=== PATIENT | female | born 1955 | race Caucasian/White ===

== ENCOUNTER 2020-12-23 07:00 | Inpatient (IN) ==
[2020-12-21 11:15] LABS: Basophils # (Auto) 0.03 K/mcL (0.00-0.20); Basophils % (Auto) 0.5 % (0.0-2.0); Eosinophils # (Auto) 0.07 K/mcL (0.00-0.70); Eosinophils % (Auto) 1.2 % (0.0-7.0); Hematocrit 33.7 % (36.0-48.0); Hemoglobin 11.4 g/dL (12.0-15.0); Lymphocytes # (Auto) 2.06 K/mcL (1.50-4.80); Lymphocytes % (Auto) 35.2 % (15.0-49.0); Mean Cell Volume 93.1 fL (80.0-100.0); Mean Corpuscular HGB Conc 33.8 g/dL (31.0-36.0); Mean Platelet Volume 9.3 fL (7.4-10.4); Monocytes # (Auto) 0.56 K/mcL (0.10-0.90); Monocytes % (Auto) 9.6 % (1.0-12.0); Neutrophils % (Auto) 53.5 % (38.0-78.0); Platelet Count 245 K/mcL (140-440); RBC 3.62 M/mcL (4.00-5.20); WBC 5.9 K/mcL (4.5-11.0)
[2020-12-21 11:27] LABS: Blood Urea Nitrogen 18 mg/dL (8-23); Calcium 9.7 mg/dL (8.6-10.4); Carbon Dioxide 31 mmol/L (22-30); Chloride 98 mmol/L (96-108); Glomerular Filtration Rate 66; Glucose 84 mg/dL (70-105)
--- NOTE | 2020-12-21 16:09 | EKG ---
[facility] Test Date: 2020-12-21 Pat Name: Flavia Michelle Department: [facility] Room: Gender: Female Curriculum Development Manager: : [id number] Requested By: Doe Avery Order Number: [id number] Reading MD: Akshat Billy M.D. Measurements Intervals [place] Rate: 57 P: 57 UT: 228 QRS: 48 QRSD: 108 T: 8 QT: 456 QTc: 444 Interpretive Statements SINUS BRADYCARDIA FIRST DEGREE AV BLOCK PROBABLE LEFT ATRIAL ABNORMALITY Electronically Signed On 12-21-2020 16:09:31 PDT by Akshat Billy M.D. /[email or web address]/[email or web address]/[id number]
[~2020-12-23 07:00] MED LIST: IPRATROPIUM/ALBUTEROL 3 ML AMPUL.NEB NEB PRN; SCOPOLAMINE 1 PATCH PATCH TOPICAL PRN; ceFAZolin 2 GM in DEXTROSE 5% IN WATER 50 ML IV SCH
[2020-12-23 09:43] LABS: Appearance,Urine HAZY (Clear); Bilirubin,Urine Negative (Negative); Color,Urine Yellow; Culture Indicated,Urine yes; Glucose,Urine (UA) Negative (Negative); Ketones,Urine Negative (Negative); Leukocyte Esterase,Urine 500 /ug (Negative); Mucus,Urine MOD /hpf; Nitrate,Urine Negative (Negative); Protein,Urine Negative (Negative); Specific Gravity,Urine 1.032 (1.000-1.035); Urine Blood Negative (Negative); Urine Hyaline Cast 18 /lph (0-2); Urine RBC 3 /hpf (0-3); Urine Squamous Epithelial Cell < 1 /hpf (0-4); Urine Transitional Epi Cells 1 /hpf (0-2); Urine WBC 49 /hpf (0-4); Urobilinogen,Urine Negative
[2020-12-23] MEDS ORDERED: LIDOCAINE 1% 20 ML VIAL SQ ONE (10:00)
[2020-12-23] MEDS ORDERED: BUPIVACAINE W/EPI 0.5% 50 ML VIAL IJ ONE (10:00)
[2020-12-23] MEDS ORDERED: IPRATROPIUM/ALBUTEROL 3 ML AMPUL.NEB NEB PRN (11:24)
[2020-12-23] MEDS ORDERED: ONDANSETRON 4 MG/2 ML VIAL IV PRN (11:24)
[2020-12-23] MEDS ORDERED: ePHEDrine 50 MG/ML AMPUL IV PRN (11:24)
[2020-12-23] MEDS ORDERED: BENZOCAINE/MENTHOL 1 LOZENGE PO PRN (11:24)
[2020-12-23] MEDS ORDERED: KETOROLAC 15 MG/ML VIAL IV PRN (11:24)
[2020-12-23] MEDS ORDERED: LABETALOL 5 MG/ML ML IV PRN (11:24)
[2020-12-23] MEDS ORDERED: LACTATED RINGERS 250 ML IV PRN (11:24)
[2020-12-23] MEDS ORDERED: ACETAMINOPHEN 1,000 MG/100 ML BAG IV ONE (11:24)
[2020-12-23] MEDS ORDERED: fentaNYL 100 MCG/2 ML VIAL IV PRN (11:24)
[2020-12-23] MEDS ORDERED: LACTATED RINGERS 1,000 ML IV SCH (11:30)
--- NOTE | 2020-12-23 12:03 | Operative Note ---
Brief Operative Note Date of procedure: 12/23/20 Pre-op diagnosis: Long history of symptomatic diverticulitis Post-op diagnosis: same Procedure: Sigmoid colectomy Grafts/Implants: No Anesthesia: GETA Findings: Inflamed distal sigmoid colon Complications: none Surgeon: Williams Arevalo Estimated blood loss (cc): 100 Specimens Removed/Pathology: other (Sigmoid colon, anastomotic donuts) Condition: stable Disposition: floor Operative Note Operative Note: After risk benefits and alternatives to the procedure were discussed with her at length she verbalized desire to continue with the procedure. Patient was taken main operating place upon the operative table. General anesthesia was induced over endotracheal tube. Patient's prepped and draped in standard sterile surgical fashion. Surgical timeout was taken to verify patient and procedure being performed. 1% lidocaine half percent Marcaine was used for local anesthesia throughout the case. Supraumbilical incision was made the fascia was grasped and opened under direct vision and a 12 mm trocar was placed. Abdominal cavity was insufflated carbon oxide in standard fashion. Visual inspection revealed lower midline omental adhesions to her prior incision. An additional 12 mm right lower quadrant trocar and a 5 mm right-sided trochars were then placed under direct vision. Extensive lysis of adhesions was taken out to take down the midline omental adhesions patient was placed in a headdown left side up position and attention was turned to the sigmoid colon. There is dense adhesions all around the sigmoid colon in the pelvis, these were carefully taken down with sharp and electrocautery dissection to fully mobilized the sigmoid colon. The rectum was then transected at the rectosigmoid junction and the mesentery was taken down to healthy-appearing colon with the LigaSure device. EEA sizers were then brought up through the rectum and it was unable to reach the end of the rectum due to further adhesions therefore decision made to open the midline incision further for open dissection. The midline was extended down to the pubic tubercle, retractors were placed and attention was turned to the rectum once this was done the sizers were able to be brought up to the end of the rectum without difficulty and the rectum was dilated to a 33 EEA sizer. The colon was then transected just proximal to the most inflamed portion of the sigmoid colon and the sigmoid colon was passed off the field for surgical pathology. The end of the colon was opened a 29 EEA anvil was placed and the colon was closed with a 3-0 Prolene pursestring suture. The 29 EEA stapler was then brought up through the rectum and a end-to-end stapled anastomosis was performed. A leak test was was performed which showed the anastomosis to be widely patent and completely airtight with no evidence of leak. The abdominal cavity was irrigated the colon was returned to its anatomical position the omentum was returned back to the pelvis and the rest of abdominal expiration was within normal limits. The midline fascial defect was then closed with a running looped PDS suture and the skin was closed with interrupted 4-0 Monocryl sutures. Skin glue dressings were applied. Patient was then awakened from anesthesia transported postanesthesia care unit awake alert in good condition.
[2020-12-23] MEDS ORDERED: IBUPROFEN 600 MG TABLET PO PRN (12:09)
[2020-12-23] MEDS: MEPERIDINE 25 MG/ML VIAL IV PRN ×2 (12:13→12:22)
[2020-12-23] MEDS: LACTATED RINGERS 1,000 ML IV SCH ×2 (12:42→16:44)
[2020-12-23] MEDS: KETOROLAC 15 MG/ML VIAL IV SCH ×2 (13:10→18:04)
[2020-12-23] MEDS ORDERED: ePHEDrine 50 MG/ML AMPUL IV ONE (13:45)
[2020-12-23] MEDS ORDERED: LIDOCAINE HCL/PF 100 MG/5 ML SYRINGE IV ONE (13:45)
[2020-12-23] MEDS ORDERED: MAGNESIUM SULFATE 2 GM/50 ML BAG IV ONE (13:45)
[2020-12-23] MEDS ORDERED: MIDAZOLAM HCL 10 MG/2 ML VIAL ONE (13:45)
[2020-12-23] MEDS ORDERED: fentaNYL 100 MCG/2 ML VIAL IV ONE (13:45)
[2020-12-23] MEDS ORDERED: DEXAMETHASONE 10 MG/ML VIAL ONE (13:45)
[2020-12-23] MEDS ORDERED: KETAMINE 50 MG/ML ML ONE (13:45)
[2020-12-23] MEDS ORDERED: ROCURONIUM 10 MG/ML ML IV ONE (13:45)
[2020-12-23] MEDS ORDERED: ONDANSETRON 4 MG/2 ML VIAL ONE (13:45)
[2020-12-23] MEDS ORDERED: HYDROMORPHONE ONE (13:45)
[2020-12-23] MEDS ORDERED: PROPOFOL 200 MG/20 ML VIAL IV ONE (13:45)
[2020-12-23] MEDS ORDERED: GLYCOPYRROLATE 0.2 MG/ML VIAL IV ONE (13:45)
[2020-12-23] MEDS ORDERED: VASOPRESSIN 20 UNIT/ML VIAL ONE (13:45)
[2020-12-23] MEDS ORDERED: PHENYLEPHRINE 10 MG/ML VIAL ONE (13:45)
[2020-12-23] MEDS: oxyCODONE HCL 5 MG TABLET PO PRN ×2 (14:10→19:35)
[2020-12-23] MEDS: 0.9 % SODIUM CHLORIDE 10 ML SYRINGE IV SCH ×2 (14:11→22:39)
[2020-12-24] MEDS: oxyCODONE HCL 5 MG TABLET PO PRN ×2 (00:25→12:38)
[2020-12-24] MEDS: LACTATED RINGERS 1,000 ML IV SCH ×3 (00:25→12:01)
[2020-12-24] MEDS: KETOROLAC 15 MG/ML VIAL IV SCH ×5 (00:49→23:01)
[2020-12-24] MEDS: 0.9 % SODIUM CHLORIDE 10 ML SYRINGE IV SCH ×3 (05:01→23:00)
[2020-12-24] MEDS: LEVOTHYROXINE 25 MCG TABLET PO SCH (08:25)
[2020-12-24] MEDS: HYDROCHLOROTHIAZIDE 25 MG TABLET PO SCH (09:29)
[2020-12-24] MEDS: LISINOPRIL 20 MG TABLET PO SCH (09:29)
--- NOTE | 2020-12-24 09:29 | General Surgery Progress Note ---
SUBJECTIVE Subjective Patient information: Note initiated : 12/24/20 at 9:27 am Service Date, if different from initiated Date: [] Patient: Flavia Michelle 65 y/o F admitted on 12/23/20 for Laparoscopic Sigmoid Colectomy. Chief Complaint: [] Interval history: Postop day #1 status post sigmoid colectomy. Patient reports passing flatus, she is ambulatory with minimal pain. Constitutional Vitals: Vital Signs Temp Pulse Resp BP Pulse Ox 99 F 66 18 132/73 99 12/24/20 07:49 12/24/20 07:49 12/24/20 07:49 12/24/20 07:49 12/24/20 07:49 Period Temp Pulse Resp BP Sys/Engle Pulse Ox Last 24 Hr 97.2 F-99.1 F 60-90 12-22 102-137/40-73 88-99 Intake and Output 12/23/20 12/24/20 12/24/20 21:59 05:59 13:59 Intake Total 1304 1260 1000 Output Total 100 200 Balance 1204 1060 1000 Weight 183 lb 6.4 oz Intake & Output: Intake & Output 12/23/20 12/24/20 12/24/20 21:59 05:59 13:59 Intake Total 1304 1260 1000 Output Total 100 200 Balance 1204 1060 1000 Weight 183 lb 6.4 oz Intake: IV 298 052 7246 Lactated Ringers 1,000 ml @ 125 705 715 3368 mls/hr IV .Q8H ABDI Rx#: [id number] Oral 800 300 Output: Void Amount 100 200 Other: Urine Appearance Clear Clear Urine Color Bright Yellow Bright Yellow General appearance: cooperative and no acute distress GI/Abdominal GI/Abdominal exam: Present soft and tenderness (Appropriately tender to palpation, incision is clean dry and intact); Absent distended A/P Narrative A/P Narrative: Postop day #1 status post sigmoid colectomy. Patient is doing as expected, encourage ambulation today. Will advance diet to full liquids awaiting full return of bowel function. Time Spent With Patient Time: Total time spent is greater than 50% in coordination of care (as documented) at patient's floor/unit and/or counseling patient:
[2020-12-24] MEDS: DEXTROSE 5%-1/2NS W/20MEQ KCL 1,000 ML IV SCH ×2 (14:56→23:02)
[2020-12-25] MEDS: oxyCODONE HCL 5 MG TABLET PO PRN ×4 (01:20→22:47)
[2020-12-25] MEDS: KETOROLAC 15 MG/ML VIAL IV SCH (05:06)
[2020-12-25] MEDS: 0.9 % SODIUM CHLORIDE 10 ML SYRINGE IV SCH ×3 (07:37→23:21)
[2020-12-25] MEDS: LEVOTHYROXINE 25 MCG TABLET PO SCH (08:20)
[2020-12-25 08:22] LABS: Basophils # (Auto) 0.02 K/mcL (0.00-0.20); Basophils % (Auto) 0.2 % (0.0-2.0); Eosinophils % (Auto) 1.2 % (0.0-7.0); Hematocrit 26.7 % (36.0-48.0); Hemoglobin 8.9 g/dL (12.0-15.0); Lymphocytes # (Auto) 1.85 K/mcL (1.50-4.80); Lymphocytes % (Auto) 21.8 % (15.0-49.0); Mean Cell Volume 94.7 fL (80.0-100.0); Mean Corpuscular HGB Conc 33.3 g/dL (31.0-36.0); Mean Platelet Volume 9.5 fL (7.4-10.4); Monocytes # (Auto) 0.69 K/mcL (0.10-0.90); Monocytes % (Auto) 8.1 % (1.0-12.0); Neutrophils % (Auto) 68.7 % (38.0-78.0); Platelet Count 181 K/mcL (140-440); RBC 2.82 M/mcL (4.00-5.20); Red Cell Distribution Width 13.2 % (11.5-14.5); WBC 8.5 K/mcL (4.5-11.0)
[2020-12-25 08:23] LABS: Blood Urea Nitrogen 11 mg/dL (8-23); Calcium 8.9 mg/dL (8.6-10.4); Carbon Dioxide 27 mmol/L (22-30); Chloride 93 mmol/L (96-108); Glomerular Filtration Rate 90; Glucose 104 mg/dL (70-105)
[2020-12-25] MEDS: DEXTROSE 5%-1/2NS W/20MEQ KCL 1,000 ML IV SCH ×3 (09:02→22:47)
--- NOTE | 2020-12-25 09:06 | General Surgery Progress Note ---
SUBJECTIVE Subjective Patient information: Note initiated : 12/25/20 at 9:05 am Service Date, if different from initiated Date: [] Patient: Flavia Michelle 65 y/o F admitted on 12/23/20 for Laparoscopic Sigmoid Colectomy. Chief Complaint: [] Interval history: Postop day #2 status post sigmoid colectomy. Patient is ambulatory, she is tolerating a full liquid diet, she is passing flatus, no bowel movement as of yet. Constitutional Vitals: Vital Signs Temp Pulse Resp BP Pulse Ox 97.4 F 60 20 111/52 90 12/25/20 07:55 12/25/20 07:55 12/25/20 07:55 12/25/20 07:55 12/25/20 07:55 Period Temp Pulse Resp BP Sys/Engle Pulse Ox Last 24 Hr 96.8 F-98.4 F 16-78 16-20 111-129/52-76 90-99 Intake and Output 12/24/20 12/25/20 12/25/20 21:59 05:59 13:59 Intake Total 800 1210 1000 Output Total 0 Balance 800 1210 1000 Weight 185 lb 3.2 oz Intake & Output: Intake & Output 12/24/20 12/25/20 12/25/20 21:59 05:59 13:59 Intake Total 800 1210 1000 Output Total 0 Balance 800 1210 1000 Weight 185 lb 3.2 oz Intake: IV 492 681 9404 Dextrose 5%-1/2Ns W/20Meq KCl 1 810 1000 ,000 ml @ 100 mls/hr IV .Q10H ABDI Rx#:[id number] Lactated Ringers 1,000 ml @ 125 800 mls/hr IV .Q8H ABDI Rx#: [id number] Oral 400 Output: Void Amount 0 Other: Urine Appearance Clear Urine Color Bright Yellow # Voids 1 General appearance: cooperative and no acute distress GI/Abdominal GI/Abdominal exam: Present soft and tenderness; Absent distended Additional comments: Incision is clean dry and intact A/P Narrative A/P Narrative: Postop day #2 status post sigmoid colectomy. Patient is progressing as expected, will decrease IV fluid, recheck labs in the a.m. Awaiting return of full bowel function. Time Spent With Patient Time: Total time spent is greater than 50% in coordination of care (as documented) at patient's floor/unit and/or counseling patient:
[2020-12-25] MEDS: HYDROCHLOROTHIAZIDE 25 MG TABLET PO SCH (12:53)
[2020-12-25] MEDS: LISINOPRIL 20 MG TABLET PO SCH (12:54)
[2020-12-26] MEDS: oxyCODONE HCL 5 MG TABLET PO PRN ×2 (05:01→12:54)
[2020-12-26 06:43] LABS: Basophils # (Auto) 0.03 K/mcL (0.00-0.20); Basophils % (Auto) 0.5 % (0.0-2.0); Eosinophils # (Auto) 0.09 K/mcL (0.00-0.70); Eosinophils % (Auto) 1.4 % (0.0-7.0); Hematocrit 27.7 % (36.0-48.0); Hemoglobin 9.3 g/dL (12.0-15.0); Lymphocytes # (Auto) 1.43 K/mcL (1.50-4.80); Lymphocytes % (Auto) 22.2 % (15.0-49.0); Mean Cell Volume 94.9 fL (80.0-100.0); Mean Corpuscular HGB Conc 33.6 g/dL (31.0-36.0); Mean Platelet Volume 9.4 fL (7.4-10.4); Monocytes # (Auto) 0.52 K/mcL (0.10-0.90); Monocytes % (Auto) 8.1 % (1.0-12.0); Neutrophils % (Auto) 67.8 % (38.0-78.0); Platelet Count 202 K/mcL (140-440); RBC 2.92 M/mcL (4.00-5.20); Red Cell Distribution Width 13.3 % (11.5-14.5); WBC 6.5 K/mcL (4.5-11.0)
[2020-12-26] MEDS: 0.9 % SODIUM CHLORIDE 10 ML SYRINGE IV SCH ×3 (06:47→20:50)
[2020-12-26] MEDS: LEVOTHYROXINE 25 MCG TABLET PO SCH (07:02)
[2020-12-26 07:39] LABS: Blood Urea Nitrogen 6 mg/dL (8-23); Carbon Dioxide 25 mmol/L (22-30); Chloride 97 mmol/L (96-108); Glomerular Filtration Rate 94; Glucose 98 mg/dL (70-105)
--- NOTE | 2020-12-26 08:35 | General Surgery Progress Note ---
SUBJECTIVE Subjective Patient information: Note initiated : 12/26/20 at 8:33 am Service Date, if different from initiated Date: [] Patient: Flavia Michelle 65 y/o F admitted on 12/23/20 for Laparoscopic Sigmoid Colectomy. Chief Complaint: [] Interval history: Postop day #3 status post sigmoid colectomy. Patient is ambulatory, tolerating liquid diet. She is passing flatus. Abdominal pain is minimal. She has no bowel movement Constitutional Vitals: Vital Signs Temp Pulse Resp BP Pulse Ox 98.7 F 70 16 137/62 95 12/26/20 04:56 12/26/20 04:56 12/26/20 04:56 12/26/20 04:56 12/26/20 04:56 Period Temp Pulse Resp BP Sys/Engle Pulse Ox Last 24 Hr 98.6 F-99.3 F 67-74 14-18 113-139/58-65 90-95 Intake and Output 12/25/20 12/26/20 12/26/20 21:59 05:59 13:59 Intake Total 560 1195 Balance 560 1195 Intake & Output: Intake & Output 12/25/20 12/26/20 12/26/20 21:59 05:59 13:59 Intake Total 560 1195 Balance 560 1195 Intake: IV 995 Dextrose 5%-1/2Ns W/20Meq KCl 1 995 ,000 ml @ 75 mls/hr IV .[id number] ABDI Rx#:[id number] Oral 560 200 Other: Meal Dinner Percent of Meal Consumed 100% # Voids 4 1 General appearance: cooperative and no acute distress GI/Abdominal GI/Abdominal exam: Present soft; Absent distended and tenderness A/P Narrative A/P Narrative: Postop visit #3 status post sigmoid colectomy. Awaiting full return of bowel movement. Continue ambulation, restart all home medications. Time Spent With Patient Time: Total time spent is greater than 50% in coordination of care (as documented) at patient's floor/unit and/or counseling patient:
[2020-12-26] MEDS: PRIMIDONE 50 MG TABLET PO SCH ×2 (08:46→20:50)
[2020-12-26] MEDS: VITAMIN E (DL,TOCOPHERYL ACET) 400 UNIT CAPSULE PO SCH (08:46)
[2020-12-26] MEDS: HYDROCHLOROTHIAZIDE 25 MG TABLET PO SCH (08:46)
[2020-12-26] MEDS: LISINOPRIL 20 MG TABLET PO SCH (08:46)
[2020-12-26] MEDS: buPROPion 150 MG TAB.XL.24H PO SCH (08:47)
[2020-12-26] MEDS: PANTOPRAZOLE 40 MG TABLET PO SCH ×2 (08:47→16:42)
[2020-12-26] MEDS: FUROSEMIDE 20 MG TABLET PO SCH (08:47)
[2020-12-26] MEDS: BUDESONIDE 3 MG CAP.XL.24H PO SCH (08:58)
[2020-12-26] MEDS: METHOCARBAMOL 500 MG TABLET PO PRN (08:58)
--- NOTE | 2020-12-26 13:06 | Surgical Pathology Report ---
Histology Microscopic Diagnosis Specimen A- COLON, SIGMOID, EXCISION: --- TWO FRAGMENTS OF VIABLE COLON WALL WITH NO HISTOLOGIC ALTERATIONS. Procedural Impression Diverticulitis. Gross Description Received in formalin labeled colon resection sigmoid segmental, are two colon donut fragments. The first measures 2.7 x 1.9 x 1.3 cm. The second measures 2.2 x 1.3 x 1.1 cm. Building Admin sections are submitted in one cassette. Microscopic Diagnosis Specimen B- COLON, SIGMOID, SEGMENTAL RESECTION: --- DIVERTICULOSIS. --- MARGINS VIABLE. (DMT) Gross Description Received in formalin labeled sigmoid tissue, is an unoriented length of colon received with both ends stapled. The specimen measures 12.6 cm in length by up to 3.5 cm in greatest diameter. There is abundant attached pericolic fat. The serosa is unremarkable. The staple lines measure 4.3 cm and 4 cm. The specimen is opened to reveal johnson-pink folded mucosa. One diverticulum is identified 2 cm from one staple line. The mucosa is otherwise unremarkable. No mass or lesion is identified. No lymph nodes are grossly identified. Building Admin sections are submitted: B1 - margin nearest diverticulum; B2 - opposing margin; B3 - sections of diverticulum; B4 - grossly normal mucosa. (EBD:bmw) Electronically Signed Gopal Melendez MD, FCAP Electronically Signed 12/26/2020 13:03
[2020-12-26] MEDS: DEXTROSE 5%-1/2NS W/20MEQ KCL 1,000 ML IV SCH (13:57)
[2020-12-26] MEDS: ACETAMINOPHEN 325 MG TABLET PO PRN (17:48)
[2020-12-26] MEDS: NITROFURANTOIN MACROCRYSTAL 50 MG PO SCH (20:50)
[2020-12-26] MEDS: PRAMIPEXOLE 0.25 MG TABLET PO SCH (20:50)
[2020-12-27] MEDS: 0.9 % SODIUM CHLORIDE 10 ML SYRINGE IV SCH ×3 (06:25→21:11)
[2020-12-27] MEDS: LEVOTHYROXINE 25 MCG TABLET PO SCH (07:26)
[2020-12-27] MEDS: PANTOPRAZOLE 40 MG TABLET PO SCH ×2 (07:26→17:09)
[2020-12-27] MEDS: VITAMIN E (DL,TOCOPHERYL ACET) 400 UNIT CAPSULE PO SCH (08:28)
[2020-12-27] MEDS: PRIMIDONE 50 MG TABLET PO SCH ×2 (08:28→21:11)
[2020-12-27] MEDS: buPROPion 150 MG TAB.XL.24H PO SCH (08:28)
[2020-12-27] MEDS: LISINOPRIL 20 MG TABLET PO SCH (08:28)
[2020-12-27] MEDS: FUROSEMIDE 20 MG TABLET PO SCH (08:29)
[2020-12-27] MEDS: HYDROCHLOROTHIAZIDE 25 MG TABLET PO SCH (08:29)
[2020-12-27] MEDS: POTASSIUM CHLORIDE 20 MEQ TABLET PO SCH (08:29)
[2020-12-27] MEDS: BUDESONIDE 3 MG CAP.XL.24H PO SCH (09:02)
[2020-12-27] MEDS: oxyCODONE HCL 5 MG TABLET PO PRN ×2 (09:08→14:09)
--- NOTE | 2020-12-27 14:21 | General Surgery Progress Note ---
SUBJECTIVE Subjective Patient information: Note initiated : 12/27/20 at 2:03 pm Service Date, if different from initiated Date: [] Patient: Flavia Michelle 65 y/o F admitted on 12/23/20 for Laparoscopic Sigmoid Colectomy. Chief Complaint: [] Interval history: Postop day #4 status post sigmoid colectomy, patient is having increased amount of gas pains today, reports flatus but no bowel movement at this time. She is tolerating full liquid diet without nausea or vomiting. She has been ambulatory since surgery. Constitutional Vitals: Vital Signs Temp Pulse Resp BP Pulse Ox 99.1 F H 69 22 118/55 90 12/27/20 12:00 12/27/20 12:00 12/27/20 12:00 12/27/20 12:00 12/27/20 12:00 Period Temp Pulse Resp BP Sys/Engle Pulse Ox Last 24 Hr 98.1 F-100.0 F 68-85 14-22 107-149/51-68 90-96 Intake and Output 12/27/20 12/27/20 12/27/20 05:59 13:59 21:59 Intake Total 450 Output Total 150 Balance 300 Weight 182 lb 8 oz Intake & Output: Intake & Output 12/27/20 12/27/20 12/27/20 05:59 13:59 21:59 Intake Total 450 Output Total 150 Balance 300 Weight 182 lb 8 oz Intake: Oral 450 Output: Void Amount 150 Other: Urine Appearance Clear Urine Color Dark Yellow General appearance: cooperative and no acute distress GI/Abdominal GI/Abdominal exam: Present soft and distended (Mild distention); Absent rebound and tenderness A/P Narrative A/P Narrative: Awaiting full return of bowel movement. Encourage ambulation, will start simethicone. We will recheck labs tomorrow. Time Spent With Patient Time: Total time spent is greater than 50% in coordination of care (as documented) at patient's floor/unit and/or counseling patient:
[2020-12-27] MEDS: SIMETHICONE 80 MG TAB.CHEW CHEWED PRN (15:00)
[2020-12-27] MEDS: PRAMIPEXOLE 0.25 MG TABLET PO SCH (21:11)
[2020-12-27] MEDS: NITROFURANTOIN MACROCRYSTAL 50 MG PO SCH (21:11)
[2020-12-28] MEDS: SIMETHICONE 80 MG TAB.CHEW CHEWED PRN ×2 (05:23→15:20)
[2020-12-28] MEDS: oxyCODONE HCL 5 MG TABLET PO PRN ×4 (05:23→19:59)
[2020-12-28] MEDS: 0.9 % SODIUM CHLORIDE 10 ML SYRINGE IV SCH ×3 (05:24→21:47)
[2020-12-28 06:43] LABS: Basophils # (Auto) 0.01 K/mcL (0.00-0.20); Basophils % (Auto) 0.1 % (0.0-2.0); Eosinophils # (Auto) 0.09 K/mcL (0.00-0.70); Eosinophils % (Auto) 1.1 % (0.0-7.0); Hematocrit 26.2 % (36.0-48.0); Hemoglobin 8.7 g/dL (12.0-15.0); Lymphocytes # (Auto) 1.32 K/mcL (1.50-4.80); Lymphocytes % (Auto) 15.7 % (15.0-49.0); Mean Cell Volume 93.2 fL (80.0-100.0); Mean Corpuscular HGB Conc 33.2 g/dL (31.0-36.0); Mean Platelet Volume 9.3 fL (7.4-10.4); Monocytes # (Auto) 0.83 K/mcL (0.10-0.90); Monocytes % (Auto) 9.9 % (1.0-12.0); Neutrophils % (Auto) 73.2 % (38.0-78.0); Platelet Count 228 K/mcL (140-440); RBC 2.81 M/mcL (4.00-5.20); Red Cell Distribution Width 13.1 % (11.5-14.5); WBC 8.4 K/mcL (4.5-11.0)
[2020-12-28 07:11] LABS: Blood Urea Nitrogen 11 mg/dL (8-23); Carbon Dioxide 27 mmol/L (22-30); Chloride 96 mmol/L (96-108); Glomerular Filtration Rate 90; Glucose 88 mg/dL (70-105)
[2020-12-28] MEDS: FAMOTIDINE 20 MG TABLET PO PRN (10:49)
[2020-12-28] MEDS: POTASSIUM CHLORIDE 20 MEQ TABLET PO SCH (10:49)
[2020-12-28] MEDS: buPROPion 150 MG TAB.XL.24H PO SCH (10:49)
[2020-12-28] MEDS: LEVOTHYROXINE 25 MCG TABLET PO SCH (10:49)
[2020-12-28] MEDS: FUROSEMIDE 20 MG TABLET PO SCH (10:50)
[2020-12-28] MEDS: LISINOPRIL 20 MG TABLET PO SCH (10:50)
[2020-12-28] MEDS: METHOCARBAMOL 500 MG TABLET PO PRN (10:50)
[2020-12-28] MEDS: HYDROCHLOROTHIAZIDE 25 MG TABLET PO SCH (10:51)
[2020-12-28] MEDS: PANTOPRAZOLE 40 MG TABLET PO SCH ×2 (10:51→16:23)
[2020-12-28] MEDS: BUDESONIDE 3 MG CAP.XL.24H PO SCH (10:51)
[2020-12-28] MEDS: VITAMIN E (DL,TOCOPHERYL ACET) 400 UNIT CAPSULE PO SCH (10:56)
[2020-12-28] MEDS: PRIMIDONE 50 MG TABLET PO SCH ×2 (12:31→21:52)
[2020-12-28] MEDS: ACETAMINOPHEN 325 MG TABLET PO PRN ×2 (15:20→23:21)
--- NOTE | 2020-12-28 15:51 | General Surgery Progress Note ---
SUBJECTIVE Subjective Patient information: Note initiated : 12/28/20 at 3:50 pm Service Date, if different from initiated Date: [] Patient: Flavia Michelle 65 y/o F admitted on 12/23/20 for Laparoscopic Sigmoid Colectomy. Chief Complaint: [] Interval history: Postop day #5 status post sigmoid colectomy. Patient reports overnight her bowels became much more active, she started passing multiple bouts of flatus, has not had a bowel movement as of yet. Patient no longer feels distended, she has no nausea or vomiting. Constitutional Vitals: Vital Signs Temp Pulse Resp BP Pulse Ox 99.0 F 71 20 124/54 95 12/28/20 11:59 12/28/20 11:59 12/28/20 11:59 12/28/20 11:59 12/28/20 11:59 Period Temp Pulse Resp BP Sys/Engle Pulse Ox Last 24 Hr 98.1 F-99.2 F 67-77 14-20 124-148/54-62 92-95 Intake and Output 12/28/20 12/28/20 12/28/20 05:59 13:59 21:59 Intake Total 250 540 Output Total 200 900 Balance 50 -360 Intake & Output: Intake & Output 12/28/20 12/28/20 12/28/20 05:59 13:59 21:59 Intake Total 250 540 Output Total 200 900 Balance 50 -360 Intake: Oral 250 540 Output: Void Amount 200 900 Other: Meal Breakfast Percent of Meal Consumed 75% Feeding Ability Assist with Tray Set Up Urine Appearance Clear Urine Color Bright Yellow Dark Yellow Urine Odor Strong General appearance: cooperative and no acute distress GI/Abdominal GI/Abdominal exam: Present normal bowel sounds and soft; Absent distended and tenderness A/P Narrative A/P Narrative: Post sigmoid colectomy. Awaiting full return of bowel function. We will advance diet to regular today anticipating discharge in the next 24 to 48 hours. Time Spent With Patient Time: Total time spent is greater than 50% in coordination of care (as documented) at patient's floor/unit and/or counseling patient:
[2020-12-28] MEDS: NITROFURANTOIN MACROCRYSTAL 50 MG PO SCH (21:47)
[2020-12-28] MEDS: PRAMIPEXOLE 0.25 MG TABLET PO SCH (21:52)
[2020-12-29] MEDS: 0.9 % SODIUM CHLORIDE 10 ML SYRINGE IV SCH ×3 (05:09→20:35)
[2020-12-29] MEDS: VITAMIN E (DL,TOCOPHERYL ACET) 400 UNIT CAPSULE PO SCH (09:42)
[2020-12-29] MEDS: PANTOPRAZOLE 40 MG TABLET PO SCH ×2 (09:42→17:37)
[2020-12-29] MEDS: FUROSEMIDE 20 MG TABLET PO SCH (09:42)
[2020-12-29] MEDS: LEVOTHYROXINE 25 MCG TABLET PO SCH (09:42)
[2020-12-29] MEDS: FAMOTIDINE 20 MG TABLET PO PRN (09:42)
[2020-12-29] MEDS: LISINOPRIL 20 MG TABLET PO SCH (09:42)
[2020-12-29] MEDS: POTASSIUM CHLORIDE 20 MEQ TABLET PO SCH (09:42)
[2020-12-29] MEDS: SIMETHICONE 80 MG TAB.CHEW CHEWED PRN (09:42)
[2020-12-29] MEDS: PRIMIDONE 50 MG TABLET PO SCH ×2 (09:43→20:34)
[2020-12-29] MEDS: HYDROCHLOROTHIAZIDE 25 MG TABLET PO SCH (09:43)
[2020-12-29] MEDS: buPROPion 150 MG TAB.XL.24H PO SCH (09:43)
[2020-12-29] MEDS: BUDESONIDE 3 MG CAP.XL.24H PO SCH (09:43)
[2020-12-29] MEDS: oxyCODONE HCL 5 MG TABLET PO PRN ×3 (09:43→22:28)
[2020-12-29] MEDS: METHOCARBAMOL 500 MG TABLET PO PRN ×2 (09:43→17:35)
[2020-12-29] MEDS: PRAMIPEXOLE 0.25 MG TABLET PO SCH (20:34)
[2020-12-29] MEDS: NITROFURANTOIN MACROCRYSTAL 50 MG PO SCH (20:35)
[2020-12-30] MEDS: 0.9 % SODIUM CHLORIDE 10 ML SYRINGE IV SCH ×4 (02:51→20:54)
[2020-12-30] MEDS: oxyCODONE HCL 5 MG TABLET PO PRN ×3 (03:02→11:52)
[2020-12-30] MEDS: METHOCARBAMOL 500 MG TABLET PO PRN ×2 (03:03→10:18)
[2020-12-30] MEDS: LEVOTHYROXINE 25 MCG TABLET PO SCH (07:19)
[2020-12-30] MEDS: PANTOPRAZOLE 40 MG TABLET PO SCH ×2 (07:19→16:22)
--- NOTE | 2020-12-30 08:10 | General Surgery Progress Note ---
SUBJECTIVE Subjective Patient information: Note initiated : 12/30/20 at 8:08 am Service Date, if different from initiated Date: [] Patient: Flavia Michelle 65 y/o F admitted on 12/23/20 for Laparoscopic Sigmoid Colectomy. Chief Complaint: [] Interval history: Status post sigmoid colectomy. Patient feeling more distended today, decreased flatus over the last 24 hours. Ambulatory. No fevers no chills. Constitutional Vitals: Vital Signs Temp Pulse Resp BP Pulse Ox 97.6 F 90 20 95/50 91 12/30/20 07:47 12/30/20 07:47 12/30/20 07:47 12/30/20 07:47 12/30/20 07:47 Period Temp Pulse Resp BP Sys/Engle Pulse Ox Last 24 Hr 97.3 F-98.7 F 56-90 16-20 92-113/45-84 91-95 Intake and Output 12/29/20 12/30/20 12/30/20 21:59 05:59 13:59 Intake Total 0 400 Output Total 600 Balance 0 -200 Weight 176 lb 8 oz Intake & Output: Intake & Output 12/29/20 12/30/20 12/30/20 21:59 05:59 13:59 Intake Total 0 400 Output Total 600 Balance 0 -200 Weight 176 lb 8 oz Intake: Oral 0 400 Output: Void Amount 600 Other: Urine Appearance Clear Urine Color Bright Yellow General appearance: cooperative and no acute distress GI/Abdominal GI/Abdominal exam: Present soft and distended; Absent tenderness A/P Narrative A/P Narrative: Postop sigmoid colectomy. Postop ileus, awaiting return of full bowel function. We will add Colace today. Time Spent With Patient Time: Total time spent is greater than 50% in coordination of care (as documented) at patient's floor/unit and/or counseling patient:
[2020-12-30] MEDS: POTASSIUM CHLORIDE 20 MEQ TABLET PO SCH (08:25)
[2020-12-30] MEDS: DOCUSATE SODIUM 100 MG CAPSULE PO SCH ×2 (08:25→20:51)
[2020-12-30] MEDS: buPROPion 150 MG TAB.XL.24H PO SCH (08:27)
[2020-12-30] MEDS: FUROSEMIDE 20 MG TABLET PO SCH (08:27)
[2020-12-30] MEDS: PRIMIDONE 50 MG TABLET PO SCH ×2 (08:28→20:50)
[2020-12-30] MEDS: HYDROCHLOROTHIAZIDE 25 MG TABLET PO SCH (08:28)
[2020-12-30] MEDS: LISINOPRIL 20 MG TABLET PO SCH (08:28)
[2020-12-30] MEDS: VITAMIN E (DL,TOCOPHERYL ACET) 400 UNIT CAPSULE PO SCH (08:29)
[2020-12-30] MEDS: DEXTROSE 5%-1/2NS 1,000 ML IV SCH ×3 (10:08→23:49)
[2020-12-30] MEDS: ACETAMINOPHEN 325 MG TABLET PO PRN (10:19)
[2020-12-30] MEDS: BUDESONIDE 3 MG CAP.XL.24H PO SCH (10:27)
--- NOTE | 2020-12-30 15:20 | XRay Report ---
CLINICAL INFORMATION: Abdominal pain and distention COMPARISON: None. FINDINGS: A very large amount of stool is present within the right colon. Transverse colon is mildly dilated with normal amount stool gas seen in the descending rectosigmoid segment small bowel and stomach. No free air, soft tissue mass or pathologic calcification. IMPRESSION: Mild ileus with a large amount of stool in the right colon. No evidence of bowel obstruction Interpreted and Authenticated by: Corey Summers 12/30/20
[2020-12-30] MEDS: POLYETHYLENE GLYCOL 3350 17 GM PACKET PO SCH ×2 (16:20→20:51)
[2020-12-30] MEDS ORDERED: BISACODYL 10 MG SUPP.RECT PR ONE (16:42)
[2020-12-30] MEDS: BISACODYL 10 MG SUPP.RECT PR SCH (16:49)
[2020-12-30] MEDS ORDERED: METOCLOPRAMIDE 10 MG/2 ML VIAL IV SCH (18:00)
[2020-12-30] MEDS: SENNOSIDES 1 TABLET PO SCH (20:50)
[2020-12-30] MEDS: PRAMIPEXOLE 0.25 MG TABLET PO SCH (20:51)
[2020-12-30] MEDS: NITROFURANTOIN MACROCRYSTAL 50 MG PO SCH (20:57)
[2020-12-30] MEDS ORDERED: IPRATROPIUM/ALBUTEROL 3 ML AMPUL.NEB NEB ONE (23:13)
[2020-12-30] MEDS ORDERED: methylPREDNISolone SOD SUCC 125 MG/2 ML VIAL ONE (23:26)
[2020-12-30] MEDS ORDERED: METOCLOPRAMIDE 10 MG/2 ML VIAL IV PRN (23:26)
--- NOTE | 2020-12-30 23:36 | General Surg History&Physical ---
HPI History of Present Illness Patient information: Note initiated : 12/30/20 at 11:29 pm Service Date, if different from initiated Date: [] Patient: Flavia Michelle 65 y/o F admitted on 12/23/20 for Laparoscopic Sigmoid Colectomy. Chief Complaint: [] History of present illness: Ms. 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) Urinary tract infection (Chronic) Brain aneurysm (Chronic) URI (upper respiratory infection) (Chronic) Left thigh pain (Chronic) Right ankle pain (Chronic) Bilateral foot pain (Chronic) Wellness examination (Chronic) Ankle fracture (Chronic) Ecchymosis (Chronic) Painful breathing (Chronic) Left-sided chest wall pain (Chronic) Pyelonephritis (Chronic) Diaphoresis (Chronic) Situational stress (Chronic) Sleep apnea, unspecified (Chronic) Hx of colonoscopy (Chronic 03/19/16) Hx of fusion of cervical spine (Chronic 01/17/15) History of thumb surgery (Chronic ~03/2010) History of total hysterectomy (Chronic ~08/2000) Migraine (Chronic) Hypertension, essential, benign (Chronic) Depression (Chronic) Anxiety (Chronic) Allergic rhinitis, seasonal (Chronic) GERD (gastroesophageal reflux disease) (Chronic) Fatigue (Chronic) Diverticular disease (Chronic) Diabetes mellitus type 2, diet-controlled (Chronic) DDD (degenerative disc disease), lumbar (Chronic) Blood in stool (Chronic) Encounter for long-term (current) use of medications (Chronic) Arthralgia (Chronic) Hyperlipidemia (Chronic) DDD (degenerative disc disease), cervical (Chronic) Muscle spasm (Chronic) History of recurrent UTIs (Chronic) Resting tremor (Chronic) Postmenopausal status (Chronic) Hypothyroidism (Chronic) Schatzki's ring (Chronic) Collagenous colitis (Chronic) BMI 35.0-35.9,adult (Chronic) Chronic pain (Chronic) Central apnea (Chronic) Heel spur (Chronic) Anemia (Chronic) Recurrent sinusitis (Chronic) Tenosynovitis (Chronic) At risk for falls (Chronic) Restless leg syndrome (Chronic) Gastric ulcer (Chronic) Systolic murmur (Chronic) Lumbar radiculopathy (Chronic) Upper respiratory infection (Chronic) Frontal sinusitis (Chronic) Medical History Allergic rhinitis, seasonal Anemia Anxiety Arthralgia At risk for falls Blood in stool BMI 35.0-35.9,adult Central apnea Chronic pain on daily narcotics Collagenous colitis COVID-05/2020 DDD (degenerative disc disease), cervical DDD (degenerative disc disease), lumbar Depression Diabetes mellitus type 2, diet-controlled Diverticular disease history of Encounter for long-term (current) use of medications Fatigue Gastric ulcer GERD (gastroesophageal reflux disease) Heel spur History of recurrent UTIs Hyperlipidemia Hypertension, essential, benign Hypothyroidism LLQ abdominal pain Lumbar radiculopathy Migraine Muscle spasm Postmenopausal status Recurrent sinusitis Resting tremor Restless leg syndrome Schatzki's ring Systolic murmur Tenosynovitis Surgical History History of surgery Gamma knife surgery for [id number] Jc Miller History of thumb surgery (~03/2010) total thumb replacement History of total hysterectomy (~08/2000) Hx of colonoscopy (03/19/16) Dr Garcia Hx of fusion of cervical spine (01/17/15) Dr Mccoy Family History Father , 10/08/2019 Alcoholism Pancreatitis Other No pertinent family history Social History household members: significant other marital status: occupational status: disabled smoking status: Never smoker alcohol intake frequency: does not drink substance use type: does not use MEDS/ALLERGIES Home Medications and Allergies Home Medications Medication Instructions Recorded Confirmed Type budesonide 3 mg 9 mg PO DAILY each 05/18/19 12/23/20 History capsule,delayed,extended release furosemide 20 mg tablet 20 mg PO QAM #90 tab 02/17/20 12/23/20 Rx primidone 50 mg tablet 50 mg PO BID #180 tab 02/17/20 12/23/20 Rx bupropion HCl 300 mg 24 hr tablet, See Rx Instructions .ROUTE 09/08/20 06/04/21 Rx extended release .COMPLEX #90 tab hydrochlorothiazide 25 mg tablet See Rx Instructions .ROUTE 06/01/20 12/23/20 Rx .COMPLEX #90 tab lisinopril 40 mg tablet See Rx Instructions .ROUTE 08/08/20 12/23/20 Rx .COMPLEX #90 tab citalopram 40 mg tablet See Rx Instructions .ROUTE 12/01/20 12/23/20 Rx .COMPLEX #90 tab famotidine 20 mg tablet 20 mg PO DAILYP PRN 12/14/20 12/23/20 History methocarbamol 500 mg tablet 1,000 mg PO Q8HP PRN tab 12/14/20 12/23/20 History nitrofurantoin macrocrystal 50 mg 50 mg PO QHS 12/14/20 12/23/20 History capsule pantoprazole 40 mg tablet,delayed See Rx Instructions .ROUTE 12/16/20 12/23/20 Rx release .COMPLEX #90 tab calcium carbonate [Calcium 600] 1,200 mg PO QDAY 12/21/20 12/23/20 History cholecalciferol (vitamin D3) 25 mcg PO QDAY 12/21/20 12/23/20 History [Vitamin D3] hydrocodone-acetaminophen 2 tab PO Q8HP PRN 12/21/20 12/23/20 History levothyroxine 25 mcg PO QAMAC 12/21/20 12/23/20 History potassium chloride 20 meq PO QAMCC 12/21/20 12/23/20 History pramipexole 0.125 mg PO QHS 12/21/20 12/23/20 History vitamin E 400 unit PO QDAY 12/21/20 12/23/20 History Allergies Allergy/AdvReac Type Severity Reaction Status Date / Time clarithromycin [From Biaxin] AdvReac Mild Diarrhea Verified 12/21/20 08:15 Sulfa (Sulfonamide AdvReac Mild Photosensit Verified 12/21/20 08:07 Antibiotics) ivity Physical Examination Vital Signs Vital signs: Temp Pulse Resp BP Pulse Ox 97.2 F 84 22 108/53 90 12/30/20 15:54 12/30/20 15:54 12/30/20 15:54 12/30/20 15:54 12/30/20 15:54 Results Labs Result diagrams: 01/03/21 05:26 01/03/21 05:26 Labs: All other labs normal. A/P Assessment and plan (1) Atelectasis of left lung: Status: Acute (2) Hypoxemia requiring supplemental oxygen: Status: Acute (3) Sleep apnea, unspecified: Status: Chronic Qualifiers: Sleep apnea type: obstructive Qualified Code(s): G47.33 - Obstructive sleep apnea (adult) (pediatric) Narrative A/P Narrative: CXR STAT DUONEB Q4H CHEST PT WITH PERCUSSION PER PROTOCOL CXR IN AM Time Spent With Patient Time: Total time spent is greater than 50% in coordination of care (as documented) at patient's floor/unit and/or counseling patient:
[2020-12-30] MEDS: IPRATROPIUM/ALBUTEROL 3 ML AMPUL.NEB NEB SCH (23:47)
[2020-12-30 23:59] LABS: Basophils # (Auto) 0.08 K/mcL (0.00-0.20); Basophils % (Auto) 0.7 % (0.0-2.0); Eosinophils # (Auto) 0.01 K/mcL (0.00-0.70); Eosinophils % (Auto) 0.1 % (0.0-7.0); Hematocrit 29.2 % (36.0-48.0); Hemoglobin 9.9 g/dL (12.0-15.0); Lymphocytes # (Auto) 0.23 K/mcL (1.50-4.80); Lymphocytes % (Auto) 2.1 % (15.0-49.0); Mean Cell Volume 91.3 fL (80.0-100.0); Mean Corpuscular HGB Conc 33.9 g/dL (31.0-36.0); Mean Platelet Volume 9.2 fL (7.4-10.4); Monocytes % (Auto) 2.7 % (1.0-12.0); Neutrophils % (Auto) 94.4 % (38.0-78.0); Platelet Count 308 K/mcL (140-440); Red Cell Distribution Width 13.8 % (11.5-14.5); WBC 11.2 K/mcL (4.5-11.0)
[2020-12-31] MEDS: POLYETHYLENE GLYCOL 3350 17 GM PACKET PO SCH ×2 (00:16→03:20)
[2020-12-31] MEDS: IPRATROPIUM/ALBUTEROL 3 ML AMPUL.NEB NEB SCH ×6 (03:19→23:05)
[2020-12-31] MEDS ORDERED: IPRATROPIUM/ALBUTEROL 3 ML AMPUL.NEB NEB ONE (03:19)
--- NOTE | 2020-12-31 03:44 | XRay Report ---
CLINICAL INFORMATION: shortness of breath COMPARISON: 12/16/2019 FINDINGS: Mild cardiomegaly is unchanged. Mediastinum and pulmonary vessels are normal. There is minor bibasilar atelectasis. No infiltrates or effusions. Small amount of free intraperitoneal air seen under the diaphragms, as expected, following recent sigmoid colon surgery. IMPRESSION: Moderate bibasilar atelectasis and mild cardiomegaly Interpreted and Authenticated by: Corey Summers 12/31/20
[2020-12-31] MEDS: 0.9 % SODIUM CHLORIDE 10 ML SYRINGE IV SCH ×3 (04:37→20:42)
[2020-12-31] MEDS ORDERED: methylPREDNISolone SOD SUCC 125 MG/2 ML VIAL IV SCH (07:45)
[2020-12-31] MEDS: POTASSIUM CHLORIDE 20 MEQ TABLET PO SCH (07:54)
[2020-12-31] MEDS: PANTOPRAZOLE 40 MG TABLET PO SCH ×2 (07:55→16:01)
[2020-12-31] MEDS: LEVOTHYROXINE 25 MCG TABLET PO SCH (07:55)
[2020-12-31] MEDS: methylPREDNISolone SOD SUCC 125 MG/2 ML VIAL IV SCH ×5 (08:01→19:12)
[2020-12-31 08:50] LABS: Blood Urea Nitrogen 41 mg/dL (8-23); Calcium 8.9 mg/dL (8.6-10.4); Carbon Dioxide 20 mmol/L (22-30); Chloride 87 mmol/L (96-108); Glomerular Filtration Rate 39; Glucose 131 mg/dL (70-105)
[2020-12-31] MEDS ORDERED: BISACODYL 10 MG SUPP.RECT PR SCH (09:00)
--- NOTE | 2020-12-31 09:54 | XRay Report ---
CLINICAL INFORMATION: FOLLOW -UP OF SMALL BOWEL OBSTRUCTION. Reason sigmoid: surgery COMPARISON: 12/30/2020. FINDINGS: Stomach small large bowel are mildly dilated compatible mild ileus. Smaller free subdiaphragmatic air as expected following sigmoid colon surgery. No pathologic calcifications or soft tissue mass. IMPRESSION: Mild ileus Interpreted and Authenticated by: Corey Summers 12/31/20
--- NOTE | 2020-12-31 09:58 | XRay Report ---
CLINICAL INFORMATION: f/u atelectasis of left lung with hypoxemia COMPARISON: None. FINDINGS: Cardiomediastinal silhouette are normal for technique. Pulmonary vessels unremarkable. No segmental atelectasis in the bases. Free subdiaphragmatic air is unchanged compatible recent large bowel surgery IMPRESSION: Subsegmental atelectasis. Interpreted and Authenticated by: Corey Summers 12/31/20
[2020-12-31] MEDS: DOCUSATE SODIUM 100 MG CAPSULE PO SCH ×2 (10:05→20:39)
[2020-12-31] MEDS: VITAMIN E (DL,TOCOPHERYL ACET) 400 UNIT CAPSULE PO SCH (10:05)
[2020-12-31] MEDS: BISACODYL 10 MG SUPP.RECT PR SCH (10:05)
[2020-12-31] MEDS: PRIMIDONE 50 MG TABLET PO SCH ×2 (10:06→20:39)
[2020-12-31] MEDS: FUROSEMIDE 20 MG TABLET PO SCH (10:06)
[2020-12-31] MEDS: buPROPion 150 MG TAB.XL.24H PO SCH (10:06)
[2020-12-31] MEDS: BUDESONIDE 3 MG CAP.XL.24H PO SCH (10:07)
[2020-12-31] MEDS: LISINOPRIL 20 MG TABLET PO SCH (10:08)
[2020-12-31] MEDS: HYDROCHLOROTHIAZIDE 25 MG TABLET PO SCH (10:08)
[2020-12-31] MEDS ORDERED: FUROSEMIDE 40 MG/4 ML VIAL IV ONE (10:58)
--- NOTE | 2020-12-31 11:15 | General Surgery Progress Note ---
SUBJECTIVE Subjective Patient information: Note initiated : 12/31/20 at 11:03 am Service Date, if different from initiated Date: [] Patient: Flavia Michelle 65 y/o F admitted on 12/23/20 for Laparoscopic Sigmoid Colectomy. Chief Complaint: [] Principal diagnosis: Increasing shortness of breath; Abdominal distention Interval history: Patient states that she still has some shortness of breath. It is better than last evening but she still has significant dyspnea when ambulating to the bathroom. Oxygen saturation on room air is 90%. Abdominal distention persists and bowel sounds are hypoactive. She is passed a small amount of flatus and had a small bowel movement but she remains as distended as last evening. Today's x-ray shows gas extending all the way down to the rectum. Her bowel distention is primarily large intestine. Constitutional Vitals: Vital Signs Temp Pulse Resp BP Pulse Ox 97.9 F 94 H 22 116/54 91 12/31/20 08:00 12/31/20 08:00 12/31/20 08:00 12/31/20 08:00 12/31/20 08:00 Period Temp Pulse Resp BP Sys/Engle Pulse Ox Last 24 Hr 97.2 F-99.2 F 84-120 18-24 108-139/53-87 86-98 Intake and Output 12/30/20 12/31/20 12/31/20 21:59 05:59 13:59 Intake Total 518 1540 Output Total 600 Balance 518 940 Weight 178 lb 3.2 oz Intake & Output: Intake & Output 12/30/20 12/31/20 12/31/20 21:59 05:59 13:59 Intake Total 518 1540 Output Total 600 Balance 518 940 Weight 178 lb 3.2 oz Intake: IV 1000 Dextrose 5%-1/2Ns IV Solution 1 1000 ,000 ml @ 75 mls/hr IV .[id number] [facility] Rx#:[id number] Oral 518 540 Output: Void Amount 600 Other: Urine Appearance Clear Urine Color Bright Yellow Dark Yellow Urine Odor Normal Normal Stool Size Small Small Stool Color Brown Brown Stool Consistency Formed Formed # Voids 3 1 Head Head exam: Present atraumatic, normal inspection and normocephalic Eye Eye exam: Present EOMI Pupils: Present normal accommodation and PERRL ENT ENT exam: Present mucous membranes moist, normal exam and normal oropharynx Neck Neck exam: Present full ROM and normal inspection; Absent tenderness and thyromegaly Respiratory Additional comments: Decreased breath sounds bilaterally but much more diminished on the left side; no wheezing noted; hypoventilation from distended abdomen noted Cardiovascular Cardiovascular exam: Present RRR, +S1, +S2 and tachycardia (Heart rate 100-110 and regular); Absent JVD and systolic murmur GI/Abdominal GI/Abdominal exam: Present diminished bowel sounds and distended (Diffusely distended with tympany); Absent tenderness (No significant tenderness except for that related to distention; no peritoneal signs noted) Extremities Exam Extremities exam: Present full ROM, pedal edema (2+ pedal edema bilaterally), Foot pink and warm and neurovascular intact; Absent Faby's sign Additional comments: No tenderness along saphenous vein distribution noted; no evidence of venous cords Neurological Exam Neurological exam: Present alert and oriented X3 Additional comments: Resting essential tremor which increases with activity Psychiatric Psychiatric exam: Present agitated and anxious A/P Assessment and plan (1) Hypoxemia requiring supplemental oxygen: Status: Acute (2) Atelectasis of left lung: Status: Acute (3) Sleep apnea, unspecified: Status: Chronic Qualifiers: Sleep apnea type: obstructive Qualified Code(s): G47.33 - Obstructive sleep apnea (adult) (pediatric) (4) Anxiety: Status: Chronic (5) Resting tremor: Status: Chronic Narrative A/P Narrative: CT angio of chest to rule out pulmonary embolus Check proBNP today and tomorrow Greco catheter for measurement of intake and output And to reduce ambulation need Lasix 40 mg IV Start anticoagulation if CT is positive E CG today Time Spent With Patient Time: Total time spent is greater than 50% in coordination of care (as documented) at patient's floor/unit and/or counseling patient:
[2020-12-31 11:20] LABS: Basophils # (Auto) 0.13 K/mcL (0.00-0.20); Basophils % (Auto) 0.8 % (0.0-2.0); Eosinophils # (Auto) 0 K/mcL (0.00-0.70); Eosinophils % (Auto) 0 % (0.0-7.0); Hematocrit 28.8 % (36.0-48.0); Hemoglobin 9.6 g/dL (12.0-15.0); Lymphocytes # (Auto) 0.19 K/mcL (1.50-4.80); Lymphocytes % (Auto) 1.2 % (15.0-49.0); Mean Cell Volume 92.3 fL (80.0-100.0); Mean Corpuscular HGB Conc 33.3 g/dL (31.0-36.0); Mean Platelet Volume 9.2 fL (7.4-10.4); Monocytes # (Auto) 0.38 K/mcL (0.10-0.90); Monocytes % (Auto) 2.4 % (1.0-12.0); Neutrophils % (Auto) 95.6 % (38.0-78.0); Platelet Count 297 K/mcL (140-440); RBC 3.12 M/mcL (4.00-5.20); Red Cell Distribution Width 13.9 % (11.5-14.5); WBC 15.6 K/mcL (4.5-11.0)
[2020-12-31] MEDS ORDERED: IOPAMIDOL 100 ML BOTTLE IV ONE (13:44)
[2020-12-31] MEDS ORDERED: PIPERACILLIN SODIUM/TAZOBACTAM 3.375 GM in DEXTROSE 5% IN WATER 50 ML IV SCH (15:00)
--- NOTE | 2020-12-31 15:33 | Cat Scan Report ---
CLINICAL INFORMATION: Status post sigmoid colon surgery. Hypoxia COMPARISON: None. TECHNIQUE: 80ml of Isovue-370 were injected intravenously. Using SmartPrep to maximize pulmonary artery opacification, .625mm helical slices were obtained from the lung apices through the lung bases. Following reconstruction, 2.5 mm sagittal, coronal, and axial reformations were processed. The exam was reviewed at mediastinal, lung, and bone windows. The exam was performed using radiation dose optimization techniques including, but not limited to, automated exposure control, adjustment of the mA and/or kV according to patient size and use of iterative reconstruction technique. FINDINGS: Pulmonary arteries are normal diameter and well-opacified - no evidence of embolus. Thoracic aorta is also normal diameter and well-opacified. There is no adenopathy in the mediastinal hilar or axillary region. The heart is normal in size with minimal calcific plaque scattered in the coronary arteries. There is no mediastinal, hilar or axillary lymph nodes edema or hemorrhage. The esophagus demonstrates a moderate hiatal hernia. Moderate patchy airspace disease in both posterior lower lobes and lingula lingula with a minimal amount of the posterior right upper lobe likely represent subsegmental atelectasis. Developing aspiration pneumonia possible, but less likely. Tiny bilateral pleural effusions noted. Bones and soft tissues of the chest wall show no abnormality. Images through the upper abdomen show small amount of free air under the diaphragms compatible with recent abdominal surgery. No other abdominal abnormality IMPRESSION: 1. No evidence of pulmonary embolus. 2. Moderate patchy airspace disease in both lower lobes likely represent subsegmental atelectasis in this postoperative patient with distended abdomen. Developing aspiration pneumonia is less likely. 3. Moderate hiatal hernia. 4. Small amount of free subdiaphragmatic air, as expected, in the immediate postoperative period following sigmoid surgery. A small amount of free fluid also noted Interpreted and Authenticated by: Corey Summers 12/31/20
[2020-12-31] MEDS ORDERED: PIPERACILLIN SODIUM/TAZOBACTAM 2.25 GM in DEXTROSE 5% IN WATER 50 ML IV ONE (16:00)
[2020-12-31] MEDS: ACETAMINOPHEN 325 MG TABLET PO PRN ×2 (16:03→21:41)
[2020-12-31] MEDS: SIMETHICONE 80 MG TAB.CHEW CHEWED PRN (19:11)
[2020-12-31] MEDS: METOCLOPRAMIDE 10 MG/2 ML VIAL IV SCH (19:12)
[2020-12-31] MEDS: PIPERACILLIN SODIUM/TAZOBACTAM 2.25 GM in DEXTROSE 5% IN WATER 50 ML IV SCH ×2 (19:12→23:51)
[2020-12-31] MEDS: PRAMIPEXOLE 0.25 MG TABLET PO SCH (20:40)
[2020-12-31] MEDS: SENNOSIDES 1 TABLET PO SCH (20:41)
[2020-12-31] MEDS: NITROFURANTOIN MACROCRYSTAL 50 MG PO SCH (20:42)
[2020-12-31] MEDS: METHOCARBAMOL 500 MG TABLET PO PRN (21:42)
[2020-12-31] MEDS: oxyCODONE HCL 5 MG TABLET PO PRN (21:42)
[2021-01-01] MEDS: DEXTROSE 5%-1/2NS 1,000 ML IV SCH ×3 (02:06→21:20)
[2021-01-01] MEDS: oxyCODONE HCL 5 MG TABLET PO PRN ×2 (03:09→20:24)
[2021-01-01] MEDS: METOCLOPRAMIDE 10 MG/2 ML VIAL IV SCH ×2 (03:14→20:30)
[2021-01-01] MEDS: IPRATROPIUM/ALBUTEROL 3 ML AMPUL.NEB NEB SCH ×6 (03:16→23:49)
[2021-01-01] MEDS: PIPERACILLIN SODIUM/TAZOBACTAM 2.25 GM in DEXTROSE 5% IN WATER 50 ML IV SCH ×3 (05:46→16:55)
[2021-01-01] MEDS: 0.9 % SODIUM CHLORIDE 10 ML SYRINGE IV SCH ×3 (05:54→20:14)
--- NOTE | 2021-01-01 06:11 | XRay Report ---
CLINICAL INFORMATION: f/u of atelectasis COMPARISON: 12/31/2020 FINDINGS: Mild cardiomegaly is unchanged. Mediastinum and pulmonary vessels are normal. Moderate patchy airspace disease has increased in the lung bases more prominent on the left this could indicate developing infiltrate or worsening atelectasis. No effusions. Subdiaphragmatic air has decreased following surgery - as expected IMPRESSION: Moderate patchy bibasilar infiltrates or atelectasis worsening. Interpreted and Authenticated by: Corey Summers 01/01/21
[2021-01-01] MEDS: LEVOTHYROXINE 25 MCG TABLET PO SCH (07:22)
[2021-01-01] MEDS: PANTOPRAZOLE 40 MG TABLET PO SCH ×2 (07:22→16:55)
[2021-01-01] MEDS: POTASSIUM CHLORIDE 20 MEQ TABLET PO SCH (07:22)
[2021-01-01] MEDS: PRIMIDONE 50 MG TABLET PO SCH ×2 (08:31→20:34)
[2021-01-01] MEDS: BUDESONIDE 3 MG CAP.XL.24H PO SCH (08:31)
[2021-01-01] MEDS: LISINOPRIL 20 MG TABLET PO SCH (08:32)
[2021-01-01] MEDS: buPROPion 150 MG TAB.XL.24H PO SCH (08:32)
[2021-01-01] MEDS: VITAMIN E (DL,TOCOPHERYL ACET) 400 UNIT CAPSULE PO SCH (08:32)
[2021-01-01] MEDS: HYDROCHLOROTHIAZIDE 25 MG TABLET PO SCH (08:32)
[2021-01-01] MEDS: BISACODYL 10 MG SUPP.RECT PR SCH (08:33)
[2021-01-01] MEDS: FUROSEMIDE 20 MG TABLET PO SCH (08:33)
[2021-01-01] MEDS: DOCUSATE SODIUM 100 MG CAPSULE PO SCH ×2 (08:33→20:34)
[2021-01-01] MEDS ORDERED: FUROSEMIDE 40 MG/4 ML VIAL IV ONE (12:29)
--- NOTE | 2021-01-01 12:29 | General Surgery Progress Note ---
SUBJECTIVE Subjective Patient information: Note initiated : 01/01/21 at 12:21 pm Service Date, if different from initiated Date: [] Patient: Flavia Michelle 65 y/o F admitted on 12/23/20 for Laparoscopic Sigmoid Colectomy. Chief Complaint: [] Principal diagnosis: Increasing shortness of breath; Abdominal distention;Adynamic ileus Interval history: Patient states that she feels somewhat better. She still has significant shortness of breath with wheezes. She still has significant abdominal distention but her pain is less. She has had 2 bowel movements since yesterday. BNP has decreased to 1502, chest x-ray shows slightly worse atelectasis especially on the left. Abdominal films shows increased colon distention but still with gas extending down to the distal rectum. Constitutional Vitals: Vital Signs Temp Pulse Resp BP Pulse Ox 97.6 F 85 20 127/63 88 L 01/01/21 11:19 01/01/21 11:50 01/01/21 11:50 01/01/21 11:19 01/01/21 11:50 Period Temp Pulse Resp BP Sys/Engle Pulse Ox Last 24 Hr 97 F-98.3 F 81-101 18-24 115-137/55-70 88-95 Intake and Output 12/31/20 01/01/21 01/01/21 21:59 05:59 13:59 Intake Total 100 250 826 Output Total 1075 1250 Balance -975 -1000 826 Weight 181 lb 4.8 oz Intake & Output: Intake & Output 12/31/20 01/01/21 01/01/21 21:59 05:59 13:59 Intake Total 100 250 826 Output Total 1075 1250 Balance -975 -1000 826 Weight 181 lb 4.8 oz Intake: IV 100 50 826 Dextrose 5%-1/2Ns IV Solution 1 726 ,000 ml @ 20 mls/hr IV .Q24H [facility] Rx#:[id number] Zosyn 2.25 gm In Dextrose 5% in 100 50 100 Water 50 ml @ 100 mls/hr IV Q6H [facility] Rx#:[id number] Oral 200 Output: Urine Catheter Amount 1075 1250 Other: Urine Appearance Clear Clear Cloudy Uretheral (Greco) Clear Clear Urine Color Bright Yellow Bright Yellow Straw Uretheral (Greco) Bright Yellow Straw Urine Odor Normal Normal Uretheral (Greco) Normal Stool Size Moderate Stool Color Brown Stool Consistency Loose Head Head exam: Present atraumatic, normal inspection and normocephalic Eye Eye exam: Present EOMI Pupils: Present normal accommodation and PERRL ENT ENT exam: Present mucous membranes moist, normal exam and normal oropharynx Neck Neck exam: Present full ROM and normal inspection; Absent tenderness and thyromegaly Respiratory Additional comments: Decreased breath sounds bilaterally but much more diminished on the left side; bilateral wheezing noted; hypoventilation from distended abdomen noted Cardiovascular Cardiovascular exam: Present RRR, +S1, +S2 and tachycardia (Heart rate 100-110 and regular); Absent JVD and systolic murmur GI/Abdominal GI/Abdominal exam: Present diminished bowel sounds and distended (Diffusely distended with tympany); Absent tenderness (No significant tenderness except for that related to distention; no peritoneal signs noted) Extremities Exam Extremities exam: Present full ROM, pedal edema (2+ pedal edema bilaterally), Foot pink and warm and neurovascular intact; Absent Faby's sign Additional comments: No tenderness along saphenous vein distribution noted; no evidence of venous cords Neurological Exam Neurological exam: Present alert and oriented X3 Additional comments: Resting essential tremor which increases with activity Psychiatric Psychiatric exam: Present agitated and anxious Skin Skin exam: Present intact, normal color and warm A/P Assessment and plan (1) Hypoxemia requiring supplemental oxygen: Status: Acute (2) Atelectasis of left lung: Status: Acute (3) Sleep apnea, unspecified: Status: Chronic Qualifiers: Sleep apnea type: obstructive Qualified Code(s): G47.33 - Obstructive sleep apnea (adult) (pediatric) (4) Anxiety: Status: Chronic (5) Resting tremor: Status: Chronic (6) Adynamic ileus: Status: Acute Narrative A/P Narrative: Check CBC a.m. inpatient panel in the a.m. Lasix 40 mg IV x1 Abdominal x-rays in the morning Simethicone 80 mg 2 tabs every 4 hours Encourage patient to be out of bed in chair at least twice daily Time Spent With Patient Time: Total time spent is greater than 50% in coordination of care (as documented) at patient's floor/unit and/or counseling patient:
[2021-01-01] MEDS: METHOCARBAMOL 500 MG TABLET PO PRN ×2 (15:25→23:55)
[2021-01-01] MEDS: ACETAMINOPHEN 325 MG TABLET PO PRN (15:25)
[2021-01-01] MEDS: SIMETHICONE 80 MG TAB.CHEW CHEWED SCH ×3 (15:48→23:55)
[2021-01-01] MEDS: PRAMIPEXOLE 0.25 MG TABLET PO SCH (20:34)
[2021-01-01] MEDS: NITROFURANTOIN MACROCRYSTAL 50 MG PO SCH (20:34)
[2021-01-01] MEDS: SENNOSIDES 1 TABLET PO SCH (20:34)
[2021-01-02] MEDS: oxyCODONE HCL 5 MG TABLET PO PRN ×4 (00:31→19:57)
[2021-01-02] MEDS: PIPERACILLIN SODIUM/TAZOBACTAM 2.25 GM in DEXTROSE 5% IN WATER 50 ML IV SCH ×4 (01:45→17:53)
[2021-01-02] MEDS: METOCLOPRAMIDE 10 MG/2 ML VIAL IV SCH ×3 (03:21→17:53)
[2021-01-02] MEDS: IPRATROPIUM/ALBUTEROL 3 ML AMPUL.NEB NEB SCH ×6 (03:21→23:09)
[2021-01-02] MEDS: SIMETHICONE 80 MG TAB.CHEW CHEWED SCH ×5 (03:41→20:04)
[2021-01-02] MEDS: 0.9 % SODIUM CHLORIDE 10 ML SYRINGE IV SCH ×3 (06:10→22:05)
[2021-01-02 07:01] LABS: Basophils # (Auto) 0.08 K/mcL (0.00-0.20); Basophils % (Auto) 0.5 % (0.0-2.0); Eosinophils # (Auto) 0.01 K/mcL (0.00-0.70); Eosinophils % (Auto) 0.1 % (0.0-7.0); Hematocrit 25.4 % (36.0-48.0); Lymphocytes # (Auto) 0.63 K/mcL (1.50-4.80); Lymphocytes % (Auto) 3.7 % (15.0-49.0); Mean Cell Volume 88.5 fL (80.0-100.0); Mean Corpuscular HGB Conc 35.4 g/dL (31.0-36.0); Mean Platelet Volume 9.2 fL (7.4-10.4); Monocytes # (Auto) 0.52 K/mcL (0.10-0.90); Platelet Count 295 K/mcL (140-440); RBC 2.87 M/mcL (4.00-5.20); Red Cell Distribution Width 13.6 % (11.5-14.5); WBC 17.2 K/mcL (4.5-11.0)
[2021-01-02 07:08] LABS: ALT/SGPT 33 U/L (<40); AST/SGOT 37 U/L (<32); Albumin 2.8 gm/dL (3.2-5.2); Albumin/Globulin Ratio 0.8 (1.0-2.3); Alkaline Phosphatase 82 U/L (39-117); Bilirubin,Direct 0.2 mg/dL (<0.3); Bilirubin,Total 0.4 mg/dL (0.1-1.0); Blood Urea Nitrogen 34 mg/dL (8-23); Calcium 9.3 mg/dL (8.6-10.4); Carbon Dioxide 25 mmol/L (22-30); Chloride 85 mmol/L (96-108); Globulin 3.3 gm/dL (2.2-3.7); Glomerular Filtration Rate 66; Glucose 98 mg/dL (70-105); Lactate Dehydrogenase 220 U/L (135-225); Phosphorous 3.5 mg/dL (2.5-4.5); Triglycerides 147 mg/dL (<150); Uric Acid 6.2 mg/dL (2.5-8.0)
[2021-01-02] MEDS: PANTOPRAZOLE 40 MG TABLET PO SCH ×2 (07:28→16:29)
[2021-01-02] MEDS: METHOCARBAMOL 500 MG TABLET PO PRN ×2 (07:28→19:57)
[2021-01-02] MEDS: LEVOTHYROXINE 25 MCG TABLET PO SCH (07:28)
[2021-01-02 08:08] LABS: Neutrophils % (Auto) 92.7 % (38.0-78.0)
--- NOTE | 2021-01-02 08:14 | XRay Report ---
HISTORY: Follow-up pulmonary infiltrate/atelectasis FINDINGS: There is a moderate size patchy infiltrate in the left lower lobe, predominantly behind the left heart border. Small perihilar infiltrate is present in the right lung extending to the periphery of the right upper lobe. There has been improvement of the infiltrates bilaterally compared with the prior exam done on 01/01/21. Lung volumes are small. There is a moderate amount of free air beneath the right diaphragm. This is probably related to the recent abdominal surgery. The heart is normal in size and contour. The pulmonary vessels, best seen in the left upper lobe and right lower lobe are normal in caliber. IMPRESSION: Improving infiltrates in both lungs which could be due to atelectasis or aspiration. Free intra-abdominal air Interpreted and Authenticated by: Pedro Vargas 01/02/21
--- NOTE | 2021-01-02 08:19 | XRay Report ---
HISTORY: Ileus, status post laparoscopic sigmoid colectomy FINDINGS: A small to moderate amount of free air is present beneath the right diaphragm. The air has shifted. On 12/30/20, most of the free air was located inferior to the left diaphragm. There may be more free air today than there was on 12/31/20.. There is moderate amount of air throughout nondilated large intestine. Air-fluid levels are present in both large and small intestine. Small bowel is nondistended. IMPRESSION: Mild postop ileus Free intra-abdominal air which is probably related to the recent surgery. The volume of air may have increased a small amount. Interpreted and Authenticated by: Pedro Vargas 01/02/21
[2021-01-02] MEDS: PRIMIDONE 50 MG TABLET PO SCH ×2 (08:57→21:52)
[2021-01-02] MEDS: POTASSIUM CHLORIDE 20 MEQ TABLET PO SCH (08:57)
[2021-01-02] MEDS: LISINOPRIL 20 MG TABLET PO SCH (08:57)
[2021-01-02] MEDS: DOCUSATE SODIUM 100 MG CAPSULE PO SCH ×2 (08:57→21:53)
[2021-01-02] MEDS: buPROPion 150 MG TAB.XL.24H PO SCH (08:57)
[2021-01-02] MEDS: BISACODYL 10 MG SUPP.RECT PR SCH (08:58)
[2021-01-02] MEDS: VITAMIN E (DL,TOCOPHERYL ACET) 400 UNIT CAPSULE PO SCH (08:58)
[2021-01-02] MEDS: FUROSEMIDE 20 MG TABLET PO SCH (08:58)
[2021-01-02] MEDS: HYDROCHLOROTHIAZIDE 25 MG TABLET PO SCH (08:58)
[2021-01-02] MEDS: BUDESONIDE 3 MG CAP.XL.24H PO SCH (09:04)
--- NOTE | 2021-01-02 12:46 | EKG ---
[facility] Test Date: 2020-12-31 Pat Name: Flavia Michelle Department: [facility] Room: 130 Gender: Female [employer] Staff Nurse: : [id number] Requested By: Mitch Saleh Order Number: [id number] Reading MD: Akshat Billy M.D. Measurements Intervals Mathis Rate: 92 P: AL: 180 QRS: 34 QRSD: 104 T: 3 QT: 348 QTc: 431 Interpretive Statements SINUS RHYTHM Since previous ECG of 12-21-2020, NO LAE, NO FIRST-DEGREE AV BLOCK Electronically Signed On 01-02-2021 12:45:51 PDT by Akshat Billy M.D. /[facility]//[id number]
--- NOTE | 2021-01-02 15:10 | General Surgery Progress Note ---
SUBJECTIVE Subjective Patient information: Note initiated : 01/02/21 at 3:05 pm Service Date, if different from initiated Date: [] Patient: Flavia Michelle 65 y/o F admitted on 12/23/20 for Laparoscopic Sigmoid Colectomy. Chief Complaint: [] Principal diagnosis: Increasing shortness of breath; Abdominal distention;Adynamic ileus Interval history: Patient states that she feels better. She has less nausea. She is passing more flatus and had a small bowel movement yesterday. Her respiratory pattern is improved and her oxygenation is good. Constitutional Vitals: Vital Signs Temp Pulse Resp BP Pulse Ox 98.3 F 108 H 18 154/62 95 01/02/21 11:42 01/02/21 11:42 01/02/21 11:42 01/02/21 11:42 01/02/21 11:42 Period Temp Pulse Resp BP Sys/Engle Pulse Ox Last 24 Hr 97.5 F-98.3 F 78-108 16-22 119-154/55-65 92-98 Intake and Output 01/02/21 01/02/21 01/02/21 05:59 13:59 21:59 Intake Total 850 340 Output Total 1250 Balance -400 340 Intake & Output: Intake & Output 01/02/21 01/02/21 01/02/21 05:59 13:59 21:59 Intake Total 850 340 Output Total 1250 Balance -400 340 Intake: IV 50 100 Zosyn 2.25 gm In Dextrose 5% in 50 100 Water 50 ml @ 100 mls/hr IV Q6H [facility] Rx#:[id number] Oral 800 240 Output: Urine Catheter Amount 1250 Other: Meal Breakfast Percent of Meal Consumed 50% Urine Appearance Clear Urine Color Pale Urine Odor Normal Stool Size Small Stool Color Nakul Colored Stool Consistency Dry and Hard # Bowel Movements 1 Head Head exam: Present atraumatic, normal inspection and normocephalic Eye Eye exam: Present EOMI Pupils: Present normal accommodation and PERRL ENT ENT exam: Present mucous membranes moist, normal exam and normal oropharynx Neck Neck exam: Present full ROM and normal inspection; Absent lymphadenopathy and tenderness Respiratory Additional comments: Still with decreased breath sounds bilaterally though ventilation on the left is improved compared to the right. Her oxygen saturations remained stable. Cardiovascular Cardiovascular exam: Present normal rate and rhythm, RRR, +S1 and +S2; Absent JVD GI/Abdominal GI/Abdominal exam: Present normal bowel sounds and distended (Moderate distention persists though it is improved from yesterday) Extremities Exam Extremities exam: Present full ROM and pedal edema (Pedal edema is improved from yesterday) Neurological Exam Neurological exam: Present alert Additional comments: Stable except for bilateral resting tremor Psychiatric Psychiatric exam: Present anxious and normal mood Skin Skin exam: Present intact, normal color and warm A/P Assessment and plan (1) Adynamic ileus: Status: Acute (2) Atelectasis of left lung: Status: Acute (3) Hypoxemia requiring supplemental oxygen: Status: Acute (4) Sleep apnea, unspecified: Status: Chronic Qualifiers: Sleep apnea type: obstructive Qualified Code(s): G47.33 - Obstructive sleep apnea (adult) (pediatric) (5) Anxiety: Status: Chronic (6) Resting tremor: Status: Chronic Time Spent With Patient Time: Total time spent is greater than 50% in coordination of care (as document ed) at patient's floor/unit and/or counseling patient:
[2021-01-02] MEDS: MAGNESIUM HYDROXIDE 30 ML ORAL.SUSP PO SCH (18:33)
[2021-01-02] MEDS ORDERED: MAGNESIUM HYDROXIDE 30 ML ORAL.SUSP PO SCH (21:00)
[2021-01-02] MEDS: PRAMIPEXOLE 0.25 MG TABLET PO SCH (21:52)
[2021-01-02] MEDS: NITROFURANTOIN MACROCRYSTAL 50 MG PO SCH (21:53)
[2021-01-02] MEDS: SENNOSIDES 1 TABLET PO SCH (21:53)
[2021-01-03] MEDS: DEXTROSE 5%-1/2NS 1,000 ML IV SCH
[2021-01-03] MEDS: oxyCODONE HCL 5 MG TABLET PO PRN (00:06)
[2021-01-03] MEDS: SIMETHICONE 80 MG TAB.CHEW CHEWED SCH ×7 (00:06→23:49)
[2021-01-03] MEDS: METOCLOPRAMIDE 10 MG/2 ML VIAL IV SCH ×5 (00:06→23:51)
[2021-01-03] MEDS: MAGNESIUM HYDROXIDE 30 ML ORAL.SUSP PO SCH ×3 (00:06→12:15)
[2021-01-03] MEDS: PIPERACILLIN SODIUM/TAZOBACTAM 2.25 GM in DEXTROSE 5% IN WATER 50 ML IV SCH ×5 (00:07→23:57)
[2021-01-03] MEDS: IPRATROPIUM/ALBUTEROL 3 ML AMPUL.NEB NEB SCH ×5 (04:10→19:15)
[2021-01-03] MEDS: 0.9 % SODIUM CHLORIDE 10 ML SYRINGE IV SCH ×3 (05:06→21:00)
[2021-01-03] MEDS: LEVOTHYROXINE 25 MCG TABLET PO SCH (07:11)
[2021-01-03] MEDS: PANTOPRAZOLE 40 MG TABLET PO SCH ×2 (07:11→16:33)
[2021-01-03 07:58] LABS: ALT/SGPT 32 U/L (<40); AST/SGOT 39 U/L (<32); Albumin 2.2 gm/dL (3.2-5.2); Albumin/Globulin Ratio 0.6 (1.0-2.3); Alkaline Phosphatase 86 U/L (39-117); Bilirubin,Direct 0.3 mg/dL (<0.3); Bilirubin,Total 0.5 mg/dL (0.1-1.0); Blood Urea Nitrogen 29 mg/dL (8-23); Calcium 8.7 mg/dL (8.6-10.4); Carbon Dioxide 22 mmol/L (22-30); Chloride 83 mmol/L (96-108); Globulin 3.4 gm/dL (2.2-3.7); Glomerular Filtration Rate 76; Glucose 111 mg/dL (70-105); Lactate Dehydrogenase 268 U/L (135-225); Phosphorous 2.9 mg/dL (2.5-4.5); Triglycerides 162 mg/dL (<150); Uric Acid 5.3 mg/dL (2.5-8.0)
[2021-01-03 08:43] LABS: Basophils # (Auto) 0.16 K/mcL (0.00-0.20); Basophils % (Auto) 0.7 % (0.0-2.0); Eosinophils # (Auto) 0.03 K/mcL (0.00-0.70); Eosinophils % (Auto) 0.1 % (0.0-7.0); Hematocrit 30.1 % (36.0-48.0); Hemoglobin 10.2 g/dL (12.0-15.0); Lymphocytes # (Auto) 0.97 K/mcL (1.50-4.80); Lymphocytes % (Auto) 4.1 % (15.0-49.0); Mean Cell Volume 90.7 fL (80.0-100.0); Mean Corpuscular HGB Conc 33.9 g/dL (31.0-36.0); Mean Platelet Volume 9.3 fL (7.4-10.4); Monocytes # (Auto) 0.38 K/mcL (0.10-0.90); Monocytes % (Auto) 1.6 % (1.0-12.0); Neutrophils % (Auto) 93.5 % (38.0-78.0); Platelet Count 286 K/mcL (140-440); RBC 3.32 M/mcL (4.00-5.20); Red Cell Distribution Width 13.7 % (11.5-14.5); WBC 23.5 K/mcL (4.5-11.0)
[2021-01-03] MEDS: HYDROCHLOROTHIAZIDE 25 MG TABLET PO SCH (09:39)
[2021-01-03] MEDS: buPROPion 150 MG TAB.XL.24H PO SCH (09:39)
[2021-01-03] MEDS: LISINOPRIL 20 MG TABLET PO SCH (09:39)
[2021-01-03] MEDS: POTASSIUM CHLORIDE 20 MEQ TABLET PO SCH ×2 (09:39→21:05)
[2021-01-03] MEDS: PRIMIDONE 50 MG TABLET PO SCH ×2 (09:39→20:59)
[2021-01-03] MEDS: DOCUSATE SODIUM 100 MG CAPSULE PO SCH ×2 (09:39→21:04)
[2021-01-03] MEDS: BISACODYL 10 MG SUPP.RECT PR SCH (09:40)
[2021-01-03] MEDS: FUROSEMIDE 20 MG TABLET PO SCH (09:40)
[2021-01-03] MEDS: VITAMIN E (DL,TOCOPHERYL ACET) 400 UNIT CAPSULE PO SCH (09:40)
[2021-01-03] MEDS: BUDESONIDE 3 MG CAP.XL.24H PO SCH (10:17)
--- NOTE | 2021-01-03 12:05 | XRay Report ---
HISTORY: Follow-up atelectasis after recent sigmoid colectomy FINDINGS: There are bands of discoid atelectasis in both lung bases. There is also mild consolidation of lung parenchyma in the medial basal segment of the right lower lobe. The lung volumes are relatively small due to suboptimal inspiration. There is no pleural effusion. Heart size is within normal limits. There is free intra-abdominal air which has diminished since 01/02/21. IMPRESSION: persistent bibasilar atelectasis with little change Improving free intra-abdominal air Interpreted and Authenticated by: Pedro Vargas 01/03/21
--- NOTE | 2021-01-03 14:11 | General Surgery Progress Note ---
SUBJECTIVE Subjective Patient information: Note initiated : 01/03/21 at 2:06 pm Service Date, if different from initiated Date: [] Patient: Flavia Michelle 65 y/o F admitted on 12/23/20 for Laparoscopic Sigmoid Colectomy. Chief Complaint: [] Principal diagnosis: Increasing shortness of breath; Abdominal distention;Adynamic ileus Interval history: Patient states that she feels better. She states that she has less abdominal discomfort though her abdomen is still significantly distended she also states that she is passing flatus. Her white blood count is increased to 23,000 but she is afebrile for the past 24 hours serum sodium is 121, potassium 3.2, BUN 29, creatinine 0.8, glucose 111, albumin 2.2 Constitutional Vitals: Vital Signs Temp Pulse Resp BP Pulse Ox 98.7 F 81 22 132/63 96 01/03/21 11:58 01/03/21 11:58 01/03/21 11:58 01/03/21 11:58 01/03/21 11:58 Period Temp Pulse Resp BP Sys/Engle Pulse Ox Last 24 Hr 97.5 F-98.8 F 81-113 16-30 105-144/62-80 91-96 Intake and Output 01/03/21 01/03/21 01/03/21 05:59 13:59 21:59 Intake Total 690 100 Output Total 850 Balance -160 100 Weight 185 lb 4.8 oz Intake & Output: Intake & Output 01/03/21 01/03/21 01/03/21 05:59 13:59 21:59 Intake Total 690 100 Output Total 850 Balance -160 100 Weight 185 lb 4.8 oz Intake: IV 50 100 Zosyn 2.25 gm In Dextrose 5% in 50 100 Water 50 ml @ 100 mls/hr IV Q6H [facility] Rx#:[id number] Oral 640 Output: Urine Catheter Amount 850 Other: Urine Appearance Clear Uretheral (Greco) Sediment Urine Color Dark Yellow Urine Odor Normal Eye Eye exam: Present EOMI Pupils: Present normal accommodation and PERRL ENT ENT exam: Present mucous membranes moist, normal exam and normal oropharynx Neck Neck exam: Present full ROM and normal inspection; Absent lymphadenopathy and tenderness Respiratory Additional comments: Still with decreased breath sounds bilaterally though ventilation on the left is improved compared to the right. Her oxygen saturations remained stable. Cardiovascular Cardiovascular exam: Present normal rate and rhythm, RRR, +S1 and +S2; Absent JVD GI/Abdominal GI/Abdominal exam: Present normal bowel sounds and distended (Moderate distention persists though it is improved from yesterday) Extremities Exam Extremities exam: Present full ROM and pedal edema (Pedal edema is improved from yesterday) Neurological Exam Neurological exam: Present alert Additional comments: Stable except for bilateral resting tremor Psychiatric Psychiatric exam: Present anxious and normal mood Skin Skin exam: Present intact, normal color and warm A/P Assessment and plan (1) Adynamic ileus: Status: Acute (2) Atelectasis of left lung: Status: Acute (3) Hypoxemia requiring supplemental oxygen: Status: Acute (4) Sleep apnea, unspecified: Status: Chronic Qualifiers: Sleep apnea type: obstructive Qualified Code(s): G47.33 - Obstructive sleep apnea (adult) (pediatric) (5) Anxiety: Status: Chronic (6) Resting tremor: Status: Chronic Narrative A/P Narrative: Repeat CT of abdomen and pelvis in the morning Echocardiogram today to evaluate cardiac function Follow-up CBC in the morning Time Spent With Patient Time: Total time spent is greater than 50% in coordination of care (as documented) at patient's floor/unit and/or counseling patient:
[2021-01-03] MEDS: PRAMIPEXOLE 0.25 MG TABLET PO SCH (20:59)
[2021-01-03] MEDS: SENNOSIDES 1 TABLET PO SCH (20:59)
[2021-01-03] MEDS: NITROFURANTOIN MACROCRYSTAL 50 MG PO SCH (21:05)
--- NOTE | 2021-01-03 21:09 | Internal Medicine Consult Note ---
HPI Data of Consult Primary Care Provider: YECENIA Ren Consult Narrative cc:: CC: Williams Arevalo MD Presented to the hospital after recurrent episodes of diverticulitis for sigmoidectomy. She had underwent a sigmoidectomy on the fourth. Her bowel function has been extremely slow to recover. She has abdominal distention. During her course she became increasingly short of breath. She had a CTA of the chest several days ago and an updated chest x-ray today while showing atelectasis, but no PE or infiltrate. Good cardiogram has been done but results are pending. She has a CT abdomen pelvis pending for the morning. Sodium low. Patient does take hydrochlorothiazide at home. Review of Systems: Pertinent positives as above. Denies headache/fever/chills/nausea/vomiting/chest or abdominal pain/cough/dyspnea/diarrhea. 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) Urinary tract infection (Chronic) Brain aneurysm (Chronic) URI (upper respiratory infection) (Chronic) Left thigh pain (Chronic) Right ankle pain (Chronic) Bilateral foot pain (Chronic) Wellness examination (Chronic) Ankle fracture (Chronic) Ecchymosis (Chronic) Painful breathing (Chronic) Left-sided chest wall pain (Chronic) Pyelonephritis (Chronic) Diaphoresis (Chronic) Situational stress (Chronic) Sleep apnea, unspecified (Chronic) Hx of colonoscopy (Chronic 03/19/16) Hx of fusion of cervical spine (Chronic 01/17/15) History of thumb surgery (Chronic ~03/2010) History of total hysterectomy (Chronic ~08/2000) Migraine (Chronic) Hypertension, essential, benign (Chronic) Depression (Chronic) Anxiety (Chronic) Allergic rhinitis, seasonal (Chronic) GERD (gastroesophageal reflux disease) (Chronic) Fatigue (Chronic) Diverticular disease (Chronic) Diabetes mellitus type 2, diet-controlled (Chronic) DDD (degenerative disc disease), lumbar (Chronic) Blood in stool (Chronic) Encounter for long-term (current) use of medications (Chronic) Arthralgia (Chronic) Hyperlipidemia (Chronic) DDD (degenerative disc disease), cervical (Chronic) Muscle spasm (Chronic) History of recurrent UTIs (Chronic) Resting tremor (Chronic) Postmenopausal status (Chronic) Hypothyroidism (Chronic) Schatzki's ring (Chronic) Collagenous colitis (Chronic) BMI 35.0-35.9,adult (Chronic) Chronic pain (Chronic) Central apnea (Chronic) Heel spur (Chronic) Anemia (Chronic) Recurrent sinusitis (Chronic) Tenosynovitis (Chronic) At risk for falls (Chronic) Restless leg syndrome (Chronic) Gastric ulcer (Chronic) Systolic murmur (Chronic) Lumbar radiculopathy (Chronic) Upper respiratory infection (Chronic) Frontal sinusitis (Chronic) Medical History Allergic rhinitis, seasonal Anemia Anxiety Arthralgia At risk for falls Blood in stool BMI 35.0-35.9,adult Central apnea Chronic pain on daily narcotics Collagenous colitis COVID-05/2020 DDD (degenerative disc disease), cervical DDD (degenerative disc disease), lumbar Depression Diabetes mellitus type 2, diet-controlled Diverticular disease history of Encounter for long-term (current) use of medications Fatigue Gastric ulcer GERD (gastroesophageal reflux disease) Heel spur History of recurrent UTIs Hyperlipidemia Hypertension, essential, benign Hypothyroidism LLQ abdominal pain Lumbar radiculopathy Migraine Muscle spasm Postmenopausal status Recurrent sinusitis Resting tremor Restless leg syndrome Schatzki's ring Systolic murmur Tenosynovitis Surgical History History of surgery Gamma knife surgery for [id number] Jc Miller History of thumb surgery (~03/2010) total thumb replacement History of total hysterectomy (~08/2000) Hx of colonoscopy (03/19/16) Dr Garcia Hx of fusion of cervical spine (01/17/15) Dr Mccoy Family History Father , 10/08/2019 Alcoholism Pancreatitis Other No pertinent family history Social History household members: significant other marital status: occupational status: disabled smoking status: Never smoker alcohol intake frequency: does not drink substance use type: does not use MEDS/ALLERGIES Home Medications and Allergies Home Medications Medication Instructions Recorded Confirmed Type budesonide 3 mg 9 mg PO DAILY each 05/18/19 12/23/20 History capsule,delayed,extended release furosemide 20 mg tablet 20 mg PO QAM #90 tab 02/17/20 12/23/20 Rx primidone 50 mg tablet 50 mg PO BID #180 tab 02/17/20 12/23/20 Rx bupropion HCl 300 mg 24 hr tablet, See Rx Instructions .ROUTE 03/29/20 12/23/20 Rx extended release .COMPLEX #90 tab hydrochlorothiazide 25 mg tablet See Rx Instructions .ROUTE 06/01/20 12/23/20 Rx .COMPLEX #90 tab lisinopril 40 mg tablet See Rx Instructions .ROUTE 08/08/20 12/23/20 Rx .COMPLEX #90 tab citalopram 40 mg tablet See Rx Instructions .ROUTE 12/01/20 12/23/20 Rx .COMPLEX #90 tab famotidine 20 mg tablet 20 mg PO DAILYP PRN 12/14/20 12/23/20 History methocarbamol 500 mg tablet 1,000 mg PO Q8HP PRN tab 12/14/20 12/23/20 History nitrofurantoin macrocrystal 50 mg 50 mg PO QHS 12/14/20 12/23/20 History capsule pantoprazole 40 mg tablet,delayed See Rx Instructions .ROUTE 12/16/20 12/23/20 Rx release .COMPLEX #90 tab calcium carbonate [Calcium 600] 1,200 mg PO QDAY 12/21/20 12/23/20 History cholecalciferol (vitamin D3) 25 mcg PO QDAY 12/21/20 12/23/20 History [Vitamin D3] hydrocodone-acetaminophen 2 tab PO Q8HP PRN 12/21/20 12/23/20 History levothyroxine 25 mcg PO QAMAC 12/21/20 12/23/20 History potassium chloride 20 meq PO QAMCC 12/21/20 12/23/20 History pramipexole 0.125 mg PO QHS 12/21/20 12/23/20 History vitamin E 400 unit PO QDAY 12/21/20 12/23/20 History Allergies Allergy/AdvReac Type Severity Reaction Status Date / Time clarithromycin [From Biaxin] AdvReac Mild Diarrhea Verified 12/21/20 08:15 Sulfa (Sulfonamide AdvReac Mild Photosensit Verified 12/21/20 08:07 Antibiotics) ivity EXAM Constitutional Vitals: Temp Pulse Resp BP Pulse Ox 97.1 F 95 H 30 H 117/57 93 01/03/21 16:00 01/03/21 19:15 01/03/21 19:15 01/03/21 16:00 01/03/21 19:15 Exam: General: Alert, Awake, No acute Distress, obese Eyes/N/T: EOMI, PERRL, Head/Neck: neck supple, normocephalic atraumatic CV: RRR, 1/6 SM Pulm: mildly diminished, mild wheezing b/l Abd: soft, nontender, hypoactive bowel sounds Ext: no clubbing/cyanosis, b/le LE 2+ edema Neuro: Alert, no focal deficits, moves all extremities, CN 2-12 grossly intact, symmetrical strength b/l upper/lower, sensations intact b/l upper/lower Skin: warm/dry DATA Data Completed and Pending Labs: Labs from last 24 hours 01/03/21 01/03/21 01/03/21 20:54 05:26 05:26 WBC 23.5 H RBC 3.32 L Hgb 10.2 L Hct 30.1 L MCV 90.7 MCH 30.7 MCHC 33.9 RDW 13.7 Plt Count 286 MPV 9.3 Neut % (Auto) 93.5 H Lymph % (Auto) 4.1 L [place] % (Auto) 1.6 Eos % (Auto) 0.1 Baso % (Auto) 0.7 Lymph # (Auto) 0.97 L [place] # (Auto) 0.38 Eos # (Auto) 0.03 Baso # (Auto) 0.16 Absolute Neutrophils 21.97 H Sodium 121 L Potassium 3.2 L Chloride 83 L Carbon Dioxide 22 Anion Gap 16.0 BUN 29 H Creatinine 0.8 GFR Calculation 76 Glucose 111 H Uric Acid 5.3 Calcium 8.7 Phosphorus 2.9 Magnesium 2.4 Total Bilirubin 0.5 Direct Bilirubin 0.3 H GGT 75 H AST 39 H ALT 32 Alkaline Phosphatase 86 Lactate Dehydrogenase 268 H Troponin T Pending Total Protein 5.6 L Albumin 2.2 L Globulin 3.4 Albumin/Globulin Ratio 0.6 L Triglycerides 162 H A/P Narrative A/P Narrative: A: *Acute Hypoxic Resp failure: likely restrictive lung 2/2 abdominal process + -CTA & CXR with atelectasis no PE/Infiltrate -on 2-3L NC *Hyponatremia: *Sigmoidectomy (12/23): *Post-op ileus/abd distention: *worsening leukocytosis: afebrile, pending man diff *Microscopic Colitis: on budesonide and follows with Dr. Garcia *LAUREN: *HTN: *Depression/anxiety: *Hypothyroidism: *GERD: *Obesity *Essential Tremor P: -Post-op per surgery -wean O2, IS, prn nebs -nocturnal cpap -IV Abx -pending AM CT a/p -hyponatremia w/u and d/c hctz -prn lasix -echo pending - -pt/ot -ppx: heparin Time Spent With Patient Time: Total time spent is greater than 50% in coordination of care (as documented) at patient's floor/unit and/or counseling patient:
[2021-01-03] MEDS ORDERED: LEVALBUTEROL 1.25 MG/3 ML AMPUL.NEB NEB PRN (21:52)
[2021-01-03 22:15] LABS: Band Neutrophils % 11 % (0-10); Lymphocytes % 4 % (15-49); Monocytes % (Manual) 6 % (1-12); Platelet Estimate NORMAL (Normal); RBC Morphology NORMAL (Normal); Segmented Neutrophils % 79 % (38-78); Toxic Granulation 1+ (None Seen)
[2021-01-03] MEDS ORDERED: IPRATROPIUM 2.5 ML AMPUL.NEB ONE (22:35)
[2021-01-03] MEDS ORDERED: LEVALBUTEROL 1.25 MG/3 ML AMPUL.NEB ONE (22:39)
[2021-01-03] MEDS: LEVALBUTEROL 1.25 MG/3 ML AMPUL.NEB NEB SCH (22:40)
[2021-01-03] MEDS: IPRATROPIUM 2.5 ML AMPUL.NEB NEB SCH (22:40)
[2021-01-03 22:45] LABS: Thyroid Stimulating Hormone 0.82 uIU/mL (0.27-5.01)
[2021-01-03] MEDS: 0.9 % SODIUM CHLORIDE 1,000 ML IV SCH (23:00)
[2021-01-03] MEDS ORDERED: HEPARIN 5,000 UNIT/ML VIAL ONE (23:43)
[2021-01-03] MEDS: HEPARIN 5,000 UNIT/ML VIAL SQ SCH (23:51)
[2021-01-04] MEDS: SIMETHICONE 80 MG TAB.CHEW CHEWED SCH ×4 (03:38→18:22)
[2021-01-04 04:42] LABS: Sodium, Urine Random 11 mmol/L
[2021-01-04 04:56] LABS: Appearance,Urine CLOUDY (Clear); Bacteria,Urine FEW /hpf (0); Bilirubin,Urine Negative (Negative); Color,Urine YELLOW; Culture Indicated,Urine No; Glucose,Urine (UA) Negative (Negative); Ketones,Urine Negative (Negative); Leukocyte Esterase,Urine Negative /ug (Negative); Nitrate,Urine Negative (Negative); Protein,Urine Negative (Negative); Urine Amorphous Crystals FEW /hpf; Urine Blood 0.03 mg/dL (Negative); Urine RBC 18 /hpf (0-3); Urine Squamous Epithelial Cell 5 /hpf (0-4); Urine Transitional Epi Cells 1 /hpf (0-2); Urine WBC 5 /hpf (0-4); Urobilinogen,Urine Negative
[2021-01-04 05:43] LABS: Osmolality,Urine 362 mOSM/kg (80-1000)
[2021-01-04] MEDS: PIPERACILLIN SODIUM/TAZOBACTAM 2.25 GM in DEXTROSE 5% IN WATER 50 ML IV SCH ×2 (06:00→12:26)
[2021-01-04] MEDS: 0.9 % SODIUM CHLORIDE 10 ML SYRINGE IV SCH ×3 (06:06→22:42)
[2021-01-04] MEDS: METOCLOPRAMIDE 10 MG/2 ML VIAL IV SCH ×4 (06:06→23:51)
--- NOTE | 2021-01-04 06:54 | Internal Med Progress Note ---
SUBJECTIVE Subjective Patient information: Note initiated : 01/04/21 at 6:51 am Service Date, if different from initiated Date: [] Patient: Flavia Michelle 65 y/o F admitted on 12/23/20 for Laparoscopic Sigmoid Colectomy. Chief Complaint: [] Principal diagnosis: Increasing shortness of breath; Abdominal distention;Adynamic ileus Interval history: Presented to the hospital after recurrent episodes of diverticulitis for sigmoidectomy. She had underwent a sigmoidectomy on the fourth. Her bowel function has been extremely slow to recover. She has abdominal distention. During her course she became increasingly short of breath. She had a CTA of the chest several days ago and an updated chest x-ray today while showing atelectasis, but no PE or infiltrate. Good cardiogram has been done but results are pending. She has a CT abdomen pelvis pending for the morning. Sodium low. Patient does take hydrochlorothiazide at home. 01/04 Patient feeling worse today, abdominal distention bloating. Denies passing flatus today. Review of Systems: denies headache/fever/chills/vomiting/chestpain/cough/dyspnea/diarrhea. Otherwise see above. Constitutional Vitals: Vital Signs Temp Pulse Resp BP Pulse Ox 98.2 F 95 H 28 H 129/64 90 01/04/21 03:37 01/04/21 03:37 01/04/21 03:37 01/04/21 03:37 01/04/21 03:37 Period Temp Pulse Resp BP Sys/Engle Pulse Ox Last 24 Hr 97.1 F-98.7 F 81-96 16-32 105-135/57-64 90-96 Intake and Output 01/03/21 01/04/21 01/04/21 21:59 05:59 13:59 Intake Total 1410 150 Output Total 425 400 Balance 985 -250 Weight 85.049 kg Intake & Output: Intake & Output 01/03/21 01/04/21 01/04/21 21:59 05:59 13:59 Intake Total 1410 150 Output Total 425 400 Balance 985 -250 Weight 85.049 kg Intake: IV 1050 50 Dextrose 5%-1/2Ns IV Solution 1 1000 ,000 ml @ 20 mls/hr IV .Q24H [facility] Rx#:[id number] Zosyn 2.25 gm In Dextrose 5% in 50 50 Water 50 ml @ 100 mls/hr IV Q6H [facility] Rx#:[id number] Oral 360 100 Output: Gastric Drainage 100 Left Nare [place]-Sump 100 Urine Catheter Amount 425 Void Amount 300 Other: Urine Appearance Sediment Clear Urine Color Tea Colored Dark Yellow Exam: General: Alert, Awake, No acute Distress, obese Eyes/N/T: EOMI, , Head/Neck: neck supple, CV: RRR, 1/6 SM Pulm: mildly diminished, mild wheezing b/l Abd: soft, mild TTP, hypoactive bowel sounds Ext: no clubbing/cyanosis, b/le LE 2+ edema Neuro: Alert, no focal deficits, moves all extremities, Skin: warm/dry OBJ DATA Labs CBC & Chem 7: 01/04/21 05:55 01/04/21 05:55 Labs: Abnormal Lab Results 01/04/21 01/03/21 01/03/21 03:07 05:26 05:26 WBC RBC Hgb Hct Neut % (Auto) Lymph % (Auto) Lymph # (Auto) Seg Neutrophils % Band Neutrophils % Lymphocytes % Absolute Neutrophils Toxic Granulation Sodium Potassium Chloride BUN Glucose Osmolality 260 L Direct Bilirubin GGT AST Lactate Dehydrogenase NT-Pro-B Natriuret Pep Total Protein Albumin Albumin/Globulin Ratio Triglycerides Cortisol AM Sample 23.1 H Urine Appearance Cloudy A Urine RBC 18 H Urine WBC 5 H Ur Squamous Epith Cells 5 H Amorphous Crystals Few A Urine Bacteria Few A 01/03/21 01/03/21 01/03/21 05:26 05:26 05:26 WBC 23.5 H RBC 3.32 L Hgb 10.2 L Hct 30.1 L Neut % (Auto) 93.5 H Lymph % (Auto) 4.1 L Lymph # (Auto) 0.97 L Seg Neutrophils % 79 H Band Neutrophils % 11 H Lymphocytes % 4 L Absolute Neutrophils 21.97 H Toxic Granulation 1+ A Sodium 121 L Potassium 3.2 L Chloride 83 L BUN 29 H Glucose 111 H Osmolality Direct Bilirubin 0.3 H GGT 75 H AST 39 H Lactate Dehydrogenase 268 H NT-Pro-B Natriuret Pep Total Protein 5.6 L Albumin 2.2 L Albumin/Globulin Ratio 0.6 L Triglycerides 162 H Cortisol AM Sample Urine Appearance Urine RBC Urine WBC Ur Squamous Epith Cells Amorphous Crystals Urine Bacteria 01/02/21 01/02/21 01/01/21 04:58 04:58 06:07 WBC 17.2 H RBC 2.87 L Hgb 9.0 L Hct 25.4 L Neut % (Auto) 92.7 H Lymph % (Auto) 3.7 L Lymph # (Auto) 0.63 L Seg Neutrophils % Band Neutrophils % Lymphocytes % Absolute Neutrophils 15.97 H Toxic Granulation Sodium 126 L Potassium Chloride 85 L BUN 34 H Glucose Osmolality Direct Bilirubin GGT 63 H AST 37 H Lactate Dehydrogenase NT-Pro-B Natriuret Pep 1502.0 H Total Protein Albumin 2.8 L Albumin/Globulin Ratio 0.8 L Triglycerides Cortisol AM Sample Urine Appearance Urine RBC Urine WBC Ur Squamous Epith Cells Amorphous Crystals Urine Bacteria Meds: Medications Acetaminophen (Acetaminophen 325 Mg Tablet) 650 mg PO Q6HP PRN; Protocol PRN Reason: Per Pain Protocol/Fever > 101 Last Admin: 01/01/21 15:25 Dose: 650 mg Documented by: Bisacodyl (Bisacodyl 10 Mg Supp.Rect) 10 mg GA DAILY [facility] Last Admin: 01/03/21 09:40 Dose: 10 mg Documented by: Budesonide (Budesonide 3 Mg Cap.Xl.24h) 9 mg PO DAILY [facility] Last Admin: 01/03/21 10:17 Dose: 9 mg Documented by: Bupropion HCl (Bupropion 150 Mg Tab.Xl.24h) 300 mg PO DAILY [facility] Last Admin: 01/03/21 09:39 Dose: 300 mg Documented by: Docusate Sodium (Docusate Sodium 100 Mg Capsule) 100 mg PO BID [facility] Last Admin: 01/03/21 21:04 Dose: 100 mg Documented by: Famotidine (Famotidine 20 Mg Tablet) 20 mg PO DAILYP PRN PRN Reason: Heartburn Last Admin: 12/29/20 09:42 Dose: 20 mg Documented by: Furosemide (Furosemide 20 Mg Tablet) 20 mg PO QAM [facility] Last Admin: 01/03/21 09:40 Dose: 20 mg Documented by: Furosemide (Furosemide 40 Mg/4 Ml Vial) 40 mg IV ONCE ONE Stop: 01/04/21 07:31 Heparin Sodium (Porcine) (Heparin 5,000 Unit/Ml Vial) 5,000 unit SQ Q12 [facility] Last Admin: 01/03/21 23:51 Dose: 5,000 unit Documented by: Piperacillin Sod/Tazobactam (Sod 2.25 gm/ Dextrose) 50 mls @ 100 mls/hr IV Q6H [facility] Last Admin: 01/04/21 06:00 Dose: 100 mls/hr Documented by: Albumin Human (Buminate) 12.5 gm in 50 mls @ 100 mls/hr IV ONCE ONE Stop: 01/04/21 07:59 Sodium Chloride (Sodium Chloride 0.9%) 1,000 mls @ 100 mls/hr IV .Q10H [facility] Last Admin: 01/03/21 23:00 Dose: 100 mls/hr Documented by: Ipratropium Har[place]inger (Ipratropium 2.5 Ml Ampul.Neb) 2.5 ml NEB Q8H [facility] Last Admin: 01/03/21 22:40 Dose: 2.5 ml Documented by: Levalbuterol HCl (Levalbuterol 1.25 Mg/3 Ml Ampul.Neb) 1.25 mg NEB Q8H [facility] Last Admin: 01/03/21 22:40 Dose: 1.25 mg Documented by: Levalbuterol HCl (Levalbuterol 1.25 Mg/3 Ml Ampul.Neb) 1.25 mg NEB Q4HP PRN PRN Reason: Shortness Of Breath Levothyroxine Sodium (Levothyroxine 25 Mcg Tablet) 25 mcg PO QAMAC [facility] Last Admin: 01/03/21 07:11 Dose: 25 mcg Documented by: Lisinopril (Lisinopril 20 Mg Tablet) 40 mg PO DAILY [facility] Last Admin: 01/03/21 09:39 Dose: 40 mg Documented by: Methocarbamol (Methocarbamol 500 Mg Tablet) 1,000 mg PO Q8HP PRN PRN Reason: muscle spasm Last Admin: 01/02/21 19:57 Dose: 1,000 mg Documented by: Metoclopramide HCl (Metoclopramide 10 Mg/2 Ml Vial) 10 mg IV Q6 [facility] Last Admin: 01/04/21 06:06 Dose: 10 mg Documented by: Oxycodone HCl (Oxycodone Hcl 5 Mg Tablet) 5 mg PO Q4HP PRN; Protocol PRN Reason: Per Pain Protocol Last Admin: 01/03/21 00:06 Dose: 5 mg Documented by: Pantoprazole Sodium (Pantoprazole 40 Mg Tablet) 40 mg PO BIDAC [facility] Last Admin: 06/15/21 16:33 Dose: 40 mg Documented by: Potassium Chloride (Potassium Chloride 20 Meq Tablet) 40 meq PO BIDCC [facility] Last Admin: 01/03/21 21:05 Dose: 40 meq Documented by: Pramipexole Dihydrochloride (Pramipexole 0.25 Mg Tablet) 0.125 mg PO QHS [facility] Last Admin: 01/03/21 20:59 Dose: 0.125 mg Documented by: Primidone (Primidone 50 Mg Tablet) 50 mg PO BID [facility] Last Admin: 01/03/21 20:59 Dose: 50 mg Documented by: Senna (Sennosides 1 Tablet) 2 tab PO HS [facility] Last Admin: 01/03/21 20:59 Dose: 2 tab Documented by: Simethicone (Simethicone 80 Mg Tab.Chew) 160 mg CHEWED Q4H [facility] Last Admin: 01/04/21 03:38 Dose: Not Given Documented by: Sodium Chloride (0.9 % Sodium Chloride 10 Ml Syringe) 10 ml IV Q8 [facility] Last Admin: 01/04/21 06:06 Dose: 10 ml Documented by: A/P Narrative A/P Narrative: A: *Acute Hypoxic Resp failure: likely restrictive lung 2/2 abdominal process + -CTA & CXR with atelectasis no PE/Infiltrate -on 2-3L NC *Hyponatremia: *Sigmoidectomy (12/23): *Post-op ileus/abd distention: *leukocytosis: 2/2 above *Microscopic Colitis: on budesonide and follows with Dr. Garcia *LAUREN: *HTN: *Depression/anxiety: *Hypothyroidism: *GERD: *Obesity *Essential Tremor P: -Post-op per surgery, likely will be taken back to OR -NGT/Diet per Surgery -wean O2, IS, prn nebs -nocturnal cpap -IV Abx -pending AM CT a/p -hyponatremia w/u and d/c hctz -prn lasix -echo pending - -pt/ot -ppx: heparin Time Spent With Patient Time: Total time spent is greater than 50% in coordination of care (as documented) at patient's floor/unit and/or counseling patient: QUALITY VTE Deep Vein Thrombosis/Pulmonary Embolism Present on Admission: No
[2021-01-04] MEDS ORDERED: ALBUMIN HUMAN 12.5 GM/50 ML BAG IV ONE (07:30)
[2021-01-04] MEDS ORDERED: FUROSEMIDE 40 MG/4 ML VIAL IV ONE (07:30)
[2021-01-04 07:31] LABS: Basophils % (Auto) 0.4 % (0.0-2.0); Eosinophils # (Auto) 0.08 K/mcL (0.00-0.70); Eosinophils % (Auto) 0.3 % (0.0-7.0); Hemoglobin 9.3 g/dL (12.0-15.0); Lymphocytes # (Auto) 1.34 K/mcL (1.50-4.80); Lymphocytes % (Auto) 5.6 % (15.0-49.0); Mean Cell Volume 89.7 fL (80.0-100.0); Mean Corpuscular HGB Conc 34.4 g/dL (31.0-36.0); Mean Platelet Volume 9.6 fL (7.4-10.4); Monocytes # (Auto) 0.77 K/mcL (0.10-0.90); Monocytes % (Auto) 3.2 % (1.0-12.0); Platelet Count 312 K/mcL (140-440); RBC 3.01 M/mcL (4.00-5.20); Red Cell Distribution Width 13.7 % (11.5-14.5); WBC 23.8 K/mcL (4.5-11.0)
[2021-01-04] MEDS: LEVALBUTEROL 1.25 MG/3 ML AMPUL.NEB NEB SCH ×2 (07:38→13:19)
[2021-01-04] MEDS: IPRATROPIUM 2.5 ML AMPUL.NEB NEB SCH ×3 (07:38→22:12)
[2021-01-04] MEDS: POTASSIUM CHLORIDE 20 MEQ TABLET PO SCH ×2 (07:42→09:35)
[2021-01-04] MEDS: buPROPion 150 MG TAB.XL.24H PO SCH ×2 (07:42→09:35)
[2021-01-04] MEDS: PRIMIDONE 50 MG TABLET PO SCH ×2 (07:42→09:35)
[2021-01-04] MEDS: LISINOPRIL 20 MG TABLET PO SCH ×2 (07:42→09:35)
[2021-01-04] MEDS: PANTOPRAZOLE 40 MG TABLET PO SCH ×2 (07:43→09:35)
[2021-01-04] MEDS: DOCUSATE SODIUM 100 MG CAPSULE PO SCH (07:43)
[2021-01-04] MEDS: HEPARIN 5,000 UNIT/ML VIAL SQ SCH ×2 (07:43→09:34)
[2021-01-04] MEDS: FUROSEMIDE 20 MG TABLET PO SCH ×2 (07:43→09:35)
[2021-01-04] MEDS: LEVOTHYROXINE 25 MCG TABLET PO SCH ×2 (07:43→09:35)
[2021-01-04] MEDS: 0.9 % SODIUM CHLORIDE 1,000 ML IV SCH ×2 (07:45→17:56)
--- NOTE | 2021-01-04 07:51 | XRay Report ---
HISTORY: Increasing abdominal distention following laparoscopic sigmoid colectomy FINDINGS: There is a large amount of gas in the large intestine from cecum to the proximal sigmoid. There are multiple air-fluid levels. There are also air-fluid levels in nondistended small intestine. Small amount of free intra-abdominal air is seen beneath the diaphragm. This has diminished in quantity since 01/02/21. The dilatation of the large intestine has become worse. There is air within normal caliber stomach. Bands of atelectasis are seen in the left lower lobe. IMPRESSION: Increase in dilatation of the large intestine which could be due to ileus or distal large bowel obstruction Interpreted and Authenticated by: Pedro Vargas 01/04/21
--- NOTE | 2021-01-04 08:01 | XRay Report ---
HISTORY: Increasing abdominal distention following recent laparoscopic sigmoid colectomy FINDINGS: Nasogastric tube has been inserted into the stomach. The tip is in the distal antrum. The stomach is decompressed. Large amount of gas is present in the colon. Small bowel is decompressed. The caliber of the large intestine is slightly smaller now than it was on the prior study done on 01/03/21. Free air is still present in the right upper quadrant. IMPRESSION: Improved large bowel dilatation following insertion of a nasogastric tube Interpreted and Authenticated by: Pedro Vargas 01/04/21
[2021-01-04] MEDS ORDERED: IOPAMIDOL 100 ML BOTTLE IV ONE (08:15)
--- NOTE | 2021-01-04 09:13 | General Surgery Progress Note ---
SUBJECTIVE Subjective Patient information: Note initiated : 01/04/21 at 9:10 am Service Date, if different from initiated Date: [] Patient: Flavia Michelle 65 y/o F admitted on 12/23/20 for Laparoscopic Sigmoid Colectomy. Chief Complaint: [] Principal diagnosis: Increasing shortness of breath; Abdominal distention;Adynamic ileus Interval history: patient states that she feel much worse. CT WITH RECTAL CONTRAST SHOWS A MAJOR ANASTOMOTIC LEAK WITH FREE INTRAPERITONEAL FLUID. SHE IS COUNSELED FOR EMERGENCY LAPAROTOMY WITH COLOSTOMY AND PELVIC WASHOUT WITH DRAINAGE. SHE MAY NEED ICU MONITORING POSTPROCEDURE. Constitutional Vitals: Vital Signs Temp Pulse Resp BP Pulse Ox 98.1 F 84 28 H 119/55 95 01/04/21 06:55 01/04/21 06:55 01/04/21 06:55 01/04/21 06:55 01/04/21 06:55 Period Temp Pulse Resp BP Sys/Engle Pulse Ox Last 24 Hr 97.1 F-98.7 F 81-96 20-32 109-135/55-64 90-96 Intake and Output 01/03/21 01/04/21 01/04/21 21:59 05:59 13:59 Intake Total 1410 150 50 Output Total 425 400 Balance 985 -250 50 Weight 187 lb 8 oz Intake & Output: Intake & Output 01/03/21 01/04/21 01/04/21 21:59 05:59 13:59 Intake Total 1410 150 50 Output Total 425 400 Balance 985 -250 50 Weight 187 lb 8 oz Intake: IV 1050 50 50 Dextrose 5%-1/2Ns IV Solution 1 1000 ,000 ml @ 20 mls/hr IV .Q24H [facility] Rx#:[id number] Zosyn 2.25 gm In Dextrose 5% in 50 50 50 Water 50 ml @ 100 mls/hr IV Q6H [facility] Rx#:[id number] Oral 360 100 Output: Gastric Drainage 100 Left Nare [place]-Sump 100 Urine Catheter Amount 425 Void Amount 300 Other: Urine Appearance Sediment Clear Urine Color Tea Colored Dark Yellow A/P Assessment and plan (1) Anastomotic leak of intestine: Status: Acute (2) Hypertension, essential, benign: Status: Chronic (3) GERD (gastroesophageal reflux disease): Status: Chronic Qualifiers: Esophagitis presence: with esophagitis Qualified Code(s): K21.0 - Gastro-esophageal reflux disease with esophagitis (4) Diabetes mellitus type 2, diet-controlled: Status: Chronic Narrative A/P Narrative: EMERGENCY LAPAROTOMY WITH PELVIC WASHOUT AND DRAINAGE ADRIEL Time Spent With Patient Time: Total time spent is greater than 50% in coordination of care (as documented) at patient's floor/unit and/or counseling patient:
[2021-01-04 09:21] LABS: Neutrophils % (Auto) 90.5 % (38.0-78.0)
[2021-01-04] MEDS: BUDESONIDE 3 MG CAP.XL.24H PO SCH (09:32)
[2021-01-04] MEDS: BISACODYL 10 MG SUPP.RECT PR SCH (09:32)
[2021-01-04] MEDS ORDERED: HYDROmorphone 1 MG/ML SYRINGE IV PRN (09:33)
--- NOTE | 2021-01-04 09:47 | Cat Scan Report ---
History: Abdominal pain and distention, following recent laparoscopic sigmoid colectomy TECHNIQUE: The patient was imaged following intravenous nonionic contrast and rectal contrast scanning at 2.5 mm intervals. Sagittal and coronal reformats were created. The radiation exposure was limited using dose reduction technology. FINDINGS: The nasogastric tube seen in the stomach on the prior x-ray done earlier the same date has been removed. There is moderate atelectasis in both lung bases. Trace amount pleural fluid is present in the left posterior costophrenic sulcus. Heart is borderline enlarged. The liver and spleen are normal in size and homogeneous. There is a moderate size hiatus hernia. The stomach is mostly decompressed. The gallbladder, bile ducts, pancreas, adrenals and kidneys are normal. A 5 x 16 x 26 cm pocket of fluid with air-fluid level is present in the midline of the upper abdomen extending up to the diaphragm. The ureters also seen above the right diaphragm. Normal free fluid is present in the left paracolic gutter. There has been dehiscence of the anastomosis in the sigmoid colon. There is a large collection of extravasated stool and barium contrast around the anastomosis. The collection measures 13 x 14 cm in size. Contrast passes above the anastomosis through the remaining proximal sigmoid colon, to the level of the cecum. The wall of the large intestine above the anastomosis is normal in thickness and noninflamed. Small intestine is decompressed. Urinary bladder is incompletely distended but appears normal. The abnormal collection of stool and contrast in the pelvis compresses the bladder. IMPRESSION: Dehiscence of the anastomosis in the distal sigmoid colon with a large pericolonic leak. Free fluid and air in the upper abdomen Bibasilar atelectasis Results were discussed with Dr. Saleh Interpreted and Authenticated by: Pedro Vargas 01/04/21
[2021-01-04 10:25] LABS: ALT/SGPT 28 U/L (<40); AST/SGOT 30 U/L (<32); Albumin 2.5 gm/dL (3.2-5.2); Albumin/Globulin Ratio 0.8 (1.0-2.3); Alkaline Phosphatase 77 U/L (39-117); Bilirubin,Direct 0.2 mg/dL (<0.3); Bilirubin,Total 0.4 mg/dL (0.1-1.0); Blood Urea Nitrogen 36 mg/dL (8-23); Calcium 8.4 mg/dL (8.6-10.4); Carbon Dioxide 25 mmol/L (22-30); Chloride 81 mmol/L (96-108); Globulin 3.1 gm/dL (2.2-3.7); Glomerular Filtration Rate 66; Glucose 142 mg/dL (70-105); Lactate Dehydrogenase 190 U/L (135-225); Phosphorous 2.3 mg/dL (2.5-4.5); Triglycerides 154 mg/dL (<150); Uric Acid 5.7 mg/dL (2.5-8.0)
[2021-01-04] MEDS ORDERED: SCOPOLAMINE 1 PATCH PATCH TOPICAL PRN (10:29)
[2021-01-04] MEDS ORDERED: IPRATROPIUM/ALBUTEROL 3 ML AMPUL.NEB NEB PRN (10:29)
--- NOTE | 2021-01-04 12:02 | EKG ---
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 Measurements Intervals [place] Rate: 90 P: 25 WI: 192 QRS: 38 QRSD: 110 T: 9 QT: 340 QTc: 416 Interpretive Statements SINUS RHYTHM NONSPECIFIC INTRAVENTRICULAR CONDUCTION DELAY Since previous ECG of -12-31-2020, SLIGHT INCREASE IN QRSd Electronically Signed On 01-04-2021 12:02:21 PDT by Akshat Billy M.D. /[facility] [place]/[id number]
[2021-01-04] MEDS ORDERED: PIPERACILLIN SODIUM/TAZOBACTAM 2.25 GM in 0.9 % SODIUM CHLORIDE 50 ML IV SCH (12:15)
--- NOTE | 2021-01-04 12:35 | Nephrology Consult Note ---
HPI Data of Consult Patient: new to practice Consult date: 01/04/21 Requesting physician: Roberto Butler Primary Care Provider: YECENIA Ren Consult Narrative Chief complaint: Abdominal pain Reason for consult: Hyponatremia History of present illness: Flavia Michelle is a 65-year-old female with hypert ension, hypothyroidism, morbid obesity (BMI >30), admitted on 12/23/20 for recurrent diverticulitis and had sigmoidectomy on 12/23/20. She is scheduled for surgery today. Nephrology consultation was requested for hyponatremia. cc:: CC: Williams Arevalo MD Constitutional Constitutional: Present fatigue and weakness EENT Nose, mouth and throat: Absent nasal congestion and sore throat Cardiovascular Cardiovascular: Absent chest pain and palpatations Respiratory Respiratory: Absent cough and dyspnea Gastrointestinal Gastrointestinal: Absent nausea and vomiting Integumentary Integumentary: Absent pruritus and rash Neurological Neurological: Absent confusion Psychiatric Psychiatric: Absent anxiety and panic attacks Hematologic/Lymphatic Hematologic/Lymphatic: Absent easy bleeding and easy bruising Allergic/Immunologic Allergic/Immunologic: Absent tongue swelling and throat swelling PFSH PFSH All Active Problems (Updated 01/04/21 @ 12:29 by Arnaldo Aranda MD) Hyponatremia (Acute) Fluid overload (Acute) Anastomotic leak of intestine (Acute) Adynamic ileus (Acute) Hypoxemia requiring supplemental oxygen (Acute) Atelectasis of left lung (Acute) Elevated C-reactive protein (CRP) (Chronic) Elevated sed rate (Chronic) Diverticulitis (Chronic) LLQ abdominal pain (Chronic) 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) Urinary tract infection (Chronic) Brain aneurysm (Chronic) URI (upper respiratory infection) (Chronic) Left thigh pain (Chronic) Right ankle pain (Chronic) Bilateral foot pain (Chronic) Wellness examination (Chronic) Ankle fracture (Chronic) Ecchymosis (Chronic) Painful breathing (Chronic) Left-sided chest wall pain (Chronic) Pyelonephritis (Chronic) Diaphoresis (Chronic) Situational stress (Chronic) Sleep apnea, unspecified (Chronic) Hx of colonoscopy (Chronic 03/19/16) Hx of fusion of cervical spine (Chronic 01/17/15) History of thumb surgery (Chronic ~03/2010) History of total hysterectomy (Chronic ~08/2000) Migraine (Chronic) Hypertension, essential, benign (Chronic) Depression (Chronic) Anxiety (Chronic) Allergic rhinitis, seasonal (Chronic) GERD (gastroesophageal reflux disease) (Chronic) Fatigue (Chronic) Diverticular disease (Chronic) Diabetes mellitus type 2, diet-controlled (Chronic) DDD (degenerative disc disease), lumbar (Chronic) Blood in stool (Chronic) Encounter for long-term (current) use of medications (Chronic) Arthralgia (Chronic) Hyperlipidemia (Chronic) DDD (degenerative disc disease), cervical (Chronic) Muscle spasm (Chronic) History of recurrent UTIs (Chronic) Resting tremor (Chronic) Postmenopausal status (Chronic) Hypothyroidism (Chronic) Schatzki's ring (Chronic) Collagenous colitis (Chronic) BMI 35.0-35.9,adult (Chronic) Chronic pain (Chronic) Central apnea (Chronic) Heel spur (Chronic) Anemia (Chronic) Recurrent sinusitis (Chronic) Tenosynovitis (Chronic) At risk for falls (Chronic) Restless leg syndrome (Chronic) Gastric ulcer (Chronic) Systolic murmur (Chronic) Lumbar radiculopathy (Chronic) Upper respiratory infection (Chronic) Frontal sinusitis (Chronic) Medical History Allergic rhinitis, seasonal Anemia Anxiety Arthralgia At risk for falls Blood in stool BMI 35.0-35.9,adult Central apnea Chronic pain on daily narcotics Collagenous colitis COVID-19 05/2020 DDD (degenerative disc disease), cervical DDD (degenerative disc disease), lumbar Depression Diabetes mellitus type 2, diet-controlled Diverticular disease history of Encounter for long-term (current) use of medications Fatigue Gastric ulcer GERD (gastroesophageal reflux disease) Heel spur History of recurrent UTIs Hyperlipidemia Hypertension, essential, benign Hypothyroidism LLQ abdominal pain Lumbar radiculopathy Migraine Muscle spasm Postmenopausal status Recurrent sinusitis Resting tremor Restless leg syndrome Schatzki's ring Systolic murmur Tenosynovitis Surgical History History of surgery Gamma knife surgery for [id number] Jc Miller History of thumb surgery (~03/2010) total thumb replacement History of total hysterectomy (~08/2000) Hx of colonoscopy (03/19/16) Dr Garcia Hx of fusion of cervical spine (01/17/15) Dr Mccoy Family History Father , 10/08/2019 Alcoholism Pancreatitis Other No pertinent family history Social History household members: significant other marital status: occupational status: disabled smoking status: Never smoker alcohol intake frequency: does not drink substance use type: does not use MEDS/ALLERGIES Home Medications and Allergies Home Medications Medication Instructions Recorded Confirmed Type budesonide 3 mg 9 mg PO DAILY each 05/18/19 12/23/20 History capsule,delayed,extended release furosemide 20 mg tablet 20 mg PO QAM #90 tab 02/17/20 12/23/20 Rx primidone 50 mg tablet 50 mg PO BID #180 tab 02/17/20 12/23/20 Rx bupropion HCl 300 mg 24 hr tablet, See Rx Instructions .ROUTE 03/29/20 12/23/20 Rx extended release .COMPLEX #90 tab hydrochlorothiazide 25 mg tablet See Rx Instructions .ROUTE 06/01/20 12/23/20 Rx .COMPLEX #90 tab lisinopril 40 mg tablet See Rx Instructions .ROUTE 08/08/20 12/23/20 Rx .COMPLEX #90 tab citalopram 40 mg tablet See Rx Instructions .ROUTE 12/01/20 12/23/20 Rx .COMPLEX #90 tab famotidine 20 mg tablet 20 mg PO DAILYP PRN 12/14/20 12/23/20 History methocarbamol 500 mg tablet 1,000 mg PO Q8HP PRN tab 12/14/20 12/23/20 History pantoprazole 40 mg tablet,delayed See Rx Instructions .ROUTE 12/16/20 12/23/20 Rx release .COMPLEX #90 tab calcium carbonate [Calcium 600] 1,200 mg PO QDAY 12/21/20 12/23/20 History cholecalciferol (vitamin D3) 25 mcg PO QDAY 12/21/20 12/23/20 History [Vitamin D3] hydrocodone-acetaminophen 2 tab PO Q8HP PRN 12/21/20 12/23/20 History levothyroxine 25 mcg PO QAMAC 12/21/20 12/23/20 History potassium chloride 20 meq PO QAMCC 12/21/20 12/23/20 History pramipexole 0.125 mg PO QHS 12/21/20 12/23/20 History vitamin E 400 unit PO QDAY 12/21/20 12/23/20 History Allergies Allergy/AdvReac Type Severity Reaction Status Date / Time clarithromycin [From Biaxin] AdvReac Mild Diarrhea Verified 12/21/20 08:15 Sulfa (Sulfonamide AdvReac Mild Photosensit Verified 12/21/20 08:07 Antibiotics) ivity Physical Examination Vital Signs Vital signs: Temp Pulse Resp BP Pulse Ox 98.1 F 84 28 H 119/55 95 01/04/21 06:55 01/04/21 06:55 01/04/21 06:55 01/04/21 06:55 01/04/21 09:43 General Appearance General appearance: appears started age and obese EENT EENT: mucous membranes moist Neck Neck: supple Respiratory Respiratory: clear Cardiovascular Cardiology: edema, regular rate and regular rhythm Gastrointestinal Gastrointestinal: obese Integumentary Integumentary: warm and dry Neurologic Neurologic: no focal deficit and alert and oriented x3 Psychiatric Psychiatric: mood/affect appropriate and cooperative Results Lab Results Result Diagrams: 01/04/21 05:55 01/04/21 08:54 Lab results: Most recent lab results Calcium 8.4 mg/dL (8.6-10.4) L 01/04/21 08:54 Phosphorus 2.3 mg/dL (2.5-4.5) L 01/04/21 08:54 Magnesium 3.3 mg/dL (1.6-2.5) H 01/04/21 08:54 A/P Assessment and plan (1) Hyponatremia: Assessment and plan: Flavia Michelle is a 65-year-old female with hypertension, hypothyroidism, morbid obesity (BMI >30), admitted on 12/23/20 for recurrent diverticulitis and had sigmoidectomy on 12/23/20. She is scheduled for surgery today. Nephrology consultation was requested for hyponatremia. Hyponatremia, new onset, severe (<120), chronic (>48 hours), associated with fluid overload (I/Os +12.8L, weight +11 kg since admission), not consistent with SIADH (Urine Sodium > 40, Urine Osmolality > 100), likely not symptomatic. Work up: Urinalysis on 01/04/21: Yellow, cloudy, pH 5.0, SG 1.020, protein negative, blood 0.03, leukocyte esterase negative, urine WBC. CT Abdomen and Pelvis without contrast on 01/04/21: Dehiscence of the anastomosis in the distal sigmoid colon with a large pericolonic leak. Free fluid and air in the upper abdomen. Bibasilar atelectasis. Labs on 01/03/21: Serum Osmolality 260, Serum Sodium 121, Urine Osmolality 362, Urine Sodium 11. Progress: Serum Sodium decreased from 121 to 118 in the past 24 hours. RECOMMENDATIONS AND PLAN: Requested pharmacy changing IV fluids given with medications from D5W, NS to NS. NS or LR as IV fluid. Avoidance of thiazide diuretics. Furosemide for fluid overload as needed. Fluid restriction 1200 ml/day. Monitor serum sodium frequently. Target serum sodium elevation: <4-6 mEq/L/24 hours. Goal serum sodium of >130 mEq/L. Status: Acute (2) Fluid overload: Status: Acute Qualifiers: Hypervolemia type: unspecified Qualified Code(s): E87.70 - Fluid overload, unspecified (3) Hypertension, essential, benign: Status: Chronic Time Spent With Patient Time: Total time spent is greater than 50% in coordination of care (as documented) at patient's floor/unit and/or counseling patient:
[2021-01-04] MEDS ORDERED: ALBUMIN HUMAN 25 GM/100 ML BAG IV ONE ×2 (13:36→17:10)
[2021-01-04] MEDS ORDERED: ALBUMIN HUMAN 37.5 GM/150 ML BAG IV ONE ×2 (16:05→18:00)
[2021-01-04] MEDS ORDERED: BACITRACIN 50,000 UNIT VIAL IR ONE (16:10)
--- NOTE | 2021-01-04 16:35 | Brief Operative Note ---
Brief Operative Note Date of procedure: 01/04/21 Pre-op diagnosis: colo-rectal anastomotic leak Post-op diagnosis: other (colorectal anastomotic dehiscence and multiple intraabdominal abscesses) Procedure: exploratory laparotomy with drainage of multiple intraabdominal abscesses ;sigmoid colostomy with artmans pouch Grafts/Implants: No (fabby drains x4) Anesthesia: GETA Findings: near-total dehiscence of colorectal anastomosis with large fecal collection confined to pelvis;large volume abscesses in both subphrenic spaces;anterior abdominal wall abscess and abscesses at base of small bowel mesentery ;most of small bowel was not involved Complications: none Surgeon: Mitch Saleh Estimated blood loss (cc): 50 Specimens Removed/Pathology: none sent Condition: stable Disposition: PACU
[2021-01-04] MEDS ORDERED: HEPARIN/NS 500 ML IV SCH ×2 (16:48→17:10)
[2021-01-04] MEDS ORDERED: PANTOPRAZOLE 40 MG VIAL IV SCH (17:00)
[2021-01-04] MEDS: metroNIDAZOLE 500 MG/100 ML BAG IV SCH ×2 (18:01→23:50)
[2021-01-04] MEDS: MEROPENEM 1 GM in 0.9 % SODIUM CHLORIDE 50 ML IV SCH ×2 (18:02→23:50)
[2021-01-04] MEDS: PROPOFOL 1,000 MG in PREMIX 1 BAG IV SCH (19:40)
[2021-01-04 19:44] LABS: POC Blood Urea Nitrogen 32 mg/dL (6-20); POC CO2 25 mmol/L (22-30); POC Calcium, Ionized 0.94 mmEq/L (1.16-1.32); POC Chloride 85 mEq/L (96-108); POC Creatinine 1.2 mg/dL (0.6-1.2); POC Glucose, Random 164 mg/dL (70-105); POC Hematocrit 21 % (36-48); POC Potassium 4.1 mEql/L (3.3-5.1); POC Sodium 121 mEq/L (133-145)
--- NOTE | 2021-01-04 19:56 | XRay Report ---
HISTORY: Possible retained item in the abdomen following surgery FINDINGS: There is a large cluster of metal wires in the mid abdomen from the level of the stomach down to the lower pelvis. This is probably surgical gauze. There several surgical drains in the pelvis and upper abdomen. No surgical instrument is present. There are couple clips in the left side of the pelvis. Moderate amount of gas is present in the large intestine and there is nasogastric tube in the stomach IMPRESSION: Large amount of gauze in the midline of the abdomen and no evidence retained surgical instruments Interpreted and Authenticated by: Pedro Vargas 01/04/21
[2021-01-04] MEDS ORDERED: 0.9 % SODIUM CHLORIDE 250 ML IV SCH (20:00)
--- NOTE | 2021-01-04 20:13 | XRay Report ---
HISTORY: Intubated and central line placement FINDINGS: Endotracheal tube has been inserted. The tip is 4.5 cm above the nancy. There is no widening of the mediastinum. A right internal jugular catheter is placed in the superior vena cava. There is no pneumothorax or pleural effusion. There is one surgical drain beneath the right diaphragm and a second one in the midepigastrium. Lung volumes are small. There are multiple bands of atelectasis in both lungs. Atelectasis has become worse compared with preoperative chest x-ray done on 01/03/21. Heart size is upper limits of normal. IMPRESSION: Well-positioned support tubes Worsening atelectasis in both lungs with poor inspiration Interpreted and Authenticated by: Pedro Vargas 01/04/21
[2021-01-04] MEDS: HYDROmorphone 1 MG/ML SYRINGE IV PRN ×2 (20:22→22:20)
[2021-01-04 20:38] LABS: Hematocrit 19.4 % (36.0-48.0); Hemoglobin 6.5 g/dL (12.0-15.0)
[2021-01-04] MEDS ORDERED: methylPREDNISolone SOD SUCC 125 MG/2 ML VIAL IV SCH (21:00)
[2021-01-04] MEDS: CHLORHEXIDINE GLUCONATE 1 ML ORAL.SOL SWABMOUTH SCH (21:11)
[2021-01-04] MEDS: methylPREDNISolone SOD SUCC 125 MG/2 ML VIAL IV SCH (21:11)
[2021-01-04] MEDS: ALBUMIN HUMAN 25 GM/100 ML BAG IV SCH (23:50)
[2021-01-05] MEDS ORDERED: ALBUMIN HUMAN 25 GM/100 ML BAG IV SCH
[2021-01-05] MEDS: HYDROmorphone 1 MG/ML SYRINGE IV PRN ×10 (00:41→23:34)
[2021-01-05] MEDS: 0.9 % SODIUM CHLORIDE 1,000 ML IV SCH ×2 (04:03→15:19)
--- NOTE | 2021-01-05 04:59 | Nephrology Progress Note ---
SUBJECTIVE Subjective Patient information: Note initiated : 01/05/21 at 4:57 am Patient: Flavia Michelle 65 y/o F admitted on 12/23/20 for Laparoscopic Sigmoid Colectomy. Chief Complaint: Intubated Principal diagnosis: Increasing shortness of breath; Abdominal dis tention;Adynamic ileus Pertinent ROS: Unavailable due to intubation Constitutional Vitals: Vital Signs Temp Pulse Resp BP Pulse Ox 98.0 F 72 13 143/57 99 01/05/21 01:23 01/05/21 03:18 01/05/21 03:18 01/05/21 03:01 01/05/21 03:18 Period Temp Pulse Resp BP Sys/Engle Pulse Ox Last 24 Hr 97.6 F-98.3 F 71-88 12-28 90-162/33-71 84-100 Intake and Output 01/04/21 01/04/21 01/05/21 13:59 21:59 05:59 Intake Total 970 272 7425 Output Total 165 Balance 645 807 6353 Weight 197 lb 12.8 oz Patient Weight 01/05/21 05:59 Weight 197 lb 12.8 oz Intake & Output: Intake & Output 01/04/21 01/04/21 01/05/21 13:59 21:59 05:59 Intake Total 471 762 7693 Output Total 165 Balance 145 185 9052 Weight 197 lb 12.8 oz Intake: IV 502 473 6897 Sodium Chloride 0.9% 1,000 ml @ 2000 100 mls/hr IV .Q10H [facility] Rx#: [id number] Merrem 1 gm In Sodium Chloride 50 0.9% 50 ml @ 100 mls/hr IV Q8H [facility] Rx#:[id number] Zosyn 2.25 gm In Sodium 50 Chloride 0.9% 50 ml @ 100 mls/ hr IV Q6H [facility] Rx#:[id number] Zosyn 2.25 gm In Dextrose 5% in 50 Water 50 ml @ 100 mls/hr IV Q6H [facility] Rx#:[id number] Diprivan 1,000 mg In Premix 1 54 Bag @ 5 MCG/KG/MIN 2.552 mls/hr IV .Q24H [facility] Rx#:[id number] Blood Product 325 325 Output: Drainage 165 Left Upper Abdomen JOE Drain 30 Right Abdomen JOE Drain 75 Right Lower Abdomen JOE Drain 60 Other: Urine Appearance Clear Uretheral ([place]) Clear Urine Color Bright Yellow Uretheral ([place]) Dark Yellow General appearance: no acute distress and obese Head Head exam: Present atraumatic and normal inspection ENT Additional comments: ET tube Respiratory Respiratory exam: Present decreased breath sounds Cardiovascular Cardiovascular exam: Present normal rate and rhythm GI/Abdominal GI/Abdominal exam: Present distended Extremities Exam Extremities exam: Present pedal edema Neurological Exam Additional comments: Sedated Skin Skin exam: Present pallor A/P Assessment and plan (1) Hyponatremia: Assessment and plan: Flavia Michelle is a 65-year-old female with hypertension, hypothyroidism, morbid obesity (BMI >30), admitted on 12/23/20 for recurrent diverticulitis and had sigmoidectomy on 12/23/20. She is scheduled for surgery today. Nephrology consultation was requested for hyponatremia. Hyponatremia, new onset, severe (<120), chronic (>48 hours), associated with fluid overload, not consistent with SIADH (Urine Sodium > 40, Urine Osmolality > 100), likely not symptomatic. Symptomatic diverticulitis s/p sigmoid colectomy on 12/23/20. Colorectal anastomotic dehiscence and multiple intraabdominal abscesses s/p exploratory laparotomy with drainage of multiple intraabdominal abscesses ;sigmoid colostomy with Johnson's pouch on 01/04/21. Work up: Urinalysis on 01/04/21: Yellow, cloudy, pH 5.0, SG 1.020, protein negative, blood 0.03, leukocyte esterase negative, urine WBC. CT Abdomen and Pelvis without contrast on 01/04/21: Dehiscence of the anastomosis in the distal sigmoid colon with a large pericolonic leak. Free fluid and air in the upper abdomen. Bibasilar atelectasis. Labs on 01/03/21: Serum Osmolality 260, Serum Sodium 121, Urine Osmolality 362, Urine Sodium 11. Progress: Transferred to ICU after surgery, intubated, NPO. Serum Sodium: 118 on 01/04/21 at 08:54 121 on 01/04/21 at 19:31 126 on 01/05/21 at 06:03 Fluid overload: I/Os +15.7 L, weight +21 kg since admission. Urine output: 750 ml reported in the past 24 hours. Recommendations and Plan: Current rate of correction is satisfactory. Requested pharmacy changing IV fluids given with medications from D5W, NS to NS. NS or LR as IV fluid. Avoidance of thiazide diuretics. Furosemide for fluid overload as needed. Fluid restriction 1200 ml/ day when on oral diet. Monitor serum sodium frequently. Target serum sodium elevation: <4-6 mEq/L/24 hours. Goal serum sodium of >130 mEq/L. Status: Acute (2) Fluid overload: Status: Acute Qualifiers: Hypervolemia type: unspecified Qualified Code(s): E87.70 - Fluid overload, unspecified (3) Hypertension, essential, benign: Status: Chronic Time Spent With Patient Time: Total time spent is greater than 50% in coordination of care (as documented) at patient's floor/unit and/or counseling patient:
[2021-01-05] MEDS: METOCLOPRAMIDE 10 MG/2 ML VIAL IV SCH ×4 (05:47→23:33)
[2021-01-05] MEDS: ALBUMIN HUMAN 25 GM/100 ML BAG IV SCH ×4 (05:47→23:33)
[2021-01-05] MEDS: metroNIDAZOLE 500 MG/100 ML BAG IV SCH ×4 (05:48→23:34)
[2021-01-05] MEDS: MEROPENEM 1 GM in 0.9 % SODIUM CHLORIDE 50 ML IV SCH ×3 (05:48→22:07)
[2021-01-05] MEDS: 0.9 % SODIUM CHLORIDE 10 ML SYRINGE IV SCH ×3 (05:49→22:07)
[2021-01-05] MEDS: IPRATROPIUM 2.5 ML AMPUL.NEB NEB SCH ×3 (05:49→22:09)
[2021-01-05] MEDS: LEVOTHYROXINE 100 MCG VIAL IV SCH (07:08)
[2021-01-05] MEDS: PANTOPRAZOLE 40 MG VIAL IV SCH ×2 (07:08→17:42)
[2021-01-05] MEDS: methylPREDNISolone SOD SUCC 125 MG/2 ML VIAL IV SCH ×2 (07:08→20:35)
[2021-01-05] MEDS: CHLORHEXIDINE GLUCONATE 1 ML ORAL.SOL SWABMOUTH SCH ×2 (07:18→20:35)
[2021-01-05 07:25] LABS: Basophils % (Auto) 0.4 % (0.0-2.0); Eosinophils # (Auto) 0.01 K/mcL (0.00-0.70); Eosinophils % (Auto) 0 % (0.0-7.0); Hematocrit 25.8 % (36.0-48.0); Hemoglobin 8.9 g/dL (12.0-15.0); Lymphocytes # (Auto) 0.55 K/mcL (1.50-4.80); Lymphocytes % (Auto) 2.5 % (15.0-49.0); Mean Cell Volume 87.5 fL (80.0-100.0); Mean Corpuscular HGB Conc 34.5 g/dL (31.0-36.0); Mean Platelet Volume 9.5 fL (7.4-10.4); Monocytes # (Auto) 0.48 K/mcL (0.10-0.90); Monocytes % (Auto) 2.1 % (1.0-12.0); Platelet Count 207 K/mcL (140-440); RBC 2.95 M/mcL (4.00-5.20); Red Cell Distribution Width 14.6 % (11.5-14.5); WBC 22.4 K/mcL (4.5-11.0)
[2021-01-05] MEDS: PROPOFOL 1,000 MG in PREMIX 1 BAG IV SCH ×2 (07:39→18:04)
--- NOTE | 2021-01-05 07:55 | Internal Med Progress Note ---
SUBJECTIVE Subjective Patient information: Note initiated : 01/05/21 at 7:49 am Service Date, if different from initiated Date: [] Patient: Flavia Michelle 65 y/o F admitted on 12/23/20 for Laparoscopic Sigmoid Colectomy. Chief Complaint: [] Principal diagnosis: Increasing shortness of breath; Abdominal distention;Adynamic ileus Interval history: Presented to the hospital after recurrent episodes of diverticulitis for sigmoidectomy. She had underwent a sigmoidectomy on the fourth. Her bowel function has been extremely slow to recover. She has abdominal distention. During her course she became increasingly short of breath. She had a CTA of the chest several days ago and an updated chest x-ray today while showing atelectasis, but no PE or infiltrate. Good cardiogram has been done but results are pending. She has a CT abdomen pelvis pending for the morning. Sodium low. Patient does take hydrochlorothiazide at home. 01/04 Patient feeling worse today, abdominal distention bloating. Denies passing flatus today. 01/05 Patient stable on the vent after ex lap with washout yesterday. We will go back to surgery couple days. Patient sedated on the vent does open eyes to voice. Review of Systems: Unable to gather is sedated on the vent Constitutional Vitals: Vital Signs Temp Pulse Resp BP Pulse Ox 97.9 F 71 15 138/64 97 01/05/21 06:41 01/05/21 06:41 01/05/21 06:41 01/05/21 06:01 01/05/21 06:41 Period Temp Pulse Resp BP Sys/Engle Pulse Ox Last 24 Hr 97.6 F-98.3 F 68-88 12-28 90-162/33-71 84-100 Intake and Output 01/04/21 01/05/21 01/05/21 21:59 05:59 13:59 Intake Total 475 2779 296 Output Total 1035 Balance 475 1744 296 Weight 89.721 kg Intake & Output: Intake & Output 01/04/21 01/05/21 01/05/21 21:59 05:59 13:59 Intake Total 475 2779 296 Output Total 1035 Balance 475 1744 296 Weight 89.721 kg Intake: IV 150 2454 296 Sodium Chloride 0.9% 1,000 ml @ 2000 100 mls/hr IV .Q10H [facility] Rx#: [id number] Merrem 1 gm In Sodium Chloride 50 50 50 0.9% 50 ml @ 100 mls/hr IV Q8H [facility] Rx#:[id number] Diprivan 1,000 mg In Premix 1 54 46 Bag @ 5 MCG/KG/MIN 2.552 mls/hr IV .Q24H [facility] Rx#:[id number] Blood Product 325 325 Output: Drainage 285 Left Upper Abdomen JOE Drain 60 Right Abdomen JOE Drain 105 Right Lower Abdomen JOE Drain 100 Right Upper Abdomen JOE Drain 20 Urine Catheter Amount 750 Other: Urine Appearance Clear Uretheral ([place]) Clear Urine Color Bright Yellow Uretheral ([place]) Dark Yellow Exam: General: Awakens, No acute Distress, obese Eyes/N/T: EOMI,, Head/Neck: neck supple, CV: RRR, 1/ SM Pulm: mildly diminished, no wheezing today Abd: soft, abdominal dressings in place, hypoactive bowel sounds Ext: no clubbing/cyanosis, b/le LE 2+ edema Neuro: Dated on the vent but moves extremities spontaneously, opens eyes to voice Skin: warm/dry OBJ DATA Labs CBC & Chem 7: 01/05/21 06:03 01/05/21 06:03 Labs: Abnormal Lab Results 01/05/21 01/04/21 01/04/21 06:03 19:31 19:31 WBC 22.4 H RBC 2.95 L Hgb 8.9 L 6.5 L* Hct 25.8 L 19.4 L* POC Hct 21 L* RDW 14.6 H Neut % (Auto) 95.0 H Lymph % (Auto) 2.5 L Lymph # (Auto) 0.55 L Seg Neutrophils % Band Neutrophils % Lymphocytes % Absolute Neutrophils 21.26 H Toxic Granulation POC Sodium 121 L Sodium Potassium POC Chloride 85 L Chloride POC BUN 32 H BUN Glucose POC Glucose 164 H Osmolality Calcium POC WB Ioniz Calcium 0.94 L Phosphorus Magnesium Direct Bilirubin GGT AST Lactate Dehydrogenase Total Protein Albumin Albumin/Globulin Ratio Triglycerides Cortisol AM Sample Urine Appearance Urine RBC Urine WBC Ur Squamous Epith Cells Amorphous Crystals Urine Bacteria 01/04/21 01/04/21 01/04/21 08:54 05:55 03:07 WBC 23.8 H RBC 3.01 L Hgb 9.3 L Hct 27.0 L POC Hct RDW Neut % (Auto) 90.5 H Lymph % (Auto) 5.6 L Lymph # (Auto) 1.34 L Seg Neutrophils % Band Neutrophils % Lymphocytes % Absolute Neutrophils 21.52 H Toxic Granulation POC Sodium Sodium 118 L* Potassium POC Chloride Chloride 81 L POC BUN BUN 36 H Glucose 142 H POC Glucose Osmolality Calcium 8.4 L POC WB Ioniz Calcium Phosphorus 2.3 L Magnesium 3.3 H Direct Bilirubin GGT 64 H AST Lactate Dehydrogenase Total Protein 5.6 L Albumin 2.5 L Albumin/Globulin Ratio 0.8 L Triglycerides 154 H Cortisol AM Sample Urine Appearance Cloudy A Urine RBC 18 H Urine WBC 5 H Ur Squamous Epith Cells 5 H Amorphous Crystals Few A Urine Bacteria Few A 01/03/21 01/03/21 01/03/21 05:26 05:26 05:26 WBC RBC Hgb Hct POC Hct RDW Neut % (Auto) Lymph % (Auto) Lymph # (Auto) Seg Neutrophils % 79 H Band Neutrophils % 11 H Lymphocytes % 4 L Absolute Neutrophils Toxic Granulation 1+ A POC Sodium Sodium Potassium POC Chloride Chloride POC BUN BUN Glucose POC Glucose Osmolality 260 L Calcium POC WB Ioniz Calcium Phosphorus Magnesium Direct Bilirubin GGT AST Lactate Dehydrogenase Total Protein Albumin Albumin/Globulin Ratio Triglycerides Cortisol AM Sample 23.1 H Urine Appearance Urine RBC Urine WBC Ur Squamous Epith Cells Amorphous Crystals Urine Bacteria 01/03/21 01/03/21 01/02/21 05:26 05:26 04:58 WBC 23.5 H RBC 3.32 L Hgb 10.2 L Hct 30.1 L POC Hct RDW Neut % (Auto) 93.5 H 92.7 H Lymph % (Auto) 4.1 L Lymph # (Auto) 0.97 L Seg Neutrophils % Band Neutrophils % Lymphocytes % Absolute Neutrophils 21.97 H Toxic Granulation POC Sodium Sodium 121 L Potassium 3.2 L POC Chloride Chloride 83 L POC BUN BUN 29 H Glucose 111 H POC Glucose Osmolality Calcium POC WB Ioniz Calcium Phosphorus Magnesium Direct Bilirubin 0.3 H GGT 75 H AST 39 H Lactate Dehydrogenase 268 H Total Protein 5.6 L Albumin 2.2 L Albumin/Globulin Ratio 0.6 L Triglycerides 162 H Cortisol AM Sample Urine Appearance Urine RBC Urine WBC Ur Squamous Epith Cells Amorphous Crystals Urine Bacteria Meds: Medications Chlorhexidine Gluconate (Chlorhexidine Gluconate 1 Ml Oral.Parul) 15 ml SWABMOUTH BID [facility] Last Admin: 01/05/21 07:18 Dose: 15 ml Documented by: Hydromorphone HCl (Hydromorphone 1 Mg/Ml Syringe) 1 mg IV Q2HP PRN; Protocol PRN Reason: Per Pain Protocol Last Admin: 01/05/21 07:42 Dose: 1 mg Documented by: Albumin Human (Buminate) 25 gm in 100 mls @ 200 mls/hr IV Q6H [facility] Stop: 01/06/21 18:29 Last Infusion: 01/05/21 07:03 Dose: Infused Documented by: Heparin Sodium/Sodium Chloride (Heparin/Ns) 500 mls @ 0 mls/hr IV .Q0M [facility]; Protocol Last Admin: 01/04/21 18:00 Dose: 0.1 mls/hr Documented by: Sodium Chloride (Sodium Chloride 0.9%) 1,000 mls @ 100 mls/hr IV .Q10H [facility] Last Admin: 01/05/21 04:03 Dose: 100 mls/hr Documented by: Meropenem 1 gm/ Sodium (Chloride) 50 mls @ 100 mls/hr IV Q8H [facility]; Protocol Last Infusion: 01/05/21 06:30 Dose: Infused Documented by: Metronidazole (Flagyl) 500 mg in 100 mls @ 100 mls/hr IV Q6H [facility]; Protocol Last Infusion: 01/05/21 06:50 Dose: Infused Documented by: Propofol 1,000 mg/ Premix 100 mls @ 2.552 mls/hr IV .Q24H [facility]; Protocol Last Admin: 01/05/21 07:39 Dose: 25 mcg/kg/min, 12.757 mls/hr Documented by: Sodium Chloride (Sodium Chloride 0.9%) 250 mls @ 20 mls/hr IV .[id number] [facility] Stop: 01/05/21 08:29 Last Admin: 01/04/21 22:00 Dose: 20 mls/hr Documented by: Ipratropium [place] (Ipratropium 2.5 Ml Ampul.Neb) 2.5 ml NEB Q8H [facility] Last Admin: 01/05/21 05:49 Dose: 2.5 ml Documented by: Levalbuterol HCl (Levalbuterol 1.25 Mg/3 Ml Ampul.Neb) 1.25 mg NEB Q4HP PRN PRN Reason: Shortness Of Breath Levothyroxine Sodium (Levothyroxine 100 Mcg Vial) 25 mcg IV QAMAC [facility] Last Admin: 01/05/21 07:08 Dose: 25 mcg Documented by: Methylprednisolone Sodium Succinate (Methylprednisolone Sod Succ 125 Mg/2 Ml Vial) 62.5 mg IV Q12 [facility] Last Admin: 01/05/21 07:08 Dose: 62.5 mg Documented by: Metoclopramide HCl (Metoclopramide 10 Mg/2 Ml Vial) 10 mg IV Q6H [facility] Last Admin: 01/05/21 05:47 Dose: 10 mg Documented by: Pantoprazole Sodium (Pantoprazole 40 Mg Vial) 40 mg IV BIDAC [facility] Last Admin: 01/05/21 07:08 Dose: 40 mg Documented by: Sodium Chloride (0.9 % Sodium Chloride 10 Ml Syringe) 10 ml IV Q8 [facility] Last Admin: 01/05/21 05:49 Dose: 10 ml Documented by: A/P Narrative A/P Narrative: A: *Remains on Ventilator Post-op until next surgery, acute hypoxic resp failure prior to 2nd surgery d/t restrictive lung from abdominal process: -requiring high FiO2 on vent initially, now down to 40% *Sigmoidectomy (12/23) w/dehiscence of anastomosis s/p Ex Lap w/colostomy (01/04): *Post-op ileus: *Acute anemia post-op: -s/p 2 PRBC (01/04) with good response *Hyponatremia: improved *Microscopic Colitis: on budesonide and follows with Dr. Garcia *LAUREN w/cpap: *HTN: *Depression/anxiety: *Hypothyroidism: *GERD: *Obesity *Essential Tremor P: -will be taken back to OR in several days -NGT/Diet per Surgery, may need TPN -wean O2, IS, prn nebs -IV Abx per Surgery -Nephrology assisting with hyponatremia -echo pending -nocturanl cpap when off vent -pt/ot -ppx: heparin to restart tonight/SCD's/ppi Time Spent With Patient Time: Total time spent is greater than 50% in coordination of care (as documented) at patient's floor/unit and/or counseling patient: QUALITY VTE Deep Vein Thrombosis/Pulmonary Embolism Present on Admission: No
[2021-01-05 07:56] LABS: ALT/SGPT 17 U/L (<40); AST/SGOT 21 U/L (<32); Albumin 3.6 gm/dL (3.2-5.2); Albumin/Globulin Ratio 1.9 (1.0-2.3); Alkaline Phosphatase 58 U/L (39-117); Bilirubin,Direct 0.4 mg/dL (<0.3); Bilirubin,Total 0.8 mg/dL (0.1-1.0); Blood Urea Nitrogen 32 mg/dL (8-23); Calcium 7.9 mg/dL (8.6-10.4); Carbon Dioxide 25 mmol/L (22-30); Chloride 89 mmol/L (96-108); Globulin 1.9 gm/dL (2.2-3.7); Glomerular Filtration Rate 66; Glucose 162 mg/dL (70-105); Lactate Dehydrogenase 211 U/L (135-225); Phosphorous 4.4 mg/dL (2.5-4.5); Triglycerides 123 mg/dL (<150)
--- NOTE | 2021-01-05 08:18 | XRay Report ---
HISTORY: Intubated, atelectasis FINDINGS: Lung volumes are small due to suboptimal inspiration. However, there is improved aeration compared with the prior exam done on 01/04/21. There is still bands of atelectasis in both lungs. There is a generalized haziness in the central portion of both lungs which may be related to fluid overload. The heart size is normal. Endotracheal tube, right internal jugular line and nasogastric tube remain well-positioned. There is no pneumothorax or pleural effusion. IMPRESSION: Improving aeration in both lungs with residual atelectasis and possible fluid overload Interpreted and Authenticated by: Pedro Vargas 01/05/21
--- NOTE | 2021-01-05 15:12 | Internal Med Progress Note ---
SUBJECTIVE Subjective Patient information: Note initiated : 01/06/21 at 3:10 pm Service Date, if different from initiated Date: [] Patient: Flavia Michelle 65 y/o F admitted on 12/23/20 for Laparoscopic Sigmoid Colectomy. Chief Complaint: [] Principal diagnosis: Increasing shortness of breath; Abdominal distention;Adynamic ileus Interval history: Presented to the hospital after recurrent episodes of diverticulitis for sigmoidectomy. She had underwent a sigmoidectomy on the fourth. Her bowel function has been extremely slow to recover. She has abdominal distention. During her course she became increasingly short of breath. She had a CTA of the chest several days ago and an updated chest x-ray today while showing atelectasis, but no PE or infiltrate. Good cardiogram has been done but results are pending. She has a CT abdomen pelvis pending for the morning. Sodium low. Patient does take hydrochlorothiazide at home. 01/04 Patient feeling worse today, abdominal distention bloating. Denies passing flatus today. 01/05 Patient stable on the vent after ex lap with washout yesterday. We will go back to surgery couple days. Patient sedated on the vent does open eyes to voice. 01/06 Increased oxygen requirement, chest xray shows diffuse bilateral infiltrates likely due to CHF although ARDS could present this way. Started lasix IV for diuresis, discontinued IV fluid. Continue BiPAP for preload reduction. Monitor diuresis. Constitutional Vitals: Vital Signs Temp Pulse Resp BP Pulse Ox 98.1 F 80 15 132/57 95 01/05/21 12:31 01/05/21 14:54 01/05/21 14:54 01/05/21 13:31 01/05/21 14:54 Period Temp Pulse Resp BP Sys/Engle Pulse Ox Last 24 Hr 97.6 F-98.1 F 68-88 11-23 90-162/33-71 84-100 Intake and Output 01/05/21 01/05/21 01/05/21 05:59 13:59 21:59 Intake Total 2779 550 14 Output Total 1035 543 Balance 1744 7 14 Intake & Output: Intake & Output 01/05/21 01/05/21 01/05/21 05:59 13:59 21:59 Intake Total 2779 550 14 Output Total 1035 543 Balance 1744 7 14 Intake: IV 8074 550 14 Sodium Chloride 0.9% 1,000 ml @ 2000 100 mls/hr IV .Q10H [facility] Rx#: [id number] Merrem 1 gm In Sodium Chloride 50 50 0.9% 50 ml @ 100 mls/hr IV Q8H [facility] Rx#:[id number] Diprivan 1,000 mg In Premix 1 54 100 14 Bag @ 5 MCG/KG/MIN 2.552 mls/hr IV .Q24H [facility] Rx#:[id number] Blood Product 325 Output: Drainage 285 Left Upper Abdomen JOE Drain 60 Right Abdomen JOE Drain 105 Right Lower Abdomen JOE Drain 100 Right Upper Abdomen JOE Drain 20 Urine Catheter Amount 750 543 Other: Urine Appearance Clear Uretheral (Valente) Clear Urine Color Bright Yellow Uretheral (Valente) Bright Yellow Exam: General: Awakens, No acute Distress, obese Eyes/N/T: EOMI,, Head/Neck: neck supple, CV: RRR, S1, S2 Pulm: On BiPAP, no respiratory distress Abd: soft, abdominal dressings in place, hypoactive bowel sounds : valente catheter with clear urine Ext: no clubbing/cyanosis, b/le LE 2+ edema Neuro: Dated on the vent but moves extremities spontaneously, opens eyes to v oice Skin: warm/dry OBJ DATA Labs CBC & Chem 7: 01/06/21 05:19 01/06/21 05:18 Labs: Abnormal Lab Results 01/05/21 01/05/21 01/04/21 06:03 06:03 19:31 WBC 22.4 H RBC 2.95 L Hgb 8.9 L 6.5 L* Hct 25.8 L 19.4 L* POC Hct RDW 14.6 H Neut % (Auto) 95.0 H Lymph % (Auto) 2.5 L Lymph # (Auto) 0.55 L Seg Neutrophils % Band Neutrophils % Lymphocytes % Absolute Neutrophils 21.26 H Toxic Granulation POC Sodium Sodium 126 L Potassium POC Chloride Chloride 89 L POC BUN BUN 32 H Glucose 162 H POC Glucose Osmolality Calcium 7.9 L POC WB Ioniz Calcium Phosphorus Magnesium 3.5 H Direct Bilirubin 0.4 H GGT AST Lactate Dehydrogenase Total Protein 5.5 L Albumin Globulin 1.9 L Albumin/Globulin Ratio Triglycerides Cortisol AM Sample Urine Appearance Urine RBC Urine WBC Ur Squamous Epith Cells Amorphous Crystals Urine Bacteria 01/04/21 01/04/2101/04/21 19:31 08:54 05:55 WBC 23.8 H RBC 3.01 L Hgb 9.3 L Hct 27.0 L POC Hct 21 L* RDW Neut % (Auto) 90.5 H Lymph % (Auto) 5.6 L Lymph # (Auto) 1.34 L Seg Neutrophils % Band Neutrophils % Lymphocytes % Absolute Neutrophils 21.52 H Toxic Granulation POC Sodium 121 L Sodium 118 L* Potassium POC Chloride 85 L Chloride 81 L POC BUN 32 H BUN 36 H Glucose 142 H POC Glucose 164 H Osmolality Calcium 8.4 L POC WB Ioniz Calcium 0.94 L Phosphorus 2.3 L Magnesium 3.3 H Direct Bilirubin GGT 64 H AST Lactate Dehydrogenase Total Protein 5.6 L Albumin 2.5 L Globulin Albumin/Globulin Ratio 0.8 L Triglycerides 154 H Cortisol AM Sample Urine Appearance Urine RBC Urine WBC Ur Squamous Epith Cells Amorphous Crystals Urine Bacteria 01/04/21 01/03/21 01/03/21 03:07 05:26 05:26 WBC RBC Hgb Hct POC Hct RDW Neut % (Auto) Lymph % (Auto) Lymph # (Auto) Seg Neutrophils % Band Neutrophils % Lymphocytes % Absolute Neutrophils Toxic Granulation POC Sodium Sodium Potassium POC Chloride Chloride POC BUN BUN Glucose POC Glucose Osmolality 260 L Calcium POC WB Ioniz Calcium Phosphorus Magnesium Direct Bilirubin GGT AST Lactate Dehydrogenase Total Protein Albumin Globulin Albumin/Globulin Ratio Triglycerides Cortisol AM Sample 23.1 H Urine Appearance Cloudy A Urine RBC 18 H Urine WBC 5 H Ur Squamous Epith Cells 5 H Amorphous Crystals Few A Urine Bacteria Few A 01/03/21 01/03/21 01/03/21 05:26 05:26 05:26 WBC 23.5 H RBC 3.32 L Hgb 10.2 L Hct 30.1 L POC Hct RDW Neut % (Auto) 93.5 H Lymph % (Auto) 4.1 L Lymph # (Auto) 0.97 L Seg Neutrophils % 79 H Band Neutrophils % 11 H Lymphocytes % 4 L Absolute Neutrophils 21.97 H Toxic Granulation 1+ A POC Sodium Sodium 121 L Potassium 3.2 L POC Chloride Chloride 83 L POC BUN BUN 29 H Glucose 111 H POC Glucose Osmolality Calcium POC WB Ioniz Calcium Phosphorus Magnesium Direct Bilirubin 0.3 H GGT 75 H AST 39 H Lactate Dehydrogenase 268 H Total Protein 5.6 L Albumin 2.2 L Globulin Albumin/Globulin Ratio 0.6 L Triglycerides 162 H Cortisol AM Sample Urine Appearance Urine RBC Urine WBC Ur Squamous Epith Cells Amorphous Crystals Urine Bacteria Meds: Medications Chlorhexidine Gluconate (Chlorhexidine Gluconate 1 Ml Oral.Parul) 15 ml SWABM[place]TH BID [facility] Last Admin: 01/05/21 07:18 Dose: 15 ml Documented by: Heparin Sodium (Porcine) (Heparin 5,000 Unit/Ml Vial) 5,000 unit SQ Q12 [facility] Hydromorphone HCl (Hydromorphone 1 Mg/Ml Syringe) 1 mg IV Q2HP PRN; Protocol PRN Reason: Per Pain Protocol Last Admin: 01/05/21 13:03 Dose: 1 mg Documented by: Albumin Human (Buminate) 25 gm in 100 mls @ 200 mls/hr IV Q6H [facility] Stop: 01/06/21 18:29 Last Infusion: 01/05/21 13:29 Dose: Infused Documented by: Heparin Sodium/Sodium Chloride (Heparin/Ns) 500 mls @ 0 mls/hr IV .Q0M [facility]; Protocol Last Admin: 01/04/21 18:00 Dose: 0.1 mls/hr Documented by: Sodium Chloride (Sodium Chloride 0.9%) 1,000 mls @ 100 mls/hr IV .Q10H [facility] Last Admin: 01/05/21 04:03 Dose: 100 mls/hr Documented by: Meropenem 1 gm/ Sodium (Chloride) 50 mls @ 100 mls/hr IV Q8H [facility]; Protocol Last Admin: 01/05/21 14:51 Dose: 100 mls/hr Documented by: Metronidazole (Flagyl) 500 mg in 100 mls @ 100 mls/hr IV Q6H [facility]; Protocol Last Infusion: 01/05/21 12:25 Dose: Infused Documented by: Propofol 1,000 mg/ Premix 100 mls @ 2.552 mls/hr IV .Q24H [facility]; Protocol Last Titration: 01/05/21 14:42 Dose: 0 mcg/kg/min, 0 mls/hr Documented by: Ipratropium [place] (Ipratropium 2.5 Ml Ampul.Neb) 2.5 ml NEB Q8H [facility] Last Admin: 01/05/21 13:53 Dose: 2.5 ml Documented by: Levalbuterol HCl (Levalbuterol 1.25 Mg/3 Ml Ampul.Neb) 1.25 mg NEB Q4HP PRN PRN Reason: Shortness Of Breath Levothyroxine Sodium (Levothyroxine 100 Mcg Vial) 25 mcg IV QAMAC [facility] Last Admin: 01/05/21 07:08 Dose: 25 mcg Documented by: Methylprednisolone Sodium Succinate (Methylprednisolone Sod Succ 125 Mg/2 Ml Vial) 62.5 mg IV Q12 [facility] Last Admin: 01/05/21 07:08 Dose: 62.5 mg Documented by: Metoclopramide HCl (Metoclopramide 10 Mg/2 Ml Vial) 10 mg IV Q6H [facility] Last Admin: 01/05/21 12:43 Dose: 10 mg Documented by: Pantoprazole Sodium (Pantoprazole 40 Mg Vial) 40 mg IV BIDAC [facility] Last Admin: 01/05/21 07:08 Dose: 40 mg Documented by: Sodium Chloride (0.9 % Sodium Chloride 10 Ml Syringe) 10 ml IV Q8 [facility] Last Admin: 01/05/21 05:49 Dose: 10 ml Documented by: A/P Narrative A/P Narrative: A: #Acute hypoxic respiratory failure probably due to CHF, less likely ARDS #Sigmoidectomy (12/23) w/dehiscence of anastomosis s/p Ex Lap w/colostomy (01/04): #Extubated 01/05/21 #Post-op ileus: #Acute anemia post-op: -s/p 2 PRBC (01/04) with good response #Hyponatremia: improved #Microscopic Colitis: on budesonide and follows with Dr. Garcia #LAUREN w/cpap: #HTN: #Depression/anxiety: #Hypothyroidism: #GERD: #Obesity #Essential Tremor #Right IJ central line #Valente catheter P: -Started Lasix IV for diuresis, monitor diuresis parameters. -Discontinued IV fluid. -Chest xray in AM. -BiPAP today for preload reduction -NGT/Diet per Surgery, may need TPN -wean O2, IS, prn nebs -IV Abx per Surgery -Nephrology assisting with hyponatremia -echo pending -remove valente when able -pt/ot -ppx: heparin Time Spent With Patient Time: Total time spent is greater than 50% in coordination of care (as documented) at patient's floor/unit and/or counseling patient: QUALITY VTE Deep Vein Thrombosis/Pulmonary Embolism Present on Admission: No
--- NOTE | 2021-01-05 17:40 | General Surgery Progress Note ---
SUBJECTIVE Subjective Patient information: Note initiated : 01/05/21 at 5:34 pm Service Date, if different from initiated Date: [] Patient: Flavia Michelle 65 y/o F admitted on 12/23/20 for Laparoscopic Sigmoid Colectomy. Chief Complaint: [] Principal diagnosis: Increasing shortness of breath; Abdominal distention;Adynamic ileus Interval history: Patient is clinically improved. She was ventilated during the night and has been extubated. She has significant improvement in respirations and has no labored breathing at this time. She answers questions appropriately. Discussed her operation with her and reassured her that she would do well. White blood count 22.4, hemoglobin 8.9, hematocrit 25.8, sodium 126, potassium 4.3, BUN 32, creatinine 0.9. Blood gases shows excellent oxygenation. JOE drains are only putting out serosanguineous fluid. Constitutional Vitals: Vital Signs Temp Pulse Resp BP Pulse Ox 98.5 F 84 16 140/61 93 01/05/21 16:01 01/05/21 16:57 01/05/21 16:57 01/05/21 16:31 01/05/21 16:57 Period Temp Pulse Resp BP Sys/Engle Pulse Ox Last 24 Hr 97.6 F-98.5 F 68-88 9-24 90-162/33-116 84-100 Intake and Output 01/05/21 01/05/21 01/05/21 05:59 13:59 21:59 Intake Total 2779 550 1014 Output Total 1035 543 395 Balance 1744 7 619 Weight 197 lb 12.8 oz Patient Weight 01/06/21 05:59 Weight 197 lb 12.8 oz Intake & Output: Intake & Output 01/05/21 01/05/21 01/05/21 05:59 13:59 21:59 Intake Total 2779 550 1014 Output Total 1035 543 395 Balance 1744 7 619 Weight 197 lb 12.8 oz Intake: IV 2454 550 1014 Sodium Chloride 0.9% 1,000 ml @ 2000 1000 100 mls/hr IV .Q10H [facility] Rx#: [id number] Merrem 1 gm In Sodium Chloride 50 50 0.9% 50 ml @ 100 mls/hr IV Q8H [facility] Rx#:[id number] Diprivan 1,000 mg In Premix 1 54 100 14 Bag @ 5 MCG/KG/MIN 2.552 mls/hr IV .Q24H [facility] Rx#:[id number] Blood Product 325 Output: Gastric Drainage 100 Right Nare 100 Drainage 285 75 Left Upper Abdomen JOE Drain 60 15 Right Abdomen JOE Drain 105 15 Right Lower Abdomen JOE Drain 100 30 Right Upper Abdomen JOE Drain 20 15 Urine Catheter Amount 750 543 220 Other: Urine Appearance Clear Clear Uretheral ([place]) Clear Urine Color Bright Yellow Bright Yellow Uretheral ([place]) Bright Yellow Head Head exam: Present atraumatic and normal inspection Eye Eye exam: Present EOMI Pupils: Present normal accommodation and PERRL ENT ENT exam: Present mucous membranes moist, normal exam and normal oropharynx Neck Neck exam: Present full ROM and normal inspection; Absent lymphadenopathy and tenderness Respiratory Additional comments: Still with decreased breath sounds bilaterally though ventilation on the left is improved compared to the right. Her oxygen saturations remained stable. Cardiovascular Cardiovascular exam: Present normal rate and rhythm, RRR, +S1 and +S2; Absent JVD GI/Abdominal GI/Abdominal exam: Present normal bowel sounds and distended (Moderate distention persists though it is improved from yesterday) Extremities Exam Extremities exam: Present full ROM and pedal edema (Pedal edema is improved from yesterday) Neurological Exam Neurological exam: Present alert Additional comments: Stable except for bilateral resting tremor Psychiatric Psychiatric exam: Present anxious and normal mood Skin Skin exam: Present intact, normal color and warm A/P Assessment and plan (1) Anastomotic leak of intestine: Status: Acute (2) Hypoxemia requiring supplemental oxygen: Status: Acute (3) Acute sepsis: Status: Acute (4) Sleep apnea, unspecified: Status: Chronic Qualifiers: Sleep apnea type: obstructive Qualified Code(s): G47.33 - Obstructive sleep apnea (adult) (pediatric) Narrative A/P Narrative: Continue on IV antibiotics Follow-up chest x-ray in the morning Check proBNP Time Spent With Patient Time: Total time spent is greater than 50% in coordination of care (as documented) at patient's floor/unit and/or counseling patient:
[2021-01-05] MEDS: HEPARIN 5,000 UNIT/ML VIAL SQ SCH (20:35)
[2021-01-06] MEDS: LEVALBUTEROL 1.25 MG/3 ML AMPUL.NEB NEB PRN ×3 (00:11→22:46)
[2021-01-06] MEDS: 0.9 % SODIUM CHLORIDE 1,000 ML IV SCH (00:14)
[2021-01-06] MEDS: HYDROmorphone 1 MG/ML SYRINGE IV PRN ×9 (02:00→23:49)
[2021-01-06] MEDS: MEROPENEM 1 GM in 0.9 % SODIUM CHLORIDE 50 ML IV SCH ×3 (05:20→22:35)
[2021-01-06] MEDS: metroNIDAZOLE 500 MG/100 ML BAG IV SCH ×4 (05:21→23:50)
[2021-01-06] MEDS: METOCLOPRAMIDE 10 MG/2 ML VIAL IV SCH ×4 (05:30→23:49)
[2021-01-06] MEDS: ALBUMIN HUMAN 25 GM/100 ML BAG IV SCH (05:30)
[2021-01-06] MEDS: 0.9 % SODIUM CHLORIDE 10 ML SYRINGE IV SCH ×4 (05:30→20:28)
[2021-01-06] MEDS ORDERED: FUROSEMIDE 40 MG/4 ML VIAL IV ONE ×2 (06:54→13:00)
[2021-01-06] MEDS: FUROSEMIDE 40 MG/4 ML VIAL IV SCH ×3 (06:54→19:14)
[2021-01-06] MEDS: IPRATROPIUM 2.5 ML AMPUL.NEB NEB SCH ×3 (07:12→22:45)
[2021-01-06 07:28] LABS: Basophils # (Auto) 0.12 K/mcL (0.00-0.20); Basophils % (Auto) 0.5 % (0.0-2.0); Eosinophils # (Auto) 0 K/mcL (0.00-0.70); Eosinophils % (Auto) 0 % (0.0-7.0); Hematocrit 25.1 % (36.0-48.0); Hemoglobin 8.4 g/dL (12.0-15.0); Lymphocytes # (Auto) 0.48 K/mcL (1.50-4.80); Lymphocytes % (Auto) 2.2 % (15.0-49.0); Mean Cell Volume 90.3 fL (80.0-100.0); Mean Corpuscular HGB Conc 33.5 g/dL (31.0-36.0); Mean Platelet Volume 9.5 fL (7.4-10.4); Monocytes # (Auto) 0.76 K/mcL (0.10-0.90); Monocytes % (Auto) 3.5 % (1.0-12.0); Platelet Count 213 K/mcL (140-440); RBC 2.78 M/mcL (4.00-5.20); Red Cell Distribution Width 15.2 % (11.5-14.5); WBC 21.9 K/mcL (4.5-11.0)
[2021-01-06] MEDS: methylPREDNISolone SOD SUCC 125 MG/2 ML VIAL IV SCH ×2 (07:37→20:25)
[2021-01-06 07:38] LABS: ALT/SGPT 15 U/L (<40); AST/SGOT 18 U/L (<32); Albumin 3.8 gm/dL (3.2-5.2); Albumin/Globulin Ratio 1.9 (1.0-2.3); Alkaline Phosphatase 88 U/L (39-117); Bilirubin,Direct 0.2 mg/dL (<0.3); Bilirubin,Total 0.4 mg/dL (0.1-1.0); Blood Urea Nitrogen 24 mg/dL (8-23); Calcium 8.4 mg/dL (8.6-10.4); Carbon Dioxide 24 mmol/L (22-30); Chloride 96 mmol/L (96-108); Glomerular Filtration Rate 90; Glucose 110 mg/dL (70-105); Lactate Dehydrogenase 260 U/L (135-225); Triglycerides 89 mg/dL (<150); Uric Acid 5.8 mg/dL (2.5-8.0)
[2021-01-06] MEDS: HEPARIN 5,000 UNIT/ML VIAL SQ SCH ×2 (07:38→20:28)
[2021-01-06] MEDS: LEVOTHYROXINE 100 MCG VIAL IV SCH (07:38)
[2021-01-06] MEDS: PANTOPRAZOLE 40 MG VIAL IV SCH ×2 (07:38→18:10)
--- NOTE | 2021-01-06 07:42 | Nephrology Progress Note ---
SUBJECTIVE Subjective Patient information: Note initiated : 01/06/21 at 7:37 am Patient: Flavia Michelle 65 y/o F admitted on 12/23/20 for Laparoscopic Sigmoid Colectomy. Chief Complaint: Abdominal pain Principal diagnosis: Increasing shortness of breath; Abdominal distention;Adynamic ileus Pertinent ROS: Limited due to BIPAP Constitutional Vitals: Vital Signs Temp Pulse Resp BP Pulse Ox 98.3 F 80 24 H 167/67 95 01/06/21 04:03 01/06/21 07:22 01/06/21 07:22 01/06/21 06:01 01/06/21 07:22 Period Temp Pulse Resp BP Sys/Engle Pulse Ox Last 24 Hr 97.7 F-98.5 F 68-89 9-24 120-167/54-116 81-99 Intake and Output 01/05/21 01/06/21 01/06/21 21:59 05:59 13:59 Intake Total 1264 1790 877 Output Total 605 1400 240 Balance 659 390 637 Weight 196 lb 14.4 oz Intake & Output: Intake & Output 01/05/21 01/06/21 01/06/21 21:59 05:59 13:59 Intake Total 1264 1790 877 Output Total 605 1400 240 Balance 659 390 637 Weight 196 lb 14.4 oz Intake: IV 1264 1550 877 Sodium Chloride 0.9% 1,000 ml @ 1000 1000 677 100 mls/hr IV .Q10H [facility] Rx#: [id number] Sodium Chloride 0.9% 250 ml @ 250 20 mls/hr IV .[id number] [facility] Rx#: [id number] Merrem 1 gm In Sodium Chloride 50 100 0.9% 50 ml @ 100 mls/hr IV Q8H [facility] Rx#:[id number] Diprivan 1,000 mg In Premix 1 14 Bag @ 5 MCG/KG/MIN 2.552 mls/hr IV .Q24H [facility] Rx#:[id number] Oral 240 Output: Gastric Drainage 100 250 Right Nare 100 250 Drainage 75 150 Left Upper Abdomen JOE Drain 15 15 Right Abdomen JOE Drain 15 15 Right Lower Abdomen JOE Drain 30 30 Right Upper Abdomen JOE Drain 15 90 Urine Catheter Amount 430 950 240 Stool 50 Other: Urine Appearance Clear Clear Clear Urine Color Bright Yellow Light Keyanna Bright Yellow General appearance: obese Head Head exam: Present atraumatic and normal inspection Eye Eye exam: Present normal appearance ENT Additional comments: ET tube Respiratory Respiratory exam: Present accessory muscle use and respiratory distress Cardiovascular Cardiovascular exam: Present normal rate and rhythm GI/Abdominal GI/Abdominal exam: Present soft Extremities Exam Extremities exam: Present pedal edema Skin Skin exam: Present warm; Absent rash A/P Assessment and plan (1) Hyponatremia: Assessment and plan: Flavia Michelle is a 65-year-old female with hypertension, hypothyroidism, morbid obesity (BMI >30), admitted on 12/23/20 for recurrent diverticulitis and had sigmoidectomy on 12/23/20. She is scheduled for surgery today. Nephrology consultation was requested for hyponatremia. Hyponatremia, new onset, severe (<120), chronic (>48 hours), associated with fluid overload, not consistent with SIADH (Urine Sodium > 40, Urine Osmolality > 100), likely not symptomatic, resolved. Symptomatic diverticulitis s/p sigmoid colectomy on 12/23/20. Colorectal anastomotic dehiscence and multiple intraabdominal abscesses s/p exploratory laparotomy with drainage of multiple intraabdominal abscesses ;sigmoid colostomy with Johnson's pouch on 01/04/21. Work up: Urinalysis on 01/04/21: Yellow, cloudy, pH 5.0, SG 1.020, protein negative, blood 0.03, leukocyte esterase negative, urine WBC. CT Abdomen and Pelvis without contrast on 01/04/21: Dehiscence of the anastomosis in the distal sigmoid colon with a large pericolonic leak. Free fluid and air in the upper abdomen. Bibasilar atelectasis. Labs on 01/03/21: Serum Osmolality 260, Serum Sodium 121, Urine Osmolality 362, Urine Sodium 11. Progress: Transferred to ICU after surgery, intubated, NPO. Serum Sodium: 118 on 01/04/21 at 08:54 121 on 01/04/21 at 19:31 126 on 01/05/21 at 06:03 134 on 01/06/21 at 05:18 Fluid overload: I/Os +16.8 L, weight +10 kg since admission. Urine output: 1,923 ml reported in the past 24 hours. Recommendations and Plan: Furosemide for fluid overload as needed. Nephrology will sign off. Status: Acute (2) Fluid overload: Status: Acute Qualifiers: Hypervolemia type: unspecified Qualified Code(s): E87.70 - Fluid overload, unspecified (3) Hypertension, essential, benign: Status: Chronic Time Spent With Patient Time: Total time spent is greater than 50% in coordination of care (as documented) at patient's floor/unit and/or counseling patient:
[2021-01-06 08:21] LABS: Neutrophils % (Auto) 93.8 % (38.0-78.0)
--- NOTE | 2021-01-06 10:21 | XRay Report ---
HISTORY: Intubated, status post recent revision of sigmoid colectomy FINDINGS: Severe diffuse alveolar infiltrates are present throughout both lungs, right worse than left. These have become worse since 01/05/21. The heart size is normal. Nasogastric tube and right internal jugular catheters remain well-positioned. Endotracheal tube is not clearly seen today. It may be obscured by the overlying metal plate and screws in the cervical spine. Has the ET tube been removed? There is no pneumothorax or pleural effusion. IMPRESSION: severe widespread alveolar infiltrates in both lungs which may be due to pulmonary edema or ARDS Interpreted and Authenticated by: Pedro Vargas 01/06/21
[2021-01-06] MEDS: CHLORHEXIDINE GLUCONATE 1 ML ORAL.SOL SWABMOUTH SCH (12:37)
[2021-01-06] MEDS: LORazepam 2 MG/ML VIAL IV PRN ×3 (13:25→23:49)
--- NOTE | 2021-01-06 16:42 | General Surgery Progress Note ---
SUBJECTIVE Subjective Patient information: Note initiated : 01/06/21 at 4:41 pm Service Date, if different from initiated Date: [] Patient: Flavia Michelle 65 y/o F admitted on 12/23/20 for Laparoscopic Sigmoid Colectomy. Chief Complaint: [] Principal diagnosis: Acute sepsis; colorectal anastomotic leak; shortness of breath Interval history: Patient developed increased oxygen requirement chest x-ray shows bilateral fluffy pattern suggestive of acute pulmonary edema. She has been treated by the hospitalist and is having a vigorous diuresis. She is afebrile but her white blood count is 21.9. Hemoglobin is stable at 8.4. BUN is 24 and creatinine 0.7. Constitutional Vitals: Vital Signs Temp Pulse Resp BP Pulse Ox 98.6 F 84 13 153/65 97 01/06/21 12:01 01/06/21 15:01 01/06/21 15:01 01/06/21 15:01 01/06/21 15:01 Period Temp Pulse Resp BP Sys/Engle Pulse Ox Last 24 Hr 97.9 F-98.6 F 21-94 11-94 137-167/57-120 81-98 Intake and Output 01/06/21 01/06/21 01/06/21 05:59 13:59 21:59 Intake Total 1790 977 Output Total 1400 2040 1070 Balance 390 -1063 -1070 Intake & Output: Intake & Output 01/06/21 01/06/21 01/06/21 05:59 13:59 21:59 Intake Total 1790 977 Output Total 1400 2040 1070 Balance 390 -1063 -1070 Intake: IV 1550 977 Sodium Chloride 0.9% 1,000 ml @ 1000 677 100 mls/hr IV .Q10H [facility] Rx#: [id number] Sodium Chloride 0.9% 250 ml @ 250 20 mls/hr IV .[id number] [facility] Rx#: [id number] Merrem 1 gm In Sodium Chloride 100 0.9% 50 ml @ 100 mls/hr IV Q8H [facility] Rx#:[id number] Oral 240 Output: Gastric Drainage 250 Right Nare 250 Drainage 150 Left Upper Abdomen JOE Drain 15 Right Abdomen JOE Drain 15 Right Lower Abdomen JOE Drain 30 Right Upper Abdomen JOE Drain 90 Urine Catheter Amount 950 2040 1070 Stool 50 Other: Urine Appearance Clear Clear Clear Urine Color Light Keyanna Bright Yellow Bright Yellow Urine Odor Normal Normal Head Head exam: Present atraumatic and normal inspection Eye Eye exam: Present EOMI Pupils: Present normal accommodation and PERRL ENT ENT exam: Present mucous membranes moist, normal exam and normal oropharynx Neck Neck exam: Present full ROM and normal inspection; Absent lymphadenopathy and tenderness Respiratory Respiratory exam: Present accessory muscle use, rales, respiratory distress, rhonchi and wheezes Cardiovascular Cardiovascular exam: Present normal rate and rhythm, RRR, +S1 and +S2; Absent JVD GI/Abdominal GI/Abdominal exam: Present normal bowel sounds and distended (Moderate distention persists though it is improved from yesterday) Additional comments: Stoma looks good Extremities Exam Extremities exam: Present full ROM and pedal edema (Pedal edema is improved from yesterday) Neurological Exam Neurological exam: Present alert Additional comments: Stable except for bilateral resting tremor Psychiatric Psychiatric exam: Present anxious and normal mood Skin Skin exam: Present warm; Absent rash A/P Assessment and plan (1) Anastomotic leak of intestine: Status: Acute (2) Acute sepsis: Status: Acute (3) Fluid overload: Status: Acute Qualifiers: Hypervolemia type: unspecified Qualified Code(s): E87.70 - Fluid overload, unspecified (4) Acute pulmonary edema: Status: Acute Narrative A/P Narrative: Patient is presently being diuresed and is having BiPAP therapy. The surgical procedure is scheduled for tomorrow will be delayed until she is stable from a pulmonary standpoint. Other treatment will continue. Time Spent With Patient Time: Total time spent is greater than 50% in coordination of care (as documented) at patient's floor/unit and/or counseling patient:
[2021-01-06] MEDS ORDERED: POTASSIUM CHLORIDE 20 MEQ TABLET PO ONE (18:05)
[2021-01-06 19:05] LABS: Blood Urea Nitrogen 26 mg/dL (8-23); Calcium 8.9 mg/dL (8.6-10.4); Carbon Dioxide 28 mmol/L (22-30); Chloride 96 mmol/L (96-108); Glomerular Filtration Rate 90; Glucose 110 mg/dL (70-105)
[2021-01-06] MEDS ORDERED: ONDANSETRON 4 MG/2 ML VIAL IV PRN (20:49)
[2021-01-06] MEDS ORDERED: ONDANSETRON 4 MG/2 ML VIAL ONE (20:53)
[2021-01-07] MEDS: LORazepam 2 MG/ML VIAL IV PRN ×2 (03:32→11:02)
[2021-01-07] MEDS: HYDROmorphone 1 MG/ML SYRINGE IV PRN ×5 (03:32→13:47)
[2021-01-07 05:35] LABS: Basophils # (Auto) 0.06 K/mcL (0.00-0.20); Basophils % (Auto) 0.3 % (0.0-2.0); Eosinophils # (Auto) 0 K/mcL (0.00-0.70); Eosinophils % (Auto) 0 % (0.0-7.0); Hemoglobin 8.8 g/dL (12.0-15.0); Lymphocytes # (Auto) 0.54 K/mcL (1.50-4.80); Lymphocytes % (Auto) 2.5 % (15.0-49.0); Mean Cell Volume 90.6 fL (80.0-100.0); Mean Corpuscular HGB Conc 33.8 g/dL (31.0-36.0); Monocytes # (Auto) 0.91 K/mcL (0.10-0.90); Monocytes % (Auto) 4.2 % (1.0-12.0); Platelet Count 247 K/mcL (140-440); RBC 2.87 M/mcL (4.00-5.20); Red Cell Distribution Width 14.9 % (11.5-14.5); WBC 21.5 K/mcL (4.5-11.0)
[2021-01-07] MEDS: MEROPENEM 1 GM in 0.9 % SODIUM CHLORIDE 50 ML IV SCH ×2 (05:36→13:43)
[2021-01-07] MEDS: metroNIDAZOLE 500 MG/100 ML BAG IV SCH ×2 (05:36→13:17)
[2021-01-07] MEDS: IPRATROPIUM 2.5 ML AMPUL.NEB NEB SCH (05:39)
[2021-01-07] MEDS: 0.9 % SODIUM CHLORIDE 10 ML SYRINGE IV SCH ×2 (05:40→09:05)
[2021-01-07] MEDS: METOCLOPRAMIDE 10 MG/2 ML VIAL IV SCH ×2 (05:40→12:19)
[2021-01-07] MEDS: LEVALBUTEROL 1.25 MG/3 ML AMPUL.NEB NEB PRN (05:40)
[2021-01-07 05:55] LABS: ALT/SGPT 13 U/L (<40); AST/SGOT 17 U/L (<32); Albumin 3.6 gm/dL (3.2-5.2); Albumin/Globulin Ratio 1.8 (1.0-2.3); Alkaline Phosphatase 55 U/L (39-117); Bilirubin,Direct < 0.2 mg/dL (0-0.3); Bilirubin,Total 0.5 mg/dL (0.1-1.0); Blood Urea Nitrogen 24 mg/dL (8-23); Calcium 8.9 mg/dL (8.6-10.4); Carbon Dioxide 29 mmol/L (22-30); Chloride 98 mmol/L (96-108); Glomerular Filtration Rate 90; Glucose 129 mg/dL (70-105); Lactate Dehydrogenase 205 U/L (135-225); Phosphorous 2.3 mg/dL (2.5-4.5); Triglycerides 84 mg/dL (<150)
[2021-01-07] MEDS ORDERED: POTASSIUM CHLORIDE 20 MEQ TABLET PO ONE (06:40)
[2021-01-07] MEDS: LEVOTHYROXINE 100 MCG VIAL IV SCH (07:10)
[2021-01-07] MEDS: HEPARIN 5,000 UNIT/ML VIAL SQ SCH (07:10)
[2021-01-07] MEDS: methylPREDNISolone SOD SUCC 125 MG/2 ML VIAL IV SCH (07:11)
[2021-01-07] MEDS: PANTOPRAZOLE 40 MG VIAL IV SCH (07:11)
[2021-01-07] MEDS ORDERED: FUROSEMIDE 40 MG/4 ML VIAL IV SCH (08:00)
--- NOTE | 2021-01-07 08:41 | XRay Report ---
HISTORY: Follow-up pulmonary infiltrates after diuresis FINDINGS: There are severe diffuse alveolar infiltrates throughout both lungs with greatest consolidation around both kaitlyn. These have become worse since 5:57 PM on the same date. No pleural effusion is present. Nasogastric tube and right internal jugular line remains well-positioned. The heart is partially obscured by overlying infiltrates. IMPRESSION: Worsening bilateral pulmonary infiltrates. This is probably not pulmonary edema. Pneumonia or ARDS should be considered. Interpreted and Authenticated by: Pedro Vargas 01/07/21
--- NOTE | 2021-01-07 09:45 | XRay Report ---
HISTORY: Intubated, pulmonary infiltrates FINDINGS: Endotracheal tube is not visualized and may be obscured by the surgical hardware in the neck. Severe diffuse bilateral alveolar infiltrates are present bilaterally. There are several air bronchograms. There is no pneumothorax, pleural effusion or widening of the mediastinum. There is been no change in the prior exam done on 01/06/21. There is a drain beneath the right diaphragm. IMPRESSION: Stable infiltrates in both lungs which may be ARDS or pneumonia Interpreted and Authenticated by: Pedro Vargas 01/07/21
[2021-01-07] MEDS ORDERED: PROPOFOL IV ONE (12:09)
--- NOTE | 2021-01-07 12:13 | General Surgery Progress Note ---
SUBJECTIVE Subjective Patient information: Note initiated : 01/07/21 at 12:06 pm Service Date, if different from initiated Date: [] Patient: Flavia Michelle 65 y/o F admitted on 12/23/20 for Laparoscopic Sigmoid Colectomy. Chief Complaint: [] Principal diagnosis: Acute sepsis; colorectal anastomotic leak; shortness of breath Interval history: Patient is ventilatory status is worsened throughout the night. She is requiring higher FiO2 and increasing ventilatory pressures to maintain oxygenation above 90%. X-rays show evidence of worsening ARDS. Discussed situation with Dr. West and we agreed that she needs to have a higher level of care for critical pulmonary management. She will need to be transported by air care so she will have to have emergent intubation for better control of ventilation and transport. Discussed this with the patient and her significant other. They both state that they understand and agree with the need for transfer. Though she has a sepsis picture her overall situation and her abdomen is fairly well controlled at this time. Her drains only putting out serosanguineous fluid. She is has a small amount of output through her stoma and her stoma appears to be healthy. Constitutional Vitals: Vital Signs Temp Pulse Resp BP Pulse Ox 98.5 F 93 H 22 152/62 92 01/07/21 12:01 01/07/21 12:01 01/07/21 12:01 01/07/21 12:01 01/07/21 12:01 Period Temp Pulse Resp BP Sys/Engle Pulse Ox Last 24 Hr 98.5 F-99.7 F 21-102 12-94 137-176/59-82 88-98 Intake and Output 01/06/21 01/07/21 01/07/21 21:59 05:59 13:59 Intake Total 150 300 150 Output Total 1670 1665 1900 Balance -1520 -1365 -1750 Weight 188 lb 11.2 oz Intake & Output: Intake & Output 01/06/21 01/07/21 01/07/21 21:59 05:59 13:59 Intake Total 150 300 150 Output Total 1670 1665 1900 Balance -1520 -1365 -1750 Weight 188 lb 11.2 oz Intake: IV 150 150 150 Merrem 1 gm In Sodium Chloride 50 50 50 0.9% 50 ml @ 100 mls/hr IV Q8H [facility] Rx#:[id number] Oral 150 Output: Gastric Drainage 200 Right Nare 200 Drainage 100 115 Left Upper Abdomen JOE Drain 10 10 Right Abdomen JOE Drain 10 5 Right Lower Abdomen JOE Drain 10 10 Right Upper Abdomen JOE Drain 70 90 Urine Catheter Amount 1570 1350 1900 Other: Urine Appearance Clear Clear Clear Urine Color Pale Straw Bright Yellow Urine Odor Normal Normal Head Head exam: Present atraumatic and normal inspection Eye Eye exam: Present EOMI Pupils: Present normal accommodation and PERRL ENT ENT exam: Present mucous membranes moist, normal exam and normal oropharynx Neck Neck exam: Present full ROM and normal inspection; Absent lymphadenopathy and tenderness Respiratory Respiratory exam: Present accessory muscle use, rales, respiratory distress, rhonchi and wheezes Cardiovascular Cardiovascular exam: Present normal rate and rhythm, RRR, +S1 and +S2; Absent JVD GI/Abdominal GI/Abdominal exam: Present normal bowel sounds and distended (Moderate distention persists though it is improved from yesterday) Additional comments: Stoma looks good Extremities Exam Extremities exam: Present full ROM and pedal edema (Pedal edema is improved from yesterday) Neurological Exam Neurological exam: Present altered Additional comments: Stable except for bilateral resting tremor; altered mental status with delirium Psychiatric Psychiatric exam: Present anxious Skin Skin exam: Present warm; Absent rash A/P Assessment and plan (1) Anastomotic leak of intestine: Status: Acute (2) Acute sepsis: Status: Acute (3) Fluid overload: Status: Acute Qualifiers: Hypervolemia type: unspecified Qualified Code(s): E87.70 - Fluid overload, unspecified (4) Acute pulmonary edema: Status: Acute (5) ARDS (adult respiratory distress syndrome): Status: Acute Narrative A/P Narrative: Overall sepsis is controlled however patient has developed ARDS. With worsening ventilatory status it has been decided to transfer her to a higher level of care for critical pulmonary management. She will be intubated and transported by air care. Plans are underway to arrange this. Time Spent With Patient Time: Total time spent is greater than 50% in coordination of care (as documented) at patient's floor/unit and/or counseling patient:
[2021-01-07] MEDS ORDERED: PROPOFOL 1,000 MG in PREMIX 1 BAG IV SCH (12:15)
[2021-01-07] MEDS ORDERED: PROPOFOL 200 MG/20 ML VIAL IV ONE (12:25)
[2021-01-07] MEDS ORDERED: ROCURONIUM 10 MG/ML ML IV ONE (12:25)
--- NOTE | 2021-01-07 12:37 | Discharge Summary ---
Discharge Provider Provider Patient information: Note initiated : 01/07/21 at 12:35 pm Service Date, if different from initiated Date: [] Patient: Flavia Michelle 65 y/o F admitted on 12/23/20 for Laparoscopic Sigmoid Colectomy. Chief Complaint: [] Date of admission: 12/23/20 07:00 Discharge date: 01/07/21 Primary care physician: YECENIA Ren Admitting clinician: Williams Arevalo Attending physician on admission: Williams Arevalo Consults: 01/03/21 22:10 Consult to Physician [CONS] Routine Comment: Consulting Provider: Roberto Butler Reason For Exam: Physician to Consult 01/04/21 10:47 Consult to Physician [CONS] Routine Comment: hyponatremia Consulting Provider: Arnaldo Aranda Reason For Exam: Physician to Consult Attending physician on discharge: Mitch Saleh Discharging clinician: Mitch Saleh COURSE Hospital Course Hospital course: 65-year-old female who was admitted on 23 December after undergoing sigmoid colectomy with primary anastomosis for chronic diverticulitis. Her early postoperative course was unremarkable and she was passing flatus and started on a liquid diet by 26 December. By 30 December however she still had only passed a small amount of flatus and did not have a bowel movement. By 31 December she developed increased colonic distention though she states that she was passing flatus. Follow-up x-rays showed a small amount of subphrenic air which was not unusual but significantly dilated colon down to the rectum. On the she developed major distention of her colon with compression of her diaphragm and resultant atelectasis with hypoxemia. She was given more ventilatory support and monitored. On 03 January her white count increased to 23,000. Echocardiogram was done and was normal with ejection fraction of 67% and no wall or valvular abnormalities. The next day she appeared to be much worse and a CT with rectal contrast was done to evaluate her anastomosis. This showed significant anastomotic dehiscence with fluid collections in the subphrenic areas midabdomen and in the pelvis. She had emergency laparotomy with findings of near-total anastomotic dehiscence. A copious washout of the peritoneal cavity was carried out and all 4 quadrants were drain with Ham drains. The colostomy was performed. The patient was left intubated because of the potential for worsening pulmonary status. She however did well and was extubated on the . She was diuresed vigorously and responded appropriately however she developed a picture of ARDS. Increased diuresis was carried out but was not effective. She subsequently required increased CPAP and BiPAP with need for FiO2 of 80%. She also had increased work of breathing. It was felt that the patient should have reintubation and this was carried out. It is also felt that she needs to have acute critical care management of her severe ARDS and she is transferred to the [facility] for critical care and pulmonary specialty care. Discharge diagnosis: Acute respiratory distress syndrome Secondary discharge diagnosis: Acute pulmonary edema Acute septicemia due to fecal peritonitis Acute kidney injury treated and improved Colorectal anastomotic dehiscence Acute on chronic anemia Obstructive sleep apnea Hypertension Diabetes mellitus Depression with anxiety Chronic essential tremor Reason for admission: Postoperative care status post sigmoid resection Procedures: Sigmoid resection with primary anastomosis Emergency laparotomy with peritoneal washout, colostomy and peritoneal drainage Pertinent studies/significant findings: CT of abdomen and pelvis with rectal contrast Echocardiogram Complications: Colorectal anastomotic leak Adult respiratory distress syndrome Time Spent with Patient Time attestation: Total time spent providing and/or coordinating discharge services: Physical Examination Vital Signs Vital signs: Temp Pulse Resp BP Pulse Ox 98.5 F 93 H 22 152/62 92 01/07/21 12:01 01/07/21 12:01 01/07/21 12:01 01/07/21 12:01 01/07/21 12:01 General physical appearance General physical exam: well developed, severe distress, no pain and chronically ill Eyes Eye exam: PERRL and normal ocular movement ENT ENT exam: normal mucosa and no hearing loss Head Head exam IM: Present atraumatic, normal inspection and normocephalic Neck Neck exam: no masses, no bruits, trachea midline, no lymphadenopathy and no venous distension Cardiovascular Cardiovascular exam IM: Present RRR, +S1, +S2 and tachycardia; Absent JVD Respiratory Respiratory exam: other (Decreased breath sounds bilaterally with hypoventilation; labored respirations; patient is intubated with ventilatory support) Abdomen Abdomen: Present soft and tender (Mild incisional tenderness;Incision is packed open; functioning stoma in left lower quadrant) Integumentary Integumentary: Present no rash, no growths, no abnormal pigmentation and other (Developing anasarca) Neurologic Neurologic: Present normal sensation, confused and other (Mild delirium related to chronic illness) Musculoskeletal Musculoskeletal: Present other (No musculoskeletal deficit) Psychiatric Psychiatric: Present other (Patient was alert and answers questions appropriately prior to intubation) Discharge Plan Patient/Caregiver Discharge Instructions Activity: other Diet: NPO Prescriptions: No Action primidone 50 mg tablet 50 mg PO BID Qty: 180 RF: 4 furosemide 20 mg tablet 20 mg PO QAM Qty: 90 RF: 4 bupropion HCl 300 mg tablet extended release 24 hr See Rx Instructions .ROUTE .COMPLEX Qty: 90 RF: 4 hydrochlorothiazide 25 mg tablet See Rx Instructions .ROUTE .COMPLEX Qty: 90 RF: 3 lisinopril 40 mg tablet See Rx Instructions .ROUTE .COMPLEX Qty: 90 RF: 4 citalopram 40 mg tablet See Rx Instructions .ROUTE .COMPLEX Qty: 90 RF: 1 pantoprazole 40 mg tablet,delayed release (DR/EC) See Rx Instructions .ROUTE .COMPLEX Qty: 90 RF: 3 methocarbamol 500 mg tablet 1,000 mg PO Q8HP PRN (Reason: muscle spasm) RF: 0 famotidine 20 mg tablet 20 mg PO DAILYP PRN (Reason: Heartburn) RF: 0 budesonide 3 mg capsule,delayed,extend.release 9 mg PO DAILY RF: 0 levothyroxine 25 mcg tablet 25 mcg PO QAMAC RF: 0 hydrocodone-acetaminophen 7.5-325 mg tablet 2 tab PO Q8HP PRN (Reason: pain) RF: 0 pramipexole 0.25 mg tablet 0.125 mg PO QHS RF: 0 potassium chloride 20 mEq tablet extended release 20 meq PO QAMCC RF: 0 calcium carbonate [Calcium 600] 600 mg calcium (1,500 mg) Tablet 1,200 mg PO QDAY RF: 0 vitamin E 400 unit Capsule 400 unit PO QDAY RF: 0 cholecalciferol (vitamin D3) [Vitamin D3] 25 mcg (1,000 unit) Tablet 25 mcg PO QDAY RF: 0 Follow Up Plan Follow up with: Williams Arevalo MD [Physician] - 01/16/21 1:45 pm Patient Disposition: Xfer Acute Care Hospital Care Plan Goals: Expected outcome is that her ARDS will be corrected and she will return to her premorbid state. She probably will need halfway care post discharge from the acute care facility. It is anticipated that reanastomosis will be carried out in 3 to 4 months. Plan of Treatment: Patient is ventilated and is transferred to an acute care facility for critical pulmonary management Prognosis: Critical Rehab Potential: Critical I certify that the patient requires SNF services: No Overall status at discharge: patient is not back to baseline Discharge Orders: Discharge Order (Routine); Ordered 01/07/21 Ordered By: Mitch Saleh Pending Pending Pending: Resuscitation Status Full Code Diet NPO Except Ice Chips Diet (NOW) Start SatJan 03 2200 Furosemide (Furosemide 40 Mg/4 Ml Vial) 40 mg IV BIDD [facility] Last Admin: 01/07/21 08:02 Dose: 40 mg Documented by: LINDA Heparin Sodium (Porcine) (Heparin 5,000 Unit/Ml Vial) 5,000 unit SQ Q12 [facility] Last Admin: 01/07/21 07:10 Dose: 5,000 unit Documented by: Admin: 01/06/21 20:28 Dose: Not Given Documented by: Admin: 01/06/21 07:38 Dose: 5,000 unit Documented by: Admin: 01/05/21 20:35 Dose: Not Given Documented by: NIMESH Hydromorphone HCl (Hydromorphone 1 Mg/Ml Syringe) 1 mg IV Q2HP PRN; Protocol PRN Reason: Per Pain Protocol Last Admin: 01/07/21 11:18 Dose: 1 mg Documented by: Admin: 01/07/21 07:38 Dose: 1 mg Documented by: Admin: 01/07/21 05:40 Dose: 1 mg Documented by: Admin: 01/07/21 03:32 Dose: 1 mg Documented by: Admin: 01/06/21 23:49 Dose: 1 mg Documented by: Admin: 01/06/21 20:26 Dose: 1 mg Documented by: Admin: 01/06/21 18:10 Dose: 1 mg Documented by: Admin: 01/06/21 14:22 Dose: 1 mg Documented by: Admin: 01/06/21 11:41 Dose: 1 mg Documented by: Admin: 01/06/21 09:29 Dose: 1 mg Documented by: Admin: 01/06/21 05:48 Dose: 1 mg Documented by: Admin: 01/06/21 04:00 Dose: 1 mg Documented by: Admin: 01/06/21 02:00 Dose: 1 mg Documented by: Admin: 01/05/21 23:34 Dose: 1 mg Documented by: Admin: 01/05/21 20:40 Dose: 1 mg Documented by: Admin: 01/05/21 18:49 Dose: 1 mg Documented by: Admin: 01/05/21 13:03 Dose: 1 mg Documented by: Admin: 01/05/21 09:45 Dose: 1 mg Documented by: Admin: 01/05/21 07:42 Dose: 1 mg Documented by: Admin: 01/05/21 05:48 Dose: 1 mg Documented by: Admin: 01/05/21 02:27 Dose: 1 mg Documented by: Admin: 01/05/21 00:41 Dose: 1 mg Documented by: Admin: 01/04/21 22:20 Dose: 1 mg Documented by: Admin: 01/04/21 20:22 Dose: 1 mg Documented by: NIMESH Heparin Sodium/Sodium Chloride (Heparin/Ns) 500 mls @ 0 mls/hr IV .Q0M [facility]; Protocol Last Admin: 01/04/21 18:00 Dose: 0.1 mls/hr Documented by: NIMESH Meropenem 1 gm/ Sodium (Chloride) 50 mls @ 100 mls/hr IV Q8H [facility]BD[facility]; Protocol Last Infusion: 01/07/21 06:06 Dose: 0 mls/hr Documented by: Admin: 01/07/21 05:36 Dose: 100 mls/hr Documented by: Infusion: 01/06/21 23:05 Dose: 100 mls/hr Documented by: Admin: 01/06/21 22:35 Dose: 100 mls/hr Documented by: Infusion: 01/06/21 15:00 Dose: 0 mls/hr Documented by: Admin: 01/06/21 14:22 Dose: 100 mls/hr Documented by: Infusion: 01/06/21 05:50 Dose: 0 mls/hr Documented by: Admin: 01/06/21 05:20 Dose: 100 mls/hr Documented by: Infusion: 01/05/21 22:37 Dose: 100 mls/hr Documented by: Admin: 01/05/21 22:07 Dose: 100 mls/hr Documented by: Infusion: 01/05/21 15:25 Dose: 0 mls/hr Documented by: Admin: 01/05/21 14:51 Dose: 100 mls/hr Documented by: Infusion: 01/05/21 06:30 Dose: 0 mls/hr Documented by: Admin: 01/05/21 05:48 Dose: 100 mls/hr Documented by: Infusion: 01/05/21 00:20 Dose: 100 mls/hr Documented by: Admin: 01/04/21 23:50 Dose: 100 mls/hr Documented by: Infusion: 01/04/21 18:32 Dose: 100 mls/hr Documented by: Admin: 01/04/21 18:02 Dose: 100 mls/hr Documented by: [email or web address] Metronidazole (Flagyl) 500 mg in 100 mls @ 100 mls/hr IV Q6H [facility]BDI; Protocol Last Infusion: 01/07/21 06:36 Dose: 0 mls/hr Documented by: Admin: 01/07/21 05:36 Dose: 100 mls/hr Documented by: Infusion: 01/07/21 00:50 Dose: 100 mls/hr Documented by: Admin: 01/06/21 23:50 Dose: 100 mls/hr Documented by: Infusion: 01/06/21 19:28 Dose: 100 mls/hr Documented by: Admin: 01/06/21 18:28 Dose: 100 mls/hr Documented by: Infusion: 01/06/21 13:40 Dose: 0 mls/hr Documented by: Admin: 01/06/21 12:40 Dose: 100 mls/hr Documented by: Infusion: 01/06/21 06:25 Dose: 0 mls/hr Documented by: Admin: 01/06/21 05:21 Dose: 100 mls/hr Documented by: Infusion: 01/06/21 00:34 Dose: 100 mls/hr Documented by: Admin: 01/05/21 23:34 Dose: 100 mls/hr Documented by: Infusion: 01/05/21 19:09 Dose: 100 mls/hr Documented by: Admin: 01/05/21 18:09 Dose: 100 mls/hr Documented by: Infusion: 01/05/21 12:25 Dose: 0 mls/hr Documented by: Admin: 01/05/21 11:22 Dose: 100 mls/hr Documented by: Infusion: 01/05/21 06:50 Dose: 0 mls/hr Documented by: Admin: 01/05/21 05:48 Dose: 100 mls/hr Documented by: Infusion: 01/05/21 00:50 Dose: 100 mls/hr Documented by: Admin: 01/04/21 23:50 Dose: 100 mls/hr Documented by: Infusion: 01/04/21 19:01 Dose: 100 mls/hr Documented by: Admin: 01/04/21 18:01 Dose: 100 mls/hr Documented by: [email or web address] Ipratropium [place] (Ipratropium 2.5 Ml Ampul.Neb) 2.5 ml NEB Q8H [facility] Admin: 01/07/21 05:39 Dose: 2.5 ml Documented by: Admin: 01/06/21 22:45 Dose: 2.5 ml Documented by: Admin: 01/06/21 13:54 Dose: 2.5 ml Documented by: Admin: 01/06/21 07:12 Dose: 2.5 ml Documented by: Admin: 01/05/21 22:09 Dose: 2.5 ml Documented by: Admin: 01/05/21 13:53 Dose: 2.5 ml Documented by: Admin: 01/05/21 05:49 Dose: 2.5 ml Documented by: Admin: 01/04/21 22:12 Dose: Not Given Documented by: AILEEN Levalbuterol HCl (Levalbuterol 1.25 Mg/3 Ml Ampul.Neb) 1.25 mg NEB Q4HP PRN PRN Reason: Shortness Of Breath Last Admin: 01/07/21 05:40 Dose: 1.25 mg Documented by: Admin: 01/06/21 22:46 Dose: 1.25 mg Documented by: Admin: 01/06/21 07:13 Dose: 1.25 mg Documented by: Admin: 01/06/21 00:11 Dose: 1.25 mg Documented by: NIMESH Levothyroxine Sodium (Levothyroxine 100 Mcg Vial) 25 mcg IV QAMAC [facility] Admin: 01/07/21 07:10 Dose: 25 mcg Documented by: Admin: 01/06/21 07:38 Dose: 25 mcg Documented by: Admin: 01/05/21 07:08 Dose: 25 mcg Documented by: LINDA Methylprednisolone Sodium Succinate (Methylprednisolone Sod Succ 125 Mg/2 Ml Vial) 62.5 mg IV Q12 [facility] Admin: 01/07/21 07:11 Dose: 62.5 mg Documented by: Admin: 01/06/21 20:25 Dose: 62.5 mg Documented by: Admin: 01/06/21 07:37 Dose: 62.5 mg Documented by: Admin: 01/05/21 20:35 Dose: 62.5 mg Documented by: Admin: 01/05/21 07:08 Dose: 62.5 mg Documented by: Admin: 01/04/21 21:11 Dose: 62.5 mg Documented by: NIMESH Metoclopramide HCl (Metoclopramide 10 Mg/2 Ml Vial) 10 mg IV Q6H [facility] Admin: 01/07/21 12:19 Dose: 10 mg Documented by: Admin: 01/07/21 05:40 Dose: 10 mg Documented by: Admin: 01/06/21 23:49 Dose: 10 mg Documented by: Admin: 01/06/21 18:11 Dose: 10 mg Documented by: Admin: 01/06/21 12:40 Dose: 10 mg Documented by: Admin: 01/06/21 05:30 Dose: 10 mg Documented by: Admin: 01/05/21 23:33 Dose: 10 mg Documented by: Admin: 01/05/21 18:09 Dose: 10 mg Documented by: Admin: 01/05/21 12:43 Dose: 10 mg Documented by: Admin: 01/05/21 05:47 Dose: 10 mg Documented by: Admin: 01/04/21 23:51 Dose: 10 mg Documented by: Admin: 01/04/21 18:02 Dose: 10 mg Documented by: [email or web address] Ondansetron HCl (Ondansetron 4 Mg/2 Ml Vial) 4 mg IV Q4-6HP PRN PRN Reason: Nausea And Vomiting Last Admin: 01/06/21 21:26 Dose: 4 mg Documented by: NIMESH Pantoprazole Sodium (Pantoprazole 40 Mg Vial) 40 mg IV BIDAC [facility] Admin: 01/07/21 07:11 Dose: 40 mg Documented by: Admin: 01/06/21 18:10 Dose: 40 mg Documented by: Admin: 01/06/21 07:38 Dose: 40 mg Documented by: Admin: 01/05/21 17:42 Dose: 40 mg Documented by: Admin: 01/05/21 07:08 Dose: 40 mg Documented by: LINDA Sodium Chloride (0.9 % Sodium Chloride 10 Ml Syringe) 10 ml IV Q8 [facility] Last Admin: 01/07/21 05:40 Dose: 10 ml Documented by: Admin: 01/06/21 20:28 Dose: 10 ml Documented by: Admin: 01/06/21 14:22 Dose: 10 ml Documented by: Admin: 01/06/21 05:30 Dose: 10 ml Documented by: Admin: 01/05/21 22:07 Dose: 10 ml Documented by: Admin: 01/05/21 15:20 Dose: 10 ml Documented by: Admin: 01/05/21 05:49 Dose: 10 ml Documented by: Admin: 01/04/21 22:42 Dose: 10 ml Documented by: NIMESH Sodium Chloride (0.9 % Sodium Chloride 10 Ml Syringe) 10 ml IV Q12 [facility] Last Admin: 01/07/21 09:05 Dose: 10 ml Documented by: Admin: 01/06/21 20:28 Dose: 10 ml Documented by: NIMESH Shift Summary 01/07/21 04:32 Shift Summary by Aida Vargas Diagnosis: Admitted 12/[address] Arevalo post sigmoid colectomy Brief history of present illness: Sigmoid colectomy 12/23, bowel function very slow to recover, Dr. Saleh did a washout 01/04. Dr. Saleh's brief operative note 01/04: "near-total dehiscence of colorectal anastomosis with large fecal collection confined to pelvis;large volume abscesses in both subphrenic spaces;anterior abdominal wall abscess and abscesses at base of small bowel mesentery ;most of small bowel was not involved." Came back from surgery on vent, extubated 01/05. Pulmonary edema noted on CXR 01/06, diuresed with lasix and BIPAP during day shift. BIPAP settings 10/5 at 60-70% FiO2, switched to CPAP at 7 and 70% FiO2. Anxious and fatigued throughout this shift, feeling depressed and frustrated with her current health status. Will possibly have procedure today by Dr. Saleh to close her open abdominal incision. Orientation: x4, anxious and fatigued Oxygen/Airway needs: BIPAP/CPAP this shift. BIPAP settings: 10/5 at 60-70% FiO2. CPAP settings: 7 at 70% FiO2. Uses personal mask from her home CPAP attached to our BIPAP machine. When mask is removed, 10L OM applied. Desats quickly, slow to recover. Ambulation status: was ambulatory before surgery, turning Q2H, use of ATR sheet/wedges, [place] Voiding: FC in place, sigmoid colostomy to LLQ IV access: Quad lumen CL to RIJ. Tubes/drains: Art line to left radial artery. NGT to R nare at 64 cm to medium intermittent wall suction. JOE drains x4. Pain: medicated with Dilaudid Q2H for sharp, achy abdominal pain. Wounds: midline abdominal incision, open, with dressing CDI. JOE drains x4. Discharge plans: TBD CM/Cardiac Rhythm (if applicable): SR with 1 degree AVB, rates 70s-90s Initialized on 01/07/21 04:32 - END OF NOTE
--- NOTE | 2021-01-07 14:29 | XRay Report ---
HISTORY: Intubated FINDINGS: Endotracheal tube has been inserted. The tip is located 2.5 cm above the nancy. There is no widening of the mediastinum or pneumothorax. Severe diffuse alveolar infiltrates are present throughout both lungs with multiple air bronchograms. The infiltrates have become worse since 6:21 AM on the same date. The heart is now largely obscured by the consolidated lung tissue. Right internal jugular line and nasogastric tube remain well-positioned. IMPRESSION: Well-positioned support tubes. Worsening infiltrates in both lungs which may be ARDS or pneumonia. Interpreted and Authenticated by: Pedro Vargas 01/07/21
--- NOTE | 2021-01-10 16:33 | Operative Note ---
DATE OF OPERATION: 01/04/2021 PREOPERATIVE DIAGNOSIS: Colorectal anastomotic leak. POSTOPERATIVE DIAGNOSES: Colorectal anastomotic dehiscence with multiple intra-abdominal abscesses. PROCEDURE: Exploratory laparotomy with drainage of multiple intra-abdominal abscesses, sigmoid colostomy with Maryann's pouch. SURGEON: Mitch Saleh M.D. FINDINGS: A near total dehiscence of colorectal anastomosis with large fecal collection confined to the pelvis. Large volume abscesses in both subphrenic spaces; anterior abdominal wall abscess and abscesses at the base of the small bowel mesentery. The omentum was protected of most of the small bowel and it was not involved. The major inflammation was above the omentum in the pelvis and in the subphrenic areas. DESCRIPTION OF PROCEDURE: Under general anesthesia, the patient's abdomen was prepped and draped in a sterile field. It was known that she had an anastomotic leak with a significant fecal collection in the pelvis. The lower midline incision was opened. The omentum was adherent to the peritoneum and was bluntly dissected. The omentum was from the pelvic peritoneum and a large fecal collection was encountered. Taking care to prevent it from extending into the upper abdomen, the area was copiously irrigated with many liters of saline. There was a deep collection that extended down into the hollow of the sacrum in the posterior rectal space. Once the irrigation was carried out, I was able to place a Calera retractor. Once the retractor was placed, I was able to find the anastomosis. While irrigating the pelvis, an intact suture was encountered. It was assumed that this was a suture that was used to close the anastomosis after the staple line had been placed. Inspection of the anastomosis revealed near complete dehiscence, except for sharifa on the mesentery. Photos were taken for confirmation. Once this was done, more irrigation of the pelvis was carried out. I then extended my dissection into the upper abdomen and into the large abscess pocket in the mid abdomen, extending up to the area of the transverse colon. Large volume of pus was removed. This was dissected and irrigated with many liters of saline. The base of the small bowel was inspected and another abscess was encountered. It was not quite as large as the other two. This was copiously irrigated. I then inspected the small bowel and most of the small bowel was not involved. It had been adequately protected by the omentum. Next, I used blunt dissection to extend into the subhepatic space and encountered a small amount of purulence, which was irrigated. I then used a pressure real estate sales manager and irrigated in the right subphrenic space where a moderate amount of purulence was encountered. I also irrigated above the stomach and the left subphrenic space. Once this was done, it was felt that all of the infected areas had been adequately diluted and I then irrigated the peritoneal cavity with saline and bacitracin solution. Having decompressed all abscess pockets, attention was turned to the pelvis. The rectal stump was very viable, so it was closed with running locking 2-0 Monocryl and running locking 2-0 Prolene. Long suture remnants were left for future identification. An incision was then made in the left lower quadrant for the stoma. The muscles were divided and enlarged because of the edema of the mesentery. I was able to bring the end of the bowel through this opening. It was grasped with an Allis clamp and then pulled through the opening. It was quite snug, but it did not cause any vascular congestion. Once this was completed, I did a final irrigation with 3 liters of saline. All areas were inspected and all bowel appeared to be viable. No further purulent collections could be identified. The fascia was viable, though it had been secondarily contaminated it was not infected. It was irrigated once more and was closed with the running locking #1 Prolene. The skin and subcutaneous fat was left open. Vaginal packing soaked in bacitracin was then placed over the open incision and covered. The end of the colon was sutured to the peritoneum before closure of the fascia. Next, the wall of the bowel was partially closed and sutured to the anterior rectus fascia, but the bowel wall was so edematous that the sutures did not hold adequately. It was accepted that this had occurred. The end of the bowel was trimmed and had excellent blood supply. It was sutured to the dermis using running 3-0 Vicryl. A stoma appliance was placed. The incision with the vaginal packing was covered with 4 x 4 gauze and the entire abdomen, including the drains, was covered with a Vi-Drape. The drains, which were in both subphrenic areas and bilateral pelvis were secured with 2-0 nylon prior to covering the stoma and the midline incision. The Vi-Drape over the stoma was then incised and a properly fitting stoma appliance was placed. This was left external to the Vi-Drape. The patient tolerated the procedure well. She had significant respiratory compromise prior to the procedure and had transient hypotension during the procedure. It was decided that she would be left intubated. The Intensive Care Unit was notified and she was transferred to the intensive care unit in critical but stable condition. LCS:dagmar Job ID: [id number] Doc ID: [id number] Mitch Saleh M.D.
== END 2021-01-07 14:30 | disposition short-term general hospital (02) | DRG 329 ==
LOC: MEDSUR 07:00 → EDSTATUS 09:00 → ICU 01-04 17:41
PROVIDERS: ADMIT Surgery; ATTEND Family Medicine Adult Medicine

== ENCOUNTER 2021-05-17 05:31 | Inpatient (IN) ==
--- NOTE | 2021-05-15 19:49 | XRay Report ---
HISTORY: Preop for colostomy takedown, history of lung scarring FINDINGS: There are linear bands of scar tissue in the lingula which have improved since a prior CT done on 01/22/21 in [place]. There is no evidence of pneumonia, pulmonary mass or congestive heart failure. No pleural effusion is present. The heart size is normal. The mediastinum and kaitlyn are normal. The spine has a kyphotic curvature. There are extensive postsurgical changes following fusion in the neck. IMPRESSION: Chronic scarring in the left lung and no acute abnormality Interpreted and Authenticated by: Pedro Vargas 05/15/21
[2021-05-15 20:39] LABS: Basophils # (Auto) 0.03 K/mcL (0.00-0.30); Basophils % (Auto) 0.3 % (0.0-2.0); Eosinophils # (Auto) 0.14 K/mcL (0.00-0.70); Eosinophils % (Auto) 1.4 % (0.0-7.0); Hematocrit 32.3 % (34.1-44.9); Lymphocytes # (Auto) 1.73 K/mcL (1.50-4.80); Lymphocytes % (Auto) 17.4 % (15.5-49.0); Mean Corpuscular HGB Conc 34.1 g/dL (31.0-36.0); Mean Platelet Volume 9.3 fL (7.4-10.4); Monocytes # (Auto) 0.72 K/mcL (0.10-0.90); Monocytes % (Auto) 7.3 % (1.0-12.0); Neutrophils % (Auto) 73.6 % (38.0-78.0); Platelet Count 244 K/mcL (140-440); RBC 3.33 M/mcL (3.59-5.38); Red Cell Distribution Width 13.7 % (11.5-14.5); WBC 9.9 K/mcL (4.5-11.0)
[2021-05-15 20:50] LABS: Partial Thromboplastin Time 26.1 sec (20.0-37.0)
[2021-05-15 20:51] LABS: Prothrombin Time 13.3 sec (11.9-14.5)
[2021-05-16 07:38] LABS: ALT/SGPT 23 U/L (<40); AST/SGOT 25 U/L (<32); Albumin/Globulin Ratio 1.4 (1.0-2.3); Alkaline Phosphatase 52 U/L (39-117); Bilirubin,Total < 0.2 mg/dL (0.1-1.0); Blood Urea Nitrogen 18 mg/dL (8-23); Calcium 9.8 mg/dL (8.6-10.4); Carbon Dioxide 25 mmol/L (22-30); Chloride 98 mmol/L (96-108); Globulin 2.8 gm/dL (2.2-3.7); Glomerular Filtration Rate 76; Glucose 131 mg/dL (70-105)
--- NOTE | 2021-05-16 09:17 | EKG ---
[facility] Test Date: 2021-05-15 Pat Name: Flavia Michelle Department: RT Room: Gender: Female Law Enforcement Director: : 1955 Requested By: Mitch Saleh Order Number: [id number] Reading MD: Gopal Art Measurements Intervals [place] Rate: 59 P: NC: QRS: 65 QRSD: 106 T: 54 QT: 416 QTc: 413 Interpretive Statements Sinus rhythm with artifact Not significantly changed from prior Electronically Signed On 05-16-2021 9:17:30 PDT by Gopal Art /store/[email or web address]/[id number]
[~2021-05-17 05:31] MED LIST changes: +0.9 % SODIUM CHLORIDE 250 ML IV SCH; -IPRATROPIUM/ALBUTEROL 3 ML AMPUL.NEB NEB PRN; -SCOPOLAMINE 1 PATCH PATCH TOPICAL PRN; -ceFAZolin 2 GM in DEXTROSE 5% IN WATER 50 ML IV SCH
--- OUTSIDE RECORDS SUMMARY | 2021-05-17 05:35 | External Medical Summary | Encounter Summary ---
:1955 Author Organization [employer] [facility] [place] [address] Care Team Providers Name Role Phone Louis Goyal Primary Care Provider Reason for Visit Reason Onset Date Comments Care Coordination 04/21/2021 Encounter Details Date Type Department Care Team Description 04/21/2021 Telephone MALAWIAN Latoya Arce RN Car e Coordination RADIOSURGERY [address] [place] [address] Social History Tobacco Use Types Packs/Day Years Used Date Never Smoker Cigarettes Smokeless Tobacco: Never Used Alcohol Use Standard Drinks/Week Comments Not Currently 0 (1 standard drink = 0.6 oz pure alcoho l) rare Sex Assigned at Date Recorded Not on file documented as of this encounter Miscellaneous Notes Telephone Encounter - Latoya Clemente RN - 04/21/2021 2:47 PM PDT RN PHONE CALL: Background: Left VIM thalamotomy by gamma knife stereotactic radiosurgery occurred in 06/2020. Patient wanted to report on why she has not sent in the hand-writing samples from December yet. Patient had an abdominal surgery in December and developed sepsis. She was hospitalized and does not recall her stay. During the admission she had a stroke. The only side effected noticed from her stroke was right leg weakness. She eventually was discharged to [facility] in [place]. Flavia cantu noticed that her left-handed tremor has been worse post her hospitalization. She does not want toconsider Gammaknife at this time, but was curious on the bracelet option to address her tremor. I explained that the wrist device is called "Sol Trio." Patient will likely order the bracelet to see ifit helps her tremor. I told Flavia I will update Lulu Jensen RN because she sends out the letter and surveys. Patient verbalized understanding. documented in this encounter Plan of Treatment Not on filedocumented as of this encounter Visit Diagnoses Not on filedocumented in this encounter Care Teams Acid Pumper Relationship Specialty Start Date End Date Emilia Goyal, PCP - General Family Nurse Practitioner 5 [facility] [address] [place] [address], [place] [phone] documented as of this encounter
--- OUTSIDE RECORDS SUMMARY | 2021-05-17 05:37 | External Medical Summary | Encounter Summary ---
:1955 Author Organization [facility] [place] [address] Care Team Providers Name Role Phone Jay Jay Louis KEENE Primary Care Provider Reason for Visit Reason Onset Date Comments Care Coordination 07/27/2020 Encounter Details Date Type Department Care Team Description 07/27/2020 Telephone HONDURAN Latoya Arce RN Car e Coordination RADIOSURGERY [address] [place] [address] Social History Tobacco Use Types Packs/Day Years Used Date Never Smoker Cigarettes Smokeless Tobacco: Never Used Alcohol Use Standard Drinks/Week Comments Not Currently 0 (1 standard drink = 0.6 oz pure alcoho l) rare Sex Assigned at Date Recorded Not on file documented as of this encounter Miscellaneous Notes Telephone Encounter - Latoya Clemente RN - 07/27/2020 3:14 PM PST I spoke with patient today and explained that I sent over a referral to Dr. Dueñas's office (Vascular Surgeon) to help interrupt and discuss her recent MRA. Patient verbalized understanding. I explained that their office will be calling her soon. Dr. Dueñas is booked into September currently, however their officeexplain that they will get her in sooner. Patient verbalized understanding. I asked how she was feeling from her Gammaknife treatment for her essential tremor. Patient believesthat her handwriting has improved in her right hand. "I am pleased with the result so far..." She thanked our office for the follow up and referral to Dr. Dueñas. documented in this encounter Plan of Treatment Not on filedocumented as of this encounter Visit Diagnoses Not on filedocumented in this encounter Care Teams Senior Clinical Data Analyst Relationship Specialty Start Date End Date Emilia Goyal, PCP - General Family Nurse Practitioner 5 [facility] [address] [place] [address], [place] [phone] documented as of this encounter
--- OUTSIDE RECORDS SUMMARY | 2021-05-17 05:37 | External Medical Summary | Encounter Summary ---
:1955 Author Organization [facility] [place] [address] Care Team Providers Name Role Phone Louis Goyal Primary Care Provider Encounter Details Date Type Department Care Team Description 01/09/2021 Travel [facility] [address] [place] [phone] Social History Tobacco Use Types Packs/Day Years Used Date Never Smoker Cigarettes Smokeless Tobacco: Never Used Alcohol Use Standard Drinks/Week Comments Not Currently 0 (1 standard drink = 0.6 oz pure alcoho l) rare Sex Assigned at Date Recorded Not on file documented as of this encounter Plan of Treatment Not on filedocumented as of this encounter Visit Diagnoses Not on filedocumented in this encounter Care Teams Pathology Secretary/Transcriptionist Relationship Specialty Start Date End Date Emilia Goyal, PCP - General Family Nurse Practitioner 5 [facility] [address] [place] [address], [place] [phone] documented as of this encounter
--- OUTSIDE RECORDS SUMMARY | 2021-05-17 05:37 | External Medical Summary | Encounter Summary ---
:1955 Author Organization [employer] [facility] [place] [address] Care Team Providers Name Role Phone Jay Jay Louis KEENE Primary Care Provider Reason for Referral Diagnostic/Screening (Routine) Specialty Diagnoses / Procedures Referred By Contact Refer red To Contact Radiology Provider, [place] [address] Referral ID Status Reason Start Date Expiration Date Visits Requ ested Visits Authorized Encounter Details Date Type Department Care Team Description 08/17/2020 Hospital Encounter [facility] [place] Provider, EXTERNAL IMAGING MD Nasrin [address] [place] [address] [address] [place] [address] [place] [address] Social History Tobacco Use Types Packs/Day Years Used Date Never Smoker Cigarettes Smokeless Tobacco: Never Used Alcohol Use Standard Drinks/Week Comments Not Currently 0 (1 standard drink = 0.6 oz pure alcoho l) rare Sex Assigned at Date Recorded Not on file documented as of this encounter Medications at Time of Discharge Medication Sig Dispensed Refills Start Date End Date budesonide (ENTOCORT EC) 3 Take 9 mg by mouth 0 mg 24 hr capsule every morning . citalopram (CELEXA) 40 mg Take 40 mg by mouth 0 0 12/24/2014 tablet Daily. levothyroxine (SYNTHROID) Take 25 mcg by 0 25 mcg tablet mouth every morning (before breakfast). lisinopril Take 40 mg by mouth 0 11/12/2014 (PRINIVIL,ZESTRIL) 40 MG Daily. tablet pantoprazole (PROTONIX) 40 Take 40 mg by mouth 0 mg tablet 2 times daily (before meals). pramipexole (MIRAPEX) 0.25 Take 0.25 mg by 0 mg tablet mouth nightly . buPROPion (WELLBUTRIN SR) Take 300 mg by 0 201401/09/2021 150 mg 12 hr tablet mouth Daily . famotidine (PEPCID) 20 mg Take 20 mg by mouth 0 02/01/2021 tablet Twice daily as needed for Heartburn. furosemide (LASIX) 20 mg Take 20 mg by mouth 0 01/31/2021 tablet Daily. hydrochlorothiazide 25 mg Take 25 mg by mouth 0 0 10/30/2014 02/01/2021 tablet Daily. HYDROcodone-acetaminophen Take 2 tablets by 0 02/01/2021 (NORCO) 7.5-325 mg per mouth every 8 hours tablet as needed . methocarbamol (ROBAXIN) Take 1,000 mg by 0 201402/01/2021 500 mg tablet mouth every 8 hours as needed for Muscle spasms . nitrofurantoin Take 50 mg by mouth 0 0 02/01/2021 (MACRODANTIN) 50 mg nightly capsuleIndications: Prophylactic for Uncomplicated Urinary recurring UTI . Tract Infection Indications: Simple Infection of the Urinary Tract potassium chloride Take 20 mEq by 0 12/15/2014 (KLOR-CON M20) 20 mEq ER mouth Daily . tablet PRIMIDONE PO Take 25 mg by mouth 0 Daily. documented as of this encounter Plan of Treatment Not on filedocumented as of this encounter Procedures Procedure Name Priority Date/Time Associated Comments Diagnosis IR ANGIOGRAM CAROTID Routine 08/17/2020 12:05 Res ults for this COMMON INTRACRANIAL AM PST procedur e are in BILAT the results section. documented in this encounter Results IR Angiogram Carotid Common Intracranial Bilat (08/17/2020 12:05 AM PST) Anatomical Region Laterality Modality Other Specimen Narrative [facility] - 09/23/2020 3:48 PM PST External films for comparison only No results will be in the chart. Performing Organization Address City/State/ZIP Code Phon e Number [facility] documented in this encounter Visit Diagnoses Not on filedocumented in this encounter Care Teams Brewery Representative Relationship Specialty Start Date End Date Emilia Goyal, PCP - General Family Nurse Practitioner 5 [facility] [address] [place] [address], [place] [phone] documented as of this encounter
--- OUTSIDE RECORDS SUMMARY | 2021-05-17 05:37 | External Medical Summary | Encounter Summary ---
:1955 Author Organization [employer] [facility] [place] [address] Care Team Providers Name Role Phone Louis Goyal Primary Care Provider Reason for Referral Evaluate & Treat (Routine) - Closed Specialty Diagnoses / Procedures Referred By Contact Refer red To Contact Vascular Surgery Diagnoses Brain aneurysm Jc Miller MD [address] [place] [address] Referral ID Status Reason Start Date Expiration Date Visits V isits Requested Authorized [id number] Closed Specialty 07/26/2020 01/22/2021 1 1 Services Required Scheduling Instructions Referral to: Dr. Corey Dueñas [facility] [address] [place] [address], [place] [address] (phone) [phone] (fax) [phone] Encounter Details Date Type Department Care Team Description 07/26/2020 Orders Only Latoya Juan, Brain aneurysm (Primary RADIOSURGERY RN Dx) [address] [place] [address] Social History Tobacco Use Types Packs/Day Years Used Date Never Smoker Cigarettes Smokeless Tobacco: Never Used Alcohol Use Standard Drinks/Week Comments Not Currently 0 (1 standard drink = 0.6 oz pure alcoho l) rare Sex Assigned at Date Recorded Not on file documented as of this encounter Plan of Treatment Scheduled Referrals Name Type Priority Associated Order Schedule Diagnoses Ambulatory referral Outpatient Referral Routine Brain aneurysm Ordered: to Vascular Surgery 07/26/19 21 documented as of this encounter Visit Diagnoses Diagnosis Brain aneurysm - Primary Cerebral aneurysm, nonruptured documented in this encounter Care Teams Welder Explosion Relationship Specialty Start Date End Date Emilia Goyal, PCP - General Family Nurse Practitioner [address] [facility] [address] [place] [address], [place] [phone] documented as of this encounter
--- OUTSIDE RECORDS SUMMARY | 2021-05-17 05:38 | External Medical Summary | Encounter Summary ---
:1955 Author Organization [facility] [place] [address] Care Team Providers Name Role Phone Louis Goyal Primary Care Provider Reason for Referral Diagnostic/Screening (Routine) - Closed Specialty Diagnoses / Procedures Referred By Contact Refer red To Contact Radiology Diagnoses Benign essential tremor Jc Miller, [address] [place] [address] [address] [place] [address] Referral ID Status Reason Start Date Expiration Date Visits Requ ested Visits Authorized [id number] Closed 05/31/2020 05/31/2021 1 1 Reason for Visit Auth/Cert Specialty Diagnoses / Procedures Referred By Contact Refer red To Contact Referral ID Status Reason Start Date Expiration Date Visits Requ ested Visits Authorized [id number] 1 1 Encounter Details Date Type Department Care Team Description 07/01/2020 Hospital Encounter Farzad Martin essential CT evens [place] [address] [place], [place] [address] [phone] [address] [place] [address] Social History Tobacco Use Types Packs/Day Years [...] encounter Procedures Procedure Name Priority Date/Time Associated Diagnosis Comme nts CT TREATMENT PLAN Routine 07/01/2020 8:55 AM Benign essential Results for this COMPLEX PST tremor procedure are i n the results section. documented in this encounter Results CT Treatment Plan Complex (07/01/2020 8:55 AM PST) Anatomical Region Laterality Modality Computed Tomography Specimen Narrative [facility] - 07/01/2020 8:55 AM PST This exam has been auto-finalized and the interpretation may exist elsewhere in the chart. Performing Organization Address City/State/ZIP Code Phon e Number [facility] documented in this encounter Visit Diagnoses Diagnosis Benign essential tremor Essential and other specified forms of t remor documented in this encounter Care Teams Leaflet Distributor Relationship Specialty Start Date End Date Emilia Goyal, PCP - General Family Nurse Practitioner [address] [place] [address] documented as of this encounter
--- OUTSIDE RECORDS SUMMARY | 2021-05-17 05:38 | External Medical Summary | Encounter Summary ---
:1955 Author Organization [facility] Address [place] [address] Care Team Providers Name Role Phone Louis Goyal Primary Care Provider Reason for Visit Reason Comments Radiation Oncology Appointment Auth/Cert Specialty Diagnoses / Procedures Referred By Contact Refer red To Contact Referral ID Status Reason Start Date Expiration Date Visits Requ ested Visits Authorized [id number] 1 1 Encounter Details Date Type Department Care Team Description 06/30/2020 Hospital Encounter Link Francois, RADIOSURGERY [address] [place] [address] [address] [place] [address] (Wo rk) Social History Tobacco Use Types Packs/Day Years Used Date Never Smoker Cigarettes Smokeless Tobacco: Never Used Alcohol Use Standard Drinks/Week Comments Not Currently 0 (1 standard drink = 0.6 oz pure alcoho l) rare Sex Assigned at Date Recorded Not on file documented as of this encounter Last Filed Vital Signs Vital Sign Reading Time Taken Comments Blood Pressure 148/68 06/30/2020 9:23 AM PST Pulse 70 06/30/2020 9:23 AM PST Temperature - - Respiratory Rate 18 06/30/2020 9:23 AM PST Oxygen Saturation 95% 06/30/2020 9:23 AM PST Inhaled Oxygen Concentration - - Weight 80.3 kg (177 lb) 06/30/2020 9:23 AM PST Height 157.5 cm (5' 2") 06/30/2020 9:23 AM PST Body Mass Index 32.37 06/30/2020 9:23 AM PST documented in this encounter Discharge Instructions Patient InstructionsLatoya Clemente RN - 06/30/2020 9:30 AM PST Please arrive tomorrow morning at 6:30 am at [facility] patient registration. After you have registered come directly down to our clinic ([facility] [address]). Thank you! Gamma Knife Radiosurgery Your doctor has recommended a procedure called Gamma Knife radiosurgery. This procedure is used to treat cancerous and non-cancerous conditions in the brain without having to make an incision (cut). Gamma Knife Surgery is a unique method that delivers extremely focused radiation beams to targets inthe brain. 192 pinpoint beams of radiation called gamma rays are focused precisely on the area in the brain being treated. Each beam is fairly weak by itself. When combined, the beams work together to focus their power on tumors and abnormal blood vessels. The gamma rays are silent and invisible. You wont feel them as they pass through your scalp and skull to the area in the brain that needs treatment. Preparing for Gamma Knife Radiosurgery You will meet the members of the treatment team before the day of your radiosurgery. The team includes your neurosurgeon, radiation oncologist, and nurses. Certain testing is required, which may include blood work, urine testing, and magnetic resonance imaging (MRI), or CT Scan. Someone will talk to you about the procedure. Any questions you have will be answered at this time. You will then be asked to sign a consent form for the treatment. You may take your usual medication on the morning of your surgery with a light breakfast, but pleaseavoid caffeine. Patients with diabetes can take their usual diabetic medications the morning of surgery. You may want to bring snacks with you. You should wash your hair the night before surgery. We recommend that you do not wear makeup or jewelry to the procedure. Wear loose-fitting clothes, comfortable clothing. The Day of Your Radiosurgery A family member or friend should come with you to the hospital on the day of your procedure. He or she should stay on the unit when you are taken in for your radiosurgery. You will be taken to the Gamma Knife suite. You will need to remove eyeglasses, hearing aids, contact lenses, wigs or hairpieces. Please remember to leave all valuables such as jewelry and large sums of money at home. You will be offered a hospital gown and given an Ativan (lorazepam) pill to help yourelax. The Gamma Knife nurses are trained to provide care throughout your procedure. They will attach a blood pressure cuff and an oxygen monitor (pulse oximetry). These devices will monitor your blood pressure, breathing, and heart rate during the procedure. Fitting the Stereotactic Frame The stereotactic frame is placed on your head while in a sitting position. This device is shaped like the outline of a box and is called a stereotactic frame. The frame acts as a guide to target the exact location of the brain lesion. Your head will not be shaved. Your neurosurgeon will inject local anesthesia into your scalp in four places or pin sites where the frame will be attached. This lightweight frame is held in place on your skull by four pins, two in the forehead and two in the back of the head. You may feel some brief discomfort during these injections and can ask for more medication to help you relax. You may feel some pressure after the head frame is attached, but this will subside. You may fall asleep after the frame is attached. The stereotactic frame device will stay on yourhead until after your Gamma Knife treatment is complete. Additional Treatment Planning After the stereotactic frame has been placed, you will have imaging studies to help the surgeon and Radiation Oncologist plan your treatment. You may have an MRI, a computed tomography (CT) scan, or cerebral angiogram, depending on your diagnosis. After you are back in the Gamma Knife suite, the RN will measure the shape of your head using a clear plastic helmet. The holes in the plastic model help the team measure where the gamma rays will focus. Next, you will rest for up to one hour, while the doctors examine the results of imaging studies andmeasurements and plan your radiation dose. Nurses will help you remain as comfortable as possible; you will be given additional pain medication as needed. After final plans have been made for administering your radiation dose, you will be moved to the Gamma Knife treatment room and positioned so that the guiding device holds your head securely in the Gamma Knife helmet. You now are ready for treatment. The treatment time varies between 30 minutes up to a few hours, depending on the number, size and shape of the targets to be treated. You will be informed of the treatment time before you start treatment. Administering the Treatment You are awake during the procedure and will be able to talk to your doctor or nurse through a microphone in the Gamma Knife helmet. Your blood pressure and pulse may be monitored throughout the treatment. When the treatment begins, the Gamma Knife bed will move into the dome section of the unit. The treatment is silent and totally painless. You will be able to listen to music during the treatment if you wish. The team will be monitoring you via camera during the procedure at all times. After Radiosurgery After the treatment, the stereotactic frame will be removed. Sometimes there is a little bleeding atthe pin sites. Rarely patients need stitches. Bandaids and antibiotic ointment will be applied to the front pin sites. If you had an angiogram, you might have to lie quietly for approximately two morehours. Some patients experience a mild headache or minor swelling where the head frame was attached,but most report no problems. Some patients have a headache or feel nauseous after the procedure. If you experience these symptoms, tell the nurse. He or she will give you medication to help lessen these effects. You will be discharged home when you are comfortable, and your physician and nurse feel you are clinically ready. Discharge instructions will be provided by your nurse. You will want to rest when youget home. At discharge you should have a family member or friend drive you home. Ideally, someone should stay with you and care for you the first night you are home. Radiation treatments are designed to stop the growth of tumors or lesions, which means that the effect will be seen over a period of months or years. You will be advised by your physician or nurse whatfollow-up appointments are recommended. documented in this encounter Medications at Time of Discharge [...] 0 Daily. documented as of this encounter Progress Notes Link Loera MD - 06/30/2020 1:54 PM PST [facility] RADIOSURGERY [address] [place] [address] Office Note LINK LOERA MD Patient: FLAVIA ELIAS MR #: [id number] LOC: [facility] TYPE: Adm Date: 06/30/2020 : 1955 Neurosurgery REQUESTING PHYSICIAN: Jc Miller MD REASON FOR CONSULTATION: Essential tremor. HISTORY: Ms. Elias is a 64-year-old right-handed woman who first noticed a tremor in her hands around the age of 16. This has gotten progressively worse over time. She has not noticed a tremor of her head, voice, trunk or legs. She has a positive family history of tremor, in her brother and a son. Alcohol consumption does not affect the tremor in any noticeable way. She has been treated with primidone for several years, currently takes 25 mg daily. A recent trial of 50 mg daily helped her tremor control, but it caused significant sedation, where she was sleeping more than 12 hours a day. She says that the primidone used to help more than it does now. She was on metoprolol for a while as well, but never noticed any effect on the tremor from this medication. She complains of significant difficulty with her activities of daily living because of the tremor. She will spill drinks when carrying them from one room to another unless she holds them with two hands. She has trouble dressing herself and fastening buttons. Eating with a fork or spoon is becoming significantly more difficult. She has essentially stopped knitting, crocheting and sewing. She has a lot of trouble writing, and difficulty using a keyboard or smart phone. She does less cooking now, because of concerns of cutting herself when preparing food. She presents to the [facility] today to discuss other treatment options. PAST MEDICAL HISTORY: Hypertension, insulin resistance, colitis, depression, restless leg syndrome, gastroesophageal reflux disease, and hypothyroidism. No history of diabetes, heart disease, heart attack or stroke. PAST SURGICAL HISTORY: Lipoma removal, tonsillectomy, bilateral hand tendon surgeries, section x2, carpal tunnel surgery, hysterectomy, bilateral thumb joint replacement and cervical fusion. CURRENT MEDICATIONS: Methocarbamol, hydrocodone/acetaminophen, primidone, budesonide, hydrochlorothiazide, bupropion, famotidine, pramipexole, furosemide, pantoprazole, lisinopril, levothyroxine, citalopram, Macrodantin and potassium chloride. ALLERGIES: BIAXIN, which causes diarrhea. SOCIAL HISTORY: She denies tobacco, alcohol, and drug use. She is . Has 2 sons and 5 grandchildren. 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 FAMILY HISTORY: Her mother at 64 of a heart attack. Her father at 93, and had a history of alcohol abuse. Her brother had a sudden several years ago, presumed to be a myocardial infarction, and also suffers from essential tremor. REVIEW OF SYSTEMS: Her weight has been stable recently. She wears glasses, but denies changes in her vision. Hearing, speech, and swallowing are fine. She has no weakness or numbness of the arms or legs. She is occasionally off balance, but has not fallen recently. Bowel and bladder function are fine. No chest pain or shortness of breath. PHYSICAL EXAMINATION: GENERAL: Well-developed, well-nourished woman, in no acute distress, very pleasant and cooperative. HEENT: Normocephalic and atraumatic head. Sclerae and conjunctivae normal. Oropharynx benign. NECK: Supple, with no bruits. CHEST: Clear to auscultation. HEART: Regular rate and rhythm. ABDOMEN: Soft, nontender. EXTREMITIES: Without cyanosis, clubbing, or edema. NEUROLOGIC: Awake and alert, with fluent speech, memory, and naming grossly intact. Cranial nerves 2-12 intact to detailed testing. Motor examination: Normal tone and bulk throughout. There is no cogwheeling, bradykinesia or rigidity. Strength is 5/5 throughout. She has a very slight head tremor intermittently. There is no vocal tremor. She has a mild bilateral upper extremity resting tremor, but it is pretty subtle. There is a moderate postural tremor of the upper extremities, a little worse on the left, and a moderately severe action tremor, also slightly worse on the left. Her spiral drawing scores are 3/4 on the right and 3/4 on the left. Her writing score is 2/4. Sensation intact to light touch throughout. Coordination testing: No dysmetria with [id number] testing. Gait normal. She is able to stand from a seated position with her arms crossed in front of her without difficulty. IMPRESSION: Medically refractory essential tremor. TREATMENT OPTIONS: 1. No further treatment: It is likely that without further treatment Ms. Gonzalezs tremor will continue to worsen over time and cause more difficulty with her activities of daily living. 2. Medical management: There are other medications that she could try if she wished, including topiramate and mirtazapine, among others. I would defer to her and her other providers as to the likelihood of success with any of these medications. 3. Deep brain stimulation: Ms. Elias is a candidate for placement of a deep brain stimulator system, the main advantage of which is its immediate onset of relief after the stimulator is turned on, and its reversibility if such a thing ever becomes necessary in the future. Surgical risks are present such as bleeding, infection, stroke, and . There is also a need for programming visits and battery replacement eventually. Ms. Elias is not inclined to pursue this option. 4. Thalamotomy: Ms. Wilson is a good candidate for a left VIM thalamotomy to treat her right upper extremity tremor. Techniques available to accomplish this include focused ultrasound therapy, which has a more immediate effect but, as far as I can tell, a slightly higher chance of recurrence. Waiting lists for focused ultrasound thalamotomy generally tend to be fairly long at this point as well. Gamma Knife thalamotomy offers an approximately 80% chance of significant or complete relief of her tremor, a 10% chance of modest improvement, and a 10% chance of no benefit. There is an 8% risk of neurological side effects or complications, including weakness, numbness, paralysis or problems with speech. Half of the time, these are permanent, but they do improve in the other half of patients who experience them. There is a 1-2% risk of a severe reaction that could lead to a condition that would mimic a stroke. The effect of Gamma Knife thalamotomy is generally delayed by about 2 months, and is usually maximum about 6 months after treatment. The side effects or complications, when they arise, generally show up between 6 and 12 months. Ms. Elias, her spouse and I had a lengthy, detailed discussion of all these issues. Greater than 50% of a 60-minute consultation visit was spent in counseling and coordination of care. She would like to proceed with a left VIM thalamotomy to treat her right upper extremity tremor, and this is scheduled to be performed here at the [facility] tomorrow, 07/01/2020. LINK LOERA MD Dictated by: LINK LOERA MD 06/30/2020 14:54 Transcribed on: 06/30/2020 15:55 by [email or web address] job#: [id number] CC:YECENIA AMOR MD Lisbeth Clemente RN - 06/30/2020 9:30 AM PST [facility] New Consult Progress Note Patient Name: Flavia Elias Date: 06/30/2020 Attending Provider: Dr. Jc Miller & Dr. Link Loera Age: 64 y.o. Diagnosis: Essential Tremor (right hand dominant) Situation: Flavia comes to the [facility] to discuss radiation treatment to the brain. Patient has a history of bilateral essential tremor since she was 16 years old. Assessment: Wt Readings from Last 1 Encounters: 06/30/20 80.3 kg (177 lb) BP 148/68 | Pulse 70 | Resp 18 | Ht 1.575 m (5' 2") | Wt 80.3 kg (177 lb) | SpO2 95% | BMI 32.37 kg/m Pain: 0/10 Fatigue: energy remains stable Patient is not a fall risk. Flavia reports having bilateral hand tremors since she was [age] years old. "The older I get the tremors get worse." Patient reports that when she increased her primidone to 50 mg daily, she became "too sleepy." Flavia currently takes 25 mg of primidone prior to bedtime. Plan: Simulation to follow. Consent was signed. Gammaknife Teaching: We discussed the plan of care that starts from the planning scans and proceeds through the completion of radiation therapy. Treatment specific patient education materials were provided. We discussed the flow of the clinic stay. Flavia asked appropriate questions and verbalized understanding of the treatment plan. A certified ice hockey coach was not needed for this visit. Time spent: 20 minutes Latoya Clemente RN 10:03 AM PST; 06/30/2020 documented in this encounter Plan of Treatment Not on filedocumented as of this encounter Visit Diagnoses Not on filedocumented in this encounter Care Teams Customer Service Representative Teller Relationship Specialty Start Date End Date Emilia Goyal, PCP - General Family Nurse Practitioner 5 [facility] [address] [place] [address], [place] [phone] documented as of this encounter
--- OUTSIDE RECORDS SUMMARY | 2021-05-17 05:38 | External Medical Summary | Encounter Summary ---
:1955 Author Organization [facility] [place] [address] Care Team Providers Name Role Phone Louis Goyal Primary Care Provider Reason for Visit Auth/Cert Specialty Diagnoses / Procedures Referred By Contact Refer red To Contact Referral ID Status Reason Start Date Expiration Date Visits Requ ested Visits Authorized [id number] 1 1 Encounter Details Date Type Department Care Team Description 07/01/2020 Hospital Encounter ROSALIO Miller, RADIOSURGERY MD Jc [address] [place] [address] [address] [place] [address] Social History Tobacco Use Types Packs/Day Years [...] on filedocumented in this encounter Care Teams Pier Master Assistant Relationship Specialty Start Date End Date Emilia Goyal, PCP - General Family Nurse Practitioner [facility] [address] [place] [address], [place] [id number] documented as of this encounter
--- OUTSIDE RECORDS SUMMARY | 2021-05-17 05:38 | External Medical Summary | Encounter Summary ---
:1955 Author Organization [facility] [place] [address] Care Team Providers Name Role Phone Louis Goyal Primary Care Provider Reason for Referral Diagnostic/Screening (Routine) - Pending Review Specialty Diagnoses / Procedures Referred By Contact Refer red To Contact Radiology Diagnoses Brain aneurysm [facility] [address] [place] [address] Referral ID Status Reason Start Date Expiration Date Visits V isits Requested Authorized [id number] Pending 07/11/2020 07/11/2021 1 1 Review Scheduling Instructions [facility], [place] [address] [facility] [place] [address] (phone) [phone] (fax) [phone] Encounter Details Date Type Department Care Team Description 07/11/2020 Orders Only Latoya Juan, Brain aneurysm (Primary RADIOSURGERY RN Dx) [address] [place] [address] Social History Tobacco Use Types Packs/Day Years Used Date Never Smoker Cigarettes Smokeless Tobacco: Never Used Alcohol Use Standard Drinks/Week Comments Not Currently 0 (1 standard drink = 0.6 oz pure alcoho l) rare Sex Assigned at Date Recorded Not on file documented as of this encounter Plan of Treatment Scheduled Referrals Name Type Priority Associated Diagnoses Order S chedule MRI Angiogram Head wo Imaging Routine Brain aneurysm Expe cted: 07/11/2020, Contrast Expires: 2020 documented as of this encounter Visit Diagnoses Diagnosis Brain aneurysm - Primary Cerebral aneurysm, nonruptured documented in this encounter Care Teams Network Internship Relationship Specialty Start Date End Date Emilia Goyal, PCP - General Family Nurse Practitioner 5 [facility] [address] [place] [address], [place] [phone] documented as of this encounter
--- OUTSIDE RECORDS SUMMARY | 2021-05-17 05:38 | External Medical Summary | Encounter Summary ---
:1955 Author Organization [facility] [place] [address] Care Team Providers Name Role Phone Louis Goyal Primary Care Provider Reason for Referral Diagnostic/Screening (Routine) - Closed Specialty Diagnoses / Procedures Referred By Contact Refer red To Contact Radiology Diagnoses Benign essential tremor Jc Miller, ABDI ARMANDO GAY MD [address] [place] [address] [address] [place] [address] Referral ID Status Reason Start Date Expiration Date Visits Requ ested Visits Authorized [id number] Closed 05/31/2020 05/31/2021 1 1 Reason for Visit Auth/Cert Specialty Diagnoses / Procedures Referred By Contact Refer red To Contact Referral ID Status Reason Start Date Expiration Date Visits Requ ested Visits Authorized [id number] 1 1 Encounter Details Date Type Department Care Team Description 06/30/2020 Hospital Encounter Farzad Martin essential MRI evens [facility] [address] [place], [place] [address] [address] [address] [place] [address] Social History Tobacco Use Types Packs/Day Years [...] Name Priority Date/Time Associated Diagnosis Comme nts IMAGING REPORT - 07/06/2020 12:00 AM Resu lts for this EXTERNAL SCAN PST procedure are in the results section. IMAGING REPORT - 07/06/2020 12:00 AM Resu lts for this EXTERNAL SCAN PST procedure are in the results section. MRI BRAIN WO Routine 06/30/2020 4:31 PM Benign essential Resu lts for this CONTRAST PST tremor procedure are i n the results section. documented in this encounter Results IMAGING REPORT - EXTERNAL SCAN (07/06/2020 12:00 AM PST) Narrative 07/06/2020 12:00 AM PST This result has an attachment that is no t available. Ordered by an unspecified provider. IMAGING REPORT - EXTERNAL SCAN (07/06/2020 12:00 AM PST) Narrative 07/06/2020 12:00 AM PST This result has an attachment that is no t available. Ordered by an unspecified provider. MRI Brain wo Contrast (06/30/2020 4:31 PM PST) Anatomical Region Laterality Modality Head Magnetic Resonance Specimen Impressions [facility] - 06/30/2020 4:53 PM PST 1. Exam performed for Gamma knife thalam otomy treatment planning purposes. 2. No acute infarct or acute intracrania l hemorrhage seen. 3. There appears to be a superiorly proj ecting outpouching arising from the right aspect of the anterior communicating artery measuring 1.8 x 1.8 mm (series 5, image 16) concerning for potential aneurys m. Consider dedicated vascular imaging f or further evaluation. RADIA Dictated By: Ivania Hanna MD 2020-06-30 16:49:39.13 Signed By: Ivania Hanna MD 2 16:53:23.0 Transcribed By: Candace Will 2020-06-30 16:51:32.93 SITE ID: [id number] Referring Provider Line: [phone] Narrative [facility] IMAGING - 06/30/2020 4:53 PM PST EXAM: MRI BRAIN WITHOUT CONTRAST EXAM DATE: 06/30/2020 03:50 PM. CLINICAL HISTORY: 64-year-old with histo ry of essential tremor. Exam performed for Gamma knife thalamotomy treatment planning purposes. COMPARISON: None. TECHNIQUE: Multiplanar, multisequence T1 -weighted and fluid-sensitive MR sequences of the brain were performed. Sequences optimized for routine evaluation. Other: Axial fractional anisotropy and EPI DTI DTPT of the brain were obtained. IV Con trast: None. FINDINGS: Brain Volume: Normal for age. Parenchyma/Dura: No acute parenchymal he morrhage, mass, or midline shift. There is mild bilateral areas of T1 signal hypointensity seen that likely represent sequela of chronic small vessel ischemic disease. No areas of restricted diffusion seen to suggest acute infarct. No white matter l esions identified. Ventricles/Cisterns: No hydrocephalus. N o abnormal extra-axial fluid collection or hemorrhage. Orbits: Changes of bilateral lens replac ement. Sella Turcica: The pituitary gland, cave rnous sinuses, suprasellar cistern and optic chiasm are unremarkable. IAC: Symmetric and unremarkable. Vasculature: There appears to be a super iorly projecting outpouching arising from the right aspect of the anterior communicating artery measuring 1.8 x 1.8 mm (series 5, image 16) concerning for potenti al aneurysm. Consider dedicated vascular imaging for further evaluation. Sinuses: No acute appearing sinus diseas e. Bones: No focal pathologic appearing mar row signal changes. Minimal changes of hyperostosis frontalis internus. Other: None. Procedure Note Jacques Redd MD - 06/30/2020 EXAM: MRI BRAIN WITHOUT CONTRAST EXAM DATE: 06/30/2020 03:50 PM. CLINICAL HISTORY: 64-year-old with histo ry of essential tremor. Exam performed for Gamma knife thalamotomy treatment planning purposes. COMPARISON: None. TECHNIQUE: Multiplanar, multisequence T1 -weighted and fluid-sensitive MR sequences of the brain were performed. Sequences optimized for routine evaluation. Other: Axial fractional anisotropy and EPI DTI DTPT of the brain were obtained. IV Contrast: None. FINDINGS: Brain Volume: Normal for age. Parenchyma/Dura: No acute parenchymal he morrhage, mass, or midline shift. There is mild bilateral areas of T1 signal hypointensity seen that likely represent sequela of chronic small vessel ischemic disease. No areas of restricted diffusion seen to suggest acute infarct. No white matter l esions identified. Ventricles/Cisterns: No hydrocephalus. N o abnormal extra-axial fluid collection or hemorrhage. Orbits: Changes of bilateral lens replac ement. Sella Turcica: The pituitary gland, cave rnous sinuses, suprasellar cistern and optic chiasm are unremarkable. IAC: Symmetric and unremarkable. Vasculature: There appears to be a super iorly projecting outpouching arising from the right aspect of the anterior communicating artery measuring 1.8 x 1.8 mm (series 5, image 16) concerning for potential aneurysm. Consider dedicated vascular im aging for further evaluation. Sinuses: No acute appearing sinus diseas e. Bones: No focal pathologic appearing mar row signal changes. Minimal changes of hyperostosis frontalis internus. Other: None. IMPRESSION: 1. Exam performed for Gamma knife thalam otomy treatment planning purposes. 2. No acute infarct or acute intracrania l hemorrhage seen. 3. There appears to be a superiorly proj ecting outpouching arising from the right aspect of the anterior communicating artery measuring 1.8 x 1.8 mm (series 5, image 16) concerning for potential aneurysm. Consider dedicated vascular imaging for further evaluation. RADIA Dictated By: Ivania Hanna MD 2020-06-30 16:49:39.13 Signed By: Ivania Hanna MD 2 16:53:23.0 Transcribed By: Candace Will 2020-06-30 16:51:32.93 SITE ID: [id number] Referring Provider Line: [phone] Performing Organization Address City/State/ZIP Code Phon e Number [facility] documented in this encounter Visit Diagnoses Diagnosis Benign essential tremor Essential and other specified forms of t remor documented in this encounter Care Teams Venetian Blind Maker Relationship Specialty Start Date End Date Emilia Goyal, PCP - General Family Nurse Practitioner [facility] [address] [place] [address], [place] [phone] documented as of this encounter
--- OUTSIDE RECORDS SUMMARY | 2021-05-17 05:38 | External Medical Summary | Encounter Summary ---
:1955 Author Organization [facility] [place] [address] Care Team Providers Name Role Phone Louis Goyal Primary Care Provider Reason for Visit Reason Comments Follow-up Auth/Cert Specialty Diagnoses / Procedures Referred By Contact Refer red To Contact Referral ID Status Reason Start Date Expiration Date Visits Requ ested Visits Authorized [id number] 1 1 Encounter Details Date Type Department Care Team Description 07/08/2020 Hospital Encounter [facility] Link Jimenez MD [address] [place] [address] Benign essential RADIOSURGERY Bridget Carr ARNP [address] [place] [address] tremor (Primary Dx) [address] [place] [address] Social History Tobacco Use Types Packs/Day Years [...] documented as of this encounter Progress Notes Bridget Carr, YECENIA - 07/08/2020 10:00 AM PST [facility] [address] [place] [address] PHONE NOTE IDENTIFICATION/CHIEF COMPLAINT: Flavia Michelle is a pleasant 64-year-old woman with a history of essential tremor who is one week s/p GK SRS for a left VIM thalamotomy. This is a phone follow-up. INTERVAL HISTORY: Ms. Michelle reports that she is doing well. She reports her pin sites were tender following treatment. She noted that the sites on the left were the most sore. She did not have any significant swelling around the sites. She had some residual numbness on her scalp for a few days but it has now resolved. Flavia reports that she remembers being told that there was an incidental finding of an aneurysm on her planning MRI. She states she received a call from Latoya LYNN about getting an MRA but they had not connected yet. ASSESSMENT/PLAN: Flavia Michelle is now one week s/p GK SRS for essential tremor. She tolerated treatment well and has recovered without complication. I reviewed the follow-up plan of mailed questionnaires at 6 months, 1 year, 2 year, and 3 year. I also told her we would like for her to get an MRA which can be done at a facility close to her home town. She suggests a hospital nearby in [place]. I will relay this information to Latoya and she should be contacted soon to set up the appointment. All questions and concerns from Flavia were answered and she verbalized understanding. FRANDY [facility] This dictation was partly generated with voice-activated dictation software. Although effort was made to review the dictation for accuracy, errors may occur. Please contact me if you have any questions. documented in this encounter Plan of Treatment Not on filedocumented as of this encounter Procedures Procedure Name Priority Date/Time Associated Diagnosis Comme nts IMAGING REPORT - 08/31/2020 12:00 AM Resu lts for this EXTERNAL SCAN PST procedure are in the results section. IMAGING REPORT - 08/24/2020 12:00 AM Resu lts for this EXTERNAL SCAN PST procedure are in the results section. IMAGING REPORT - 08/23/2020 12:00 AM Resu lts for this EXTERNAL SCAN PST procedure are in the results section. documented in this encounter Results IMAGING REPORT - EXTERNAL SCAN (08/31/2020 12:00 AM PST) Narrative 08/31/2020 12:00 AM PST This result has an attachment that is no t available. Ordered by an unspecified provider. IMAGING REPORT - EXTERNAL SCAN (08/24/2020 12:00 AM PST) Narrative 08/24/2020 12:00 AM PST This result has an attachment that is no t available. Ordered by an unspecified provider. IMAGING REPORT - EXTERNAL SCAN (08/23/2020 12:00 AM PST) Narrative 08/23/2020 12:00 AM PST This result has an attachment that is no t available. Ordered by an unspecified provider. documented in this encounter Visit Diagnoses Diagnosis Benign essential tremor - Primary Essential and other specified forms of t remor documented in this encounter Care Teams Therapeutic Recreation Leader Relationship Specialty Start Date End Date Emilia Goyal, PCP - General Family Nurse Practitioner 5 [facility] [address] [place] [address], [place] [phone] documented as of this encounter
--- OUTSIDE RECORDS SUMMARY | 2021-05-17 05:38 | External Medical Summary | Encounter Summary ---
:1955 Author Organization [facility] [place] [address] Care Team Providers Name Role Phone Louis Goyal Primary Care Provider Reason for Visit Reason Comments Radiation Oncology Appointment Auth/Cert Specialty Diagnoses / Procedures Referred By Contact Refer red To Contact Referral ID Status Reason Start Date Expiration Date Visits Requ ested Visits Authorized [id number] 1 1 Encounter Details Date Type Department Care Team Description 07/01/2020 Hospital Encounter Farzad Martin essential RADIOSURGERY evens [place] (Primary Dx) [address] [place], [place] [address] [address] [address] [place] [address] Social History Tobacco Use Types Packs/Day Years Used Date Never Smoker Cigarettes Smokeless Tobacco: Never Used Alcohol Use Standard Drinks/Week Comments Not Currently 0 (1 standard drink = 0.6 oz pure alcoho l) rare Sex Assigned at Date Recorded Not on file documented as of this encounter Last Filed Vital Signs Vital Sign Reading Time Taken Comments Blood Pressure 139/65 07/01/2020 11:54 AM PST Pulse 71 07/01/2020 11:54 AM PST Temperature - - Respiratory Rate 18 07/01/2020 7:00 AM PST Oxygen Saturation 97% 07/01/2020 11:54 AM PST Inhaled Oxygen Concentration - - Weight - - Height - - Body Mass Index - - documented in this encounter Discharge Instructions Patient InstructionsBeverly Anne Marie Christianson RN - 07/01/2020 6:30 AM PST Gamma Knife Discharge Instructions The Band Aids on your head may be removed the day after your procedure and then you may leave the sites open to air to heal. Do not bend over, i.e. to tie your shoes, or perform any heavy lifting for 24 hours to avoid possible bleeding from the pin sites. You may gently wash your hair the day after your procedure. If you notice brown tinged water while washing your hair, it is most likely from dried blood left in your hair during the application and removal of the head frame. This is not a cause for alarm. However, if bleeding persists, apply pressurewith a cloth for 15 minutes until it stops. If the bleeding does not stop after 15 minutes, please go to your local ER department for a stitch. Avoid hair spray, mousse, gels, hair color, permanents or anything else that may cause irritation until the pin sites have completely healed. You can expect the pin sites to heal in seven to ten days. Swelling above the eyes may occur within 48 hours of the procedure. This may be caused by the local anesthetic that was used to numb your scalp. The swelling will decrease in three to four days. Applying an ice pack to each pin site for 30 minutes to an hour, four times a day, may help prevent or decrease swelling. You may experience temporary tingling or scalp numbness above the pin sites. This can last for several weeks. You may experience some minor discomfort due to the pin sites or muscular aches from having your head manipulated by the frame. Tylenol, rest and time will resolve this discomfort. Swimming is prohibited for seven days to allow the pin sites to heal completely. You may return to work or school in 48 hours or sooner if you are feeling well and choose to do so. You are not permitted to drive for at least 24 hours after surgery because of the medications you received. If your physician has restricted your driving privileges prior to your Gamma Knife treatment, you may not resume driving until your physician has reinstated them. You should resume all of your regular activities and diet. Continue to observe any instructions you were on before your Gamma Knife treatment unless your physician has instructed you otherwise. No alcohol for 24 hours. Continue to take prescription medication as instructed by your physicians. If you received a prescription for pain medications, please remember: Do not drive or drink alcohol while taking this medication. Fatigue and nausea are possible side effects of radiation to the brain. Be careful about falling today and while taking pain medication. Your physicians will determine when you need a follow-up examination, MRI scan, CT scan or cerebral angiogram. Remember that it may take months or years before the radiation produces noticeable effectsthat the physician can see or evaluate. If you have any questions or concerns, please contact your physician at [facility] at [phone]. YECENIA Suarez will call you at 10 AM 07/08/20 for a brief telephone follow up call. [facility] staff will be in touch December 2020 and request new writing samples to be returned by mail. documented in this encounter Medications at Time [...] encounter Progress Notes Link Loera MD - 07/01/2020 6:30 AM PST DATE OF VISIT: 07/01/20 SURGEON: Link Loera M.D. PREOPERATIVE DIAGNOSIS: Essential tremor. POSTOPERATIVE DIAGNOSIS: Same. PROCEDURE: Left VIM thalamotomy by gamma knife stereotactic radiosurgery. ANESTHESIA: Local. PROCEDURE IN DETAIL: The patient received oral sedation prior to beginning the procedure. The [employer] stereotactic frame was attached to the patient's head using local anesthesia for the pin fixation sites. A localizing CT scan was then obtained, and the CT data, as well as previously obtained MRI data, were entered into the [employer] dose planning computer system for the [employer] Gamma Knife. A treatment plan was developed and approved by myself, radiation oncologist Winter Miller MD., and radiationphysicists Raimundo Segundo. The intent of the procedure was to create a lesion in the left ventral intermediate thalamic nucleus. Target coordinates for this lesion within the brain with an inter-commissural distance of 26.3 mm were as follows: X 15.0 mm left of the midline, Y 4.5 mm posterior to the mid-commissural point, and Z 4.5 mm superior to the commissural plane. The dose prescription was 135 Gy at dose maximum, to be delivered at a gamma angle of 90 degrees, utilizing a single 4 mm isocenter with one sector blocked. Thecalculated treatment time was 97.5 minutes. Upon completion and approval of the plan, the patient was taken into the treatment room and laid on the couch in the supine position. Using the automatic positioning function of the Gamma Knife Perfexion unit, the X, Y, and Z stereotactic coordinates, gamma angle, collimator and exposure time were all set and confirmed and the treatment was delivered as prescribed. The patient tolerated it well without complication. At the conclusion of treatment, the stereotacticframe was removed and sterile dressings were applied to the pin sites. The patient was observed for a period of time in the Gamma knife Center and then discharged. Follow-up instructions were given. LINK LOERA MD Jc Miller MD - 07/01/2020 6:30 AM PST GAMMA KNIFE TREATMENT SUMMARY DATE OF TREATMENT: 07/01/2020 DIAGNOSIS: Essential tremor TREATING PHYSICIANS/PHYSICIST: Winter Miller MD, Rubina Loera MD, Raimundo Segundo. PROCEDURE: The [employer] stereotactic frame was applied to the patient under local anesthesia. The region of interest was evaluated using MR and CT imaging. Computer dosimetry, 3D reconstruction simulation and planning were performed on the [employer] GammaPlan System, employing multiple images and isodose calculations. The size and location of the treatment volume, as well as the projected radiobiologicrisk to the adjacent critical structures was evaluated by the neurosurgeon, radiation oncologist, and medical assistant instructor. Jointly, we determined the appropriate treatment, isodose, central dose, and marginal dose. TREATMENT: The following was treated using the Perfexion Gamma Knife system: Location Dose (Gy) (at Dmax) % Isodose Collimator # Size Ventral intermediate nucleus LEFT thalamus 135 100 1 4mm FRAME REMOVAL: I removed the stereotactic headframe following treatment without complications. TOLERANCE: The patient experienced no unusual side effects while in treatment. RESPONSE TO THERAPY: To be determined on subsequent follow-up evaluations. DISPOSITION: Followup instructions given upon discharge. 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 I recommended an MRA as a next step in evaluation and then followup withDr. Loera. Lalita Christianson RN - 07/01/2020 6:30 AM PST Ambulatory admission of 64 y/o female for gamma knife treatment of tremor. She is A&Ox4 and accompanied by spouse. She morelos the right hand as side she wants treated for tremor control.She did wellwith frame placement and ativan 1 mg was repeated after frame application for feelings of anxiety with the frame on which worked well for her. She appeared to sleep during treatment. Frame removed andpatient discharged with after all questions answered. 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 Loera and Dr. Miller. MRA suggested. documented in this encounter Plan of Treatment Not on filedocumented as of this encounter Visit Diagnoses Diagnosis Benign essential tremor - Primary Essential and other specified forms of t remor documented in this encounter Administered Medications Inactive Administered Medications - up to 3 most recent administrations Medication Order MAR Action Action Date Dose Rate Site bacitracin-polymyxin b (POLYSPORIN) Given 07/01/2020 11:30 AM PS T ointment Topical, ONCE PRN, pin site pain, Starting on Sat07/01/20 at 0613, For 1 dose, Apply 1 application topically to frontal pin sites, Apply to: Other (Comment), Other location: Frontal pin sites bupivacaine (MARCAINE) 0.25% injection 1 5 mL Given 07/01/2020 8:15 AM PST 15 mLs 15 mL, Infiltration, ONCE, On Sat07/01/20 at 0800, For 1 dose lidocaine (LMX) 4% cream Given 07/01/2020 7:00 AM PST Topical, PRN, Pain, Starting on Sat07/01/20 at 0700, Apply to: Other (Comment), Other location: pin sites lidocaine 2%-EPINEPHrine 1:100,000 injection Given 05/2020 8:15 AM PST 15 mLs 15 mL 15 mL, Infiltration, ONCE, On Sat07/01/20 at 0800, For 1 dose LORazepam (ATIVAN) tablet 1 mg Given 07/01/2020 9:06 AM PST 1 mg 1 mg, Oral, EVERY 30 MIN PRN, Anxiety, Starting on Sat07/01/20 at 0611 Given 07/01/2020 7:08 AM PST 1 mg sodium bicarbonate 0.5 New Bag 07/01/2020 8:15 AM 1.5 mEq 180 mL/hr Other (Comment) mEq/mL injection 1.5 PST mEq 1.5 mEq (3 mL), Subcutaneous, Administer over 1 Minutes, ONCE, On Sat07/01/20 at 0800, For 1 dose documented in this encounter Care Teams Medical Collections Specialist Relationship Specialty Start Date End Date Emilia Goyal, PCP - General Family Nurse Practitioner 5 [facility] [address] [place] [address], [place] [phone] documented as of this encounter
--- OUTSIDE RECORDS SUMMARY | 2021-05-17 05:38 | External Medical Summary | Encounter Summary ---
:1955 Author Organization [facility] [place] [address] Care Team Providers Name Role Phone Jay Jay Louis KEENE Primary Care Provider Reason for Referral Diagnostic/Screening (Routine) Specialty Diagnoses / Procedures Referred By Contact Refer red To Contact Radiology Provider, [place] [address] Referral ID Status Reason Start Date Expiration Date Visits Requ ested Visits Authorized Encounter Details Date Type Department Care Team Description 07/18/2020 Hospital Encounter [facility] [place] Provider, EXTERNAL IMAGING MD Nasrin [address] [place] [address] [place] [address] Social History Tobacco Use Types Packs/Day Years [...] Name Priority Date/Time Associated Diagnosis Comme nts MRA HEAD W WO Routine 07/18/2020 12:00 AM Results for this CONTRAST PST procedure are i n the results section. documented in this encounter Results MRA Head w wo Contrast (07/18/2020 12:00 AM PST) Anatomical Region Laterality Modality Head, Vascular Other Specimen Narrative [facility] - 09/23/2020 3:40 PM PST External films for comparison only No results will be in the chart. Performing Organization Address City/State/ZIP Code Phon e Number [facility] documented in this encounter Visit Diagnoses Not on filedocumented in this encounter Care Teams Equipment Monitor Phototypesetting Relationship Specialty Start Date End Date Emilia Goyal, PCP - General Family Nurse Practitioner 5 [employer] [address] [place] [address], [place] [phone] documented as of this encounter
--- OUTSIDE RECORDS SUMMARY | 2021-05-17 05:38 | External Medical Summary | Encounter Summary ---
:1955 Author Organization [facility] [place] [address] Care Team Providers Name Role Phone Louis Goyal Primary Care Provider Reason for Visit Auth/Cert Specialty Diagnoses / Procedures Referred By Contact Refer red To Contact Referral ID Status Reason Start Date Expiration Date Visits Requ ested Visits Authorized [id number] 1 1 Encounter Details Date Type Department Care Team Description 06/30/2020 Hospital Encounter ROSALIO Miller, RADIOSURGERY MD Jc [address] [place] [address] [address] [place] [address] Social History Tobacco Use Types [...] documented as of this encounter Progress Notes Jc Miller MD - 06/30/2020 10:45 AM PST Stereotactic Radiosurgery Date: 06/30/2020 Patient Name: Flavia Michelle Patient Diagnosis: Essential Tremor, G25.0 PATIENT IDENTIFICATION/CHIEF COMPLAINT Ms. Michelle is a 64 y.o. right handed woman with severe medically refractory essential tremor. She presents today to discuss gamma knife thalamotomy as treatment for essential tremor. PAST RADIATION HISTORY None HISTORY OF PRESENT ILLNESS Ms. Michelle has had tremor since age 16. The tremor has gradually progressed, but in more recent yearsbecome even more severe. She has been on primidone, beta blockers, and other medications, though the tremor has progressed and is quite severe despite efforts with these medications. She has severe fatigue with higher doses of primidone. She has difficulty with all aspects of daily living involving her hands: cooking, handling utensils,knives, cup, or a glass. She has difficulty sewing, especially trying to thread a needle. PAST MEDICAL/SURGICAL HISTORY HTN Diverticulitis DJD/DDD/OA DepressionTonsillectomy JOHNATHAN Hypothyroidism ALLERGIES Allergies Allergen Reactions Sulfa Antibiotics Rash When exposed to sun Intolerance Allergen Reactions Biaxin (Clarithromycin) Diarrhea Codeine Other (See Comments) Made her pass out. Tylenol #3. MEDICATIONS Current Outpatient Medications: budesonide (ENTOCORT EC) 3 mg 24 hr capsule, Take 3 mg by mouth every morning., Disp: , Rfl: buPROPion (WELLBUTRIN SR) 150 mg 12 hr tablet, Take 300 mg by mouth Daily ., Disp: , Rfl: citalopram (CELEXA) 40 mg tablet, Take 40 mg by mouth Daily., Disp: , Rfl: famotidine (PEPCID) 20 mg tablet, Take 20 mg by mouth Twice daily as needed for Heartburn., Disp: , Rfl: furosemide (LASIX) 20 mg tablet, Take 20 mg by mouth Daily., Disp: , Rfl: hydrochlorothiazide 25 mg tablet, Take 25 mg by mouth Daily., Disp: , Rfl: HYDROcodone-acetaminophen (NORCO) 7.5-325 mg per tablet, Take 2 tablets by mouth every 8 hours as needed ., Disp: , Rfl: levothyroxine (SYNTHROID) 25 mcg tablet, Take 25 mcg by mouth every morning (before breakfast)., Disp: , Rfl: lisinopril (PRINIVIL,ZESTRIL) 40 MG tablet, Take 40 mg by mouth Daily., Disp: , Rfl: methocarbamol (ROBAXIN) 500 mg tablet, Take 500 mg by mouth every 8 hours as needed for Muscle spasms ., Disp: , Rfl: nitrofurantoin (MACRODANTIN) 50 mg capsule, Take 50 mg by mouth nightly Prophylactic for recurring UTI . 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 LTNS. REVIEW OF SYSTEMS A complete review of systems was performed. I signed and dated today's intake form with the complete review of systems. EXAM General: Alert, pleasant, oriented Neuro: CN II-XII grossly intact. No gross weakness or numbness in the upper or lower extremities. 0.5/4 head/neck; 0/4 voice tremor. Right Hand: Drawing score 3/4 Writing score 1/4 Left Hand Drawing score 3/4 Eyes: anicteric sclerae, no conjunctival injection Head/Neck: NCAT, supple neck, though some minor limitation in neck ROM (prior fusion) Lymphatic: no cervical or supraclavicular lymphadenopathy Respiratory: Unlabored breathing, no audible wheezing. Ext: warm, no edema Psych: normal mood and affect MSK: No spinous process or CVA tenderness IMPRESSION/RECOMMENDATIONS Ms. Michelle is a 64 y.o. right handed woman with severe, longstanding, progressive, medically refractory essential tremor. We discussed the options for treatment of essential tremor including continued medical therapy, DBS,ultrasound and gamma knife radiosurgery. We discussed in detail the gamma knife radiosurgery procedure, in that it is an outpatient, one day treatment where a metal head frame is placed while the patient is awake with local anesthesia. The head frame is affixed to the skull using four pins, which go through the skin directly into the skull. We discussed that approximately 80% of patients have a significant improvement in tremor with gamma knife treatment. We explained that some patients have no benefit from the treatment whatsoever. With regard to side effects, we discussed that numbness, weakness, or difficulty with speech are possible side effects that occur in approximately 8% of patients. I explained that half of the time these side effects are severe, and that half of the time they are permanent. Thus, 2% of patients have a severe, permanent numbness, weakness, or difficulty with speech, which is similar to the symptom ofa stroke. We discussed that the benefit of treatment is typically not realized for 2-3 months following treatment and that side effects typically occur 6 to 12 months following treatment. We discussed the fact that treatment will benefit the side of the body opposite that of the targetedbrain area (for example, left side of brain treated to help tremor in the right hand). We discussedthe fact that following a good result of treatment, gamma knife treatment to the other side of the brain (to affect the other side of the body) may be considered after one year. Ms. Michelle expressed her understanding of the relative benefits and risks of treatment and her desire to proceed with treatment. We will coordinate treatment with Dr. Hernandez. Jc Miller MD 2:06 PM PST; 06/30/2020 documented in this encounter Plan of Treatment Not on filedocumented as of this encounter Visit Diagnoses Not on filedocumented in this encounter Care Teams Living Manager Relationship Specialty Start Date End Date Emilia Goyal, PCP - General Family Nurse Practitioner [address] [place] [address] documented as of this encounter
--- OUTSIDE RECORDS SUMMARY | 2021-05-17 05:39 | External Medical Summary | Encounter Summary ---
:1955 Author Organization [facility] Address [place] [address] Care Team Providers Name Role Phone Louis Goyal Primary Care Provider Reason for Visit Reason Comments Pre-op Exam referred by Dr Yen, neck nuñez rgery C4-C7 Evaluate & Treat (Routine) - Closed Specialty Diagnoses / Procedures Referred By Contact Refer red To Contact Cardiology Diagnoses Pre-operative clearance Sherwin Mccoy MD Whisenant, Giovany Osborn MD [address] [place] [address] [place] [address] Jaye Pierre, LOIS Phone: [phone] Referral ID Status Reason Start Date Expiration Date Visits Requ ested Visits Authorized [id number] Closed 12/21/2014 12/22/2015 4 4 Encounter Details Date Type Department Care Team Description 12/27/2014 Office Visit SAVAGE Roman, Essential hypertension, benign (Primary Dx); CARDIOLOGY TRENT Osborn MD Pre-operative cardiovascular examination [address] [place] [address] [place], [place] [phone] [id number] Social History Tobacco Use Types Packs/Day Years Used Date Never Smoker Cigarettes Smokeless Tobacco: Never Used Alcohol Use Standard Drinks/Week Comments Yes 0 (1 standard drink = 0.6 oz pure alcoho l) rare Sex Assigned at Date Recorded Not on file documented as of this encounter Last Filed Vital Signs Vital Sign Reading Time Taken Comments Blood Pressure 112/58 12/27/2014 1:53 PM PDT right Pulse 68 12/27/2014 1:50 PM PDT regular Temperature - - Respiratory Rate - - Oxygen Saturation - - Inhaled Oxygen Concentration - - Weight 76.2 kg (168 lb) 12/27/2014 1:50 PM PDT Height 156.2 cm (5' 1.5") 12/27/2014 1:50 PM PDT Body Mass Index 31.23 12/27/2014 1:50 PM PDT documented in this encounter Progress Notes Giovany Roman MD - 12/27/2014 1:57 PM PDT PATIENT NAME: Flavia Kirkpatrick Arlt : 1955: AGE: 59 y.o. PRIMARY CARE: YECENIA Ren CHIEF COMPLAINT: Chief Complaint Patient presents with Pre-op Exam referred by Dr Yen, neck surgery C4-C7 HISTORY OF PRESENT ILLNESS 59 y.o. year old female In today for preop assessment for cervical spine surgery. Surgery risk is considered low. Anticipated date of surgery is January 17. Cardiac concerns are an incorrect past history. The patient denies history consistent with recent myocardial infarction, unstable angina, or congestive heart failure. Review of all outpatient noninvasive testing including EKGs, echocardiogram, treadmill or pharmacologic stress testing are reviewed in detail. Medical considerations, doses and timing are discussed in detail. After discussion with patient and all interested parties further testing is felt to be not necessary. Please see assessment and plan as well as patient instructions below. CURRENT ASSESSMENT AND PLAN BY PROBLEM LIST Pre-operative cardiovascular examination Preop evaluation for orthopedic neurological surgery cervical spine. Low risk surgery. Patient no heart attack and angina normal physical exam normal stress echo in July 2012 EKG today is normal unchanged from prior tracings Patient is low risk no further testing is necessary . MEDICAL, SURGICAL, AND PERSONAL HISTORY Past Medical History Diagnosis Date HTN (hypertension) Hyperlipidemia Arthritis Diverticul disease small and large intestine, no perforati or abscess Heart murmur She has been told that she had a murmur. Normal stress echocardiogram 07/2012. No valvular abnormalities on echocardiogram, 08/08/12. Essential tremor Past Surgical History Procedure Laterality Date Hysterectomy 08/2000 Thumb replacement Left Tonsillectomy and adenoidectomy Carpal tunnel release Bilateral section X 2 Neck surgery 01/17-01/18/2015 Dr Sherwin Mccoy at [place], [place] Her family history includes Heart attack in her brother and mother. She reports that she has never smoked. She has never used smokeless tobacco. She reports that she drinks alcohol. She reports that she does not use illicit drugs. CURRENT MEDICATIONS Outpatient Encounter Prescriptions as of 12/27/2014 Medication Sig Dispense Refill aspirin 81 mg EC tablet Take 81 mg by mouth Daily. buPROPion (WELLBUTRIN SR) 150 mg 12 hr tablet Take 150 mg by mouth Daily. citalopram (CELEXA) 40 mg tablet Take 40 mg by mouth Daily. diclofenac (VOLTAREN) 75 mg EC tablet Take 75 mg by mouth 2 times daily. fluticasone (FLONASE) 50 mcg/nasal spray by Nasal route as needed. hydrochlorothiazide 25 mg tablet Take 25 mg by mouth Daily. HYDROcodone-acetaminophen (NORCO) 7.5-325 mg per tablet Take by mouth as needed. JANUMET 50-500 MG per tablet Take by mouth Daily. lisinopril (PRINIVIL,ZESTRIL) 40 MG tablet Take 40 mg by mouth Daily. methocarbamol (ROBAXIN) 500 mg tablet Take 500 mg by mouth 2 times daily. omeprazole (PRILOSEC) 20 mg capsule Take 20 mg by mouth every morning (before breakfast). potassium chloride SA (K-DUR,KLOR-CON) 10 MEQ tablet Take 10 mEq by mouth Daily. PREMARIN vaginal cream Daily as needed. primidone (MYSOLINE) 50 mg tablet Take 50 mg by mouth Daily. No facility-administered encounter medications on file as of 12/27/2014. Please note Epic has a flaw in which medication corrections are listed as if they were discontinued at the time of the visit. I did not "discontinue" any the above medications unless noted in my assessment and plan; rather the patient was either not on these medications upon arrival today or I made refills or dose adjustments as otherwise noted. ALLERGIES Allergies Allergen Reactions Clarithromycin Diarrhea Codeine Other (See Comments) Made her pass out Sulfa Antibiotics Rash ROS 14 point ROS was completed and is negative except for: Heent: headaches Musculoskeletal: arthralgia, falls Neurology: tremors Psychiatric: depression PHYSICAL EXAM BP 112/58 | Pulse 68 | Ht 1.562 m (5' 1.5") | Wt 76.204 kg (168 lb) | BMI 31.23 kg/m2 Body mass index is 31.23 kg/(m^2). GENERAL: Pleasant appearing in no apparent distress HEENT: Conjunctivae and lids are normal in appearance. Eyes: Extraocular movements intact. NECK: Supple, no JVD, Carotids are 2+ and brisk bilaterally without bruits. CHEST: Good inspiratory effort with no rales, ronchi, or wheezes. CARDIAC: PMI is non-displaced. Regular rate and rhythm with normal S1 and S2, no murmur, no rubs or gallops. Blood pressures are equal in upper extremities. ABDOMEN: Soft, non-tender, nondistended with normal, active bowel sounds. Normal abdominal pulsation, without obvious bruit. EXTREMITIES: No clubbing, cyanosis, or edema. PULSES: Right: radial 2+, DP 2+, PT 2+ Left: radial 2+,DP 2+, PT 2+ NEUROLOGIC: Non-focal. Patient is oriented to time, place, and person. Normal affect. SKIN: No rashes or skin breakdown. MUSCULOSKELETAL: Back is negative for scoliosis/kyphosis. Normal gait. Muscle strength is equal bilaterally. LABS Lab Results Component Value Date HGB 13.1 06/11/2012 HCT 37.6 06/11/2012 PLT 206 06/11/2012 CHOL 235 06/11/2012 TRIG 125 06/11/2012 HDL 64 06/11/2012 ALT 27 06/11/2012 AST 22 06/11/2012 NA 138 06/11/2012 K 4.2 06/11/2012 CREA 0.7 06/11/2012 BUN 21 06/11/2012 TSH 1.92 06/11/2012 Portions of this report were transcribed using voice recognition software. Every effort was made to ensure accuracy; however, inadvertent computerized receptionist airline lounge errors may be present usually takingthe form of 'sound alike' substitutions or incorrect pronouns. Please contact me if there is confusion or concern about the above receptionist airline lounge. Signed by: Giovany Roman MD, FACC 12/27/2014, 13:57 Patient Care Team: Emilia Goyal as PCP - General (Family Nurse Practitioner) Sherwin Mccoy (Neurosurgery) documented in this encounter Procedure Notes Larisa Gusman CMA - 12/27/2014 1:59 PM PDTAssociated Order(s): ECG 12 LEAD - PBProcedure(s): ECG 12 LEAD - PBPre-Procedure Diagnose(s): Essential hypertension, benign See scanned tracing for the provider's interpretation of EKG. documented in this encounter Miscellaneous Notes Assessment & Plan Note - Giovany Roman MD - 12/27/2014 2:10 PM PDT Associated Problem(s): Pre-operative cardiovascular examination Preop evaluation for orthopedic neurological surgery cervical spine. Low risk surgery. Patient no heart attack and angina normal physical exam normal stress echo in July 2012 EKG today is normal unchanged from prior tracings Patient is low risk no further testing is necessary documented in this encounter Plan of Treatment Not on filedocumented as of this encounter Procedures Procedure Name Priority Date/Time Associated Diagnosis Comme nts ECG 12 LEAD - PB Routine 12/27/2014 1:59 PM Essential Res ults for this PDT hypertension, benign procedu re are in the results section. ECG - EXTERNAL SCAN 12/27/2014 12:00 AM PDT documented in this encounter Results ECG 12 LEAD - PB (12/27/2014 1:59 PM PDT) Narrative Larisa Gusman CMA - 12/27/2014 1:59 PM PDT Larisa Gusman CMA 12/27/2014 13:59 See scanned tracing for the provider's i nterpretation of EKG. documented in this encounter Visit Diagnoses Diagnosis Essential hypertension, benign - Primary Pre-operative cardiovascular examination documented in this encounter Care Teams Publication Designer Relationship Specialty Start Date End Date Emilia Goyal, PCP - General Family Nurse Practitioner 5 [facility] [address] [place] [address], [place] [phone] documented as of this encounter
--- OUTSIDE RECORDS SUMMARY | 2021-05-17 05:39 | External Medical Summary | Encounter Summary ---
:1955 Author Organization [facility] [place] [facility] [place] [address] Care Team Providers Name Role Phone Louis Goyal Primary Care Provider Reason for Visit Reason Onset Date Comments Care Coordination 06/14/2020 Encounter Details Date Type Department Care Team Description 06/14/2020 Telephone IVORIAN Latoya Arce RN Car e Coordination RADIOSURGERY [address] [place] [address] Social History Tobacco Use Types Packs/Day Years Used Date Never Smoker Cigarettes Smokeless Tobacco: Never Used Alcohol Use Standard Drinks/Week Comments Yes 0 (1 standard drink = 0.6 oz pure alcoho l) rare Sex Assigned at Date Recorded Not on file documented as of this encounter Miscellaneous Notes Telephone Encounter - Latoya Clemente RN - 06/14/2020 2:14 PM PST Patient called to notified our office that she was COVID+ in early May. I explained that our policy would be to wait 30 days from date of her test result and be asymptomatic. Patient verbalized understanding. She expressed that she is feeling better. Her symptoms were: extreme fatigue, body aches, headache, and loss of taste and smell. "I am feeling improved." I explained that I would get the COVID test result date to be sure she is at 30 days to come to our clinic. Patient verbalized understanding. Faxed received from [facility] and date of collection was on 05/31/20. I will update Dr. Miller of this result. I explain to patient if policy were to change between now and 06/30, Iwould be sure to call her back with an update. Patient verbalized understanding. documented in this encounter Plan of Treatment Not on filedocumented as of this encounter Visit Diagnoses Not on filedocumented in this encounter Care Teams Air Traffic Control Equipment Repairer Relationship Specialty Start Date End Date Emilia Goyal, PCP - General Family Nurse Practitioner 5 [facility] [address] [place] [address], [place] [phone] documented as of this encounter
--- OUTSIDE RECORDS SUMMARY | 2021-05-17 05:39 | External Medical Summary | Encounter Summary ---
:1955 Author Organization [employer] [facility] [place] [address] Care Team Providers Name Role Phone Louis Goyal Primary Care Provider Reason for Visit Reason Comments Records Request Encounter Details Date Type Department Care Team Description 01/11/2015 Documentation Shaina Bird R ecords Request CARDIOLOGY ZALESKI RN [address] [place] [address] Social History Tobacco Use Types Packs/Day Years Used Date Never Smoker Cigarettes Smokeless Tobacco: Never Used Alcohol Use Standard Drinks/Week Comments Yes 0 (1 standard drink = 0.6 oz pure alcoho l) rare Sex Assigned at Date Recorded Not on file documented as of this encounter Progress Notes Shaina Miranda RN - 01/11/2015 11:52 AM PDT 01/11/15 EKG of 12/27/[address] Mccoy office at fax # [phone] documented in this encounter Plan of Treatment Not on filedocumented as of this encounter Visit Diagnoses Not on filedocumented in this encounter Care Teams Structural Ironworker Relationship Specialty Start Date End Date Emilia Goyal, PCP - General Family Nurse Practitioner 5 [facility] [address] [place] [address] documented as of this encounter
--- OUTSIDE RECORDS SUMMARY | 2021-05-17 05:39 | External Medical Summary | Encounter Summary ---
:1955 Author Organization [facility] [facility] [place] [address] Care Team Providers Name Role Phone Louis Goyal Primary Care Provider Reason for Referral Diagnostic/Screening (Routine) - Closed Specialty Diagnoses / Procedures Referred By Contact Refer red To Contact Radiology Diagnoses Benign essential tremor Jc Miller SCH CHERRY HILL MD [address] [place] [address] [address] [place] [address] Referral ID Status Reason Start Date Expiration Date Visits Requ ested Visits Authorized [id number] Closed 05/31/2020 05/31/2021 1 1 Diagnostic/Screening (Routine) - Closed Specialty Diagnoses / Procedures Referred By Contact Refer red To Contact Radiology Diagnoses Benign essential tremor Jc Miller Sch Ct MD [address] [place] [address] [address] [place] [address] Referral ID Status Reason Start Date Expiration Date Visits Requ ested Visits Authorized [id number] Closed 05/31/2020 05/31/2021 1 1 Encounter Details Date Type Department Care Team Description 05/31/2020 Orders Only ROSALIO ESPINOSARY HILL [place], Benign e ssential tremor RADIOSURGERY MD Jc (Primary Dx) [address] [place] [address] [address] [place] [address] Social History Tobacco Use Types Packs/Day Years Used Date Never Smoker Cigarettes Smokeless Tobacco: Never Used Alcohol Use Standard Drinks/Week Comments Yes 0 (1 standard drink = 0.6 oz pure alcoho l) rare Sex Assigned at Date Recorded Not on file documented as of this encounter Plan of Treatment Not on filedocumented as of this encounter Results CT Treatment Plan Complex (07/01/2020 8:55 AM PST) Anatomical Region Laterality Modality Computed Tomography Specimen Narrative [facility] - 07/01/2020 8:55 AM PST This exam has been auto-finalized and the interpretation may exist elsewhere in the chart. Performing Organization Address City/State/ZIP Code Phon e Number [facility] MRI Brain wo Contrast (06/30/2020 4:31 PM PST) Anatomical Region Laterality Modality Head Magnetic Resonance Specimen Impressions [facility] - 06/30/2020 4:53 PM PST 1. [...] 16:51:32.93 SITE ID: [id number] Referring Provider Line: [phone] Narrative [facility] - 06/30/2020 4:53 PM [...] 16:51:32.93 SITE ID: [id number] Referring Provider Line: [phone] Performing Organization Address City/State/ZIP Code Phon e Number [facility] documented in this encounter Visit Diagnoses Diagnosis Benign essential tremor - Primary Essential and other specified forms of t remor Benign essential tremor Essential and other specified forms of t remor Benign essential tremor Essential and other specified forms of t remor documented in this encounter Care Teams Paint Grinder Relationship Specialty Start Date End Date Emilia Goyal, PCP - General Family Nurse Practitioner 5 [employer] [address] [place] [address], [place] [phone] documented as of this encounter
--- OUTSIDE RECORDS SUMMARY | 2021-05-17 05:39 | External Medical Summary | Encounter Summary ---
:1955 Author Organization [email or web address] [facility] [place] [address] Care Team Providers Name Role Phone Unavailable Primary Care Provider Unavailable Encounter Details Date Type Department Care Team Description 06/11/2012 Orders Only Giovany Montana, CARDIOLOGY TRENT CURRY [address] [place] [address] [place] [address] [phone] (Wo rk) Social History Tobacco Use Types Packs/Day Years Used Date Never Assessed Sex Assigned at Date Recorded Not on file documented as of this encounter Plan of Treatment Not on filedocumented as of this encounter Procedures Procedure Name Priority Date/Time Associated Diagnosis Comme nts HISTORICAL LAB PANEL Routine 06/11/2012 Results for this RESULT procedure are i n the results section . documented in this encounter Results HISTORICAL LAB PANEL RESULT (06/11/2012) Pathologist Sig nature Hemoglobin A1c 5.5 EXTERNAL LAB Albumin 4.3 EXTERNAL LAB Alkaline Phosphatase 57 EXTERNAL LAB ALT 27 EXTERNAL LAB TINO Screen negative EXTERNAL LAB AST 22 EXTERNAL LAB Bilirubin Total 0.3 EXTERNAL LAB B-TYPE NATRIURETIC PEPTIDE NULL EXTERNAL LAB BUN 21 EXTERNAL LAB CRP 0.3 EXTERNAL LAB Cholesterol 235 EXTERNAL LAB Creatinine 0.7 EXTERNAL LAB FT4 1.1 EXTERNAL LAB GFR ESTIMATE (REF) NULL EXTERNAL LAB Glucose 88 EXTERNAL LAB Hct 37.6 EXTERNAL LAB HDL 64 EXTERNAL LAB Hemoglobin 13.1 EXTERNAL LAB CRP, High Sensitive NULL EXTERNAL LAB K 4.2 EXTERNAL LAB LDL Cholesterol 157 EXTERNAL LAB MCV 89.7 EXTERNAL LAB Na 138 EXTERNAL LAB Platelet Count 206 EXTERNAL LAB Rheumatoid Factor <20 EXTERNAL LAB Erythrocyte Sedimentation Rate 13 EXTERNAL L AB Triglycerides 125 EXTERNAL LAB TSH 1.92 EXTERNAL LAB Uric Acid 6.5 EXTERNAL LAB Specimen Performing Organization Address City/State/ZIP Code Phon e Number EXTERNAL LAB documented in this encounter Visit Diagnoses Not on filedocumented in this encounter
[2021-05-17] MEDS ORDERED: SCOPOLAMINE 1 PATCH PATCH TOPICAL PRN ×2 (07:00→13:11)
[2021-05-17] MEDS ORDERED: metroNIDAZOLE 500 MG/100 ML BAG IV SCH ×3 (07:00→13:11)
[2021-05-17] MEDS ORDERED: CEFEPIME 2 GM VIAL IV SCH ×3 (07:00→14:00)
[2021-05-17] MEDS ORDERED: IPRATROPIUM/ALBUTEROL 3 ML AMPUL.NEB NEB PRN ×3 (07:00→13:11)
[2021-05-17] MEDS ORDERED: PROPOFOL 200 MG/20 ML VIAL IV ONE (10:15)
[2021-05-17] MEDS ORDERED: LIDOCAINE HCL/PF 100 MG/5 ML SYRINGE IV ONE (10:15)
[2021-05-17] MEDS ORDERED: SUGAMMADEX SODIUM 200 MG/2 ML VIAL IV ONE (10:15)
[2021-05-17] MEDS ORDERED: ONDANSETRON 4 MG/2 ML VIAL ONE (10:15)
[2021-05-17] MEDS ORDERED: DEXAMETHASONE 10 MG/ML VIAL ONE (10:15)
[2021-05-17] MEDS ORDERED: ROCURONIUM 10 MG/ML ML IV ONE (10:15)
[2021-05-17] MEDS ORDERED: KETAMINE 50 MG/ML Syringe (ANEST) IV ONE (10:15)
[2021-05-17] MEDS ORDERED: ePHEDrine 50 MG/5 ML SYRINGE (ANEST) IV ONE (10:15)
[2021-05-17] MEDS ORDERED: MAGNESIUM SULFATE 2 GM/50 ML BAG IV ONE (10:15)
[2021-05-17] MEDS ORDERED: fentaNYL 100 MCG/2 ML VIAL IV ONE (10:15)
[2021-05-17] MEDS ORDERED: PHENYLephrine 1 MG/10 ML SYRINGE (ANEST) ONE (10:15)
[2021-05-17] MEDS ORDERED: MEPERIDINE 25 MG/ML VIAL IV PRN (11:07)
[2021-05-17] MEDS ORDERED: PROMETHAZINE 25 MG/ML VIAL IV PRN (11:07)
[2021-05-17] MEDS ORDERED: fentaNYL 100 MCG/2 ML VIAL IV PRN (11:07)
[2021-05-17] MEDS ORDERED: HYDROmorphone 0.5 MG/0.5 ML SYRINGE IV PRN ×2 (11:07→13:11)
[2021-05-17] MEDS ORDERED: diphenhydrAMINE 50 MG/ML VIAL IV PRN (11:07)
[2021-05-17] MEDS ORDERED: ONDANSETRON 4 MG/2 ML VIAL IV PRN (11:07)
[2021-05-17] MEDS ORDERED: ACETAMINOPHEN 1,000 MG/100 ML BAG IV ONE (11:07)
[2021-05-17] MEDS ORDERED: LACTATED RINGERS 250 ML IV PRN (11:07)
[2021-05-17] MEDS ORDERED: METHOCARBAMOL 1,000 MG/10 ML VIAL IV PRN (11:07)
[2021-05-17] MEDS ORDERED: NALOXONE HCL 0.4 MG/ML VIAL IV PRN (11:07)
[2021-05-17] MEDS ORDERED: LACTATED RINGERS 1,000 ML IV SCH (11:15)
--- NOTE | 2021-05-17 11:54 | Brief Operative Note ---
Brief Operative Note Date of procedure: 05/17/21 Pre-op diagnosis: colostomy status Post-op diagnosis: other (pelvic abscess) Procedure: exploratory laparotomy with drainage of pelvic abscess Grafts/Implants: No (fabby drain x1) Anesthesia: GETA Findings: dense abdominal adhesions with pelvic abscess surrounding rectal stump Complications: none Surgeon: Mitch Saleh Estimated blood loss (cc): 50 Specimens Removed/Pathology: other (cultures of pelvic fluid) Condition: stable Disposition: PACU
[2021-05-17] MEDS ORDERED: 0.9 % SODIUM CHLORIDE 250 ML IV SCH (13:11)
[2021-05-17] MEDS ORDERED: ACETAMINOPHEN 650 MG/65 ML BAG IV PRN (13:35)
[2021-05-17] MEDS ORDERED: ACETAMINOPHEN 1,000 MG/100 ML BAG IV PRN (13:40)
[2021-05-17] MEDS: 0.9 % SODIUM CHLORIDE 1,000 ML IV SCH (13:47)
[2021-05-17] MEDS: CEFEPIME 2 GM VIAL IV SCH ×2 (13:52→21:32)
[2021-05-17] MEDS: traMADol 50 MG TABLET PO PRN ×2 (14:03→21:33)
[2021-05-17] MEDS: metroNIDAZOLE 500 MG/100 ML BAG IV SCH ×2 (14:48→19:32)
[2021-05-17] MEDS: HYDROmorphone 0.5 MG/0.5 ML SYRINGE IV PRN ×2 (16:15→19:31)
[2021-05-17] MEDS: CARVEDILOL 6.25 MG TABLET PO SCH (19:31)
[2021-05-17] MEDS: METHOCARBAMOL 500 MG TABLET PO PRN (19:31)
[2021-05-17] MEDS: CALCIUM (OYSTER SHELL) 500 MG TABLET PO SCH (21:32)
[2021-05-17] MEDS: FAMOTIDINE 20 MG TABLET PO SCH (21:33)
[2021-05-17] MEDS: CITALOPRAM 20 MG TABLET PO SCH (21:33)
[2021-05-17] MEDS: PANTOPRAZOLE 40 MG TABLET PO SCH (21:33)
[2021-05-17] MEDS: ATORVASTATIN 20 MG TABLET PO SCH (21:33)
[2021-05-17] MEDS: MAGNESIUM OXIDE 400 MG TABLET PO SCH (21:33)
[2021-05-17] MEDS: PRAMIPEXOLE 0.25 MG TABLET PO SCH (21:33)
[2021-05-17] MEDS: PRIMIDONE 50 MG TABLET PO SCH (21:41)
[2021-05-18] MEDS: metroNIDAZOLE 500 MG/100 ML BAG IV SCH ×5 (00:22→23:39)
[2021-05-18] MEDS: HYDROmorphone 0.5 MG/0.5 ML SYRINGE IV PRN ×6 (02:09→23:39)
[2021-05-18] MEDS: CEFEPIME 2 GM VIAL IV SCH ×3 (06:06→22:25)
[2021-05-18 07:29] LABS: Basophils # (Auto) 0.01 K/mcL (0.00-0.30); Basophils % (Auto) 0.1 % (0.0-2.0); Eosinophils # (Auto) 0 K/mcL (0.00-0.70); Eosinophils % (Auto) 0 % (0.0-7.0); Hematocrit 27.1 % (34.1-44.9); Hemoglobin 8.9 g/dL (11.2-15.7); Lymphocytes # (Auto) 1.22 K/mcL (1.50-4.80); Lymphocytes % (Auto) 11.2 % (15.5-49.0); Mean Cell Volume 96.1 fL (80.0-100.0); Mean Corpuscular HGB Conc 32.8 g/dL (31.0-36.0); Mean Platelet Volume 9.3 fL (7.4-10.4); Monocytes # (Auto) 0.81 K/mcL (0.10-0.90); Monocytes % (Auto) 7.5 % (1.0-12.0); Neutrophils % (Auto) 81.2 % (38.0-78.0); Platelet Count 198 K/mcL (140-440); RBC 2.82 M/mcL (3.59-5.38); Red Cell Distribution Width 13.3 % (11.5-14.5); WBC 10.9 K/mcL (4.5-11.0)
[2021-05-18] MEDS: LEVOTHYROXINE 25 MCG TABLET PO SCH (07:33)
[2021-05-18] MEDS: PANTOPRAZOLE 40 MG TABLET PO SCH ×2 (07:33→22:25)
[2021-05-18 07:52] LABS: ALT/SGPT 17 U/L (<40); AST/SGOT 15 U/L (<32); Albumin 3.3 gm/dL (3.2-5.2); Albumin/Globulin Ratio 1.5 (1.0-2.3); Alkaline Phosphatase 49 U/L (39-117); Bilirubin,Direct < 0.2 mg/dL (0-0.3); Bilirubin,Total 0.2 mg/dL (0.1-1.0); Blood Urea Nitrogen 11 mg/dL (8-23); Calcium 8.9 mg/dL (8.6-10.4); Carbon Dioxide 23 mmol/L (22-30); Chloride 104 mmol/L (96-108); Globulin 2.2 gm/dL (2.2-3.7); Glomerular Filtration Rate 76; Glucose 110 mg/dL (70-105); Lactate Dehydrogenase 135 U/L (135-225); Phosphorous 4.2 mg/dL (2.5-4.5); Triglycerides 119 mg/dL (<150)
[2021-05-18] MEDS: CALCIUM (OYSTER SHELL) 500 MG TABLET PO SCH ×2 (08:00→22:26)
[2021-05-18] MEDS: traMADol 50 MG TABLET PO PRN (08:00)
[2021-05-18] MEDS: BUDESONIDE 3 MG CAP.XL.24H PO SCH (08:00)
[2021-05-18] MEDS: VITAMIN E (DL,TOCOPHERYL ACET) 400 UNIT CAPSULE PO SCH (08:01)
[2021-05-18] MEDS: buPROPion 150 MG TAB.XL.24H PO SCH (08:01)
[2021-05-18] MEDS: MULTIVIT,THER IRON,CA,FA & MIN 1 TABLET PO SCH (08:01)
[2021-05-18] MEDS: VITAMIN B COMPLEX 1 CAPSULE PO SCH (08:01)
[2021-05-18] MEDS: CARVEDILOL 6.25 MG TABLET PO SCH ×2 (08:01→17:10)
[2021-05-18] MEDS: PRIMIDONE 50 MG TABLET PO SCH ×2 (08:01→22:26)
[2021-05-18] MEDS: LISINOPRIL 20 MG TABLET PO SCH (08:01)
[2021-05-18] MEDS: CYANOCOBALAMIN (VITAMIN B-12) 500 MCG TABLET PO SCH (08:01)
[2021-05-18] MEDS: HYDROCHLOROTHIAZIDE 25 MG TABLET PO SCH (08:01)
[2021-05-18] MEDS: METHOCARBAMOL 500 MG TABLET PO PRN ×2 (09:11→23:55)
[2021-05-18] MEDS: 0.9 % SODIUM CHLORIDE 1,000 ML IV SCH (12:22)
--- NOTE | 2021-05-18 15:21 | General Surgery Progress Note ---
SUBJECTIVE Subjective Patient information: Note initiated : 05/18/21 at 3:06 pm Service Date, if different from initiated Date: [] Patient: Flavia Michelle 65 y/o F admitted on 05/17/21 for Colostomy Takedown. Chief Complaint: [] Principal diagnosis: Pelvic abscess; colostomy status Interval history: Patient is doing well. She has been afebrile. White blood count 10.9, hemoglobin 8.9, hematocrit 27.1. Cultures are growing out gram- negative bacillus. The fluid from the pelvic abscess. Identification and sensitivities Constitutional Vitals: Vital Signs Temp Pulse Resp BP Pulse Ox 98.3 F 63 16 105/51 95 05/18/21 14:29 05/18/21 14:29 05/18/21 14:29 05/18/21 14:29 05/18/21 14:29 Period Temp Pulse Resp BP Sys/Engle Pulse Ox Last 24 Hr 97.2 F-98.3 F 59-86 16-20 103-141/47-58 91-100 Intake and Output 05/18/21 05/18/21 05/18/21 05:59 13:59 21:59 Intake Total 100 2710 Output Total 790 700 Balance -690 2009 Weight 165 lb 8 oz Patient Weight 05/19/21 05:59 Weight 165 lb 8 oz Intake & Output: Intake & Output 05/18/21 05/18/21 05/18/21 05:59 13:59 21:59 Intake Total 100 2710 Output Total 790 700 Balance -690 2009 Weight 165 lb 8 oz Intake: Nourishment/Supplement quantity 240 (ml) IV 100 1200 Sodium Chloride 0.9% 1,000 ml @ 1000 50 mls/hr IV .Q20H [facility] Rx#: [id number] Oral 1270 Output: Drainage 40 Right Lower Abdomen 40 Void Amount 750 700 Other: Meal Lunch Percent of Meal Consumed 100% Feeding Ability Independent Urine Appearance Clear Clear Urine Color Bright Yellow Bright Yellow ENT ENT exam: Present mucous membranes moist, normal exam and normal oropharynx Neck Neck exam: Present full ROM and normal inspection; Absent lymphadenopathy and tenderness Respiratory Respiratory exam: Present accessory muscle use, rales, respiratory distress, rhonchi and wheezes Cardiovascular Cardiovascular exam: Present normal rate and rhythm, RRR, +S1 and +S2; Absent JVD GI/Abdominal GI/Abdominal exam: Present normal bowel sounds and distended (Moderate distention persists though it is improved from yesterday) Additional comments: Stoma looks good Extremities Exam Extremities exam: Present full ROM and pedal edema (Pedal edema is improved from yesterday) Neurological Exam Neurological exam: Present altered Additional comments: Stable except for bilateral resting tremor; altered mental status with delirium Psychiatric Psychiatric exam: Present anxious A/P Assessment and plan (1) Abscess of pelvis: Status: Acute (2) Colostomy in place: Status: Acute (3) Cardiomyopathy: Status: Acute Qualifiers: Cardiomyopathy type: unspecified Qualified Code(s): I42.9 - Cardiomyopathy, unspecified Narrative A/P Narrative: Continue antibiotics pending identification of organism from pelvic abscess Delay advancing diet until stoma is functioning Time Spent With Patient Time: Total time spent is greater than 50% in coordination of care (as documented) at patient's floor/unit and/or counseling patient:
[2021-05-18] MEDS ORDERED: NYSTATIN 500,000 UNITS/5 ML ORAL.SUSP SSW SCH (17:00)
[2021-05-18] MEDS: PRAMIPEXOLE 0.25 MG TABLET PO SCH (22:25)
[2021-05-18] MEDS: FAMOTIDINE 20 MG TABLET PO SCH (22:26)
[2021-05-18] MEDS: CITALOPRAM 20 MG TABLET PO SCH (22:26)
[2021-05-18] MEDS: MAGNESIUM OXIDE 400 MG TABLET PO SCH (22:26)
[2021-05-18] MEDS: ATORVASTATIN 20 MG TABLET PO SCH (22:26)
[2021-05-19] MEDS: traMADol 50 MG TABLET PO PRN (03:44)
[2021-05-19] MEDS: CEFEPIME 2 GM VIAL IV SCH ×3 (05:10→21:29)
[2021-05-19] MEDS: metroNIDAZOLE 500 MG/100 ML BAG IV SCH ×4 (05:10→23:55)
[2021-05-19] MEDS: 0.9 % SODIUM CHLORIDE 1,000 ML IV SCH (05:19)
[2021-05-19 07:02] LABS: Basophils # (Auto) 0.02 K/mcL (0.00-0.30); Basophils % (Auto) 0.2 % (0.0-2.0); Eosinophils # (Auto) 0.13 K/mcL (0.00-0.70); Eosinophils % (Auto) 1.5 % (0.0-7.0); Lymphocytes # (Auto) 1.78 K/mcL (1.50-4.80); Lymphocytes % (Auto) 20.8 % (15.5-49.0); Mean Cell Volume 96.9 fL (80.0-100.0); Mean Corpuscular HGB Conc 32.1 g/dL (31.0-36.0); Mean Platelet Volume 9.5 fL (7.4-10.4); Monocytes # (Auto) 0.85 K/mcL (0.10-0.90); Neutrophils % (Auto) 67.5 % (38.0-78.0); Platelet Count 194 K/mcL (140-440); RBC 2.89 M/mcL (3.59-5.38); Red Cell Distribution Width 13.6 % (11.5-14.5); WBC 8.5 K/mcL (4.5-11.0)
[2021-05-19 07:42] LABS: ALT/SGPT 14 U/L (<40); AST/SGOT 12 U/L (<32); Albumin 3.1 gm/dL (3.2-5.2); Albumin/Globulin Ratio 1.2 (1.0-2.3); Alkaline Phosphatase 47 U/L (39-117); Bilirubin,Direct < 0.2 mg/dL (0-0.3); Bilirubin,Total 0.3 mg/dL (0.1-1.0); Blood Urea Nitrogen 11 mg/dL (8-23); Calcium 9.4 mg/dL (8.6-10.4); Carbon Dioxide 22 mmol/L (22-30); Chloride 104 mmol/L (96-108); Globulin 2.5 gm/dL (2.2-3.7); Glomerular Filtration Rate 66; Glucose 92 mg/dL (70-105); Lactate Dehydrogenase 144 U/L (135-225); Phosphorous 2.5 mg/dL (2.5-4.5); Triglycerides 85 mg/dL (<150); Uric Acid 6.5 mg/dL (2.5-8.0)
[2021-05-19] MEDS: CARVEDILOL 6.25 MG TABLET PO SCH ×2 (09:05→17:29)
[2021-05-19] MEDS: PRIMIDONE 50 MG TABLET PO SCH ×2 (09:05→21:27)
[2021-05-19] MEDS: VITAMIN B COMPLEX 1 CAPSULE PO SCH (09:05)
[2021-05-19] MEDS: LISINOPRIL 20 MG TABLET PO SCH (09:05)
[2021-05-19] MEDS: CALCIUM (OYSTER SHELL) 500 MG TABLET PO SCH ×2 (09:05→21:25)
[2021-05-19] MEDS: MULTIVIT,THER IRON,CA,FA & MIN 1 TABLET PO SCH (09:05)
[2021-05-19] MEDS: HYDROCHLOROTHIAZIDE 25 MG TABLET PO SCH (09:05)
[2021-05-19] MEDS: PANTOPRAZOLE 40 MG TABLET PO SCH ×2 (09:05→21:29)
[2021-05-19] MEDS: buPROPion 150 MG TAB.XL.24H PO SCH (09:05)
[2021-05-19] MEDS: VITAMIN E (DL,TOCOPHERYL ACET) 400 UNIT CAPSULE PO SCH (09:06)
[2021-05-19] MEDS: CYANOCOBALAMIN (VITAMIN B-12) 500 MCG TABLET PO SCH (09:06)
[2021-05-19] MEDS: LEVOTHYROXINE 25 MCG TABLET PO SCH (09:06)
[2021-05-19] MEDS: HYDROmorphone 0.5 MG/0.5 ML SYRINGE IV PRN (09:25)
[2021-05-19] MEDS: BUDESONIDE 3 MG CAP.XL.24H PO SCH (10:38)
--- NOTE | 2021-05-19 11:56 | General Surgery Progress Note ---
SUBJECTIVE Subjective Patient information: Note initiated : 05/19/21 at 11:54 am Service Date, if different from initiated Date: [] Patient: Flavia Michelle 65 y/o F admitted on 05/17/21 for Colostomy Takedown. Chief Complaint: [] Principal diagnosis: Pelvic abscess; colostomy status Interval history: Constitutional Vitals: Vital Signs Temp Pulse Resp BP Pulse Ox 97.8 F 69 15 137/65 95 05/19/21 06:34 05/19/21 06:34 05/19/21 06:34 05/19/21 06:34 05/19/21 06:34 Period Temp Pulse Resp BP Sys/Engle Pulse Ox Last 24 Hr 96.3 F-98.5 F 60-72 14-20 105-141/51-66 93-100 Intake and Output 05/18/21 05/19/21 05/19/21 21:59 05:59 13:59 Intake Total 300 500 100 Output Total 65 515 Balance 235 -15 100 Weight 169 lb Intake & Output: Intake & Output 05/18/21 05/19/21 05/19/21 21:59 05:59 13:59 Intake Total 300 500 100 Output Total 65 515 Balance 235 -15 100 Weight 169 lb Intake: IV 100 100 100 Oral 200 400 Output: Drainage 25 Right Lower Abdomen 25 Drainage 40 15 Right Lower Abdomen 40 15 Void Amount 500 Other: Urine Appearance Clear Clear Urine Color Bright Yellow Bright Yellow Urine Odor Normal Stool Size Small Stool Color Brown Green Stool Consistency Liquid # Voids 1 1 A/P Time Spent With Patient Time: Total time spent is greater than 50% in coordination of care (as documented) at patient's floor/unit and/or counseling patient:
[2021-05-19] MEDS: FAMOTIDINE 20 MG TABLET PO SCH (21:25)
[2021-05-19] MEDS: CITALOPRAM 20 MG TABLET PO SCH (21:25)
[2021-05-19] MEDS: ATORVASTATIN 20 MG TABLET PO SCH (21:27)
[2021-05-19] MEDS: MAGNESIUM OXIDE 400 MG TABLET PO SCH (21:28)
[2021-05-19] MEDS: PRAMIPEXOLE 0.25 MG TABLET PO SCH (21:32)
[2021-05-19] MEDS: METHOCARBAMOL 500 MG TABLET PO PRN (21:49)
[2021-05-19] MEDS: HYDROCODONE/APAP 7.5/325MG TABLET PO PRN (22:07)
[2021-05-19] MEDS ORDERED: HYDROCODONE/APAP 7.5/325MG TABLET PO ONE (22:10)
[2021-05-20] MEDS: CEFEPIME 2 GM VIAL IV SCH ×2 (04:54→13:55)
[2021-05-20] MEDS: metroNIDAZOLE 500 MG/100 ML BAG IV SCH ×3 (04:54→19:23)
[2021-05-20] MEDS: HYDROCODONE/APAP 7.5/325MG TABLET PO PRN ×3 (06:28→20:40)
[2021-05-20 06:37] LABS: Basophils # (Auto) 0.03 K/mcL (0.00-0.30); Basophils % (Auto) 0.4 % (0.0-2.0); Eosinophils # (Auto) 0.12 K/mcL (0.00-0.70); Eosinophils % (Auto) 1.6 % (0.0-7.0); Hemoglobin 9.1 g/dL (11.2-15.7); Lymphocytes # (Auto) 1.87 K/mcL (1.50-4.80); Mean Cell Volume 98.9 fL (80.0-100.0); Mean Corpuscular HGB Conc 32.5 g/dL (31.0-36.0); Mean Platelet Volume 9.2 fL (7.4-10.4); Monocytes # (Auto) 0.85 K/mcL (0.10-0.90); Monocytes % (Auto) 11.3 % (1.0-12.0); Neutrophils % (Auto) 61.7 % (38.0-78.0); Platelet Count 184 K/mcL (140-440); RBC 2.83 M/mcL (3.59-5.38); Red Cell Distribution Width 13.2 % (11.5-14.5); WBC 7.5 K/mcL (4.5-11.0)
[2021-05-20 06:58] LABS: ALT/SGPT 12 U/L (<40); AST/SGOT 11 U/L (<32); Albumin/Globulin Ratio 1.1 (1.0-2.3); Alkaline Phosphatase 45 U/L (39-117); Bilirubin,Direct < 0.2 mg/dL (0-0.3); Bilirubin,Total 0.3 mg/dL (0.1-1.0); Blood Urea Nitrogen 14 mg/dL (8-23); Calcium 9.6 mg/dL (8.6-10.4); Carbon Dioxide 24 mmol/L (22-30); Chloride 101 mmol/L (96-108); Globulin 2.8 gm/dL (2.2-3.7); Glomerular Filtration Rate 76; Glucose 96 mg/dL (70-105); Lactate Dehydrogenase 131 U/L (135-225); Phosphorous 2.9 mg/dL (2.5-4.5); Triglycerides 64 mg/dL (<150); Uric Acid 5.9 mg/dL (2.5-8.0)
[2021-05-20] MEDS: VITAMIN B COMPLEX 1 CAPSULE PO SCH (08:32)
[2021-05-20] MEDS: PANTOPRAZOLE 40 MG TABLET PO SCH ×2 (08:32→20:40)
[2021-05-20] MEDS: MULTIVIT,THER IRON,CA,FA & MIN 1 TABLET PO SCH (08:32)
[2021-05-20] MEDS: LISINOPRIL 20 MG TABLET PO SCH (08:32)
[2021-05-20] MEDS: LEVOTHYROXINE 25 MCG TABLET PO SCH (08:32)
[2021-05-20] MEDS: PRIMIDONE 50 MG TABLET PO SCH ×2 (08:32→20:38)
[2021-05-20] MEDS: CALCIUM (OYSTER SHELL) 500 MG TABLET PO SCH ×2 (08:33→20:38)
[2021-05-20] MEDS: BUDESONIDE 3 MG CAP.XL.24H PO SCH (08:33)
[2021-05-20] MEDS: HYDROCHLOROTHIAZIDE 25 MG TABLET PO SCH (08:33)
[2021-05-20] MEDS: CARVEDILOL 6.25 MG TABLET PO SCH ×3 (08:33→16:46)
[2021-05-20] MEDS: buPROPion 150 MG TAB.XL.24H PO SCH (08:33)
[2021-05-20] MEDS: METHOCARBAMOL 500 MG TABLET PO PRN ×4 (08:33→22:49)
[2021-05-20] MEDS: CYANOCOBALAMIN (VITAMIN B-12) 500 MCG TABLET PO SCH (08:33)
[2021-05-20] MEDS: VITAMIN E (DL,TOCOPHERYL ACET) 400 UNIT CAPSULE PO SCH (08:34)
[2021-05-20] MEDS ORDERED: POTASSIUM CHLORIDE 40 MEQ in DEXTROSE 5% IN WATER 500 ML IV ONE (15:34)
--- NOTE | 2021-05-20 15:34 | General Surgery Progress Note ---
SUBJECTIVE Subjective Patient information: Note initiated : 05/20/21 at 3:30 pm Service Date, if different from initiated Date: [] Patient: Flavia Michelle 65 y/o F admitted on 05/17/21 for Colostomy Takedown. Chief Complaint: [] Principal diagnosis: Pelvic abscess; colostomy status Interval history: Patient is doing well. White blood count is normal she is afebrile. She is tolerating soft diet without difficulty. Potassium 3.4, magnesium 1.5, white blood count 7.5, hemoglobin 9.1, hematocrit 28. Magnesium and potassium are slightly decreased. Cultures also shows Pseudomonas aeruginosa which is not sensitive to cefepime. Antibiotics will be changed to ciprofloxacin Constitutional Vitals: Vital Signs Temp Pulse Resp BP Pulse Ox 98.2 F 63 16 118/60 98 05/20/21 12:00 05/20/21 12:00 05/20/21 12:00 05/20/21 12:00 05/20/21 12:00 Period Temp Pulse Resp BP Sys/Engle Pulse Ox Last 24 Hr 97.6 F-98.5 F 55-88 16-18 113-141/55-60 92-98 Intake and Output 05/20/21 05/20/21 05/20/21 05:59 13:59 21:59 Intake Total 500 680 480 Output Total 1450 450 Balance -950 230 480 Intake & Output: Intake & Output 05/20/21 05/20/21 05/20/21 05:59 13:59 21:59 Intake Total 500 680 480 Output Total 1450 450 Balance -950 230 480 Intake: IV 100 200 Oral 400 480 480 Output: Drainage 30 Right Lower Abdomen 30 Void Amount 1400 450 Stool 20 Other: Meal Breakfast Percent of Meal Consumed 100% 25% Feeding Ability Independent Independent Urine Appearance Clear Clear Urine Color Bright Yellow Bright Yellow Stool Color Yellow Green Stool Consistency Loose # Voids 1 2 Eye Eye exam: Present EOMI Pupils: Present normal accommodation and PERRL ENT ENT exam: Present mucous membranes moist, normal exam and normal oropharynx Neck Neck exam: Present full ROM and normal inspection; Absent lymphadenopathy and tenderness Respiratory Respiratory exam: Present accessory muscle use, rales, respiratory distress, rhonchi and wheezes Cardiovascular Cardiovascular exam: Present normal rate and rhythm, RRR, +S1 and +S2; Absent JVD GI/Abdominal GI/Abdominal exam: Present normal bowel sounds and distended (Moderate distention persists though it is improved from yesterday) Additional comments: Stoma looks good Extremities Exam Extremities exam: Present full ROM and pedal edema (Pedal edema is improved from yesterday) Neurological Exam Neurological exam: Present altered Additional comments: Stable except for bilateral resting tremor; altered mental status with delirium Psychiatric Psychiatric exam: Present anxious A/P Assessment and plan (1) Abscess of pelvis: Status: Acute (2) Colostomy in place: Status: Acute (3) Cardiomyopathy: Status: Acute Qualifiers: Cardiomyopathy type: unspecified Qualified Code(s): I42.9 - Cardi omyopathy, unspecified Narrative A/P Narrative: Change cefepime to ciprofloxacin Magnesium rider and KCl rider IV Time Spent With Patient Time: Total time spent is greater than 50% in coordination of care (as documented) at patient's floor/unit and/or counseling patient:
[2021-05-20] MEDS ORDERED: MAGNESIUM SULFATE 4 GM/100 ML BAG IV ONE (15:45)
[2021-05-20] MEDS: CIPROFLOXACIN 400 MG/200 ML BAG IV SCH (16:44)
[2021-05-20] MEDS: PRAMIPEXOLE 0.25 MG TABLET PO SCH (20:38)
[2021-05-20] MEDS: MAGNESIUM OXIDE 400 MG TABLET PO SCH (20:39)
[2021-05-20] MEDS: CITALOPRAM 20 MG TABLET PO SCH (20:39)
[2021-05-20] MEDS: ATORVASTATIN 20 MG TABLET PO SCH (20:39)
[2021-05-20] MEDS: FAMOTIDINE 20 MG TABLET PO SCH (20:41)
[2021-05-21] MEDS: metroNIDAZOLE 500 MG/100 ML BAG IV SCH ×4 (00:42→18:00)
[2021-05-21] MEDS: CIPROFLOXACIN 400 MG/200 ML BAG IV SCH ×3 (01:50→20:40)
[2021-05-21 06:47] LABS: Basophils # (Auto) 0.03 K/mcL (0.00-0.30); Basophils % (Auto) 0.4 % (0.0-2.0); Eosinophils # (Auto) 0.13 K/mcL (0.00-0.70); Eosinophils % (Auto) 1.7 % (0.0-7.0); Hematocrit 27.8 % (34.1-44.9); Hemoglobin 9.1 g/dL (11.2-15.7); Lymphocytes # (Auto) 1.73 K/mcL (1.50-4.80); Lymphocytes % (Auto) 22.4 % (15.5-49.0); Mean Cell Volume 96.9 fL (80.0-100.0); Mean Corpuscular HGB Conc 32.7 g/dL (31.0-36.0); Mean Platelet Volume 9.6 fL (7.4-10.4); Monocytes # (Auto) 0.78 K/mcL (0.10-0.90); Monocytes % (Auto) 10.1 % (1.0-12.0); Neutrophils % (Auto) 65.4 % (38.0-78.0); Platelet Count 212 K/mcL (140-440); RBC 2.87 M/mcL (3.59-5.38); WBC 7.7 K/mcL (4.5-11.0)
[2021-05-21 07:10] LABS: ALT/SGPT 11 U/L (<40); AST/SGOT 13 U/L (<32); Albumin 2.9 gm/dL (3.2-5.2); Alkaline Phosphatase 45 U/L (39-117); Bilirubin,Direct < 0.2 mg/dL (0-0.3); Bilirubin,Total 0.2 mg/dL (0.1-1.0); Blood Urea Nitrogen 14 mg/dL (8-23); Calcium 9.4 mg/dL (8.6-10.4); Carbon Dioxide 22 mmol/L (22-30); Chloride 101 mmol/L (96-108); Globulin 2.9 gm/dL (2.2-3.7); Glomerular Filtration Rate 76; Glucose 93 mg/dL (70-105); Lactate Dehydrogenase 145 U/L (135-225); Phosphorous 2.4 mg/dL (2.5-4.5); Triglycerides 55 mg/dL (<150); Uric Acid 5.8 mg/dL (2.5-8.0)
[2021-05-21] MEDS: CARVEDILOL 6.25 MG TABLET PO SCH ×2 (08:02→18:00)
[2021-05-21] MEDS: LEVOTHYROXINE 25 MCG TABLET PO SCH (08:02)
[2021-05-21] MEDS: HYDROCODONE/APAP 7.5/325MG TABLET PO PRN ×2 (08:45→21:56)
[2021-05-21] MEDS: buPROPion 150 MG TAB.XL.24H PO SCH (08:46)
[2021-05-21] MEDS: HYDROCHLOROTHIAZIDE 25 MG TABLET PO SCH (08:46)
[2021-05-21] MEDS: CALCIUM (OYSTER SHELL) 500 MG TABLET PO SCH ×2 (08:47→21:53)
[2021-05-21] MEDS: MULTIVIT,THER IRON,CA,FA & MIN 1 TABLET PO SCH (08:47)
[2021-05-21] MEDS: CYANOCOBALAMIN (VITAMIN B-12) 500 MCG TABLET PO SCH (08:47)
[2021-05-21] MEDS: LISINOPRIL 20 MG TABLET PO SCH (08:47)
[2021-05-21] MEDS: PRIMIDONE 50 MG TABLET PO SCH ×2 (08:47→21:57)
[2021-05-21] MEDS: VITAMIN B COMPLEX 1 CAPSULE PO SCH (08:47)
[2021-05-21] MEDS: PANTOPRAZOLE 40 MG TABLET PO SCH ×2 (08:47→21:55)
[2021-05-21] MEDS: BUDESONIDE 3 MG CAP.XL.24H PO SCH (08:54)
[2021-05-21] MEDS: VITAMIN E (DL,TOCOPHERYL ACET) 400 UNIT CAPSULE PO SCH (08:54)
--- NOTE | 2021-05-21 09:59 | General Surgery Progress Note ---
SUBJECTIVE Subjective Patient information: Note initiated : 05/21/21 at 9:58 am Service Date, if different from initiated Date: [] Patient: Flavia Michelle 65 y/o F admitted on 05/17/21 for Colostomy Takedown. Chief Complaint: [POD #4] She feels well this am, denies much in the way of pain and feels good about how things are progressing. Has stomal function and denies nausea or vomiting, doin g well with current diet Principal diagnosis: Pelvic abscess; colostomy status Constitutional Vitals: Vital Signs Temp Pulse Resp BP Pulse Ox 97.1 F 58 L 16 143/60 98 05/21/21 05:24 05/21/21 05:24 05/21/21 05:24 05/21/21 05:24 05/21/21 05:24 Period Temp Pulse Resp BP Sys/Engle Pulse Ox Last 24 Hr 97.1 F-98.4 F 55-63 16-16 115-143/57-65 96-98 Intake and Output 05/20/21 05/21/21 05/21/21 21:59 05:59 13:59 Intake Total 1300 400 460 Output Total 900 1870 300 Balance 400 -1470 160 Weight 166 lb 8 oz Intake & Output: Intake & Output 05/20/21 05/21/21 05/21/21 21:59 05:59 13:59 Intake Total 1300 400 460 Output Total 900 1870 300 Balance 400 -1470 160 Weight 166 lb 8 oz Intake: IV 820 400 100 Potassium Chloride 40 Meq In 520 Dextrose 5% in Water 500 ml @ 130 mls/hr IV ONCE ONE Rx#: [id number] Oral 480 360 Output: Drainage 20 Right Lower Abdomen 20 Void Amount 900 1850 300 Other: Meal Dinner Breakfast Percent of Meal Consumed 100% 75% Feeding Ability Independent Independent Urine Appearance Clear Clear Clear Urine Color Bright Yellow Bright Yellow Bright Yellow Stool Size Small Stool Color Yellow Green Stool Consistency Loose # Voids 2 General appearance: no acute distress Head Head exam: Present atraumatic and normocephalic Respiratory Additional comments: no distress, normal inspirations Cardiovascular Cardiovascular exam: Present RRR GI/Abdominal Additional comments: incision looks good without issue, drains appear benign, stoma working well with soft stool present Neurological Exam Neurological exam: Present oriented X3 A/P Narrative A/P Narrative: POD #4 Doing Well Saline lock IVF Increase activity as tolerated Leave drains for now and continue current ABs Time Spent With Patient Time: Total time spent is greater than 50% in coordination of care (as documented) at patient's floor/unit and/or counseling patient:
[2021-05-21] MEDS: METHOCARBAMOL 500 MG TABLET PO PRN (21:54)
[2021-05-21] MEDS: MAGNESIUM OXIDE 400 MG TABLET PO SCH (21:54)
[2021-05-21] MEDS: PRAMIPEXOLE 0.25 MG TABLET PO SCH (21:55)
[2021-05-21] MEDS: FAMOTIDINE 20 MG TABLET PO SCH (21:55)
[2021-05-21] MEDS: CITALOPRAM 20 MG TABLET PO SCH (21:55)
[2021-05-21] MEDS: ATORVASTATIN 20 MG TABLET PO SCH (21:57)
[2021-05-22] MEDS: metroNIDAZOLE 500 MG/100 ML BAG IV SCH ×3 (00:03→11:20)
[2021-05-22 07:12] LABS: Hematocrit 26.6 % (34.1-44.9); Mean Corpuscular HGB Conc 33.8 g/dL (31.0-36.0); Mean Platelet Volume 9.6 fL (7.4-10.4); Platelet Count 217 K/mcL (140-440); RBC 2.77 M/mcL (3.59-5.38); Red Cell Distribution Width 13.2 % (11.5-14.5); WBC 7.6 K/mcL (4.5-11.0)
[2021-05-22] MEDS: HYDROCODONE/APAP 7.5/325MG TABLET PO PRN ×2 (07:31→14:53)
[2021-05-22] MEDS: LEVOTHYROXINE 25 MCG TABLET PO SCH (07:31)
[2021-05-22 07:39] LABS: ALT/SGPT 10 U/L (<40); AST/SGOT 14 U/L (<32); Albumin 2.9 gm/dL (3.2-5.2); Albumin/Globulin Ratio 1.1 (1.0-2.3); Alkaline Phosphatase 42 U/L (39-117); Bilirubin,Total 0.2 mg/dL (0.1-1.0); Blood Urea Nitrogen 12 mg/dL (8-23); Carbon Dioxide 22 mmol/L (22-30); Chloride 100 mmol/L (96-108); Globulin 2.7 gm/dL (2.2-3.7); Glomerular Filtration Rate 89; Glucose 84 mg/dL (70-105)
[2021-05-22] MEDS: CARVEDILOL 6.25 MG TABLET PO SCH (08:44)
[2021-05-22] MEDS: BUDESONIDE 3 MG CAP.XL.24H PO SCH (08:44)
[2021-05-22] MEDS: CYANOCOBALAMIN (VITAMIN B-12) 500 MCG TABLET PO SCH (08:45)
[2021-05-22] MEDS: PRIMIDONE 50 MG TABLET PO SCH (08:45)
[2021-05-22] MEDS: PANTOPRAZOLE 40 MG TABLET PO SCH (08:45)
[2021-05-22] MEDS: VITAMIN B COMPLEX 1 CAPSULE PO SCH (08:46)
[2021-05-22] MEDS: LISINOPRIL 20 MG TABLET PO SCH (08:46)
[2021-05-22] MEDS: MULTIVIT,THER IRON,CA,FA & MIN 1 TABLET PO SCH (08:46)
[2021-05-22] MEDS: buPROPion 150 MG TAB.XL.24H PO SCH (08:46)
[2021-05-22] MEDS: HYDROCHLOROTHIAZIDE 25 MG TABLET PO SCH (08:46)
[2021-05-22] MEDS: CIPROFLOXACIN 400 MG/200 ML BAG IV SCH (08:46)
[2021-05-22] MEDS: CALCIUM (OYSTER SHELL) 500 MG TABLET PO SCH (08:46)
[2021-05-22] MEDS: VITAMIN E (DL,TOCOPHERYL ACET) 400 UNIT CAPSULE PO SCH (09:12)
--- NOTE | 2021-05-22 13:41 | Discharge Summary ---
Discharge Provider Provider Patient information: Note initiated : 05/22/21 at 1:33 pm Service Date, if different from initiated Date: [] Patient: Flavia Michelle 65 y/o F admitted on 05/17/21 for Colostomy Takedown. Chief Complaint: [] Date of admission: 05/17/21 05:31 Discharge date: 05/22/21 Primary care physician: YECENIA Ren Admitting clinician: Mitch Saleh Attending physician on discharge: Mitch Saleh Discharging clinician: Mitch Saleh COURSE Hospital Course Hospital course: 65-year-old female who is status post laparotomy for colostomy takedown. At the time of laparotomy the patient was found to have a significant abscess surrounding the rectal stump precluding the ability to perform an effective anastomosis. The area was irrigated and drained. Cultures grew out Pseudomonas aeruginosa and Bacteroides fragilis. Patient has been treated with antibiotics and is doing well at this time. She still has significant amount of drainage but it is clear. Plan is for treatment with ciprofloxacin and metronidazole for 3 weeks. She will have follow-up CT and plans for reanastomosis will be made after evaluation of the CT. Patient will be followed up in the office in 2 weeks Discharge diagnosis: Chronic pelvic abscess Secondary discharge diagnosis: Colostomy status Obstructive sleep apnea diabetes mellitus Procedures: Exploratory laparotomy with drainage of pelvic abscess Pertinent studies/significant findings: None Complications: None Time Spent with Patient Time attestation: Total time spent providing and/or coordinating discharge services: Physical Examination Vital Signs Vital signs: Temp Pulse Resp BP Pulse Ox 97.2 F 96 H 22 115/50 96 05/22/21 12:00 05/22/21 12:00 05/22/21 12:00 05/22/21 12:00 05/22/21 12:00 General physical appearance General physical exam: well developed, well nourished, no distress and chronically ill Eyes Eye exam: PERRL and normal ocular movement ENT ENT exam: normal mucosa and no hearing loss Head Head exam IM: Present atraumatic, normal inspection and normocephalic Neck Neck exam: no masses, no bruits, trachea midline, no lymphadenopathy and no venous distension Cardiovascular Cardiovascular exam IM: Present RRR, +S1, +S2 and tachycardia; Absent JVD Respiratory Respiratory exam: other (Decreased breath sounds bilaterally with hypoventilation; labored respirations; patient is intubated with ventilatory support) Abdomen Abdomen: Present soft and tender (Mild incisional tenderness; functioning stoma in left lower quadrant) Integumentary Integumentary: Present no rash, no growths and no abnormal pigmentation Neurologic Neurologic: Present normal sensation and other ( chronic essential tremor) Psychiatric Psychiatric: Present oriented to time, oriented to person, oriented to place, speech is normal and memory intact Discharge Plan Patient/Caregiver Discharge Instructions Activity: increase activity as tolerated and resume usual activities as tolerated Diet: Regular Diet Prescriptions: New ciprofloxacin HCl [ciprofloxacin HCl] 500 MG tablet 500 mg PO BID Qty: 40 RF: 0 oxycodone-acetaminophen [Endocet] 10-325 mg Tablet 1 tab PO Q4H PRN (Reason: Pain) Qty: 30 RF: 0 metronidazole 500 mg tablet 500 mg PO TID Qty: 60 RF: 0 fluconazole [Diflucan] 150 mg tablet 150 mg PO Q3D Qty: 10 RF: 0 Continued (DME) ostomy supplies Misc See Rx Instructions .Route Qty: 60 RF: 12 primidone 50 mg tablet 50 mg PO BID Qty: 180 RF: 3 multivitamin [Daily Multi-Vitamin] Tablet 1 tab PO QAM RF: 0 pramipexole 0.25 mg tablet 0.125 mg PO QHS Qty: 90 RF: 4 atorvastatin 20 mg tablet 20 mg PO QHS Qty: 90 RF: 4 lisinopril 20 mg tablet 20 mg PO QDAY Qty: 90 RF: 4 carvedilol 6.25 mg tablet 6.25 mg PO BID Qty: 180 RF: 0 budesonide 3 mg capsule,delayed,extend.release 9 mg PO DAILY RF: 0 levothyroxine 25 mcg tablet 25 mcg PO QAMAC RF: 0 calcium 600 mg Capsule 600 mg PO BID RF: 0 famotidine 20 mg Tablet 20 mg PO HS RF: 0 cyanocobalamin (vitamin B-12) [Vitamin B-12] 500 mcg Tablet 500 mcg PO QDAY RF: 0 vitamin B complex Tablet 1 tab PO QDAY RF: 0 hydrochlorothiazide 25 mg Tablet 25 mg PO QAM RF: 0 alpha lipoic acid 250 mg Capsule 500 mg PO QDAY RF: 0 vitamin E 400 unit Capsule 400 unit PO QDAY RF: 0 ferrous [id number] conc Capsule 1 cap PO QDAY RF: 0 magnesium oxide 400 mg magnesium Tablet 400 mg PO HS RF: 0 Nutrafol capsule 4 cap PO QDAY RF: 0 methocarbamol 500 mg tablet 500 - 1,000 mg PO Q8H PRN (Reason: muscle spasm) RF: 0 citalopram 40 mg tablet 40 mg PO HS RF: 0 tramadol 50 mg tablet 50 - 100 mg PO Q6H PRN (Reason: pain) RF: 0 pantoprazole 40 mg tablet,delayed release (DR/EC) 40 mg PO BID RF: 0 bupropion HCl 300 mg tablet extended release 24 hr 300 mg PO QDAY RF: 0 Discontinued hydrocodone-acetaminophen 7.5-325 mg tablet 1 - 2 tab PO Q8HP PRN (Reason: Pain) Qty: 60 RF: 0 levofloxacin 750 mg Tablet 750 mg PO QDAY RF: 0 Follow Up Plan Follow up with: Mitch Saleh MD [Physician] - (Make appointment for 2 weeks) Patient Disposition: Home, Self-Care Prognosis: Good Rehab Potential: Good I certify that the patient requires SNF services: No Overall status at discharge: patient is progressing back to baseline Discharge Orders: Discharge Order (Routine); Ordered 05/22/21 Ordered By: Mitch Saleh Pending Pending Pending: Resuscitation Status Resuscitate (Full Code) Diet GI Soft/Transitional Start SatMay 19 1245 Hydrocodone Bitart/Acetaminophen (Hydrocodone/Apap 7.5/325mg Tablet) 0 tab PO Q4HP PRN; Protocol PRN Reason: Per Pain Protocol Last Admin: 05/22/21 07:31 Dose: 2 tab Documented by: Admin: 05/21/21 21:56 Dose: 2 tab Documented by: Admin: 05/21/21 08:45 Dose: 2 tab Documented by: Admin: 05/20/21 20:40 Dose: 2 tab Documented by: Admin: 05/20/21 14:34 Dose: 2 tab Documented by: Admin: 05/20/21 06:28 Dose: 2 tab Documented by: Admin: 05/19/21 22:07 Dose: 2 tab Documented by: GENE Atorvastatin Calcium (Atorvastatin 20 Mg Tablet) 20 mg PO QHS [facility] Admin: 05/21/21 21:57 Dose: 20 mg Documented by: Admin: 05/20/21 20:39 Dose: 20 mg Documented by: Admin: 05/19/21 21:27 Dose: 20 mg Documented by: Admin: 05/18/21 22:26 Dose: 20 mg Documented by: Admin: 05/17/21 21:33 Dose: 20 mg Documented by: NIMESH Budesonide (Budesonide 3 Mg Cap.Xl.24h) 9 mg PO DAILY [facility] Admin: 05/22/21 08:44 Dose: 9 mg Documented by: Admin: 05/21/21 08:54 Dose: 9 mg Documented by: Admin: 05/20/21 08:33 Dose: 9 mg Documented by: Admin: 05/19/21 10:38 Dose: 9 mg Documented by: Admin: 05/18/21 08:00 Dose: 9 mg Documented by: JAYCEE Bupropion HCl (Bupropion 150 Mg Tab.Xl.24h) 300 mg PO DAILY [facility] Admin: 05/22/21 08:46 Dose: 300 mg Documented by: Admin: 05/21/21 08:46 Dose: 300 mg Documented by: Admin: 05/20/21 08:33 Dose: 300 mg Documented by: Admin: 05/19/21 09:05 Dose: 300 mg Documented by: Admin: 05/18/21 08:01 Dose: 300 mg Documented by: JAYCEE Calcium Carbonate/Glycine (Calcium (Oyster Shell) 500 Mg Tablet) 500 mg PO BID [facility] Admin: 05/22/21 08:46 Dose: 500 mg Documented by: Admin: 05/21/21 21:53 Dose: 500 mg Documented by: Admin: 05/21/21 08:47 Dose: 500 mg Documented by: Admin: 05/20/21 20:38 Dose: 500 mg Documented by: Admin: 05/20/21 08:33 Dose: 500 mg Documented by: Admin: 05/19/21 21:25 Dose: 500 mg Documented by: Admin: 05/19/21 09:05 Dose: 500 mg Documented by: Admin: 05/18/21 22:26 Dose: 500 mg Documented by: Admin: 05/18/21 08:00 Dose: 500 mg Documented by: Admin: 05/17/21 21:32 Dose: 500 mg Documented by: NIMESH Carvedilol (Carvedilol 6.25 Mg Tablet) 6.25 mg PO BIDCC [facility] Admin: 05/22/21 08:44 Dose: 6.25 mg Documented by: Admin: 05/21/21 18:00 Dose: 6.25 mg Documented by: Admin: 05/21/21 08:02 Dose: 6.25 mg Documented by: Admin: 05/20/21 16:46 Dose: Not Given Documented by: Admin: 05/20/21 08:33 Dose: 6.25 mg Documented by: Admin: 05/19/21 17:29 Dose: 6.25 mg Documented by: Admin: 05/19/21 09:05 Dose: 6.25 mg Documented by: Admin: 05/18/21 17:10 Dose: 6.25 mg Documented by: Admin: 05/18/21 08:01 Dose: 6.25 mg Documented by: Admin: 05/17/21 19:31 Dose: Not Given Documented by: NIMESH Citalopram Hydrobromide (Citalopram 20 Mg Tablet) 40 mg PO HS [facility] Admin: 05/21/21 21:55 Dose: 40 mg Documented by: Admin: 05/20/21 20:39 Dose: 40 mg Documented by: Admin: 05/19/21 21:25 Dose: 40 mg Documented by: Admin: 05/18/21 22:26 Dose: 40 mg Documented by: Admin: 05/17/21 21:33 Dose: 40 mg Documented by: NIMESH Cyanocobalamin (Cyanocobalamin (Vitamin B-12) 500 Mcg Tablet) 500 mcg PO QDAY [facility] Admin: 05/22/21 08:45 Dose: 500 mcg Documented by: Admin: 05/21/21 08:47 Dose: 500 mcg Documented by: Admin: 05/20/21 08:33 Dose: 500 mcg Documented by: Admin: 05/19/21 09:06 Dose: 500 mcg Documented by: Admin: 05/18/21 08:01 Dose: 500 mcg Documented by: JAYCEE Famotidine (Famotidine 20 Mg Tablet) 20 mg PO [facility] Last Admin: 05/21/21 21:55 Dose: 20 mg Documented by: Admin: 05/20/21 20:41 Dose: 20 mg Documented by: Admin: 05/19/21 21:25 Dose: 20 mg Documented by: Admin: 05/18/21 22:26 Dose: 20 mg Documented by: Admin: 05/17/21 21:33 Dose: 20 mg Documented by: NIMESH Hydrochlorothiazide (Hydrochlorothiazide 25 Mg Tablet) 25 mg PO [facility] Admin: 05/22/21 08:46 Dose: 25 mg Documented by: Admin: 05/21/21 08:46 Dose: 25 mg Documented by: Admin: 05/20/21 08:33 Dose: 25 mg Documented by: Admin: 05/19/21 09:05 Dose: 25 mg Documented by: Admin: 05/18/21 08:01 Dose: 25 mg Documented by: JAYCEE Hydromorphone HCl (Hydromorphone 0.5 Mg/0.5 Ml Syringe) 0.5 mg IV Q2HP PRN; Protocol PRN Reason: Per Pain Protocol Last Admin: 05/19/21 09:25 Dose: 0.5 mg Documented by: Admin: 05/18/21 23:39 Dose: 0.5 mg Documented by: Admin: 05/18/21 19:26 Dose: 0.5 mg Documented by: Admin: 05/18/21 15:30 Dose: 0.5 mg Documented by: Cosigned by: SAM Admin: 05/18/21 12:21 Dose: 0.5 mg Documented by: Admin: 05/18/21 06:04 Dose: 0.5 mg Documented by: Admin: 05/18/21 02:09 Dose: 0.5 mg Documented by: Admin: 05/17/21 19:31 Dose: 0.5 mg Documented by: Admin: 05/17/21 16:15 Dose: 0.25 mg Documented by: SUPA Metronidazole (Flagyl) 500 mg in 100 mls @ 100 mls/hr IV Q6H ABDI; Protocol Last Infusion: 05/22/21 13:07 Dose: 0 mls/hr Documented by: Admin: 05/22/21 11:20 Dose: 100 mls/hr Documented by: Infusion: 05/22/21 06:38 Dose: 0 mls/hr Documented by: Admin: 05/22/21 05:06 Dose: 100 mls/hr Documented by: Infusion: 05/22/21 01:03 Dose: 0 mls/hr Documented by: Admin: 05/22/21 00:03 Dose: 100 mls/hr Documented by: Infusion: 05/21/21 19:00 Dose: 0 mls/hr Documented by: Admin: 05/21/21 18:00 Dose: 100 mls/hr Documented by: Infusion: 05/21/21 12:50 Dose: 0 mls/hr Documented by: Admin: 05/21/21 11:55 Dose: 100 mls/hr Documented by: Infusion: 05/21/21 06:33 Dose: 0 mls/hr Documented by: Admin: 05/21/21 05:19 Dose: 100 mls/hr Documented by: Infusion: 05/21/21 01:42 Dose: 100 mls/hr Documented by: Admin: 05/21/21 00:42 Dose: 100 mls/hr Documented by: Infusion: 05/20/21 20:23 Dose: 0 mls/hr Documented by: Admin: 05/20/21 19:23 Dose: 100 mls/hr Documented by: Infusion: 05/20/21 12:29 Dose: 0 mls/hr Documented by: Admin: 05/20/21 11:28 Dose: 100 mls/hr Documented by: Infusion: 05/20/21 08:01 Dose: 0 mls/hr Documented by: Admin: 05/20/21 04:54 Dose: 100 mls/hr Documented by: Infusion: 05/20/21 00:55 Dose: 0 mls/hr Documented by: Admin: 05/19/21 23:55 Dose: 100 mls/hr Documented by: Infusion: 05/19/21 19:07 Dose: 0 mls/hr Documented by: Admin: 05/19/21 17:28 Dose: 100 mls/hr Documented by: Infusion: 05/19/21 13:36 Dose: 0 mls/hr Documented by: Admin: 05/19/21 12:28 Dose: 100 mls/hr Documented by: Infusion: 05/19/21 07:57 Dose: 0 mls/hr Documented by: Admin: 05/19/21 05:10 Dose: 100 mls/hr Documented by: Infusion: 05/19/21 00:45 Dose: 0 mls/hr Documented by: Admin: 05/18/21 23:39 Dose: 100 mls/hr Documented by: Infusion: 05/18/21 18:20 Dose: 0 mls/hr Documented by: Admin: 05/18/21 17:09 Dose: 100 mls/hr Documented by: Infusion: 05/18/21 13:25 Dose: 0 mls/hr Documented by: Admin: 05/18/21 12:21 Dose: 100 mls/hr Documented by: Infusion: 05/18/21 07:05 Dose: 0 mls/hr Documented by: Admin: 05/18/21 06:04 Dose: 100 mls/hr Documented by: Infusion: 05/18/21 01:22 Dose: 100 mls/hr Documented by: Admin: 05/18/21 00:22 Dose: 100 mls/hr Documented by: Infusion: 05/17/21 20:32 Dose: 100 mls/hr Documented by: Admin: 05/17/21 19:32 Dose: 100 mls/hr Documented by: Infusion: 05/17/21 15:48 Dose: 0 mls/hr Documented by: Admin: 05/17/21 14:48 Dose: 100 mls/hr Documented by: SUPA Acetaminophen (Ofirmev) 1,000 mg in 100 mls @ 200 mls/hr IV Q6HP PRN; Protocol PRN Reason: Pain Last Infusion: 05/17/21 14:16 Dose: 0 mls/hr Documented by: Admin: 05/17/21 13:55 Dose: 200 mls/hr Documented by: SUPA Ciprofloxacin (Cipro) 400 mg in 200 mls @ 200 mls/hr IV Q12H ABDI; Protocol Last Infusion: 05/22/21 10:10 Dose: 0 mls/hr Documented by: Admin: 05/22/21 08:46 Dose: 200 mls/hr Documented by: Infusion: 05/21/21 21:40 Dose: 0 mls/hr Documented by: Admin: 05/21/21 20:40 Dose: 200 mls/hr Documented by: Infusion: 05/21/21 11:56 Dose: 0 mls/hr Documented by: Admin: 05/21/21 09:00 Dose: 200 mls/hr Documented by: Infusion: 05/21/21 02:50 Dose: 0 mls/hr Documented by: Admin: 05/21/21 01:50 Dose: 200 mls/hr Documented by: Infusion: 05/20/21 18:02 Dose: 0 mls/hr Documented by: Admin: 05/20/21 16:44 Dose: 200 mls/hr Documented by: FISH Iron Carb/Multivit/[place]/Folic Acid (Multivit,Ther Iron,Ca,Fa & Min 1 Tablet) 1 tab PO DAILY [facility] Last Admin: 05/22/21 08:46 Dose: 1 tab Documented by: Admin: 05/21/21 08:47 Dose: 1 tab Documented by: Admin: 05/20/21 08:32 Dose: 1 tab Documented by: Admin: 05/19/21 09:05 Dose: 1 tab Documented by: Admin: 05/18/21 08:01 Dose: 1 tab Documented by: JAYCEE Levothyroxine Sodium (Levothyroxine 25 Mcg Tablet) 25 mcg PO QAMAC [facility] Last Admin: 05/22/21 07:31 Dose: 25 mcg Documented by: Admin: 05/21/21 08:02 Dose: 25 mcg Documented by: Admin: 05/20/21 08:32 Dose: 25 mcg Documented by: Admin: 05/19/21 09:06 Dose: 25 mcg Documented by: Admin: 05/18/21 07:33 Dose: 25 mcg Documented by: JAYCEE Lisinopril (Lisinopril 20 Mg Tablet) 20 mg PO QDAY [facility] Admin: 05/22/21 08:46 Dose: 20 mg Documented by: Admin: 05/21/21 08:47 Dose: 20 mg Documented by: Admin: 05/20/21 08:32 Dose: 20 mg Documented by: Admin: 05/19/21 09:05 Dose: 20 mg Documented by: Admin: 05/18/21 08:01 Dose: 20 mg Documented by: JAYCEE Magnesium Oxide (Magnesium Oxide 400 Mg Tablet) 400 mg PO [facility] Admin: 05/21/21 21:54 Dose: 400 mg Documented by: Admin: 05/20/21 20:39 Dose: 400 mg Documented by: Admin: 05/19/21 21:28 Dose: 400 mg Documented by: Admin: 05/18/21 22:26 Dose: 400 mg Documented by: Admin: 05/17/21 21:33 Dose: 400 mg Documented by: NIMESH Methocarbamol (Methocarbamol 500 Mg Tablet) 500 - 1,000 mg PO Q8H PRN PRN Reason: muscle spasm Last Admin: 05/21/21 21:54 Dose: 1,000 mg Documented by: Admin: 05/20/21 22:49 Dose: 500 mg Documented by: Admin: 05/20/21 20:39 Dose: 500 mg Documented by: Admin: 05/20/21 08:45 Dose: 500 mg Documented by: Admin: 05/20/21 08:33 Dose: 500 mg Documented by: Admin: 05/19/21 21:49 Dose: 500 mg Documented by: Admin: 05/18/21 23:55 Dose: 1,000 mg Documented by: Admin: 05/18/21 09:11 Dose: 1,000 mg Documented by: Admin: 05/17/21 19:31 Dose: 1,000 mg Documented by: NIMESH Pantoprazole Sodium (Pantoprazole 40 Mg Tablet) 40 mg PO BID [facility] Admin: 05/22/21 08:45 Dose: 40 mg Documented by: Admin: 05/21/21 21:55 Dose: 40 mg Documented by: Admin: 05/21/21 08:47 Dose: 40 mg Documented by: Admin: 05/20/21 20:40 Dose: 40 mg Documented by: Admin: 05/20/21 08:32 Dose: 40 mg Documented by: Admin: 05/19/21 21:29 Dose: 40 mg Documented by: Admin: 05/19/21 09:05 Dose: 40 mg Documented by: Admin: 05/18/21 22:25 Dose: 40 mg Documented by: Admin: 05/18/21 07:33 Dose: 40 mg Documented by: Admin: 05/17/21 21:33 Dose: 40 mg Documented by: NIMESH Pramipexole Dihydrochloride (Pramipexole 0.25 Mg Tablet) 0.125 mg PO QHS [facility] Admin: 05/21/21 21:55 Dose: 0.125 mg Documented by: Admin: 05/20/21 20:38 Dose: 0.125 mg Documented by: Admin: 05/19/21 21:32 Dose: 0.125 mg Documented by: Admin: 05/18/21 22:25 Dose: 0.125 mg Documented by: Admin: 05/17/21 21:33 Dose: 0.125 mg Documented by: NIMESH Primidone (Primidone 50 Mg Tablet) 50 mg PO BID [facility] Admin: 05/22/21 08:45 Dose: 50 mg Documented by: Admin: 05/21/21 21:57 Dose: 50 mg Documented by: Admin: 05/21/21 08:47 Dose: 50 mg Documented by: Admin: 05/20/21 20:38 Dose: 50 mg Documented by: Admin: 05/20/21 08:32 Dose: 50 mg Documented by: Admin: 05/19/21 21:27 Dose: 50 mg Documented by: Admin: 05/19/21 09:05 Dose: 50 mg Documented by: Admin: 05/18/21 22:26 Dose: 50 mg Documented by: Admin: 05/18/21 08:01 Dose: 50 mg Documented by: Admin: 05/17/21 21:41 Dose: 50 mg Documented by: NIMESH Tramadol HCl (Tramadol 50 Mg Tablet) 50 - 100 mg PO Q6H PRN; Protocol PRN Reason: pain Last Admin: 05/19/21 03:44 Dose: 100 mg Documented by: Admin: 05/18/21 08:00 Dose: 50 mg Documented by: Admin: 05/17/21 21:33 Dose: 100 mg Documented by: Admin: 05/17/21 14:03 Dose: 50 mg Documented by: SUPA Vitamin B Complex (Vitamin B Complex 1 Capsule) 1 cap PO DAILY [facility] Admin: 05/22/21 08:46 Dose: 1 cap Documented by: Admin: 05/21/21 08:47 Dose: 1 cap Documented by: Admin: 05/20/21 08:32 Dose: 1 cap Documented by: Admin: 05/19/21 09:05 Dose: 1 cap Documented by: Admin: 05/18/21 08:01 Dose: 1 cap Documented by: JAYCEE Vitamin E (Vitamin E (Dl,Tocopheryl Acet) 400 Unit Capsule) 400 unit PO DAILY [facility] Admin: 05/22/21 09:12 Dose: 400 unit Documented by: Admin: 05/21/21 08:54 Dose: 400 unit Documented by: Admin: 05/20/21 08:34 Dose: 400 unit Documented by: Admin: 05/19/21 09:06 Dose: 400 unit Documented by: Admin: 05/18/21 08:01 Dose: 400 unit Documented by: JAYCEE Shift Summary 05/22/21 03:43 Shift Summary by Patience Gonzalez Primary Diagnosis: Planned colostomy takedown. Registration Status: M/S IP on 05/18 Day of Hospitalization: 05/17 Date of Surgery : 05/17 dense abdominal adhesions with pelvic abscess surrounding rectal stump, S/P Exp lap w/ pelvic abscess drng. To ICU. Pertinent Medical Hx: cardiomyopathy, tremors, Vital Signs : VSS on RA Neuro: A&OX4. Ambulation status: Up independently in rm. Uses FWW when amb in olivares. Amb in olivares X1 before HS Diet: soft, ADAT PRN Meds : Hydrocodone 7.5mg 2 tabs & Robaxin 2 tabs given at HS Lines/Tubes: SL RFA. JOE to RLQ compressed & putting out small amt serosang d rng. Wound/Skin: Abd midline incision intact w/ sharifa, scant amt serosang drng seen under tegaderm dsg. Lab/Rad results: Void/BM: Voiding per bathroom AUO. Colostomy putting out mod amt soft, loose green/yellow BM. Stoma beefy red. Expected date of discharge: TBD Discharge Plan (needs, disposition, etc): To return home where she has a good support system when medically cleared. Initialized on 05/22/21 03:43 - END OF NOTE
--- NOTE | 2021-06-01 15:38 | Operative Note ---
DATE OF OPERATION: 05/17/2021 PREOPERATIVE DIAGNOSIS: Colostomy status. POSTOPERATIVE DIAGNOSES: Colostomy status with pelvic abscess. PROCEDURE: Exploratory laparotomy with drainage of pelvic abscess. FINDINGS: Dense abdominal adhesions with pelvic abscess surrounding the rectal stump. The rectal stump was still intact. DESCRIPTION OF PROCEDURE: Under general anesthesia, the stoma was closed with running 2-0 silk. The abdomen was then prepped and draped in a sterile field and covered with a biodrape. A midline incision was made. Upon entering the abdomen, there were dense abdominal adhesions in the entire peritoneal cavity. Initially, it was elected to dissect out the rectal stump to make sure that it was adequate enough for reanastomosis. The adhesions involved omentum, small bowel, and bladder. These were taken down using primarily sharp dissection with Metzenbaum scissors. Once the rectal stump was identified, it was covered with omentum and loops of small bowel. As the small bowel was mobilized, a large amount of purulent material was encountered. All of this purulent material was basically surrounding the rectal stump. The integrity of the rectal stump was still good. Copious irrigation was carried out. Cultures of the fluid was also sent. Because of the degree of infection, it was not amenable to proceed further with reanastomosis. A #10 Ham drain was placed in the pelvis over the rectal stump. Sponge, needle, instrument, and blade counts were verified as correct. The peritoneum and fascia were closed with running #1 Prolene. Subcutaneous fat was closed with 2-0 Monocryl. Skin was closed with sharifa. The suture in the stoma site was incised and the stoma was opened. A stoma appliance was placed. Tegaderm was placed over the incision. The patient tolerated the procedure well. She was awakened and transferred to the postanesthetic care unit in stable, satisfactory condition. LCS:maida Job ID: [id number] Doc ID: [id number] Mitch Saleh M.D.
--- OUTSIDE RECORDS SUMMARY | 2021-06-02 05:39 | External Medical Summary | Summary of Care ---
:1955 Author Organization [facility] Address [address] [place] [address]- Care Team Providers Name Role Phone Emilia Walsh Primary Care Physician Encounter FNBR [id number] Date(s): 10/30/16 - 10/30/16 [facility] [address] [place] [address]- Discharge Disposition: *Home (01) Attending Physician: Brian Owens MD Referring Physician: Mairna Dubon Vital Signs Most recent to oldest [Reference Range]: 1 Blood Pressure [90-140/60-90 mmHg] 104/53 mmHg (10/30/16 11:45 AM) Problem List Condition Effective Dates Status Health Status Informant Anemia(Confirmed) 2013 Active Anxiety disorder(Confirmed) 2016 Active Arthritis, Hip(Confirmed) 2016 Active Acid Reflux/heartburn(Confirmed) 2016 Active High blood pressure(Confirmed) 1990 Active Hypothyroidism(Confirmed) 2017 Active Depression(Confirmed) 2017 Active Colon polyp(Confirmed) 2006 Active Allergies, Adverse Reactions, Alerts Substance Reaction Severity Status Biaxin Diarrhea Unknown Active codeine Fainted as a teenager while taking codeine Unkno wn Active sulfa drugs Causes photosensitivity Moderate Active Medications aspirin 81 mg, Daily Start Date: 10/30/16 Status: Orderedbudesonide 9 mg oral tablet, extended release 9 mg = 1 tab(s), PO, Every Morning Start Date: 10/22/16 Status: OrderedbuPROPion 150 mg, PO, Daily Start Date: 10/22/16 Status: OrderedCELEXA 40 mg, PO, Every Evening Start Date: 10/22/16 Status: OrderedFARXIGA 5 mg, PO, Daily Start Date: 10/23/16 Status: OrderedfentaNYL 25 mcg/hr transdermal film, extended release 25 mcg/hr =, TOPICAL, Q72 Hours, # Refill (s): 0 # Total Refill (s): 0 Start Date: 10/23/16 Status: OrderedhydroCHLOROthiazide 25 mg, PO, Daily Start Date: 10/22/16 Status: Orderedlevothyroxine 25 mcg, PO, Daily Start Date: 10/23/16 Status: Orderedlisinopril 40 mg, PO, Every Evening Start Date: 10/22/16 Status: Orderedmethocarbamol 750 mg, PO, PRN: as needed for pain Start Date: 10/23/16 Status: OrderedNORCO 10 mg-325 mg oral tablet 1 tab(s), PO, Q6 Hours, PRN as needed for pain, # Refill (s): 0 # Total Refill (s): 0 Start Date: 10/23/16 Status: Orderedpantoprazole 40 mg, PO, BID Start Date: 10/23/16 Status: Orderedpotassium chloride 10 mEq, PO, Daily Start Date: 10/23/16 Status: Orderedprimidone 50 mg, PO, Every Evening, For essential tremor Start Date: 10/22/16 Status: Ordered Results General Lab Most recent to oldest [Reference Range]: 1 Glucose Fingerstick [75-139 mg/dL] 80 mg/dL (10/30/16 9:37 AM) Glucose (Manual Entry) 80 (10/30/16 9:31 AM) Immunizations No data available for this section Procedures Procedure Date Related Diagnosis Body Site Hysterectomy (cervix removed) 2016 Left ovary removal 2016 Right ovary removal 2016 Right Carpal Tunnel repair 1996 Left Carpal Tunnel repair 1995 Section 1984 Tonsillectomy 1972 Social History No data available for this section Assessment and Plan No data available for this section
--- OUTSIDE RECORDS SUMMARY | 2021-06-02 05:39 | External Medical Summary | Summary of Care ---
:1955 Author Organization [facility] Address [address] [place] [address]- Care Team Providers Name Role Phone None, Assigned Primary Care Physician Unavailable Encounter FNBR [id number] Date(s): 07/30/16 - 07/30/16 [facility] [address] [place] [address]- Vital Signs No data available for this section Problem List No data available for this section Allergies, Adverse Reactions, Alerts No data available for this section Medications No data available for this section Results No data available for this section Immunizations No data available for this section Procedures No data available for this section Social History No data available for this section Assessment and Plan No data available for this section
--- OUTSIDE RECORDS SUMMARY | 2021-06-02 05:39 | External Medical Summary ---
:1955 Author Care Team Providers Name Role Phone DEMOND OROZCOWOOD Primary Care Provider [phone] [facility] Referring Provider [phone] Allergies None recorded. Medications Name Status Start Date Stop Date amoxicillin 200 mg-potassium clavulanate 28.5 mg/5 mL oral s uspension Completed 09/30/2020 Take 20 mL every 12 hours by oral route. amoxicillin 500 mg capsule Completed 09/30 amoxicillin 875 mg-potassium clavulanate 125 mg tablet Completed 04/17/2021 atorvastatin 20 mg tablet Active Not av ailable Take 1 tablet every day by oral route as directed for 90 days. Augmentin 125 mg-31.25 mg/5 mL oral suspension Completed 04/17/2021 Take 20 mL every 8 hours by oral route. budesonide DR - ER 3 mg capsule,delayed,extended release Active Not available bupropion HCl XL 300 mg 24 hr tablet, extended release Active Not available Take 1 tablet every day by oral route as directed for 90 days. carvedilol 12.5 mg tablet Active Not av ailable Take 1 tablet twice a day by oral route as directed for 90 days . ciprofloxacin 250 mg tablet Completed 03/23 ciprofloxacin 500 mg tablet Completed 03/23 citalopram 40 mg tablet Active Not avai lable famotidine 20 mg tablet Completed 04/17/20 21 fluconazole 150 mg tablet Completed 2020 furosemide 20 mg tablet Active Not avai lable furosemide 40 mg tablet Completed 04/17/20 21 hydrochlorothiazide 25 mg tablet Completed 04/17/2021 hydrocodone 7.5 mg-acetaminophen 325 mg tablet Active Not available Klor-Con 20 mEq oral packet Completed 03/23 Klor-Con M20 mEq tablet,extended release Active Not available levofloxacin 750 mg tablet Completed 04/17 levothyroxine 25 mcg tablet Active Not available lisinopril 20 mg tablet Active Not avai lable Take 1 tablet every day by oral route as directed for 90 days. lisinopril 40 mg tablet Completed 04/17/20 21 lorazepam 1 mg tablet Completed 04/17/2021 Macrodantin 50 mg capsule Completed 2020 Take 1 capsule every 6 hours by oral route. methocarbamol 500 mg tablet Active Not available metronidazole 500 mg tablet Completed 03/23 pantoprazole 40 mg tablet,delayed release Active Not available Take 1 tablet twice a day by oral route as directed. pramipexole 0.125 mg tablet Completed 09/19 Take 1 tablet 3 times a day by oral route. pramipexole 0.25 mg tablet Active Not a vailable Take 0.5 tablets every day by oral route at bedtime for 90 days . primidone 50 mg tablet Active Not avail able Take 1 tablet twice a day by oral route as directed for 90 days . tramadol 50 mg tablet Active Not availa ble take 1-2 tablets by mouth q 6-8 hours as needed Problems Name Status Onset Date Source Cerebral Arterial Aneurysm Active 09/27/2020 Procedures Date Name Performed by 01/10/2021 Other Information not avai lable Notes: Exploratory laparot zora with drainage of multiple intra-abdominal abscesses, sigmoid colostomy with Maryann's pouch 08/17/2020 Angiogram Information not avai lable Notes: Diag Cerebral Angio 07/01/2020 Gammagraft Information not avai lable Notes: L Side brain 07/22/2012 Thumb Joint Removal Information not avai lable Notes: L - Replacement 07/22/2009 Thumb Joint Removal Information not avai lable Notes: R - Replacement 07/22/1997 Hysterectomy Information not avai lable 07/22/1996 Carpal Tunnel Surgery Information not av ailable Notes: L 07/22/1995 Carpal Tunnel Surgery Information not av ailable Notes: R 07/22/1986 Section Information not avai lable 07/22/1983 Section Information not avai lable Tendon Graft Information not avai lable Notes: Various in Bilat Hands over aida ious dates Results Lab Results None recorded. Past Encounters 04/17/2021 Takotsubo Cardiomyopathy; Mixed Hyperlip idemia; Essential Hypertension Emilio Mckoy MD: [address] [place] [address] , [place] [phone], Ph. 09/30/2020 Corey Dueñas MD: [address] [place], [place] [address], [place] [phone], Ph. 08/10/2020 Cerebral Arterial Aneurysm Corey Dueñas MD: [address] [place] [address], [place] [phone], Ph. Social History Tobacco Smoking Status Never Smoker Vaccine List None recorded. Plan of Care Reminders Provider Appointments None recorded. Lab None recorded. Referral None recorded. Procedures None recorded. Surgeries None recorded. Imaging None recorded. Vitals 04/17/2021 04:15PM CARDIO- NEW PATIENT Height Weight BMI Blood Pressure 5 ft 1 in 158 lbs 29.9 kg/m2 118/60 mm[Hg] 09/30/2020 12:00PM IR- ESTABLISHED Height Weight BMI Blood Pressure 5 ft 1 in 180 lbs 34 kg/m2 (1) 117/58 mm[H g] (2) 120/63 mm[Hg ] 08/10/2020 10:00AM IR- NEW PATIENT Height Weight BMI Blood Pressure 5 ft 1 in 178 lbs 33.6 kg/m2 (1) 137/58 mm[H g] (2) 137/66 mm[Hg ]
--- OUTSIDE RECORDS SUMMARY | 2021-06-02 05:39 | External Medical Summary | Encounter Summary ---
:1955 Author Care Team Providers Name Role Phone Emilia Goyal Primary Care Provider [phone] [facility] Referring Provider [phone] Reason for Visit new patient; congestive heart failure Assessment and Plan 1. Takotsubo cardiomyopathy Stress cardiomyopathy in setting of sep sis. Resolved? Probably. Will recheck echo. trans-thoracic echocardiogram (TTE) ( PROC) - PLEASE CALL TO SCHEDULE APT. 2. Mixed hyperlipidemia On treatment with atorvastatin. 3. Essential hypertension BP still running a bit low. Decrease ca rvedilol to 6.25 mg bid. Discussion Note 1. Echo 2. Call with results Patient educational handouts: No information available. Plan of Care Reminders Provider Appointments Ir- Established 09/28/2021 1:00PM Corey Dueñas MD Lab None recorded. Referral None recorded. Procedures Trans-thoracic Echocardiogram 04/17/2021 [facility] Radiology (TTE) (PROC) Surgeries None recorded. Imaging None recorded. Medications Name Start Date atorvastatin 20 mg tablet Take 1 tablet every day by oral route as directed for [address] - ER 3 mg capsule,delayed,extended relea se Take 3 capsules every day by oral route. bupropion HCl XL 300 mg 24 hr tablet, extended release Take 1 tablet every day by oral route as directed for 90 days. carvedilol 12.5 mg tablet Take 1 tablet twice a day by oral route as directed f or 90 days. citalopram 40 mg tablet Take 1 tablet every day by oral route. furosemide 20 mg tablet Take 1 tablet every day by oral route. hydrocodone 7.5 mg-acetaminophen 325 mg tablet Take 1 tablet every 6 hours by oral route. Klor-Con M20 mEq tablet,extended release TAKE 1 TABLET BY MOUTH ONCE DAILY IN THE MORNING levothyroxine 25 mcg tablet Take 1 tablet every day by oral route. lisinopril 20 mg tablet Take 1 tablet every day by oral route as directed for 90 days. methocarbamol 500 mg tablet Take 2 tablets 4 times a day by oral route. pantoprazole 40 mg tablet,delayed release Take 1 tablet twice a day by oral route as directed. pramipexole 0.25 mg tablet Take 0.5 tablets every day by oral route at bedtime f or 90 days. primidone 50 mg tablet Take 1 tablet twice a day by oral route as directed f or 90 days. tramadol 50 mg tablet take 1-2 tablets by mouth q 6-8 hours as needed Medications Administered None recorded. Vitals Height Weight BMI Blood Pressure 5 ft 1 in 158 lbs 29.9 kg/m2 118/60 mm[Hg] Results Lab Results None recorded. Allergies None recorded. Problems Name Status Onset Date Source Cerebral [...] in Bilat Hands over aida ious dates Vaccine List None recorded. Social History Tobacco Smoking Status Never Smoker What type of diet are you REGULAR following? How many children do you have? 2 Are you able to walk? YESWOREST Are you currently employed? N Are you able to care for Y yourself? How much tobacco do you chew? none Do you use sunscreen routinely? Y What was the date of your most 09/30/2020 recent tobacco screening? Do you or have you ever used Never used electronic e-cigarettes or vape? cigarettes Do you have an advanced Y directive? General stress level Medium How many years have you smoked 0 tobacco? What is your exercise level? Occasional Live alone or with others? with others Notes: Mara Doshi What is your level of alcohol None consumption? Education 2 Year College Do you or have you ever used Never used smokeless tobacco smokeless tobacco? Which illicit or recreational None drugs have you used? On what date was tobacco 09/30/2020 cessation counseling provided? Are you passively exposed to Y smoke? Hard of hearing or deaf in one N or both ears? What is your level of caffeine Occasional consumption? 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 Family History Relation Problem Onset Age of Age Notes Maternal Aunt Cerebrovascular accident (No N/A (N o Notes) Information) Paternal Grandfather Myocardial infarction (No N/A (No Notes) Information) Brother Myocardial infarction (No N/A (No No to) Information) Functional Status Unknown. Past Encounters 04/17/2021 Takotsubo Cardiomyopathy; Mixed Hyperlip idemia; Essential Hypertension Emilio Mckoy MD: [address] [place] [address] , [place] [phone], Ph. History of Present Illness Note: <div>Underwent partial colectomy. Developed anastomatic leak. Sepsis. Prolonged hospitalization at [facility] (10 days) then transfer to [facility] (25 days). Then 3-4 weeks rehab afterwards. Developed stress cardiomyopathy. Placed on carvedilol. BP running a bit low. Decrease lisinopril from 40 to20. </div><div>
</div><div>Data review:</div><div>I have personally reviewed</div><div>Echo 12/2014 [place] normal</div><div>Labs:</div><div>HCT 29</div><div>ESR 18</div><div>CR 0.6</div>Review of Systems: ROS as noted in the HPI Review of Systems Brief Cardiology ROS Reported By: Patient Musculoskeletal: Musculoskeletal: muscle ache s Physical Exam Notes: <div>Examination
</div><d iv>Vitals see above</div><div>
</div ><div>General. No acute distress. Conversant.</div><div>
&l t;/div><div>HEENT. Normocephalic atraumatic. Mucous membranes moist. Scle ra anicteric. Oropharynx clear.</div><div>
</div>< div>Chest. Clear. Normal effort. Symmetric.</div><div>
</d iv><div>Cardiovascular. JVP is normal. Normal S1 and S2. No gallops or rubs.< /div><div>
</div><div>Abdomen. Normal bowel sounds. Soft nontender nondi stended. No appreciated hepatosplenomegaly.</div><di v>
</div><div>Extremities. No cyanosis. No clubbing. No edema.</div><di v>
</div><div>Skin. Warm and dry. No rashes.</div><div>
</div> <div>Neurological. Alert and oriented x3. Nonfocal. No asymmetry is no janette.</div><div>
</div><div>Psychiatric. Affect and tone are normal.< /div><div>
</div><div>
</div><div>
</div>
== END 2021-05-22 15:30 | disposition home or self-care (01) | DRG 856 ==
LOC: ICU 05:31 → EDSTATUS 09:00 → MEDSUR 05-18 14:15
PROVIDERS: ADMIT Family Medicine Adult Medicine; ATTEND Family Medicine Adult Medicine

== ENCOUNTER 2021-11-22 05:55 | Inpatient (IN) ==
--- NOTE | 2021-11-16 16:34 | XRay Report ---
HISTORY: Preop for colostomy takedown FINDINGS: There are linear bands of scar tissue in the lingula. The lungs are otherwise clear. There is no pneumonia, mass or pulmonary vascular congestion. The heart size is normal. The mediastinum and kaitlyn are normal. Spine has a kyphotic curvature. Postoperative changes are present following fusion in the mid and lower neck. Comparison with the prior x-ray done on 05/15/21 shows no change. IMPRESSION: Stable scar tissue in the lingula and no acute abnormality Interpreted and Authenticated by: Pedro Vargas 11/16/21
[2021-11-16 16:44] LABS: Basophils # (Auto) 0.02 K/mcL (0.00-0.30); Basophils % (Auto) 0.3 % (0.0-2.0); Eosinophils # (Auto) 0.13 K/mcL (0.00-0.70); Eosinophils % (Auto) 1.7 % (0.0-7.0); Hematocrit 33.4 % (34.1-44.9); Hemoglobin 11.1 g/dL (11.2-15.7); Lymphocytes # (Auto) 2.16 K/mcL (1.50-4.80); Lymphocytes % (Auto) 28.5 % (15.5-49.0); Mean Cell Volume 98.5 fL (80.0-100.0); Mean Corpuscular HGB Conc 33.2 g/dL (31.0-36.0); Mean Platelet Volume 9.5 fL (7.4-10.4); Monocytes # (Auto) 0.68 K/mcL (0.10-0.90); Neutrophils % (Auto) 60.5 % (38.0-78.0); Platelet Count 203 K/mcL (140-440); RBC 3.39 M/mcL (3.59-5.38); Red Cell Distribution Width 12.7 % (11.5-14.5); WBC 7.6 K/mcL (4.5-11.0)
[2021-11-16 16:52] LABS: INR 0.9 (0.9-1.1); Partial Thromboplastin Time 23.9 sec (20.0-37.0); Prothrombin Time 12.5 sec (11.9-14.5)
[2021-11-16 16:56] LABS: ALT/SGPT 32 U/L (<40); AST/SGOT 25 U/L (<32); Albumin 3.8 gm/dL (3.2-5.2); Albumin/Globulin Ratio 1.6 (1.0-2.3); Alkaline Phosphatase 52 U/L (39-117); Bilirubin,Total 0.2 mg/dL (0.1-1.0); Blood Urea Nitrogen 18 mg/dL (8-23); Calcium 9.1 mg/dL (8.6-10.4); Carbon Dioxide 27 mmol/L (22-30); Chloride 101 mmol/L (96-108); Globulin 2.4 gm/dL (2.2-3.7); Glomerular Filtration Rate 58; Glucose 123 mg/dL (70-105)
[2021-11-16 17:06] LABS: Estimated Average Glucose(eAG) 105 mg/dL; Hemoglobin A1C 5.3 % Hgb (4.0-6.0)
--- NOTE | 2021-11-16 20:55 | EKG ---
[facility] Test Date: 2021-11-16 Pat Name: Flavia Michelle Department: RT Room: Gender: Female Control Electrician: : 1955 Requested By: Mitch Saleh Order Number: [id number] Reading MD: Gopal Art Measurements Intervals Hills Rate: 56 P: 64 DC: 208 QRS: 47 QRSD: 115 T: 50 QT: 417 QTc: 403 Interpretive Statements Sinus rhythm Nonspecific intraventricular conduction delay Electronically Signed On 11-16-2021 20:54:57 PDT by Gopal Art /store/M0/[id number]
--- OUTSIDE RECORDS SUMMARY | 2021-11-22 05:58 | External Medical Summary | Clinical Summary ---
:1955 Author Organization [facility] [place] [address] Care Team Providers Name Role Phone Louis Goyal Primary Care Provider Allergies Active Allergy Reactions Severity Noted Date Comments Acetaminophen-Codeine Other (See Comments) 07/17/2012 Made her pass out Clarithromycin Diarrhea 06/30/2020 Sulfa Antibiotics Rash Low 07/17/2012 When expos ed to sun Medications Medication Sig Dispensed Refills Start Date End Date Status citalopram (CELEXA) 40 Take 40 mg by 0 12/24/2014 Active mg tablet mouth Daily. lisinopril Take 40 mg by 0 11/12/2014 Acti ve (PRINIVIL,ZESTRIL) 40 mouth Daily. MG tablet budesonide (ENTOCORT Take 9 mg by 0 Active EC) 3 mg 24 hr capsule mouth every morning . pramipexole (MIRAPEX) Take 0.25 mg by 0 Active 0.25 mg tablet mouth nightly . pantoprazole (PROTONIX) Take 40 mg by 0 Active 40 mg tablet mouth 2 times daily (before meals). levothyroxine Take 25 mcg by 0 A ctive (SYNTHROID) 25 mcg mouth every tablet morning (before breakfast). buPROPion (WELLBUTRIN Take 300 mg by 0 Active XL) 300 mg 24 hr tablet mouth every morning. HYDROcodone-acetaminoph Take 1 tablet by 10 tablet 0 Active en (NORCO) 7.5-325 mg mouth every 8 per tabletIndications: hours as needed Peritonitis (acute) for up to 10 generalized (HCC) doses. Active Problems Problem Noted Date Vitamin D deficiency 01/22/2021 Diabetes mellitus type 2 in obese 01/20/2021 Normocytic anemia 01/20/2021 Non-STEMI (non-ST elevated myocardial infarction) 08/2020 Takotsubo cardiomyopathy 01/20/2021 Stress-induced cardiomyopathy 01/19/2021 Ischemic stroke 01/19/2021 Pre-operative cardiovascular examination Overview: Preop evaluation for orthopedic neurolog ical surgery cervical spine. Low risk surgery. Patient no heart attack and angina normal physical exam normal stress echo in July 2012 EKG today is normal unchanged from prior tracings Patient is low risk no further testing is necessary Last Assessment & Plan: Preop evaluation for orthopedic neurolog ical surgery cervical spine. Low risk surgery. Patient no heart attack and angina normal physical exam normal stress echo in July 2012 EKG today is normal unchanged from prior tracings Patient is low risk no further testing is necessary Diverticulitis of large intestine with perforation wit hout bleeding Resolved Problems Problem Noted Date Resolved Date Atrial fibrillation with RVR 01/20/2021 02/01/2021 Acute kidney injury (KAYLA) with acute tubular necrosis (ATN) 01/20/2021 02/01/2021 Acute metabolic encephalopathy 01/20/2021 Septic shock 01/19/2021 02/01/2021 Peritonitis (acute) generalized 01/19/2021 02/02/20 Acute respiratory failure with hypoxemia 01/19/2021 02/01/2021 Hospital-acquired pneumonia 01/19/2021 02/01/2021 Family History Medical History Relation Name Comments Heart attack Brother Heart attack Mother Relation Name Status Comments Brother (Age 56) [place] Brother Father Alive age 89January Mother (Age 64) [place] Social History Tobacco Use Types Packs/Day Years Used Date Never Smoker Cigarettes Smokeless Tobacco: Never Used Alcohol Use Standard Drinks/Week Comments Not Currently 0 (1 standard drink = 0.6 oz pure alcoho l) rare Sex Assigned at Date Recorded Not on file Last Filed Vital Signs Vital Sign Reading Time Taken Comments Blood Pressure 142/63 02/01/2021 7:37 AM PDT Pulse 70 02/01/2021 7:37 AM PDT Temperature 36 C (96.8 F) 02/01/2021 7:37 AM PDT Respiratory Rate 16 02/01/2021 7:37 AM PDT Oxygen Saturation 96% 02/01/2021 7:37 AM PDT Inhaled Oxygen Concentration - - Weight 77.2 kg (170 lb 3.1 oz) 01/31/2021 2:06 AM PDT Height 152.4 cm (5') 01/07/2021 3:45 PM PDT Body Mass Index 33.24 01/07/2021 3:45 PM PDT Plan of Treatment Health Maintenance Due Date Last Done Comments Hepatitis C Screening 1955 CT Colonography 10/30/1971 ColoGuard 10/30/1971 Colonoscopy 10/30/1971 Colorectal Combination Topic 10/30/1971 Diabetic Eye Exam 10/30/1971 Diabetic Foot Exam 10/30/1971 FIT 10/30/1971 Sigmoidoscopy 10/30/1971 Vaccine: Dtap/Tdap/Td (1 - Tdap) 1972 Breast Cancer Screening 2008 Hemoglobin A1c Monitoring 09/11/2012 06/11/2012 Vaccine: Zoster (2 of 3) 01/19/2016 11/24/2015 Adult Annual Wellness Visit 05/27/2020 Statin Therapy (optimal intensity) 05/27/2020 Med Mgmt: TSH 01/20/2022 01/20/2021, 01/07/2021, 06/11/2012 Med Mgmt: Cr 01/30/2022 01/30/2021, 01/29/2021, 01/28/2021, Additional history exists Med Mgmt: K 01/30/2022 01/30/2021, 01/29/2021, 01/28/2021, Additional history exists Med Mgmt: eGFR 01/30/2022 01/30/2021, 01/29/2021, 01/28/2021, Additional history exists Medication Management 01/30/2022 01/30/2021 Vaccine: Pneumococcal 65+ Completed 04/04/2021, 11/24/2015 Vaccine: Influenza Completed 05/01/2021, 08/30/2020, 05/19/2019, Additional history exists COVID-19 Vaccine Completed 05/06/2021, 10/12/2020, 09/21/2020 Insurance Payer Benefit Plan Subscriber ID Effective Phone Address Typ e / Group Dates BCBS ID [place] BS [id number] 2020-Prese [address] [address] [place] [address] MEDICARE MEDICARE PART [id number] 2018-Prese [phone] [address] Medicare A AND B nt [address] [place] [id number] Flavia Michelle Personal/Family Self [address] (Home) [place] [address] Advance Directives Documents on File Type Date Recorded Patient Box Inspector Explanati on Power of Hand Rigger Advance Directive 01/09/2021 12:30 PM Latest Code Status on File Code Status Date Activated Date Inactivated Comments Full Code 01/07/2021 5:27 PM 02/01/2021 12:08 PM Full Code by default - TBD 01/07/2021 3:31 PM 01/07/2021 5:27 PM Care Teams Er Nurse Relationship Specialty Start Date End Date Emilia Goyal, PCP - General Family Nurse Practitioner [address] [place] [address], [place] [phone]
--- OUTSIDE RECORDS SUMMARY | 2021-11-22 05:58 | External Medical Summary | Encounter Summary ---
:1955 Author Organization [facility] [place] [address] Care Team Providers Name Role Phone oLuis Goyal Primary Care Provider Reason for Visit Reason Onset Date Comments Care Coordination 04/21/2021 Encounter Details Date Type Department Care Team Description 04/21/2021 Telephone GAMBIAN Latoya Arce RN Car e Coordination RADIOSURGERY [address] [place] [address] Social History Tobacco Use Types Packs/Day [...] leg weakness. She eventually was discharged to [facility] in [place]. Flavia cantu noticed that her left-handed tremor [...] on filedocumented in this encounter Care Teams Half Backer Relationship Specialty Start Date End Date Emilia Goyal, PCP - General Family Nurse Practitioner [facility] [address] [place] [address], [place] [phone] documented as of this encounter
--- OUTSIDE RECORDS SUMMARY | 2021-11-22 05:59 | External Medical Summary | Encounter Summary ---
:1955 Author [facility] [place] [address] Care Team Providers Name Role Phone Louis Goyal Primary Care Provider Encounter Details Date Type Department Care Team Description 01/10/2021 Travel [facility] [address] [place] [phone] Social History Tobacco Use Types Packs/Day [...] on filedocumented in this encounter Care Teams Sales And Support Center Agent Relationship Specialty Start Date End Date Emilia Goyal, PCP - General Family Nurse Practitioner [address] [place] [address], [place] [phone] documented as of this encounter
--- OUTSIDE RECORDS SUMMARY | 2021-11-22 06:00 | External Medical Summary | Encounter Summary ---
:1955 Author Organization [facility] [place] [address] Care Team Providers Name Role Phone Louis Goyal Primary Care Provider Reason for Visit Reason Onset Date Comments Care Coordination 05/27/2020 Encounter Details Date Type Department Care Team Description 05/27/2020 Telephone Bridget Newton C are Coordination RADIOSURGERY [facility] [address] [place] [address] [address] [place] [address] (Wo rk) Social History Tobacco Use Types Packs/Day Years Used Date Never Smoker Cigarettes Smokeless Tobacco: Never Used Alcohol Use Standard Drinks/Week Comments Yes 0 (1 standard drink = 0.6 oz pure alcoho l) rare Sex Assigned at Date Recorded Not on file documented as of this encounter Miscellaneous Notes Telephone Encounter - YECENIA Martin - 05/27/2020 8:20 AM PST [facility] [address] [place] [address] PHONE NOTE Flavia Michelle is a 64-year-old woman, right hand dominant, with a long time history of essential tremor who is interested in Gamma Knife SRS for treatment. This is a pre-scheduling evaluation. She has had tremor since she is 16-year-old. At this time she is taking primidone 50-100mg twice a day. When she takes the higher doses of primidone she gets very sleepy and it is hard to go about her day. She shares in the 80s and 90s she took a beta julito for her blood pressure and did not notice any improvement in her tremor. She states that her primary care provider took her off of the beta julito due toconcerns related to her type 2 diabetes. She states that she has had improvement in her A1c and her provider has now diagnosed her with insulin resistance. Her PCP is trying to come up with another medication she could try but it will likely be a SUPERVISOR WATER SOFTENER SERVICE depressant. She hopes to avoid any additional medication. 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 She states that if she is careful she does well without assistive device. She has a cane to use as needed. I believe Flavia is a good potential candidate for our GK SRS treatment for essential tremor. I explained to her the logistics of treatment with the Gamma Knife. I explained that we treat 1 side at a time. I reviewed possible side effects which can include numbness and tingling of the hand or the corner of the mouth on the side treated, weakness, trouble with speech, and balance issues. I reported that this side effects can occur at about 8% of patients and half those patients have resolution of those symptoms over time. There is a 1% risk of severe neurological side effects that mimic a stroke. Often times the symptoms are not relieved with physical therapy or occupational therapy. I explained that on average results from the gamma knife for essential tremor can take approximately 2 to 3 months and in some cases 6 months or greater. I explained that we do not consider contralateral treatment until the patient is 18 months out from treatment to be sure that they are not experiencing any side effects from their first treatment. I explained that final approval from treatment will come from her consultation here with the neurosurgeon and radiation oncologist. Flavia verbalized understanding. FRANDY Orourke [facility] documented in this encounter Plan of Treatment Not on filedocumented as of this encounter Visit Diagnoses Not on filedocumented in this encounter Care Teams Astronomy Professor Relationship Specialty Start Date End Date Emilia Goyal, PCP - General Family Nurse Practitioner 5 YECENIA [address] [place] [address], [place] [phone] documented as of this encounter
--- OUTSIDE RECORDS SUMMARY | 2021-11-22 06:00 | External Medical Summary | Encounter Summary ---
:1955 Author Organization [facility] [place] [address] Care Team Providers Name Role Phone Louis Goyal Primary Care Provider Reason for Referral Diagnostic/Screening (Routine) - Closed Specialty Diagnoses / Procedures Referred By Contact Refer red To Contact Radiology Diagnoses Brain aneurysm [facility] [address] [place] [address] Referral ID Status Reason Start Date Expiration Date Visits Requ ested Visits Authorized [id number] Closed 07/11/2020 07/11/2021 1 1 Scheduling Instructions [facility] in [place], [place] [address] [place] [address] (phone) [phone] (fax) [phone] Encounter Details Date Type Department Care Team Description 07/11/2020 Orders Only Latoya Juan, Brain aneurysm (Primary RADIOSURGERY RN Dx) [address] [place] [address] Social History Tobacco Use Types Packs/Day [...] nonruptured documented in this encounter Care Teams Emergency Vehicle Operator Relationship Specialty Start Date End Date Emilia Goyal, PCP - General Family Nurse Practitioner 5 [facility] [address] [place] [address], [place] [phone] documented as of this encounter
--- OUTSIDE RECORDS SUMMARY | 2021-11-22 06:00 | External Medical Summary | Encounter Summary ---
:1955 Author Organization [facility] [place] [address] Care Team Providers Name Role Phone Unavailable Primary Care Provider Unavailable Encounter Details Date Type Department Care Team Description 06/11/2012 Orders Only Giovany Montana, CARDIOLOGY TRENT CURRY [address] [place] [address] [place] [address] [phone] (Wo rk) Social History Tobacco Use Types [...]
--- OUTSIDE RECORDS SUMMARY | 2021-11-22 06:00 | External Medical Summary | Encounter Summary ---
:1955 Author Organization [facility] [place] [address] Care Team Providers Name Role Phone Louis Goyal Primary Care Provider Reason for Visit Reason Comments Records Request Encounter Details Date Type Department Care Team Description 01/11/2015 Documentation Shaina Bird R ecords Request CARDIOLOGY [place] RN [address] [place] [address] Social History Tobacco Use Types [...] to Dr. Mccoy office at fax # [phone] documented in this encounter Plan of Treatment Not on filedocumented as of this encounter Visit Diagnoses Not on filedocumented in this encounter Care Teams Asset Administrator Relationship Specialty Start Date End Date Emilia Goyal, PCP - General Family Nurse Practitioner 5 YECENIA [address] [place] [address] documented as of this encounter
--- OUTSIDE RECORDS SUMMARY | 2021-11-22 06:00 | External Medical Summary | Encounter Summary ---
:1955 Author Organization [facility] [place] [address] Care Team Providers Name Role Phone Louis Goyal Primary Care Provider Reason for Referral Evaluate & Treat (Routine) - Closed Specialty Diagnoses / Procedures Referred By Contact Refer red To Contact Vascular Surgery Diagnoses Brain aneurysm Jc Miller MD [address] [place] [address] Referral ID Status Reason Start Date Expiration Date Visits V isits Requested Authorized [id number] Closed Specialty 07/26/2020 01/22/2021 1 1 Services Required Scheduling Instructions Referral to: Dr. Corey Dueñas [facility] [address] [place] [address], [place] [address] (phone) [phone] (fax) [phone] Encounter Details Date Type Department Care Team Description 07/26/2020 Orders Only Latoya Juan, Brain aneurysm (Primary RADIOSURGERY RN Dx) [address] [place] [address] Social History Tobacco Use Types Packs/Day [...] nonruptured documented in this encounter Care Teams Mortgage Loan Computation Clerk Relationship Specialty Start Date End Date Emilia Goyal, PCP - General Family Nurse Practitioner 5 [facility] [address] [place] [address], [place] [phone] documented as of this encounter
--- OUTSIDE RECORDS SUMMARY | 2021-11-22 06:00 | External Medical Summary | Encounter Summary ---
:1955 Author Organization [facility] [place] [address] Care Team Providers Name Role Phone Louis Goyal Primary Care Provider Reason for Referral Specialty Diagnoses / Procedures Referred By Contact Refer red To Contact Provider, [place] [address] Referral ID Status Reason Start Date Expiration Date Visits Requ ested Visits Authorized Encounter Details Date Type Department Care Team Description 08/17/2020 Hospital Encounter ROSALIO MOLINA [place] Provider, EXTERNAL IMAGING MD Nasrin [address] [place] [address] [address] [place] [address] [place] [address] Social History Tobacco Use Types Packs/Day Years [...] Name Priority Date/Time Associated Diagnosis Comme nts US GUIDED VASCULAR Routine 08/17/2020 12:00 AM Avril calixto for this ACCESS PST procedure are i n the results section. documented in this encounter Results US Guided Vascular Access (08/17/2020 12:00 AM PST) Specimen Narrative [facility] - 09/23/2020 3:38 PM PST External films for comparison only No results will be in the chart. Performing Organization Address City/State/ZIP Code Phon e Number [facility] documented in this encounter Visit Diagnoses Not on filedocumented in this encounter Care Teams Door To Door Sales Representative Relationship Specialty Start Date End Date Emilia Goyal, PCP - General Family Nurse Practitioner 5 [facility] PH[employer] [address] [place] [address], [place] [phone] documented as of this encounter
--- OUTSIDE RECORDS SUMMARY | 2021-11-22 06:00 | External Medical Summary | Encounter Summary ---
:1955 Author Organization [facility] [place] [address] Care Team Providers Name Role Phone Louis Goyal Primary Care Provider Reason for Referral Diagnostic/Screening (Routine) - Closed Specialty Diagnoses / Procedures Referred By Contact Refer red To Contact Radiology Diagnoses Benign essential tremor Jc Miller, ABDI ARMANDO GAY MD [address] [place] [address] [address] [place] [address] Referral ID Status Reason Start Date Expiration Date Visits Requ ested Visits Authorized [id number] Closed 05/31/2020 05/31/2021 1 1 Reason for Visit Auth/Cert Specialty Diagnoses / Procedures Referred By Contact Refer red To Contact Referral ID Status Reason Start Date Expiration Date Visits Requ ested Visits Authorized [id number] 1 1 Encounter Details Date Type Department Care Team Description 06/30/2020 Hospital Encounter Farzad Martin essential MRI evens [place] [address] [place], [place] [address] [address] [address] [place] [address] Social History Tobacco Use Types Packs/Day Years [...] WO Routine 06/30/2020 4:31 PM Benign essential Resul ts for this CONTRAST PST tremor procedure are [...] Ivania Hanna MD 2 16:53:23.0 Transcribed By: Candcae Will 2020-06-30 16:51:32.93 SITE ID: [id number] Referring Provider Line: [phone] Narrative [facility] - 06/30/2020 4:53 PM [...] 16:51:32.93 SITE ID: [id number] Referring Provider Line: [phone] Performing Organization Address City/State/ZIP Code Phon e Number [facility] documented in this encounter Visit Diagnoses Diagnosis Benign essential tremor Essential and other specified forms of t remor documented in this encounter Care Teams Tape Stringer Relationship Specialty Start Date End Date Emilia Goyal, PCP - General Family Nurse Practitioner 5 GORE MA[employer] [address] [place] [address], [place] [phone] documented as of this encounter
--- OUTSIDE RECORDS SUMMARY | 2021-11-22 06:00 | External Medical Summary | Encounter Summary ---
:1955 Author Organization [facility] [place] [address] Care Team Providers Name Role Phone Louis Goyal Primary Care Provider Reason for Referral Diagnostic/Screening (Routine) - Closed Specialty Diagnoses / Procedures Referred By Contact Refer red To Contact Radiology Diagnoses Benign essential tremor Jc Miller, Mary Ellen Ct [address] [place] [address] [address] [place] [address] Referral ID Status Reason Start Date Expiration Date Visits Requ ested Visits Authorized [id number] Closed 05/31/2020 05/31/2021 1 1 Reason for Visit Auth/Cert Specialty Diagnoses / Procedures Referred By Contact Refer red To Contact Referral ID Status Reason Start Date Expiration Date Visits Requ ested Visits Authorized [id number] 1 1 Encounter Details Date Type Department Care Team Description 07/01/2020 Hospital Encounter Farzad Martin essential CT evens Greene [address] [place], [place] [address] [address] [address] [place] [address] Social History Tobacco Use Types Packs/Day Years [...] Treatment Plan Complex (07/01/2020 8:55 AM PST) Specimen Narrative [facility] - 07/01/2020 8:55 AM PST This exam has been auto-finalized and the interpretation may exist elsewhere in the chart. Performing Organization Address City/State/ZIP Code Phon e Number [facility] documented in this encounter Visit Diagnoses Diagnosis Benign essential tremor Essential and other specified forms of t remor documented in this encounter Care Teams Compensator Relationship Specialty Start Date End Date Emilia Goyal, PCP - General Family Nurse Practitioner [address] [place] [address] documented as of this encounter
--- OUTSIDE RECORDS SUMMARY | 2021-11-22 06:00 | External Medical Summary | Encounter Summary ---
:1955 Author Organization [facility] [place] [address] Care Team Providers Name Role Phone Louis Goyal Primary Care Provider Reason for Visit Reason Comments Pre-op Exam referred by Dr Yen, neck nuñez rgery C4-C7 Evaluate & Treat (Routine) - Closed Specialty Diagnoses / Procedures Referred By Contact Refer red To Contact Cardiology Diagnoses Pre-operative clearance Sherwin Mccoy MD Whisenant, Giovany Osborn MD [address] [place] [address] [place] [address] Jaye Pierre, LOIS Phone: [phone] Referral ID Status Reason Start Date Expiration Date Visits Requ ested Visits Authorized [id number] Closed 12/21/2014 12/22/2015 4 4 Encounter Details Date Type Department Care Team Description 12/27/2014 Office Visit SAVAGE Roman, Essential hypertension, benign (Primary Dx); CARDIOLOGY TRENT Osborn MD Pre-operative cardiovascular examination [address] [place] [address] [place], [place] [phone] Social History Tobacco Use Types Packs/Day Years [...] Neck surgery 01/17-01/18/2015 Dr Sherwin Mccoy at [place], [place] Her family history includes Heart attack [...] made to ensure accuracy; however, inadvertent computerized special education associate errors may be present usually takingthe form of 'sound alike' substitutions or incorrect pronouns. Please contact me if there is confusion or concern about the above special education associate. Signed by: Giovany Roman MD, FACC 12/27/2014, [...] - PB Routine 12/27/2014 1:59 PM Essential Resul ts for this PDT hypertension, benign procedu re [...] examination documented in this encounter Care Teams Freelance Photographer Relationship Specialty Start Date End Date Emilia Goyal, PCP - General Family Nurse Practitioner [address] [place] [address] documented as of this encounter
--- OUTSIDE RECORDS SUMMARY | 2021-11-22 06:00 | External Medical Summary | Encounter Summary ---
:1955 Author Organization [facility] [place] [address] Care Team Providers Name Role Phone Jay Jay Louis KEENE Primary Care Provider Reason for Referral Diagnostic/Screening (Routine) Specialty Diagnoses / Procedures Referred By Contact Refer red To Contact Radiology Provider, [place] [address] Referral ID Status Reason Start Date Expiration Date Visits Requ ested Visits Authorized Encounter Details Date Type Department Care Team Description 07/18/2020 Hospital Encounter ROSALIO MOLINA [place] Provider, EXTERNAL IMAGING MD Nasrin [address] [place] [address] [place] [address] Social History Tobacco Use Types Packs/Day Years [...] w wo Contrast (07/18/2020 12:00 AM PST) Specimen Narrative [facility] - 09/23/2020 3:40 PM PST External films for comparison only No results will be in the chart. Performing Organization Address City/State/ZIP Code Phon e Number [facility] documented in this encounter Visit Diagnoses Not on filedocumented in this encounter Care Teams [employer] Police Lieutenant Relationship Specialty Start Date End Date Emilia Goyal, PCP - General Family Nurse Practitioner 5 [facility] [address] [place] [address] documented as of this encounter
--- OUTSIDE RECORDS SUMMARY | 2021-11-22 06:00 | External Medical Summary | Encounter Summary ---
:1955 Author Organization [facility] [place] [address] Care Team Providers Name Role Phone Louis Goyal Primary Care Provider Reason for Referral Diagnostic/Screening (Routine) - Closed Specialty Diagnoses / Procedures Referred By Contact Refer red To Contact Radiology Diagnoses Benign essential tremor Jc Miller SCH CHERRY HILL MD [address] [place] [address] [address] [place] [address] Referral ID Status Reason Start Date Expiration Date Visits Requ ested Visits Authorized [id number] Closed 05/31/2020 05/31/2021 1 1 Diagnostic/Screening (Routine) - Closed Specialty Diagnoses / Procedures Referred By Contact Refer red To Contact Radiology Diagnoses Benign essential tremor Jc Miller Sch Ct MD [address] [place] [address] [address] [place] [address] Referral ID Status Reason Start Date Expiration Date Visits Requ ested Visits Authorized [id number] Closed 05/31/2020 05/31/2021 1 1 Encounter Details Date Type Department Care Team Description 05/31/2020 Orders Only ROSALIO [place]IN[place]ARY [place], Benign e ssential tremor RADIOSURGERY MD Jc (Primary Dx) [address] [place] [address] [address] [place] [address] Social History Tobacco Use Types Packs/Day Years [...] Complex (07/01/2020 8:55 AM PST) Specimen Narrative [facility] - 07/01/2020 8:55 AM PST This exam has been auto-finalized and the interpretation may exist elsewhere in the chart. Performing Organization Address City/State/ZIP Code Phon e Number [facility] MRI Brain wo Contrast (06/30/2020 4:31 PM PST) Anatomical Region Laterality Modality Head Magnetic Resonance Specimen Impressions [facility] - 06/30/2020 4:53 PM [...] 16:51:32.93 SITE ID: [id number] Referring Provider Line: [phone] Narrative [facility] - 06/30/2020 4:53 PM [...] 16:51:32.93 SITE ID: [id number] Referring Provider Line: [phone] Performing Organization Address City/State/ZIP Code Phon e Number [facility] documented in this encounter Visit Diagnoses Diagnosis Benign essential tremor - Primary Essential and other specified forms of t remor Benign essential tremor Essential and other specified forms of t remor Benign essential tremor Essential and other specified forms of t remor documented in this encounter Care Teams Environmental Research Project Manager Relationship Specialty Start Date End Date Emilia Goyal, PCP - General Family Nurse Practitioner 5 DATA ENTRY TECHNICIAN [address] [place] [address], [place] [phone] documented as of this encounter
--- OUTSIDE RECORDS SUMMARY | 2021-11-22 06:00 | External Medical Summary | Encounter Summary ---
:1955 Author Organization [facility] [place] [address] Care Team Providers Name Role Phone Jay Jay Louis KEENE Primary Care Provider Reason for Referral Diagnostic/Screening (Routine) Specialty Diagnoses / Procedures Referred By Contact Refer red To Contact Radiology Provider, [place] [address] Referral ID Status Reason Start Date Expiration Date Visits Requ ested Visits Authorized Encounter Details Date Type Department Care Team Description 08/17/2020 Hospital Encounter ROSALIO MOLINA [place] Provider, EXTERNAL IMAGING MD Nasrin [address] [place] [address] [address] [place] [address] [place] [address] Social History Tobacco Use Types Packs/Day Years [...] Common Intracranial Bilat (08/17/2020 12:05 AM PST) Specimen Narrative [facility] - 09/23/2020 3:48 PM PST External films for comparison only No results will be in the chart. Performing Organization Address City/State/ZIP Code Phon e Number [facility] documented in this encounter Visit Diagnoses Not on filedocumented in this encounter Care Teams Pantograph Transferrer Relationship Specialty Start Date End Date Emilia Goyal PCP - General Family Nurse Practitioner 5 [employer] [address] [place] [address], [place] [phone] documented as of this encounter
--- OUTSIDE RECORDS SUMMARY | 2021-11-22 06:00 | External Medical Summary | Encounter Summary ---
:1955 Author Organization [facility] [place] [address] Care Team Providers Name Role Phone Louis Goyal Primary Care Provider Reason for Visit Reason Comments Radiation Oncology Appointment Auth/Cert Specialty Diagnoses / Procedures Referred By Contact Refer red To Contact Referral ID Status Reason Start Date Expiration Date Visits Requ ested Visits Authorized [id number] 1 1 Encounter Details Date Type Department Care Team Description 07/01/2020 Hospital Encounter Farzad Martin essential RADIOSURGERY evens [place] (Primary Dx) [address] [place], [place] [address] [address] [address] [place] [address] Social History Tobacco Use Types Packs/Day Years [...] for alarm. However, if bleeding persists, apply pressure with a cloth for 15 minutes until it stops. If the bleeding does not stop after 15 minutes, please goto your local ER department for a stitch. [...] or concerns, please contact your physician at [facility] at [phone]. YECENIA Suarez will call you at 10 [...] sedation prior to beginning the procedure. The [employer] stereotactic frame was attached to the patient's head using local anesthesia for the pin fixation sites. A localizing CT scan was then obtained, and the CT data, as well as previously obtained MRI data, were entered into the [employer] dose planning computer system for the [employer] Gamma Knife. A treatment plan was developed and approved by myself, radiation oncologist Winter Miller MD., and radiation physicists Raimundo Segundo. The intent of the procedure [...] gamma angle, collimator and exposure time were allset and confirmed and the treatment was delivered [...] simulation and planning were performed on the [employer] GammaPlan System, employing multiple images and isodosecalculations. The size and location of the treatment volume, as well as the projected radiobiologic risk to the adjacent critical structures was evaluated by the neurosurgeon, radiation oncologist, andmedical physicist. Jointly, we determined the appropriate treatment, isodose, [...] next step in evaluation and then followup with Dr. Loera. Lalita Christianson RN - 07/01/2020 6:30 [...] appeared to sleep during treatment. Frame removed and patient discharged with after all questions answered. Vascular [...] Bag 07/01/2020 8:15 AM 1.5 mEq 180 m L/hr Other (Comment) mEq/mL injection 1.5 PST mEq 1.5 mEq (3 mL), Subcutaneous, Administer over 1 Minutes, ONCE, On Sat07/01/20 at 0800, For 1 dose documented in this encounter Care Teams Software Test Technician Relationship Specialty Start Date End Date Emilia Goyal, PCP - General Family Nurse Practitioner 5 [facility] [address] [place] [address], [place] [phone] documented as of this encounter
--- OUTSIDE RECORDS SUMMARY | 2021-11-22 06:00 | External Medical Summary | Encounter Summary ---
:1955 Author Organization [facility] [facility] [place] [address] Care Team Providers Name Role Phone Louis Goyal Primary Care Provider Reason for Visit Reason Comments Follow-up Auth/Cert Specialty Diagnoses / Procedures Referred By Contact Refer red To Contact Referral ID Status Reason Start Date Expiration Date Visits Requ ested Visits Authorized [id number] 1 1 Encounter Details Date Type Department Care Team Description 07/08/2020 Hospital Encounter [facility]MAN[facility] Link Jimenez MD [address] [place] [phone] Benign essential RADIOSURGERY Bridget Carr ARNP [address] [place] [address] tremor (Primary Dx) [address] [place] [phone] Social History Tobacco Use Types Packs/Day Years [...] Carr, YECENIA - 07/08/2020 10:00 AM PST [facility] [address] [place] [address] PHONE NOTE IDENTIFICATION/CHIEF COMPLAINT: Flavia Michelle is [...] I reviewed the follow-up plan of mailed questionnairesat 6 months, 1 year, 2 year, and 3 year. I also told her we would like for her to get an MRA which can be done at a facility close to her home town. She suggests a hospital nearby in [place]. I will relay this information to Latoya and she should be contacted soon to set up the appointment. All questions and concerns from Flavia were answered and she verbalized understanding. FRANDY Orourke [facility] This dictation was partly generated [...] remor documented in this encounter Care Teams Euclid Operator Relationship Specialty Start Date End Date Emilia Goyal, PCP - General Family Nurse Practitioner 5 [facility] [address] [place] [address], [place] [phone] documented as of this encounter
--- OUTSIDE RECORDS SUMMARY | 2021-11-22 06:00 | External Medical Summary | Encounter Summary ---
:1955 Author Organization [employer] [facility] [place] [address] Care Team Providers Name Role Phone Louis Goyal Primary Care Provider Reason for Visit Auth/Cert Specialty Diagnoses / Procedures Referred By Contact Refer red To Contact Referral ID Status Reason Start Date Expiration Date Visits Requ ested Visits Authorized [id number] 1 1 Encounter Details Date Type Department Care Team Description 07/01/2020 Hospital Encounter ROSALIO Miller, RADIOSURGERY MD Jc [address] [place] [address] [address] [place] [address] Social History Tobacco Use Types [...] on filedocumented in this encounter Care Teams Cableman Relationship Specialty Start Date End Date Emilia Goyal, PCP - General Family Nurse Practitioner 5 LANGUAGE PATHOLOG[employer] [address] [place] [address], [place] [phone] documented as of this encounter
--- OUTSIDE RECORDS SUMMARY | 2021-11-22 06:00 | External Medical Summary | Encounter Summary ---
:1955 Author Organization [email or web address] [facility] [place] [address] Care Team Providers Name Role Phone Louis Goyal Primary Care Provider Reason for Visit Reason Onset Date Comments Care Coordination 06/14/2020 Encounter Details Date Type Department Care Team Description 06/14/2020 Telephone STATELESS Latoya Arce RN Car e Coordination RADIOSURGERY [address] [place] [phone] Social History Tobacco Use Types Packs/Day [...] clinic. Patient verbalized understanding. Faxed received from [facility] and date of collection was on 05/31/20. [...] on filedocumented in this encounter Care Teams Ware Cleaner Relationship Specialty Start Date End Date Emilia Goyal, PCP - General Family Nurse Practitioner 5 [facility] [address] [place] [address], [place] [phone] documented as of this encounter
--- OUTSIDE RECORDS SUMMARY | 2021-11-22 06:00 | External Medical Summary | Encounter Summary ---
:1955 Author Organization [employer] [facility] [place] [address] Care Team Providers Name Role Phone Louis Goyal Primary Care Provider Reason for Visit Auth/Cert Specialty Diagnoses / Procedures Referred By Contact Refer red To Contact Referral ID Status Reason Start Date Expiration Date Visits Requ ested Visits Authorized [id number] 1 1 Encounter Details Date Type Department Care Team Description 06/30/2020 Hospital Encounter ROSALIO Miller, RADIOSURGERY MD Jc [address] [place] [address] [address] [place], [place] [address] Social History Tobacco Use Types [...] has gradually progressed, but in more recent years become even more severe. She has been on primidone, beta blockers, and other medications, though the tremor has progressed and is quite severe despite efforts with these medications. She has severe fatigue with higher doses ofprimidone. She has difficulty with all aspects of [...] 25 mcg by mouth every morning (before breakfast).,Disp: , Rfl: lisinopril (PRINIVIL,ZESTRIL) 40 MG tablet, [...] mouth 2 times daily (before meals)., Disp: ,Rfl: potassium chloride SA (K-DUR,KLOR-CON) 10 MEQ tablet, [...] and dated today's intake form with the completereview of systems. EXAM General: Alert, pleasant, oriented [...] speech, which is similar to the symptom of astroke. We discussed that the benefit of treatment is typically not realized for 2-3 months following treatment and that side effects typically occur 6 to 12 months following treatment. We discussed the fact that treatment will benefit the side of the body opposite that of the targetedbrain area (for example, left side of brain treated to help tremor in the right hand). We discussed the fact that following a good result of [...] on filedocumented in this encounter Care Teams Stem Cleaning Machine Feeder Relationship Specialty Start Date End Date Emilia Goyal, PCP - General Family Nurse Practitioner 5 [facility] [address] [place] [address], [place] [phone] documented as of this encounter
--- OUTSIDE RECORDS SUMMARY | 2021-11-22 06:00 | External Medical Summary | Encounter Summary ---
:1955 Author Organization [facility] [place] [address] Care Team Providers Name Role Phone Louis Goyal Primary Care Provider Encounter Details Date Type Department Care Team Description 01/09/2021 Travel [facility] [place] [phone] Social History Tobacco Use Types Packs/Day [...] on filedocumented in this encounter Care Teams Supervisor Electronic Coils Relationship Specialty Start Date End Date Emilia Goyal, PCP - General Family Nurse Practitioner 5 YECENIA [address] [place] [address], [place] [phone] documented as of this encounter
--- OUTSIDE RECORDS SUMMARY | 2021-11-22 06:00 | External Medical Summary | Encounter Summary ---
:1955 Author Organization [email or web address] [facility] [place] [address] Care Team Providers Name Role Phone Louis Goyal Primary Care Provider Reason for Visit Reason Comments Radiation Oncology Appointment Auth/Cert Specialty Diagnoses / Procedures Referred By Contact Refer red To Contact Referral ID Status Reason Start Date Expiration Date Visits Requ ested Visits Authorized [id number] 1 1 Encounter Details Date Type Department Care Team Description 06/30/2020 Hospital Encounter Link Francois, RADIOSURGERY [address] [place] [address] [address] [place] [phone] (Wo rk) Social History Tobacco Use Types [...] documented in this encounter Discharge Instructions Patient InstructionsLtaoya Clemente, SHANE - 06/30/2020 9:30 AM PST Please arrive tomorrow morning at 6:30 am at [facility]. After you have registered come directly down to our clinic ([facility] [address]). Thank you! Gamma [...] (pulse oximetry). These devices will monitor your bloodpressure, breathing, and heart rate during the procedure. [...] have to lie quietly for approximately two more hours. Some patients experience a mild headache or minor swelling where the head frame was attached, but most report no problems. Some patients have [...] nurse. You will want to rest when you get home. At discharge you should have a [...] Loera MD - 06/30/2020 1:54 PM PST [facility] RADIOSURGERY [address] [place] [address] Office Note LINK LOERA MD Patient: FLAVIA ELIAS MR #: [id number] LOC: [facility] TYPE: Adm Date: 06/30/2020 : 1955 Neurosurgery [...] when preparing food. 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 FAMILY HISTORY: Her mother at 64 of [...] touch throughout. Coordination testing: No dysmetria with jamfea-bo-qfow testing. Gait normal. She is able to stand from a seated position with her arms crossed in front of her without difficulty. IMPRESSION: Medically refractory essential tremor. TREATMENT OPTIONS: 1. No further treatment: It is likely that without further treatment Ms. Gnozalezs tremor will continue to worsen over time [...] scheduled to be performed here at the [facility] tomorrow, 07/01/2020. LINK LOERA MD Dictated by: LINK LOERA MD 06/30/2020 14:54 Transcribed on: 06/30/2020 15:55 by [facility] job#: [id number] CC:YECENIA AMOR MD Lisbeth Clemente RN - 06/30/2020 9:30 AM PST [facility] New Consult Progress Note Patient Name: Flavia Elias Date: 06/30/2020 Attending Provider: Dr. Jc Miller & Dr. Link Loera Age: 64 y.o. Diagnosis: Essential Tremor (right hand dominant) Situation[facility] brain. [...] understanding of the treatment plan. A certified theatre professor was not needed for this visit. Time spent: 20 minutes Latoya Clemente RN 10:03 AM PST; 06/30/2020 documented in this encounter Plan of Treatment Not on filedocumented as of this encounter Visit Diagnoses Not on filedocumented in this encounter Care Teams Visually Impaired Teacher Relationship Specialty Start Date End Date Emilia Goyal, PCP - General Family Nurse Practitioner 5 AGR[employer] EQUIPMENT SALES MANAGER [address] [place] [address], [place] [phone] documented as of this encounter
--- OUTSIDE RECORDS SUMMARY | 2021-11-22 06:00 | External Medical Summary | Encounter Summary ---
:1955 Author Organization [facility] [facility] [place] [address] Care Team Providers Name Role Phone Unavailable Primary Care Provider Unavailable Encounter Details Date Type Department Care Team Description 05/09/2013 Abstract [place] Default Clinic Conversion DATA MIGRATI ON RANGEL SR Location [address] [phone] Social History Tobacco Use Types Packs/Day Years Used Date Never Assessed Sex Assigned at Date Recorded Not on file documented as of this encounter Last Filed Vital Signs Vital Sign Reading Time Taken Comments Blood Pressure 126/66 08/08/2012 12:00 AM PST Pulse - - Temperature - - Respiratory Rate - - Oxygen Saturation - - Inhaled Oxygen Concentration - - Weight 80.3 kg (177 lb) 08/08/2012 12:00 AM PST Height 156.2 cm (5' 1.5") 08/08/2012 12:00 AM PST Body Mass Index 32.9 08/08/2012 12:00 AM PST documented in this encounter Plan of Treatment Not on filedocumented as of this encounter Visit Diagnoses Not on filedocumented in this encounter
--- OUTSIDE RECORDS SUMMARY | 2021-11-22 06:02 | External Medical Summary | Continuity of Care Document ---
:1955 Author Organization [facility] Address [address] [place] [address] Phone Care Team Providers Name Role Phone Tasha Donovan MD Unavailable Unavailable Procedures Procedure Date Subsqt Hosp Day EM Subsqt Hosp Day EM Subsqt Hosp Day EM Subsqt Hosp Day EM Subsqt Hosp Day EM Hosp/Sub Care L3 Hosp/Initial Care L3 Advance Directives Directive Yes / No Effective Date File Name No Information Encounters Encounter Practice Location Reason(s) Diagnoses Date Provider Provide rs Description For Visit Copied on Encounter [facility] [place] [facility] Other complications Partha te Referring Day EM ENT Family of gastrostomy a. PO Provider : [facility], [facility] [address], [address] [address] [place], [address] [place], [address] [address], [id number], [address] [place], [place], . [place], [id number] tel:[phone] [place], , [place] [id number]. tel: tel:[phone] [facility] [place] [facility] Fever, Juviler Referring Day EM ENT Family unspecifiedRespirat Jerardo. PO Pro vider: Clinic, Hospital ory failure, unsp, [address], [address] unsp w hypoxia or [place], [place] [facility], hypercapniaPneumoni [place], [address], a, unspecified [id number], [address], [place], organism [place]. [place], [id number] tel:+[phone] [place], , [place] [id number]. tel: tel:+ [phone] [facility] [place] [facility] No Information Don- Juviler Refer ring Day EM ENT Family Jerardo. PO Provider: [place] [address] [address], [facility] [place], [address], [place], [address] [address], [id number], [address], [place], [place], [id number] tel:+[phone] [place], , [place] [id number]. tel: tel:+ [phone] [facility] [place] [facility] Postprocedural Don- Juviler Refer ring Day EM ENT Family fever Jerardo. PO Provider: [place] [address] [address], [facility] [address], [address] [address], [id number], [address], [place], [place], [id number] tel:+[phone] [place], , [place] [id number]. tel: tel: [phone] [facility] [place] [facility] Postprocedural Dec- Juviler Refer ring Day EM ENT Family fever Jerardo. PO Provider: [place] [address] [address], [facility] [place], [address], [place], [address] [address], [id number], [address], [place], [place], [id number] tel:+[phone] [place], , [place] [id number]. tel: tel:+ [phone] Hosp/Sub [place] [facility] Postprocedural Don-2 Juviler Referrin g Care L3 ENT Family fever Jerardo. PO Provider: [place] [address] [address], [facility] [place], [address], [place], [address] [address], [id number], [address], , [place]. [place], [id number] tel:+[phone] [place], , [place] [id number]. tel: tel: [phone] Hosp/Initial [place] [facility] Dvtrcli of lg int w Don-2 Juviler Referring Care L3 ENT Family perforation and 0-202 Jerardo. PO Provide r: Clinic, Hospital abscess w/o [address], [address] bleedingOther [place], [place], [address], [place], [address] [address], gastrostomyRespirat [id number], [address], [place], ory failure, unsp, [place]. [place], [id number] unsp w hypoxia or tel:+[phone] [place], , [place] hypercapnia [id number]. tel: tel: [phone] Family History Family Member Type Diagnosis Age At Onset No Information Payers Payer name Insurance type Covered green party ID Authorization(s ) Viviana PEÑA [id number] [employer] Blue Card CI [id number] Social History Type Description Quantity Date Captured Comments Sex Female Smoking Status No Information Chief Complaint And Reason For Visit No Information Plan Of Treatment Date Type Action Status No Information History Of Present Illness Encounter Date Complaint History Of Present I llness No Information Instructions Date Instruction Additional Informati on No Information Assessments Type Assessment Date No Information
--- OUTSIDE RECORDS SUMMARY | 2021-11-22 06:02 | External Medical Summary | Continuity of Care Document ---
:1955 Author Organization [facility] Address [address] [place] [id number] Phone Care Team Providers Name Role Phone Laurie OD Unavailable Unavailable Allergies, Adverse Reactions, Alerts Substance Reaction Status Criticality clarithromycin Unknown Active No Information CODEINE PHOSPHATE Active No Information acetaminophen Active No Information sulfanilamide Active No Information Medications Medication Instructions Dosage Effective Status Comments Dates (start - stop) UCERIS (unknown Not - Active strength) Available BUPROPION HCL (unknown Not - Active strength) Available CELECOXIB (unknown Not - Active strength) Available CITALOPRAM HBR Not - Active (unknown strength) Available FLUCONAZOLE (unknown Not - Active strength) Available HYDROCHLOROTHIAZIDE Not - Active (unknown strength) Available HYDROCODONE-ACETAMINOP Not - Active HEN (unknown strength) Available TIROSINT (unknown Not - Active strength) Available LISINOPRIL (unknown Not - Active strength) Available METHOCARBAMOL (unknown Not - Active strength) Available PANTOPRAZOLE SODIUM Not - Active (unknown strength) Available ofloxacin 0.3 % eye (2nd Eye) No Longer Allo w a new drops Instill one - Active prescription drop to left for the vy e eye four times medication (s) a day, for one for a surg ical week. Begin procedure on drops the day the second eye of surgery. if within 30 days of the first eye. May substitute Tobramycin 5mL if ofloxacin i s unavailable prednisolone acetate 1 (2nd Eye) No Longer A llow a new % eye drops,suspension Instill one - Active p rescription drop to left for the vy e eye four times medication (s) a day, until for a surgic al gone. Begin procedure on drops the day the second eye of surgery. if within 30 days of the first eye. Ok to substitute dexamethasone 0.1% or Durezo l 0.05%, QID until out. prednisolone acetate 1 (1st Eye) No Longer A llow a new % eye drops,suspension Instill one - Active p rescription drop to right for the sa me eye four times medication (s) a day, until for a surgic al gone. Begin procedure on drops the day the second eye of surgery. if within 30 days of the first eye. Ok to substitute dexamethasone 0.1% or Durezo l 0.05%, QID until out. Procedures Procedure Date CATARACT SURG W/IOL, 1 STAGE POSTOP FOLLOW UP VISIT DURING POSTOP FOLLOW UP VISIT DURING ANESTH, LENS SURGERY FACILITY FEE 88653 OPHTHALMIC BIOMETRY CATARACT SURG W/IOL, 1 STAGE POSTOP FOLLOW UP VISIT DURING POSTOP FOLLOW UP VISIT DURING ANESTH, LENS SURGERY FACILITY FEE 42205 OPHTHALMIC BIOMETRY CATARACT SURG W/IOL, 1 STAGE OFFICE/OUTPATIENT VISIT, NEW Advance Directives Directive Yes / No Effective Date File Name No Information Encounters Encounter Practice Location Reason(s) Diagnoses Date Provider Provide rs Description For Visit Copied on Encounter [facility] Combined forms of Laurie Referr ing Cataract ANGELINE age-related [address]. Provider : [facility] cataract, left [address] [facility] eyePresence of [address], Krisy S , , [address] intraocular lens Angeline, [address] [place], [id number], Tim [place], [place]. Samuel Sauceda, tel: BENITA Valadez, [id number] BENITA, [id number] , [place] . tel: tel:[phone] [facility] Combined forms of Don-1 [place] Referr ing Cataract NEOPIT age-related 3 [address]. Provider : [facility] cataract, left [address] Mitesh conley, [place] [facility], [address] , [address] intraocular lens [address], [address] [place], [place], [id number], [place], [place], [address]. [place], tel: tel: [place], [phone] , [place] tel: [phone] [facility] Combined forms of Don-0 [place] Refer ring Cataract NEOPIT age-related Cassius. Provider: [facility] cataract, left 8 [address] Mitesh conley, [place] [facility], [address] , [address] intraocular lens [address], [address], [place], [place], [id number], [place], [address]. [place], . tel: [place], tel: [phone] , [place] tel: [phone] [facility] Combined forms of Don-0 Patel Re ferring Cataract PCLI [facility] age-related Arlissa. Provider: And Laser cataract, left eye [address] Nguyen, [place] [address], [address] LOIS Orozco, [facility] [address]. [place], [place], [address]. [place], [address] tel: [place], [phone] , [place] tel:[phone] [facility] Combined forms of Don-0 PCLI Refer ring Cataract PCLI [facility] age-related [place] Provider: And Laser cataract, left eye [address] ASC[address] [facility] [address], [address] , [address] [facility] Fatoudony JOY, [place], [id number], [place], [address]. [place], [place]. tel: [place], tel: [phone] , [place] tel: [phone] [facility] Combined forms of Don-0 Seery Referr ing Cataract NEOPIT age-related Nadira. 6695 Provid er: [facility] cataract, left eye [address] [facility] [address], Seery S, , [address], [address] [place], [facility] [address], [id number], Ave, [place], [place]. [place], tel: [place], [phone] , [place] . tel: tel: [phone] [facility] Combined forms of Don-0 Seery Refer ring Cataract PCLI ASC age-related Nadira. 6695 Provid er: And Laser cataract, left eye [address] Galen Nguyen, [facility], [address], [place], [facility], [place], Ave, [id number], [place], [address]. [place], [place]. tel: [place], tel: [phone] , [place] tel: [phone] [facility] Combined forms of [place] Refer ring Cataract NEOPIT age-related 0 Cassius. Provider: [facility] cataract, right 8 [address] [facility], [address] intraocular lens [place], [address], [place], [place], Ave, [id number], [place], [address]. [place], [place]. tel: [place], tel: [phone] , [place] tel:[phone] [facility] Combined forms of November- [place] Refer ring Cataract NEOPIT age-related Cassius. Provider: [facility] cataract, right 8 [address] [facility], [address] intraocular lens [address], [address], [place], [place], Ave, [id number], [place], [address]. [place], [place]. tel: [place], tel: [phone] , tel: [phone] [facility] Combined forms of Hermila Refer ring Cataract PCLI [facility] age-related Hiram. [address] Provid er: And Laser cataract, right eye [address] [place] [facility] [address], [address] Baker, [place], [place], [id number], [place], [address]. [place], . tel: [place], tel: [phone] , [place] tel: [phone] [facility] Combined forms of PCLI Refer ring Cataract PCLI [facility] age-related [place] Provider: And Laser cataract, right eye 8 ASC. [address] PREETHI X Mitesh [facility] 1506, [address] [place], [place], [id number], [place], [address]. [place], . tel: [place], tel: [phone] , [place] tel: [phone] [facility] Combined forms of Nicolle Juan Miguel. Re ferring Cataract NEOPIT age-related [address] Provider: [facility] cataract, right eye 8 Juan Miguel Sharif [facility], W, [address] , [address] [place] [id number], [place], [place]. Samuel [place], tel: [place], [place], [phone] . , [place] tel: tel: [phone] [facility] Combined forms of Nicolle Juan Miguel. R eferring Cataract PCLI [facility] age-related [address] Provider: And Laser cataract, right eye 8 M[facility], [address] , [address] JOY [place] [id number], [place], [address]. [place], tel: tel: [place], [phone] , [place] tel: [phone] OFFICE/OUTPA [facility] blurry Combined forms of [place] Referring TIENT VISIT, Cataract NEOPIT vision age-related Cassius. Provi lorene: NEW [facility] (chief cataract, [address] Mitesh Patrick, [place] complaint) bilateralRegular St, [address] , [address] astigmatism, [place], Street, [place] bilateralType 2 [place], [place], Ave, diabetes mellitus [id number], [place], [address]. [place], without [place]. tel: [place], complicationsNexdtv tel: [phone] e age-related mclr [id number] , [place] degn, right eye, tel: early dry stage [phone] Family History Family Member Type Diagnosis Age At Onset Father Problem (finding) Family history of cataract Mother Problem (finding) Family history of cataract Mother Problem (finding) Cardiovascular disease Mother Problem (finding) Family history of degenerative disorder of macula Payers Payer name Insurance type Covered constitution party ID Authorization(s ) [facility] [id number] Social History Type Description Quantity Date Captured Comments Sex Female Smoking Status No Information Chief Complaint And Reason For Visit No Information Reason For Referral Reason For Referral No Information Plan Of Treatment Date Type Action Status Patient Education ofloxacin 0.3 % eye drops comp leted Patient Education prednisolone acetate 1 % eye d rops,nuñez~ completed History Of Present Illness Encounter Date Complaint History Of Present I llness blurry vision The patient notes bl urry vision in the OD>OS for the past 5 month(s). The onset was gradual and the symptom is constant. It affe cts near and distance vision and the condition is associa janette with daily activity and chores. The severity of the issue is worsening. The condition is described as blurry vision. The patient states glasses don't help. Other si gns and symptoms associated with the complaint include gl are. Functional Status Date Functional Assessment No Information Instructions Date Instruction Additional Informati on - Discussed cataracts with patient. 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 Reviewed risks, benefits, alternatives of surgery. Discussed the possibility of glare, streaks, arcs and halos. Reviewed the need for Rx at distance and near postoperatively, as well as refractive endpoint. Refractive target reviewed with patient. Discussed pros and cons of emmetropia vs. myopic endpoint in detail. Discussed with either option, no guarantee of spectacle independence at distance or near. Patient elects standard lens with -2.50 target OU. Patient defers specialty IOL. Option of CE IOL OU, OD first. Patient wishes to proceed with surgery.PCLI to follow up. - Discussed refractive outcomes Related to Regular astigmatism, with specialty IOL options with giovanna stahl patient. Patient declines specialty IOLs and wishes to proceed w/ standard IOL. Stressed Rx will be needed at distance, intermediate and near for best post op visual acuity. 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 Discussed ocular and withou t complications systemic benefits of blood sugar control. Maintain good blood sugar control with PCP. Recommend routine annual eye exams with eye care provider.Dr. Nguyen to monitor. - Macular degeneration dry type, Relate d to Nexdtve age-related mclr with stable vision. Call immediately deg n, right eye, early dry stage with vision changes. Recommended AREDS formula eye vitamins and antioxidant diet. Monitor closely with routine/referring eye care provider (Dr. Nguyen). Assessments Type Assessment Date No Information Patient Care Teams Name Effective Dates (start - stop) Status M embers No Information
--- OUTSIDE RECORDS SUMMARY | 2021-11-22 06:03 | External Medical Summary ---
:1955 Author Care Team Providers Name Role Phone DEMOND FORD Primary Care Provider [phone] [facility] Referring Provider [phone] Allergies None recorded. Medications Name Status Start Date Stop Date amoxicillin 200 mg-potassium clavulanate 28.5 mg/5 mL oral s uspension Completed 09/30/2020 Take 20 mL every 12 hours by oral route. amoxicillin 500 mg capsule Completed 09/30 amoxicillin 875 mg-potassium clavulanate 125 mg tablet Completed 04/17/2021 atorvastatin 20 mg tablet Active Not av ailable Augmentin 125 mg-31.25 mg/5 mL oral suspension Completed 04/17/2021 Take 20 mL every 8 hours by oral route. budesonide DR - ER 3 mg capsule,delayed,extended Active Not available release bupropion HCl XL 300 mg 24 hr tablet, extended release Active Not available Take 1 tablet every day by oral route as directed for 90 days. carvedilol 12.5 mg tablet Completed 2021 Take 1 tablet twice a day by oral route as directed for 90 days . carvedilol 6.25 mg tablet Active Not av ailable ciprofloxacin 250 mg tablet Completed 03/23 ciprofloxacin 500 mg tablet Active Not available citalopram 40 mg tablet Active Not avai lable desvenlafaxine succinate ER 50 mg tablet,extended Active Not available release 24 hr famotidine 20 mg tablet Completed 04/17/20 21 [...] 20 mg tablet Active Not avai lable lisinopril 40 mg tablet Completed 04/17/20 lorazepam 1 mg tablet Completed 04/17/2021 Macrodantin 50 mg capsule Completed 2020 Take 1 capsule every 6 hours by oral route. methocarbamol 500 mg tablet Active Not available metronidazole 500 mg tablet Active Not available pantoprazole 40 mg tablet,delayed release Active Not available pramipexole 0.125 mg tablet Completed 09/19 Take 1 tablet 3 times a day by oral route. pramipexole 0.25 mg tablet Active Not a vailable primidone 50 mg tablet Active Not avail able Take 1 tablet twice a day by oral route as directed for 90 days . tramadol 50 mg tablet Active Not availa ble Problems Name Status Onset Date Source Cerebral [...] Hyperlip idemia; Essential Hypertension Emilio Mckoy MD: [address] [place] [address] , [place] [phone], Ph. 09/30/2020 Corey Dueñas MD: [address] [place] [address] [place] [phone], Ph. 08/10/2020 Cerebral Arterial Aneurysm Corey Dueñas MD: [address] [place] [address], [place] [phone], Ph. Social History Tobacco Smoking Status Never [...]
[2021-11-22] MEDS ORDERED: PEG 3350/NA SULF,BICARB,CL/KCL 4,000 ML ORAL.SOL PO ONE (06:44)
[2021-11-22] MEDS ORDERED: metroNIDAZOLE 500 MG/100 ML BAG IV SCH (07:00)
[2021-11-22] MEDS ORDERED: LEVOFLOXACIN 750 MG/150 ML BAG IV SCH (07:00)
[2021-11-22] MEDS ORDERED: DEXAMETHASONE 10 MG/ML VIAL ONE (10:25)
[2021-11-22] MEDS ORDERED: SUGAMMADEX SODIUM 200 MG/2 ML VIAL IV ONE (10:25)
[2021-11-22] MEDS ORDERED: ePHEDrine 50 MG/5 ML SYRINGE (ANEST) IV ONE (10:25)
[2021-11-22] MEDS ORDERED: MAGNESIUM SULFATE 2 GM/50 ML BAG IV ONE (10:25)
[2021-11-22] MEDS ORDERED: PROPOFOL 200 MG/20 ML VIAL IV ONE (10:25)
[2021-11-22] MEDS ORDERED: LIDOCAINE HCL/PF 100 MG/5 ML SYRINGE IV ONE (10:25)
[2021-11-22] MEDS ORDERED: ONDANSETRON 4 MG/2 ML VIAL ONE (10:25)
[2021-11-22] MEDS ORDERED: ROCURONIUM 10 MG/ML ML IV ONE (10:25)
[2021-11-22] MEDS ORDERED: fentaNYL 100 MCG/2 ML VIAL IV ONE (10:25)
[2021-11-22] MEDS ORDERED: KETAMINE 50 MG/ML Syringe (ANEST) IV ONE (10:25)
[2021-11-22] MEDS ORDERED: HYDROmorphone 1 MG/ML SYRINGE ONE (10:25)
[2021-11-22] MEDS ORDERED: diphenhydrAMINE 50 MG/ML VIAL IV PRN (11:52)
[2021-11-22] MEDS ORDERED: ACETAMINOPHEN 1,000 MG/100 ML BAG IV ONE (11:52)
[2021-11-22] MEDS ORDERED: ONDANSETRON 4 MG/2 ML VIAL IV PRN ×2 (11:52→13:04)
[2021-11-22] MEDS ORDERED: MEPERIDINE 25 MG/ML VIAL IV PRN (11:52)
[2021-11-22] MEDS ORDERED: METHOCARBAMOL 1,000 MG/10 ML VIAL IV PRN (11:52)
[2021-11-22] MEDS ORDERED: PROMETHAZINE 25 MG/ML VIAL IV PRN (11:52)
[2021-11-22] MEDS ORDERED: LACTATED RINGERS 250 ML IV PRN (11:52)
[2021-11-22] MEDS ORDERED: IPRATROPIUM/ALBUTEROL 3 ML AMPUL.NEB NEB PRN (11:52)
[2021-11-22] MEDS ORDERED: NALOXONE HCL 0.4 MG/ML VIAL IV PRN (11:52)
[2021-11-22] MEDS ORDERED: HYDROmorphone 0.5 MG/0.5 ML SYRINGE IV PRN (11:52)
[2021-11-22] MEDS ORDERED: LACTATED RINGERS 1,000 ML IV SCH (12:00)
--- NOTE | 2021-11-22 13:04 | Brief Operative Note ---
Brief Operative Note Date of procedure: 11/22/21 Pre-op diagnosis: COLOSTOMY STATUS Post-op diagnosis: other (COLOSTOMY STATUS;RECTAL STUMP INFECTION;PARASTOMAL HERNIA) Procedure: EXPLORATORY LAPAROTOMY;PARASTOMAL HERNIA REPAIR;DRAINAGE OF PELVIC INFECTION Grafts/Implants: Yes (VICRYL MESH GRAFT) Anesthesia: GETA Findings: EXTENSIVE ADHESIONS;LARGE PARASTOMAL HERNIA;SEVERE INFLAMMATION OF RECTAL STUMP AND SEVERE STENOSIS AND SCARRING Complications: none Surgeon: Mitch Saleh Estimated blood loss (cc): 50 Specimens Removed/Pathology: other (CULTURES OF PELVIC DRAINAGE) Condition: stable Disposition: PACU
[2021-11-22] MEDS ORDERED: METHOCARBAMOL 500 MG TABLET PO PRN (13:15)
[2021-11-22] MEDS: fentaNYL 100 MCG/2 ML VIAL IV PRN ×4 (13:22→13:32)
[2021-11-22] MEDS: HYDROmorphone 1 MG/ML SYRINGE IV PRN ×4 (14:54→23:43)
[2021-11-22] MEDS: metroNIDAZOLE 500 MG/100 ML BAG IV SCH (17:30)
[2021-11-22] MEDS: CARVEDILOL 6.25 MG TABLET PO SCH (17:34)
[2021-11-22] MEDS: oxyCODONE HCL 5 MG TABLET PO PRN ×2 (17:34→22:25)
[2021-11-22] MEDS: PANTOPRAZOLE 40 MG TABLET PO SCH (17:34)
[2021-11-22] MEDS: 0.9 % SODIUM CHLORIDE 10 ML SYRINGE IV SCH ×3 (18:57→23:46)
[2021-11-22] MEDS: PRIMIDONE 50 MG TABLET PO SCH (20:37)
[2021-11-22] MEDS ORDERED: PRAMIPEXOLE 0.25 MG TABLET PO SCH (21:00)
[2021-11-23] MEDS: metroNIDAZOLE 500 MG/100 ML BAG IV SCH ×2 (00:43→08:09)
[2021-11-23 06:44] LABS: Basophils # (Auto) 0.01 K/mcL (0.00-0.30); Basophils % (Auto) 0.1 % (0.0-2.0); Eosinophils # (Auto) 0 K/mcL (0.00-0.70); Eosinophils % (Auto) 0 % (0.0-7.0); Hematocrit 34.5 % (34.1-44.9); Hemoglobin 11.7 g/dL (11.2-15.7); Lymphocytes % (Auto) 10.3 % (15.5-49.0); Mean Cell Volume 95.6 fL (80.0-100.0); Mean Corpuscular HGB Conc 33.9 g/dL (31.0-36.0); Mean Platelet Volume 9.1 fL (7.4-10.4); Monocytes # (Auto) 0.93 K/mcL (0.10-0.90); Neutrophils % (Auto) 81.6 % (38.0-78.0); Platelet Count 224 K/mcL (140-440); RBC 3.61 M/mcL (3.59-5.38); Red Cell Distribution Width 12.2 % (11.5-14.5); WBC 11.7 K/mcL (4.5-11.0)
[2021-11-23] MEDS: 0.9 % SODIUM CHLORIDE 10 ML SYRINGE IV SCH ×2 (06:48→14:12)
[2021-11-23] MEDS: oxyCODONE HCL 5 MG TABLET PO PRN ×2 (07:01→12:22)
[2021-11-23] MEDS: PANTOPRAZOLE 40 MG TABLET PO SCH (07:04)
[2021-11-23 07:14] LABS: ALT/SGPT 41 U/L (<40); AST/SGOT 30 U/L (<32); Albumin 3.7 gm/dL (3.2-5.2); Albumin/Globulin Ratio 1.4 (1.0-2.3); Alkaline Phosphatase 58 U/L (39-117); Bilirubin,Direct < 0.2 mg/dL (0-0.3); Bilirubin,Total 0.4 mg/dL (0.1-1.0); Blood Urea Nitrogen 14 mg/dL (8-23); Calcium 9.3 mg/dL (8.6-10.4); Carbon Dioxide 24 mmol/L (22-30); Chloride 97 mmol/L (96-108); Globulin 2.6 gm/dL (2.2-3.7); Glomerular Filtration Rate 66; Glucose 129 mg/dL (70-105); Lactate Dehydrogenase 242 U/L (135-225); Phosphorous 4.4 mg/dL (2.5-4.5); Triglycerides 101 mg/dL (<150); Uric Acid 6.7 mg/dL (2.5-8.0)
[2021-11-23] MEDS ORDERED: LEVOTHYROXINE 25 MCG TABLET PO SCH (07:30)
[2021-11-23] MEDS: CARVEDILOL 6.25 MG TABLET PO SCH (08:09)
[2021-11-23] MEDS: MUPIROCIN OINT 2% 22GM NARES SCH ×2 (08:10)
[2021-11-23] MEDS: HYDROmorphone 1 MG/ML SYRINGE IV PRN (08:12)
[2021-11-23] MEDS ORDERED: DESVENLAFAXINE SUCCINATE 50 MG PO SCH (09:00)
[2021-11-23] MEDS ORDERED: LEVOFLOXACIN 500 MG/100 ML BAG IV SCH (09:00)
[2021-11-23] MEDS ORDERED: LISINOPRIL 20 MG TABLET PO SCH (09:00)
[2021-11-23] MEDS: PRIMIDONE 50 MG TABLET PO SCH (09:29)
--- NOTE | 2021-11-23 12:37 | Discharge Summary ---
Discharge Provider Provider Patient information: Note initiated : 11/23/21 at 12:27 pm Service Date, if different from initiated Date: [] Patient: Flavia Michelle 66 y/o F admitted on 11/22/21 for Colostomy Takedown. Chief Complaint: [] Date of admission: 11/22/21 05:55 Discharge date: 11/23/21 Primary care physician: YECENIA Ren Admitting clinician: Mitch Saleh Attending physician on admission: Mitch Saleh Attending physician on discharge: Mitch Saleh Discharging clinician: Mitch Saleh COURSE Hospital Course Hospital course: 66-year-old female who had history of diverticulitis in the past requiring operative resection. She had a postoperative anastomotic leak which required colostomy. After 4 months she was explored with an attempt at takedown of her colostomy but she had a residual pelvic abscess. The abscess was drained and the colostomy was left intact. She now returns for an attempt at takedown of her colostomy. At the time of surgery she was found to have necrosis of the stump with an infectious inflammatory debris in the pelvis. The stone was not adequate for preanastomosis. This stopped was debrided and drained. She had a parastomal hernia which was repaired primarily and then reinforced with Vicryl mesh graft. She was informed that her colostomy is probably permanent since the potential for any type of anastomosis would have a high potential for leak and reoperation. It would be best that she adjust her self to having a permanent stoma. She has excepted this situation at this time. Patient has done well overnight and has tolerated diet. She has good stoma function. She is stable for discharge home Discharge diagnosis: Colostomy status Secondary discharge diagnosis: Recurrent rectal stump leak and abscess Parastomal hernia Coronary artery disease Sleep apnea Hypertension Depression Diabetes type 2 Reason for admission: Postoperative exploratory laparotomy Procedures: Exploratory laparotomy with drainage and debridement of rectal stump Parastomal hernia repair Pertinent studies/significant findings: None Complications: None Time Spent with Patient Time attestation: Total time spent providing and/or coordinating discharge services: Physical Examination Vital Signs Vital signs: Temp Pulse Resp BP Pulse Ox 98.7 F 70 16 129/58 94 11/23/21 08:00 11/23/21 08:00 11/23/21 08:00 11/23/21 08:00 05/05/22 08:00 General physical appearance General physical exam: well developed, well nourished, no distress, moderate pain and obese Eyes Eye exam: PERRL and normal ocular movement ENT ENT exam: normal pinna, normal mucosa and decreased hearing Head Head exam IM: Present atraumatic, normal inspection and normocephalic Neck Neck exam: no masses, no bruits, trachea midline, no lymphadenopathy and no venous distension Cardiovascular Cardiovascular exam IM: Present normal rate and rhythm, RRR, +S1 and +S2; Absent JVD Respiratory Respiratory exam: normal expansion, normal respiratory effort and clear to auscultation Abdomen Abdomen: Present tender (Midline incision tenderness) and surgical scars (Stoma left lower quadrant; drain right lower quadrant) Integumentary Integumentary: Present no rash, no growths and no abnormal pigmentation Neurologic Neurologic: Present normal coordination and normal sensation Musculoskeletal Musculoskeletal: Present normal gait and normal posture Psychiatric Psychiatric: Present oriented to time, oriented to person, oriented to place, speech is normal and memory intact Discharge Plan Patient/Caregiver Discharge Instructions Activity: increase activity as tolerated Diet: Regular Diet Prescriptions: New oxycodone-acetaminophen [Endocet] 10-325 mg Tablet 1 tab PO Q4H PRN (Reason: Pain) Qty: 40 0RF amoxicillin-pot clavulanate 875-125 mg tablet 1 tab PO BID Qty: 30 0RF oxycodone-acetaminophen [Endocet] 10-325 mg tablet 1 tab PO Q4H PRN (Reason: Pain) Qty: 40 0RF fluconazole [Diflucan] 100 mg tablet 100 mg PO QDAY Qty: 10 0RF Continued primidone 50 mg tablet 50 mg PO BID Qty: 180 3RF (DME) ostomy supplies Misc See Rx Instructions .Route Qty: 60 12RF Rx Instructions: Spencer #[id number] New Image #[id number] desvenlafaxine succinate 50 mg tablet extended release 24 hr 50 mg PO QDAY Qty: 90 4RF pramipexole 0.25 mg tablet 0.125 mg PO QHS Qty: 90 4RF atorvastatin 20 mg tablet 20 mg PO QHS Qty: 90 4RF lisinopril 20 mg tablet 20 mg PO QDAY Qty: 90 4RF budesonide 3 mg capsule,delayed,extend.release 9 mg PO DAILY 0RF calcium 600 mg Capsule 600 mg PO BID 0RF famotidine 20 mg Tablet 20 mg PO BIDP PRN (Reason: Heartburn) 0RF cyanocobalamin (vitamin B-12) [Vitamin B-12] 500 mcg Tablet 500 mcg PO QDAY 0RF vitamin B complex Tablet 1 tab PO QDAY 0RF alpha lipoic acid 250 mg Capsule 250 mg PO QDAY 0RF vitamin E 400 unit Capsule 400 unit PO QDAY 0RF magnesium oxide 400 mg magnesium Tablet 400 mg PO HS 0RF pantoprazole 40 mg tablet,delayed release (DR/EC) 40 mg PO BIDAC 0RF Rx Instructions: TAKE 1 TABLET BY MOUTH TWICE DAILY methocarbamol 500 mg tablet 1,000 mg PO Q8HP PRN (Reason: Muscle Spasm) 0RF carvedilol 6.25 mg tablet 6.25 mg PO BIDCC 0RF Rx Instructions: must administer with a meal/food levothyroxine 25 mcg tablet 25 mcg PO QAMAC 0RF hydrocodone-acetaminophen 7.5-325 mg tablet 1 - 2 tab PO Q8HP PRN (Reason: pain) 0RF Rx Instructions: Max 6/24 hours. MUST LAST 30 DAYS! hydrochlorothiazide 25 mg tablet 25 mg PO DAILY 0RF Follow Up Plan Follow up with: Mitch Saleh MD [Physician] - 12/07/21 9:15 am Patient Disposition: Home, Self-Care Prognosis: Good Rehab Potential: Good I certify that the patient requires SNF services: No Overall status at discharge: patient is progressing back to baseline Pending Pending Pending: Resuscitation Status Resuscitate (Full Code) Diet GI Soft/Transitional Start Audra November 23 1150 Carvedilol (Carvedilol 6.25 Mg Tablet) 6.25 mg PO BIDCC [facility] Last Admin: 11/23/21 08:09 Dose: 6.25 mg Documented by: Admin: 11/22/21 17:34 Dose: 6.25 mg Documented by: RAFAT Hydromorphone HCl (Hydromorphone 1 Mg/Ml Syringe) 1 mg IV Q2HP PRN; Protocol PRN Reason: Per Pain Protocol Last Admin: 11/23/21 08:12 Dose: 1 mg Documented by: Admin: 11/22/21 23:43 Dose: 1 mg Documented by: Admin: 11/22/21 20:34 Dose: 1 mg Documented by: Admin: 11/22/21 17:35 Dose: 1 mg Documented by: Admin: 11/22/21 14:54 Dose: 1 mg Documented by: RAFAT Levofloxacin (Levaquin) 500 mg in 100 mls @ 100 mls/hr IV DAILY [facility]; Protocol Last Admin: 11/23/21 09:28 Dose: 100 mls/hr Documented by: TONY Metronidazole (Flagyl) 500 mg in 100 mls @ 100 mls/hr IV Q8H [facility]; Protocol Last Infusion: 11/23/21 09:10 Dose: 0 mls/hr Documented by: Admin: 11/23/21 08:09 Dose: 100 mls/hr Documented by: Infusion: 11/23/21 01:45 Dose: 0 mls/hr Documented by: Admin: 11/23/21 00:43 Dose: 100 mls/hr Documented by: Infusion: 11/22/21 18:45 Dose: 0 mls/hr Documented by: Admin: 11/22/21 17:30 Dose: 100 mls/hr Documented by: RAFAT Levothyroxine Sodium (Levothyroxine 25 Mcg Tablet) 25 mcg PO QAMAC [facility] Last Admin: 11/23/21 07:04 Dose: 25 mcg Documented by: TONY Lisinopril (Lisinopril 20 Mg Tablet) 20 mg PO QDAY [facility] Last Admin: 11/23/21 09:29 Dose: 20 mg Documented by: TONY Methocarbamol (Methocarbamol 500 Mg Tablet) 1,000 mg PO Q8HP PRN PRN Reason: Muscle Spasm Last Admin: 11/22/21 19:01 Dose: 1,000 mg Documented by: RAQUEL Mupirocin (Mupirocin Oint 2% 22gm) 1 dose NARES BID [facility] Last Admin: 11/23/21 08:10 Dose: 1 dose Documented by: Admin: 11/23/21 08:10 Dose: Not Given Documented by: TONY Oxycodone HCl (Oxycodone Hcl 5 Mg Tablet) 10 mg PO Q4HP PRN; Protocol PRN Reason: Per Pain Protocol Last Admin: 11/23/21 12:22 Dose: 10 mg Documented by: Admin: 11/23/21 07:01 Dose: 10 mg Documented by: Admin: 11/22/21 22:25 Dose: 10 mg Documented by: Admin: 11/22/21 17:34 Dose: 10 mg Documented by: RAFAT Pantoprazole Sodium (Pantoprazole 40 Mg Tablet) 40 mg PO BIDAC [facility] Last Admin: 11/23/21 07:04 Dose: 40 mg Documented by: Admin: 11/22/21 17:34 Dose: 40 mg Documented by: RAFAT Desvenlafaxine Succinate 50 Mg Tablet Er 1 dose PO DAILY [facility] Last Admin: 11/23/21 09:29 Dose: 1 dose Documented by: TONY Pramipexole Dihydrochloride (Pramipexole 0.25 Mg Tablet) 0.125 mg PO HS [facility] Last Admin: 11/22/21 20:37 Dose: 0.125 mg Documented by: RAQUEL Primidone (Primidone 50 Mg Tablet) 50 mg PO BID [facility] Admin: 11/23/21 09:29 Dose: 50 mg Documented by: Admin: 11/22/21 20:37 Dose: 50 mg Documented by: RAQUEL Sodium Chloride (0.9 % Sodium Chloride 10 Ml Syringe) 10 ml IV Q8 [facility] Admin: 11/23/21 06:48 Dose: 10 ml Documented by: Admin: 11/22/21 23:46 Dose: 10 ml Documented by: Admin: 11/22/21 20:35 Dose: 10 ml Documented by: Admin: 11/22/21 18:57 Dose: 10 ml Documented by: RAQUEL Shift Summary 11/23/21 03:22 Shift Summary by Betty Mendenhall Primary Diagnosis: Rectal Stump Infection, Parastomal Hernia, Severe Stenosis and Scaring, Extensive Adhesions. Registration Status: Day of Hospitalization: Admitted 11/22/21 for a Colostomy Takedown which was not performed d/t findings as written above. 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 Midline incision with 31 sharifa. Vital Signs with Trends: VSS, afebrile, uses I.S. up to 1500. Neuro/Mental Status: Awake, alert et oriented times 4. Makes needs known. Meds (abo, pain, BP, etc): Flagyl, only 2 of her home medications have been ordered post operatively. Pt medicated with Dilaudid 1 mg times 2, oxycodone 10 mg x 1 et Robaxin 1000 mg once. Pain level was as high as 7 et once down to a 3 pt was able to go to sleep. Lines/Tubes: 20 ga RW-saline locked O2, liter flow/saturations: Uses CPAP without oxygen at night at home. Refused last night. On oxygen 2 L/min NC to keep SpO2 in the mid 90s. Lab/Rad results: Cardiac Rhythm (if applicable), alarms, trends: S1, S2 with murmur (pt aware-has had this murmur since childhood). Date of last BM: 11/22/21 Elimination (remove Greco within 24h if appropriate): Up to the bathroom twice so far, voiding clear-yellow urine. Recommendations/questions for MD: Vent/Bipap/Cpap: Activity: Up ad ethan, tedhose et SCDs in place. Expected date of discharge: TBD Discharge Plan (needs, disposition, etc): Home with Initialized on 11/23/21 03:22 - END OF NOTE
--- NOTE | 2021-11-24 14:00 | Operative Note ---
DATE OF OPERATION: 11/22/2021 PREOPERATIVE DIAGNOSIS: Colostomy status. POSTOPERATIVE DIAGNOSES: Colostomy status with rectal stump infection, parastomal hernia. PROCEDURE: Exploratory laparotomy with drainage of pelvic infection, debridement of inflammation of the rectal stump, and parastomal hernia repair. SURGEON: Mitch Saleh M.D. DESCRIPTION OF PROCEDURE: Under general anesthesia, the patient's abdomen was prepped and draped in a sterile field. Timeout procedure was carried out as per protocol. The old midline scar was excised. Peritoneum was entered. There were extensive adhesions to the anterior abdominal wall from previous operations. These adhesions were taken down using sharp and blunt dissection. The dissection was continued down into the pelvis. In the deep pelvis, there was a very thick inflammatory scar that was encountered. It was dissected using primarily blunt dissection to take care not to injure any bowel. The rectal stump was identified by a previously-placed suture while dissecting the stump. There was exudation of purulent material, which was cultured. Copious irrigation was carried out. The remaining rectal stump was dissected. The apex of the rectal stump appeared to be severely inflamed, and this inflammation extended into the deep pelvis. It was immediately recognized that the residual rectum was not adequate for reanastomosis. Further irrigation was carried out, and it was elected to abort the colostomy takedown. A 7 Hma drain was placed in the pelvis over the rectal stump. Next, the sigmoid colon was identified along the lateral pelvic wall. It was followed up to the entrance through the anterior abdominal wall. Blunt adhesions were taken down. There were multiple loops of small bowel in a large hernia sac in the parastomal area. These loops of bowel were taken down sequentially, taking care not to injure any bowel wall. Once this was done, a large fascial defect was noted. The edges of the fascial defect were dissected free. The fascial defect was then closed using multiple sutures of #1 Prolene in a [id number] pattern. This gave adequate closure. The closure was then covered with a Vicryl mesh graft that was sutured circumferentially over the repair. It was understood that the Vicryl would eventually resorb, but that it would add adequate stability to the abdominal wall long enough that repeat herniation would not be done. Once this was sutured, irrigation was carried out. The wall of the sigmoid colon was sutured to the fascia circumferentially to prevent prolapse of the colon. Sponge, instrument, and needle counts were verified as correct. The fascia and peritoneum in the midline were closed with running #1 Prolene. Subcutaneous tissue was irrigated and closed with 2-0 Monocryl. The skin was closed with sharifa. The drain was secured with 2-0 nylon. Tegaderm dressing was placed. New stoma appliance was placed. The patient tolerated the procedure well. She was awakened, transferred to a bed, and taken to the postanesthetic care unit in satisfactory condition. LCS:dagmar Job ID: [id number] Doc ID: [id number] Mitch Saleh M.D.
== END 2021-11-23 14:30 | disposition home or self-care (01) | DRG 908 ==
LOC: MEDSUR 05:55
PROVIDERS: ADMIT Family Medicine Adult Medicine; ATTEND Family Medicine Adult Medicine